=== PATIENT | female | born 1975 | race Caucasian/White ===

== ENCOUNTER 2020-01-06 00:09 | Outpatient (CLI) | payer OTHER, BC, SELFPAY ==
[2020-01-06 18:39] LABS: SARS-CoV-2 RNA PCR Negative
== END 2020-01-06 00:10 | disposition home or self-care (01) ==
LOC: ANHCOVIDDT 00:10
PROVIDERS: PCP Family Medicine; Visit Provider Surgery
DX: Z01.812 Encounter for preprocedural laboratory examination (principal); Z20.828 Contact with and (suspected) exposure to other viral communicable diseases
CPT/HCPCS: 87635; C9803; U0003

== ENCOUNTER 2020-01-08 00:38 | Day surgery (SDC) | payer OTHER, BC, SELFPAY ==
[2019-10-22 13:59] VITALS: BMI 32.5
--- NOTE | 2020-01-06 11:30 | PM.SD ---
Same Day Admit/Disch: HPI History of Present Illness Chief complaint: Recurrent Incisional Hernia Narrative: Harriet Meade is a 44 year old female who presents with left lower quadrant pain that radiates to her back. She has a history of a trocar site hernia in the left lower quadrant which was repaired open with underlying mesh 3 years ago in 2016. She went to the emergency room the day after 2018 for this left lower quadrant pain that radiated to her back. A CT scan of the abdomen pelvis was negative. She was seen in the office in August and noted to have tenderness in the left lower quadrant in the vicinity of her previous repair. No definite hernia was able to be palpated. The patient was sent for a dynamic left lower quadrant soft tissue ultrasound. This showed a recurrent left lower quadrant hernia. The patient has had several previous laparoscopic surgeries including a laparoscopic tubal ligation in 2005, a laparoscopic left oophorectomy in 2012 and a laparoscopic appendectomy in 2014. She has a disabled child at home and does have to do a lot of lifting providing care for her child. She is taken to surgery now for laparoscopic repair of this recurrent left lower quadrant hernia. [facility] Past Medical History Medical History (Updated 01/08/20 @ 08:25 by Favian Hightower MD) Anxiety Depression Dyslipidemia Major depressive disorder, single episode, unspecified Obesity Ovarian torsion 2013 Palpitations 2011 Surgical History Surgical History H/O laparoscopy 05-06-2006 H/O: hysterectomy Vaginal 2007 History of appendectomy 2015 History of bilateral tubal ligation 2005 History of loop electrical excision procedure (LEEP) 2009 Family History Family History Sibling Depression Family history of gastrointestinal disorder Family history of elevated blood lipids Father Hypertension Family history of elevated blood lipids Family history of cardiovascular disease Acute myocardial infarction, Onset Age: 40 Malignant neoplasm of prostate, Onset Age: 55 Family history of kidney stones Grandparent Family history of cardiovascular disease Family history of coronary artery disease Mother Family history of malignant neoplasm of breast in first degree relative, Onset Age: 50 Other Family history of malignant neoplasm of breast Social History Social History Smoking status: Never smoker Alcohol intake: never Substance use: never Gender identity (if verbalized by the patient): Female Spiritual care concerns: No Same Day Admit/Disch: Med Pre-admit Medications Home Medications Medication Instructions Recorded Confirmed Type quetiapine 25 mg tablet 25 mg PO QPM 06/09/19 01/08/20 History venlafaxine 150 mg 150 mg PO DAILY 06/09/19 10/22/19 History capsule,extended release 24 hr Amitiza 24 mcg PO BID 10/22/19 10/22/19 History diclofenac sodium 75 mg See Rx Instructions .ROUTE 01/06/20 01/08/20 Rx tablet,delayed release .COMPLEX #180 tablet ibuprofen 800 mg PO Q8H PRN #30 tablet 01/10/20 Rx oxycodone-acetaminophen [Percocet] 1 - 2 tablet PO Q4H PRN #30 tablet 01/10/20 Rx Exam Const: General: comfortable, no acute distress, alert and awake HENMT: Head: normocephalic and atraumatic Mouth: Yes Normal oral and palatal mucosa present Eyes: Conjunctivae: conjunctivae normal Pupils: Equal, round and reactive pupils present EOM: EOMs intact bilaterally Neck: Neck: normal visual inspection, no lymphadenopathy and nontender Resp: Effort & Inspection: normal respiratory effort Auscultation: clear to auscultation bilaterally Cardio: Rate: regular rate Rhythm: regular rhythm Heart sounds: no gallops, no murmurs and no rubs GI: Inspection: non-distended and scar (Left lower quadrant) GI Palp: Yes Soft to
[2020-01-08] VITALS (15 sets, daily range): BP systolic 97–114; BP diastolic 45–85; PULSE 80–109; RESP 16–18; TEMP 36.4–37.3; O2SAT 87–100
--- NOTE | 2020-01-08 08:24 | WPDANESEPPF ---
Anes - Initial Pre Proc Eval Procedure: Operation Date: 01/08/20 13:00 Proposed Procedures p Laparoscopic Repair Of Recurrent Incisional Hernia - Matteo Padgett MD Date/Time: 01/08/20 08:24 Surgeon: Matteo Padgett MD Pre Op Diagnosis: Recurrent Incisional Hernia Patient Data Age: 44 Gender: F Height: 1.52 m Weight: 75.57 kg Allergies Allergy/AdvReac Type Severity Reaction Status Date / Time codeine Allergy Severe SEIZURE, Verified 12/26/19 13:51 VOMITING meperidine Allergy Severe Nausea and Verified 12/26/19 13:51 Vomiting--syncope hydrocodone Allergy Intermediate rash, Verified 12/26/19 13:51 itching, hives Home Medications Medication Instructions Recorded Confirmed Type quetiapine 25 mg tablet 25 mg PO QPM 06/09/19 01/08/20 History venlafaxine 150 mg 150 mg PO DAILY 06/09/19 10/22/19 History capsule,extended release 24 hr lubiprostone [Amitiza] 24 mcg PO BID 10/22/19 10/22/19 History diclofenac sodium 75 mg See Rx Instructions .ROUTE 01/06/20 01/08/20 Rx tablet,delayed release .COMPLEX #180 tablet Patient hx anesthesia problems: none Family hx anesthesia problems: none PMFSH Past Medical History Medical History (Updated 01/08/20 @ 08:25 by Favian Hightower MD) Anxiety Depression Dyslipidemia Major depressive disorder, single episode, unspecified Obesity Ovarian torsion 2013 Palpitations 2012 Surgical History Surgical History H/O laparoscopy 05-06-2006 H/O: hysterectomy Vaginal 2006 History of appendectomy 2015 History of bilateral tubal ligation 2006 History of loop electrical excision procedure (LEEP) 2010 Family History Family History Sibling Depression Family history of gastrointestinal disorder Family history of elevated blood lipids Father Hypertension Family history of elevated blood lipids Family history of cardiovascular disease Acute myocardial infarction, Onset Age: 40 Malignant neoplasm of prostate, Onset Age: 55 Family history of kidney stones Grandparent Family history of cardiovascular disease Family history of coronary artery disease Mother Family history of malignant neoplasm of breast in first degree relative, Onset Age: 50 Other Family history of malignant neoplasm of breast Social History Social History Smoking status: Never smoker Alcohol intake: never Anes - Eval Final PreProcedure Day of Procedure 01/08/20 08:24 Patient weight: obese Heart: regular rate and rhythm Lungs: clear to auscultation and normal air movement Airway: Mallampati scale class II Neurological: alert and oriented Last oral intake: >/= 8 hours ASA classification: II Emergent: no Anesthetic plan: proceed Anesthesia type and monitoring: general ETT Informed Consent: The patient's anesthetic plan and its attendant risks and benefits were discussed with the patient/family/POA. Questions were solicited and answers provided to the satisfaction of the patient/family/POA.
--- NOTE | 2020-01-08 10:30 | WPDHPUPDATE1 ---
History and Physical Update Update Date/Time: 01/08/20 10:30 History and Physical has been reviewed, including an updated exam of the patient. There are NO changes in the patient's condition. Risks, benefits, and alternatives have been discussed and questions answered. Patient agrees to proceed with procedure.
[2020-01-08] MEDS: LACTATED RINGERS 1,000 ML 30 ML IV CONT ×3 (11:40→16:14)
[2020-01-08] MEDS: ceFAZolin 2 GM/D5W 50 ML 2 GM/50 ML BAG IVPB (13:14)
[2020-01-08] MEDS: BUPIVACAINE/EPINEPHRINE 0.5% 30 ML VIAL 60 ML INFILTRATE (14:03)
[2020-01-08] MEDS: KETOROLAC 30 MG/ML VIAL (*BKC) IV PUSH (15:00)
--- NOTE | 2020-01-08 15:02 | PM.PROC ---
Procedure Note - Detailed Date of procedure: 01/08/20 Pre-op diagnosis: Recurrent Incisional Hernia Recurrent incisional hernia left lower quadrant Post-op diagnosis: same Procedure performed: Laparoscopic repair recurrent incisional hernia with 20 x 15 cm Symbotex mesh Description of procedure: The patient was checked and marked in the preoperative holding area. The areas of the hernia were marked both standing and supine. She was then taken to surgery and induced into general anesthesia. Kumar catheter was placed. The entire abdomen was prepped and draped. The initial trocar was placed in the left upper quadrant. This was an applied Medical optical trocar placed under direct visualization. After adequate insufflation, 2 5 mm trocars were placed in the right side of the abdomen and a 10 11 trocar was placed in the right lower quadrant. We worked from the patient's right side. Initially, looking at the left lower quadrant, there were adhesions to the old mesh repair. These were omental adhesions and were taken down sharply. Almost no cautery was used and there was minimal bleeding. Once these were taken down, it was not apparent where the hernia was located. I judged that it was probably under the mesh as the caudal lip of the mesh was fairly loose. I started dissecting the old mesh from the anterior abdominal wall. I still did not see a hernia. Eventually, I went ahead and took off all the old mesh. Some of the posterior fascia came off with the mesh but most of the fascia was left in place. This mesh was extricated from the abdominal cavity through the 10 11 trocar. The previous left lower quadrant hernia was evident under the mesh. Looking more carefully there was a 2nd trocar site incisional hernia that was below (caudal to) the previously placed abdominal wall mesh. This was a very small opening but it did have some fatty tissue within it suggesting a hernia that had contained omentum. There were no other hernias in this area. The 2 hernia defects were about 5 cm apart. I chose a 15 x 20 cm piece of Symbotex mesh. Three Ribera-Pal transfascial sutures were placed on the mesh. The mesh was rolled and placed in the abdomen. It had been hydrated prior to placement. I then unrolled the mesh and positioned the transfascial sutures appropriately. Using stab incisions on the left lower quadrant, I brought up each of the transfascial sutures with the Adioso suture pass device. I checked these positions and they looked to be acceptable. The mesh would lay flat in the left lower quadrant following the curve of the lower abdominal wall there. I tied down all 3 of these transfascial sutures. I then pulled the mesh flat so that it was positioned over the area of the hernias in its general location to be placed. I then used the secure strap device and placed tacks to secure the mesh in this position. The secure strap absorbable tacks were placed throughout the mesh so that it would lie flat and adhere to the abdominal wall. All looked good. I used 1 more Ribera-Pal suture as a transfascial suture over the medial edge of the mesh. This was tied down as well so a total of 4 transfascial sutures were placed. We again reviewed the area that had been repaired. Both small defects were well covered with at least 5 cm overlap. I then closed the 10 11 trocar site at the fascial level with an 0 Vicryl suture and the Duglas cone. We evacuated CO2 and removed the trocar sleeves. Skin wounds were closed with subcuticular 4 O Monocryl skin suture. Exofin surgical adhesive was used to dress the wounds and dress the transfascial suture sites. The patient was awakened and taken to recovery in good condition. Sponge and needle counts were correct x2 the only specimen sent was the old mesh for gross only. Implants: 15 cm x 20 cm Symbotex abdominal wall mesh Anesthesia: GETA and local (0.5% Marcaine with epinephrine) Surgeon: Matteo Padgett MD Metabolic Specialist: Lianna Mena RN
--- NOTE | 2020-01-08 15:46 | SUR.PHASEI ---
1541; PT BA. C/O PAIN 05/15. DR LAGUERRE NOTIFIED. ORDERS FOR DILAUDID AND CONTINUE TO GIVE FENTANYL ALSO.
[2020-01-08] MEDS: HYDROMORPHONE HCL 1 MG/ML INJ 0.5 MG IV PUSH ×4 (15:47→16:04)
--- NOTE | 2020-01-08 16:01 | SUR.PHASEI ---
1600; PT RESTING QUIETLY NOW. STILL STATES PAIN 05/15. NO LONGER MOANING.
--- NOTE | 2020-01-08 16:37 | SUR.PHASEI ---
1630; PT RESTING QUIETLY. STATES PAIN BETTER NOW AND TOLERABLE. SPOUSE UPDATED.
--- NOTE | 2020-01-08 17:43 | PC.NURSE ---
Returned from OR per [ STRETCHER ABDOMEN SOFT WITH DISTENTION HYPOACTIVE BS NOTED PUNCTURES SITES CLEAN, DENIES THE NEED FOR ]PAIN MEDS
[2020-01-08] MEDS: QUEtiapine FUMARATE 25 MG TABLET PO (18:38)
[2020-01-08] MEDS: MORPHINE SULFATE 4 MG/ML INJ IV PUSH ×2 (18:39→22:53)
[2020-01-08] MEDS: LUBIPROSTONE 24 MCG CAPSULE PO (18:51)
[2020-01-08] MEDS: IBUPROFEN IV 800 MG/200 ML 800 MG/200 ML BAG 400 MG IVPB (18:52)
[2020-01-08] MEDS: DICLOFENAC SOD 75 MG TABLET.EC PO (20:35)
[2020-01-08] MEDS: SENNA/DOCUSATE SODIUM TABLET 2 TAB PO (20:36)
[2020-01-09] MEDS: IBUPROFEN IV 800 MG/200 ML 800 MG/200 ML BAG 400 MG IVPB ×4 (00:37→17:46)
[2020-01-09 05:54] LABS: Hematocrit 37.1 % (37.0-47.0); Hemoglobin 12.3 g/dL (12.0-15.0); Mean Corpuscular HGB Conc 33.2 g/dl (32-36); Mean Corpuscular Hemoglobin 31.1 pg (26-34); Mean Corpuscular Volume 93.7 fl (80-100); Mean Platelet Volume 9.7 fl (7.4-10.4); Platelet Count Result 302 k/mm3 (150-375); Red Blood Count 3.96 M/mm3 (4.2-5.4); Red Cell Distribution Width 12.8 % (11.5-14.5); White Blood Count 11.6 K/mm3 (4.5-10.0)
[2020-01-09 06:08] LABS: Blood Urea Nitrogen 10 mg/dL (7-17); Calcium 8.4 mg/dL (8.4-10.2); Carbon Dioxide 30 mmol/L (22-30); Chloride 102 mmol/L (98-107); Estimated CRCL calculation 71 ml/min; Estimated Glomerular Filt Rate > 60; Glucose 91 mg/dL (65-105); Potassium 4.1 mmol/L (3.4-5.0); Sodium 135 mmol/L (137-145)
[2020-01-09 07:40] VITALS: BP 112/59; PULSE 76; RESP 18; TEMP 36.8; O2SAT 98
[2020-01-09 08:18] VITALS: O2SAT 92
[2020-01-09] MEDS: LUBIPROSTONE 24 MCG CAPSULE PO ×2 (08:38→17:46)
[2020-01-09] MEDS: DICLOFENAC SOD 75 MG TABLET.EC PO (08:39)
[2020-01-09] MEDS: polyethylene glycoL 3350 17 GM POWD.PACK PO (08:39)
[2020-01-09] MEDS: VENLAFAXINE HCL XR 75 MG CAP.ER.24H 150 MG PO (08:39)
[2020-01-09] MEDS: ENOXAPARIN 40 MG/0.4 ML SYRINGE SUB-Q (08:39)
[2020-01-09] MEDS: MORPHINE SULFATE 4 MG/ML INJ IV PUSH ×2 (09:14→17:45)
--- NOTE | 2020-01-09 13:01 | PM.PNGS ---
Progress Note: A&P Assessment and Plan (1) Recurrent incisional hernia: Code(s): K43.2 - Incisional hernia without obstruction or gangrene Status: Chronic Assessment and Plan: Doing well status post laparoscopic repair yesterday. Not surprisingly she is having significant postoperative pain. She developed itching after some hydrocodone and that is now been listed as an allergy. She will be changed to Percocet with morphine sulfate as a backup. She continues to receive a scheduled dose of IV Caldolor q.6 hours. Will advance her diet and try to get her up and do some walking today. Possibly home tomorrow but it could be 2 or 3 more days depending on how quickly her pain improves. Subjective Subjective Date/Time Seen: 01/09/20 13:01 Post Op day: 1 Patient reports: still having pain (Pain is pretty severe. Requests Percocet), tolerating liquids well, voiding w/o difficulty and no bowel movement Review of Systems Review of Systems: All systems reviewed & are unremarkable except as noted in HPI and below Constitutional: Constitutional: Denies headache(s) Cardiovascular: Cardiovascular: Denies chest pain and Denies dyspnea Respiratory: Respiratory: Denies cough and Denies dyspnea Gastrointestinal: Gastrointestinal: Reports as per HPI Neurologic: Denies confusion and Denies headache(s) Exam Const: General: comfortable and no acute distress; No confusion Orientation/consciousness: patient oriented x3 and No confusion GI: Inspection: non-distended, incision (All incisions healing well) and no obesity GI Palp: Yes Soft to palpation, Yes Tenderness to palpation present (GI) (Very tender throughout especially left lower quadrant where mesh was placed), Yes Guarding due to palpation present (GI), No Hernia present, No Palpable mass present and Yes Rebound tenderness present Auscultation: normal bowel sounds Neuro: General: patient oriented x3, no focal motor deficits and No confusion Extrem: General: no calf tenderness and no edema Psych: Affect: normal affect Insight: Good insight present (Psych) Judgement: Good judgement present (Psych) Objective Data Vital Signs Vital Signs: Vital Signs - 24 hr 01/08/20 15:15 01/08/20 15:33 01/08/20 15:45 Temperature 36.4 C 36.6 C Pulse Rate 98 104 H 90 Respiratory Rate 16 18 18 Blood Pressure 100/85 112/79 113/64 Pulse Oximetry 99 100 98 01/08/20 16:00 01/08/20 16:15 01/08/20 16:30 Temperature 36.6 C Pulse Rate 92 95 96 Respiratory Rate 18 16 18 Blood Pressure 104/64 110/71 111/68 Pulse Oximetry 97 95 95 01/08/20 16:45 01/08/20 17:00 01/08/20 17:30 Temperature 36.7 C Pulse Rate 104 H 106 H 109 H Respiratory Rate 16 16 16 Blood Pressure 103/63 107/67 112/59 L Pulse Oximetry 96 96 95 01/08/20 17:41 01/08/20 17:45 01/08/20 18:15 Temperature Pulse Rate 106 H 87 80 Respiratory Rate 16 16 18 Blood Pressure 108/51 L 105/50 L Pulse Oximetry 96 96 97 01/08/20 19:15 01/08/20 22:37 01/09/20 07:40 Temperature 36.7 C 36.8 C 36.8 C Pulse Rate 99 93 76 Respiratory Rate 16 16 18 Blood Pressure 97/45 L 107/68 112/59 L Pulse Oximetry 96 87 L 98 01/09/20 08:18 Temperature Pulse Rate Respiratory Rate Blood Pressure Pulse Oximetry 92 Intake/Output Intake/Output: Intake & Output 01/06/20 01/07/20 01/08/20 01/09/20 23:59 23:59 23:59 23:59 Intake Total 1250 1120 Output Total 1300 Balance 1250 -180 Meds/Results Medications: Active Medications Generic Name Dose Route Start Last Admin Trade Name Freq PRN Reason Stop Dose Admin Diclofenac Sodium 75 mg 01/08/20 21:00 01/09/20 08:39 Voltaren Ec Tab PO 75 mg Q12HR JAMIL Administration Diphenhydramine HCl 25 mg 01/08/20 17:17 Benadryl Inj IV PUSH Q6H PRN Itching Enoxaparin Sodium 40 mg 01/09/20 09:00 01/09/20 08:39 Lovenox SUB-Q 40 mg DAILY JAMIL Administration Ibuprofen 800 mg in 200 mls @ 400 mls/hr 01/08/20 18:00
[2020-01-09 14:00] VITALS: BP 101/56; PULSE 97; RESP 16; TEMP 36.6; O2SAT 91
[2020-01-09] MEDS: QUEtiapine FUMARATE 25 MG TABLET PO (17:47)
[2020-01-09 18:00] VITALS: BP 102/61; PULSE 91; RESP 16; TEMP 36.7; O2SAT 93
[2020-01-09] MEDS: SENNA/DOCUSATE SODIUM TABLET 2 TAB PO (20:25)
[2020-01-09 22:08] VITALS: BP 98/55; PULSE 100; RESP 16; TEMP 36.6; O2SAT 93
[2020-01-10] MEDS: IBUPROFEN IV 800 MG/200 ML 800 MG/200 ML BAG 400 MG IVPB ×3 (00:15→11:44)
[2020-01-10 06:14] LABS: Hematocrit 34.2 % (37.0-47.0); Hemoglobin 11.2 g/dL (12.0-15.0); Mean Corpuscular HGB Conc 32.7 g/dl (32-36); Mean Corpuscular Volume 94.7 fl (80-100); Mean Platelet Volume 9.6 fl (7.4-10.4); Platelet Count Result 270 k/mm3 (150-375); Red Blood Count 3.61 M/mm3 (4.2-5.4); Red Cell Distribution Width 13.2 % (11.5-14.5); White Blood Count 8.5 K/mm3 (4.5-10.0)
[2020-01-10 06:20] VITALS: BP 106/68; PULSE 88; RESP 16; TEMP 36.9; O2SAT 91
[2020-01-10 06:30] LABS: Blood Urea Nitrogen 10 mg/dL (7-17); Calcium 7.6 mg/dL (8.4-10.2); Carbon Dioxide 28 mmol/L (22-30); Chloride 103 mmol/L (98-107); Estimated CRCL calculation 81 ml/min; Estimated Glomerular Filt Rate > 60; Glucose 80 mg/dL (65-105); Potassium 3.3 mmol/L (3.4-5.0); Sodium 134 mmol/L (137-145)
--- NOTE | 2020-01-10 08:20 | PC.NURSE ---
Encouraged pt to use IS and walking in halls.
[2020-01-10] MEDS: VENLAFAXINE HCL XR 75 MG CAP.ER.24H 150 MG PO (08:22)
[2020-01-10] MEDS: ENOXAPARIN 40 MG/0.4 ML SYRINGE SUB-Q (08:22)
[2020-01-10] MEDS: LUBIPROSTONE 24 MCG CAPSULE PO (08:22)
[2020-01-10] MEDS: polyethylene glycoL 3350 17 GM POWD.PACK PO (08:30)
--- NOTE | 2020-01-10 13:17 | PM.DS ---
DS: Admitting Diagnosis Admitting Diagnosis Admitting Diagnosis: Recurrent incisional hernia DS: Discharge Diagnosis Discharge Diagnosis (1) Recurrent incisional hernia: Code(s): K43.2 - Incisional hernia without obstruction or gangrene Status: Chronic Assessment and Plan: Pain control improved. Tolerating diet. DS: Summary Hospital Course Reason for hospitalization: Recurrent incisional hernia Hospital Course: This is a 44-year-old woman presented for repair of recurrent incisional hernia. She underwent laparoscopic repair of recurrent incisional hernia with mesh on 01/08/[address] Padgett. Patient was having significant postoperative pain and was admitted for postop pain control. She was requiring IV pain medications for breakthrough pain frequently initially. She was also unable to tolerate minimal activity without significant pain. Gradually over the next 2 days her pain control improved and she was able to tolerate pain control with oral pain meds. She was able to ambulate with minimal assistance. She was tolerating her diet and passing flatus. She was discharged on postop day 2. Status at Discharge Functional status at discharge: independent ambulation Overall status at discharge: patient is progressing back to baseline Time Spent with Patient Time attestation: Total time spent providing and/or coordinating discharge services: Time spent: Less than 30 minutes Exam Const: General: no acute distress Resp: Effort & Inspection: normal respiratory effort Auscultation: clear to auscultation bilaterally Cardio: Rate: regular rate Rhythm: regular rhythm GI: Inspection: non-distended GI Palp: Yes Soft to palpation and Yes Tenderness to palpation present (GI) (Incisional and left lower quadrant) Auscultation: normal bowel sounds Psych: Mental Status: mental status grossly normal DS: Data Data Completed and Pending Completed studies during hospitalization: Pending at discharge 01/08/20 13:57 Surgical [PTH] Routine Labs on day of discharge: Labs from last 24 hours 01/10/20 01/10/20 05:55 05:55 WBC 8.5 RBC 3.61 L Hgb 11.2 L Hct 34.2 L MCV 94.7 MCH 31.0 MCHC 32.7 RDW 13.2 Plt Count 270 MPV 9.6 Sodium 134 L Potassium 3.3 L Chloride 103 Carbon Dioxide 28 BUN 10 Creatinine 0.70 Estim Creat Clear Calc 81 Estimated GFR > 60 Glucose 80 Calcium 7.6 L Discharge Plan Discharge Patient Disposition: Home, Self-Care Discharge Instructions: No lifting greater than 10 lb Ambulate 3-4 times daily May shower Take MiraLax or milk of magnesia as needed for constipation Follow-up/Referrals: Matteo Padgett MD [Physician] - Keep Reg. Scheduled Appt. Discharge Medications: New ibuprofen 800 mg tablet 800 mg PO Q8H PRN (Reason: pain) Qty: 30 RF: 0 oxycodone-acetaminophen [Percocet] 5-325 mg tablet 1 - 2 tablet PO Q4H PRN (Reason: pain) Qty: 30 RF: 0 Continued quetiapine [Seroquel] 25 mg tablet 25 mg PO QPM RF: 0 venlafaxine [Effexor XR] 150 mg capsule,extended release 24hr 150 mg PO DAILY RF: 0 Amitiza 24 mcg capsule 24 mcg PO BID RF: 0 diclofenac sodium 75 mg tablet,delayed release (DR/EC) See Rx Instructions .ROUTE .COMPLEX Qty: 180 RF: 3 Primary Care Provider: Chris Lyon Attending physician on admission: Matteo Padgett
[2020-01-10 14:00] VITALS: BP 111/74; PULSE 97; RESP 16; TEMP 36.8; O2SAT 96
== END 2020-01-10 15:35 | disposition home or self-care (01) ==
LOC: ANHSURGERY 10:51 → ANH3MEDSUR 17:31
PROVIDERS: PCP Family Medicine; Visit Provider Surgery
PROC: (CPT 49656; principal; 2020-01-08 13:00)
DX: K43.2 Incisional hernia without obstruction or gangrene (principal); E78.5 Hyperlipidemia, unspecified; F41.8 Other specified anxiety disorders; E66.9 Obesity, unspecified; Z68.31 Body mass index [BMI] 31.0-31.9, adult
CPT/HCPCS: 49656; 36415; 80048; 85027; 88300; A9270; C1781; J0131; J0690; J1100; J1170; J1650; J1741; J1885; J2250; J2270; J2405; J2704; J2710; J3010; J7120

== ENCOUNTER → 2020-02-25 10:36 | Outpatient (CLI) | payer OTHER, BC, SELFPAY ==
--- NOTE | ~2020-02-25 | CT_ITS ---
EXAMINATION: CT abdomen pelvis wo con DATE: 02/25/2020 10:55 INDICATION: Recurrent incisional hernia. Left abdominal pain, left lower quadrant abdominal pain. History of appendectomy, hysterectomy. TECHNIQUE: Computed tomography (CT) of the abdomen and pelvis was performed without intravenous contr ast. Automated exposure control and iterative reconstruction technique were employed. Exam dose: 719 .36 mGy-cm total exam DLP. COMPARISON: 07/31/2019 CT abdomen pelvis FINDINGS: The lung bases are clear of infiltrate or consolidation. Normal heart size. No pericardial or pleural effusion. No hepatic, splenic, pancreatic, adrenal or renal space occupying mass lesion is detected. The gallb ladder is present. No bile duct or pancreatic duct dilatation. 3.7 x 4.8 x 6.7 mm lower pole right renal calculus. Approximately 2 mm right lower pole renal calculus. Approximately 4 mm right lower pole renal calculus. No ureteral calculus or hydroureteronephrosis. Retroverted uterus. Normal caliber of the abdominal aorta. No intraperitoneal or retroperitoneal or pelvic mass lesion or adenopathy or ascites. There is focal thickening of the lateroconal fascia in the left lower quadrant adjacent to the descen ding colon with some pericolic fat stranding. This may represent a focal area of mild diverticulitis or possibly epiploic appendagitis or focal colitis. Very limited diverticulosis is noted, one diverti culum identified in the hepatic flexure area. No abscess or intraperitoneal free air is noted. Included skeletal structures are unremarkable. IMPRESSION: Focal pericolic stranding and fascial thickening adjacent to the distal descending colon ; consider focal diverticulitis, epiploic appendagitis, colitis Minimal diverticulosis of the colon Nonobstructive right nephrolithiasis Retroverted uterus Reviewed, dictated and finalized at [facility]. Reviewed, dictated and finalized at location [facility]. IMPRESSION: Focal pericolic stranding and fascial thickening adjacent to the d istal descending colon; consider focal diverticulitis, epiploic appendagitis, c olitis Minimal diverticulosis of the colon Nonobstructive right nephrolithiasis Retroverted uterus
== END ==
PROVIDERS: PCP Family Medicine; Visit Provider Nurse Practitioner Family
DX: K43.2 Incisional hernia without obstruction or gangrene (principal); N20.0 Calculus of kidney; K57.30 Diverticulosis of large intestine without perforation or abscess without bleeding
CPT/HCPCS: 74176

== ENCOUNTER → 2021-08-04 11:09 | Outpatient (CLI) | payer OTHER, SELFPAY ==
--- NOTE | ~2021-08-04 | US_ITS ---
EXAMINATION: US thyroid EXAM DATE: 08/04/2021 11:29 INDICATION: Nontoxic goiter, unspecified . TECHNIQUE: Multiple grayscale and Doppler images of the thyroid were obtained (by a technologist who performed the scan) and subsequently reviewed. Individual nodules and recommendations may be reporte d in accordance with TI-RADS system as designated by the 2017 ACR White Paper TI-RADS committee. The re is no prior study for comparison. FINDINGS: The right there are lobe measures 2.9 x 1.1 x 1.1 cm, the left measuring 2.9 x 1.1 x 1.1 cm. Mildly d iffusely heterogeneous thyroid echogenicity. Dimensions are within normal size less. No focal nodule identified. IMPRESSION: 1. Unremarkable thyroid ultrasound exam. Reviewed, dictated and finalized at location [facility]. 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
== END ==
PROVIDERS: PCP Family Medicine; Visit Provider Internal Medicine Endocrinology, Diabetes & Metabolism
DX: E04.9 Nontoxic goiter, unspecified (principal)
CPT/HCPCS: 76536

== ENCOUNTER 2022-04-18 18:00 | Outpatient (CLI) | payer OTHER, SELFPAY ==
--- NOTE | ~2022-04-18 | CT_ITS ---
EXAMINATION: CT sinus wo con DATE: 04/18/2022 18:22 INDICATION: Chronic sinusitis. Deviated nasal septum. Headache. TECHNIQUE: Computed tomography (CT) of the paranasal sinuses was performed without intravenous contra st. Iterative reconstruction technique was employed. The dose-length product was 329.05 mGy-cm. COMPARISON: Head CT 01/18/2007 FINDINGS: The frontal, ethmoid, sphenoid, and maxillary sinuses are clear. There is rightward deviati on of the nasal septum. The ostiomeatal units are patent. There are bilateral Josefa cells. IMPRESSION: 1. Rightward deviation of the nasal septum. Reviewed, dictated and finalized at location [facility].
== END 2022-04-18 18:01 | disposition home or self-care (01) ==
PROVIDERS: PCP Physician Assistant; Visit Provider Otolaryngology
DX: J34.2 Deviated nasal septum (principal); G43.909 Migraine, unspecified, not intractable, without status migrainosus; R44.8 Other symptoms and signs involving general sensations and perceptions; J32.9 Chronic sinusitis, unspecified
CPT/HCPCS: 70486

== ENCOUNTER → 2022-05-25 12:45 | Outpatient (CLI) | payer OTHER, SELFPAY ==
--- NOTE | ~2022-05-25 | CT_ITS ---
EXAMINATION: CTA brain carotid DATE: 05/25/2022 13:30 INDICATION: Migraine headache. TECHNIQUE: Computed tomographic angiography (CTA) of the head was performed without and with 100 mL O mnipaque-350 intravenous contrast. CTA of the neck was performed with intravenous contrast. Automated exposure control and iterative reconstruction technique were employed. The dose-length product was 1 496.84 mGy-cm. Maximum intensity projection and volume rendered 3D-reconstructions were created by candy benitez technologist on a separate workstation. COMPARISON: Head CT 01/18/2017, brain MRI 11/21/2018 FINDINGS: HEAD CTA: There is no intracranial hemorrhage, acute infarction, or abnormal intracranial mass lesion . The ventricles are normal in size. The orbits are normal. The paranasal sinuses are clear. The mast oid air cells are normal. The vertebral arteries are codominant. There is no significant stenosis of basilar artery or the posterior cerebral arteries. There is no significant stenosis of the intracrani al internal carotid arteries or anterior or middle cerebral arteries. Anterior communicating artery i s normal. The posterior communicating arteries are normal. There is no aneurysm. NECK CTA: There are no pathologically enlarged lymph nodes. There is no significant stenosis of the v ertebral arteries. There is no visible plaque in the proximal internal carotid arteries. There is 0% stenosis of the proximal right internal carotid artery relative to normal distal artery lumen diamete r (NASCET criteria). There is 0% stenosis of the proximal left internal carotid artery relative to no rmal distal artery lumen diameter. There is mild cervical spondylosis. There is mild chronic anterior wedging of C7 vertebral body. C1 ring is ununited anteriorly and posteriorly. IMPRESSION: 1. Normal brain. No aneurysm or significant intracranial arterial stenosis. 2. 0% stenosis of the proximal internal carotid arteries relative to normal distal artery lumen diame ters (NASCET criteria). Reviewed, dictated and finalized at location A. IMPRESSION: 1. Normal brain. No aneurysm or significant intracranial arterial stenosis. 2. 0% stenosis of the proximal internal carotid arteries relative to normal dis malcolm artery lumen diameters (NASCET criteria).
== END ==
PROVIDERS: PCP Physician Assistant; Visit Provider Psychiatry & Neurology Neurology
DX: G43.909 Migraine, unspecified, not intractable, without status migrainosus (principal)
CPT/HCPCS: 70496; 70498; Q9967

== ENCOUNTER → 2022-06-16 08:41 | Outpatient (CLI) | payer OTHER, SELFPAY ==
--- NOTE | ~2022-06-16 | MR_ITS ---
EXAMINATION: MR brain/brain stem wo con DATE: 06/16/2022 09:13 INDICATION: Migraine headache. TECHNIQUE: Magnetic resonance imaging (MRI) of the brain and brainstem was performed without intraven ous contrast. COMPARISON: Brain MRI 11/21/2018 FINDINGS: There are 2 punctate foci of increased T2-weighted weighted signal intensity in the cerebra l white matter, which is normal for the patient's age. There is no intracranial hemorrhage, acute inf arction, or abnormal intracranial mass lesion. The ventricles are normal in size. The orbits are norm al. The mastoid air cells are normal. The paranasal sinuses are clear. . IMPRESSION: 1. Normal brain. Reviewed, dictated and finalized at location A. SERVICES DEVELOPER IMPRESSION: 1. Normal brain.
== END ==
PROVIDERS: PCP Physician Assistant; Visit Provider Psychiatry & Neurology Neurology
DX: G43.909 Migraine, unspecified, not intractable, without status migrainosus (principal)
CPT/HCPCS: 70551

== ENCOUNTER 2022-11-17 08:08 | Outpatient (CLI) | payer OTHER, SELFPAY ==
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
[2022-12-13 13:37] VITALS: BMI 32.2
== END 2022-11-18 06:23 | disposition home or self-care (01) ==
LOC: ANHCSM 08:09
PROVIDERS: PCP Physician Assistant; Visit Provider Nurse Practitioner Family
DX: G47.33 Obstructive sleep apnea (adult) (pediatric) (principal); G47.00 Insomnia, unspecified; G47.61 Periodic limb movement disorder; G25.81 Restless legs syndrome; E78.5 Hyperlipidemia, unspecified
CPT/HCPCS: 95810

== ENCOUNTER → 2022-12-28 12:09 | Outpatient (CLI) | payer OTHER, SELFPAY ==
--- NOTE | ~2022-12-28 | MM_ITS ---
EXAMINATION: MM screening ollie BI w malia HISTORY: Screening mammogram, family history of breast cancer in her mother. TECHNIQUE: Craniocaudal and mediolateral oblique 3-D tomosynthesis images were obtained and synthetic 2-D images were generated. CAD analysis was submitted and interpreted. COMPARISON: 03/18/2009 BREAST PARENCHYMAL COMPOSITION: The breasts are heterogeneously dense, which may obscure small masses . FINDINGS: No suspicious mass, calcification, or architectural distortion are identified in either sedrick ast to suggest malignancy. There has been no suspicious interval change. IMPRESSION: 1. No mammographic evidence of malignancy. 2. Recommend routine screening mammography in one year. BI-RADS Category 1: Negative Reviewed, dictated and finalized at location A.
== END ==
PROVIDERS: PCP Obstetrics & Gynecology; Visit Provider Obstetrics & Gynecology
DX: Z12.31 Encounter for screening mammogram for malignant neoplasm of breast (principal)
CPT/HCPCS: 77063; 77067

== ENCOUNTER 2024-03-05 14:45 | Emergency (ER) | payer OTHER, SELFPAY ==
[2024-03-05] VITALS (11 sets, daily range): BP systolic 117–134; BP diastolic 76–92; PULSE 84–115; RESP 13–20; TEMP 36.5–36.6; O2SAT 96–100
[2024-03-05] MEDS: dexAMETHasone SOD PHOS INJ 10 MG/ML 1 ML VIAL PO (16:58)
[2024-03-05] MEDS: FAMOTIDINE 20 MG TABLET 40 MG PO (16:59)
[2024-03-05] MEDS: diphenhydrAMINE HCl CAP 25 MG CAPSULE 50 MG PO (16:59)
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
== END 2024-03-05 18:16 | disposition home or self-care (01) ==
PROVIDERS: Emergency Provider Emergency Medicine; PCP Obstetrics & Gynecology
DX: T78.40XA Allergy, unspecified, initial encounter (principal); E78.5 Hyperlipidemia, unspecified; E66.9 Obesity, unspecified; Z68.33 Body mass index [BMI] 33.0-33.9, adult; R73.03 Prediabetes; Z90.711 Acquired absence of uterus with remaining cervical stump; X58.XXXA Exposure to other specified factors, initial encounter
CPT/HCPCS: 99283; A9270; J1100

== ENCOUNTER 2024-06-26 11:27 | Outpatient (CLI) | payer OTHER, SELFPAY ==
--- NOTE | ~2024-06-26 | MM_ITS ---
EXAMINATION: MM screening ollie BI w malia HISTORY: Screening mammogram, family history of breast cancer in her mother. TECHNIQUE: Craniocaudal and mediolateral oblique 3-D tomosynthesis images were obtained and synthetic 2-D images were generated. CAD analysis was submitted and interpreted. COMPARISON: 12/28/2022 BREAST PARENCHYMAL COMPOSITION:Not Dense. There are scattered areas of fibroglandular density. FINDINGS: No suspicious mass, calcification, or architectural distortion are identified in either sedrick ast to suggest malignancy. There has been no suspicious interval change. IMPRESSION: No mammographic evidence of malignancy. Recommend routine screening mammography in one year. BI-RADS Category 1: Negative Reviewed, dictated and finalized at location . NNA ENGINEER
== END 2024-06-26 11:28 | disposition home or self-care (01) ==
LOC: MICIMG 11:27
PROVIDERS: PCP Obstetrics & Gynecology; Visit Provider Obstetrics & Gynecology
DX: Z12.31 Encounter for screening mammogram for malignant neoplasm of breast (principal)
CPT/HCPCS: 77063; 77067

== ENCOUNTER 2024-08-04 01:11 | Observation (INO) | payer OTHER, SELFPAY ==
[2024-08-04] VITALS (7 sets, daily range): BP systolic 109–141; BP diastolic 69–87; PULSE 83–100; RESP 15–18; TEMP 35.7–36.6; O2SAT 94–100; BMI 33.9
--- NOTE | ~2024-08-04 | XR_ITS ---
EXAM: XR abdomen/kub 1V DATE: 08/06/2024 12:25 HISTORY: assess stone . COMPARISON: CT abdomen pelvis 08/04/2024. FINDINGS: Clear lung bases. Normal bowel gas pattern. No organomegaly. Multiple right lower pole amari cifications measuring up to 9 mm. Pelvic phleboliths. Regional bones and soft tissues normal for age. IMPRESSION: Stable right nephrolithiasis. Reviewed, dictated and finalized at location [facility]
--- NOTE | ~2024-08-04 | CT_ITS ---
CT of the Abdomen and Pelvis: Indication: Abdominal pain Technique: 2.5 mm axial scans were obtained through the abdomen and pelvis following intravenous adm inistration of 100 cc of Omnipaque 350. Dose reduction technique was used on this scan by utilizing a utomated exposure control and iterative reconstruction technique. The dose-length product (DLP) was 5 74.77 mGy-cm. Findings: Scans through the lung bases are unremarkable. The liver, spleen, pancreas, gallbladder, adrenals and left kidney are within normal limits. Nonobstr ucting right lower pole renal stones measuring up to 7 mm. No evidence of aortic aneurysm. No lympha denopathy. No bowel obstruction or bowel wall thickening. There is no evidence to suggest acute appendicitis. Images through the pelvis were performed. Possible urinary bladder wall thickening. No pelvic mass ev ident. No ascites. Impression: Nonobstructing right nephrolithiasis, as above. Possible cystitis. Correlate clinically and with urinalysis. Reviewed, dictated and finalized at [facility]. 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 Possible cystitis. Correlate clinically and with urinalysis.
[2024-08-04 02:19] LABS: Basophils Absolute Auto 0.1 K/mm3 (0.0-0.1); Basophils Percent Auto 0.7 % (0.2-1.2); Eosinophils Absolute Auto 0.3 K/mm3 (0-0.3); Eosinophils Percent Auto 3.1 % (0-4.4); Hematocrit 41.9 % (37.0-47.0); Hemoglobin 14.1 g/dL (12.0-15.0); Immature Granulocyte Absolute 0.05 K/mm3 (0.00-0.031); Immature Granulocyte Percent A 0.5 % (0-0.5); Lymphocytes Absolute Auto 3.29 K/mm3 (0.9-3.2); Lymphocytes Percent Auto 30.2 % (18.3-44.2); Mean Corpuscular HGB Conc 33.7 g/dl (32-36); Mean Corpuscular Hemoglobin 30.9 pg (26-34); Mean Corpuscular Volume 91.7 fl (80-100); Mean Platelet Volume 9.9 fl (7.4-10.4); Monocytes Absolute Auto 0.9 K/mm3 (0.1-0.6); Monocytes Percent Auto 7.9 % (2.6-8.5); Neutrophils Absolute Auto 6.3 K/mm3 (1.3-6.7); Neutrophils Percent Auto 57.6 % (45.5-73.1); Platelet Count Result 344 k/mm3 (150-375); Red Blood Count 4.57 M/mm3 (4.2-5.4); Red Cell Distribution Width 12.8 % (11.5-14.5); White Blood Count 10.9 K/mm3 (4.5-10.0)
[2024-08-04] MEDS: SODIUM CHLORIDE 0.9% IV 1,000 ML 999 ML IV CONT ×2 (02:22→17:20)
[2024-08-04] MEDS: ONDANSETRON INJ 4 MG/2 ML VIAL IV PUSH ×3 (02:22→09:47)
[2024-08-04] MEDS: MORPHINE SULFATE (*CRX) 4 MG/ML INJ IV PUSH ×4 (02:23→09:47)
[2024-08-04 02:33] LABS: Alanine Aminotransferase 24 U/L (6-35); Alkaline Phosphatase 90 U/L (38-126); Anion Gap 5 mmol/L (4-12); Aspartate Amino Transferase 28 U/L (14-36); Bilirubin,Total 1.1 mg/dL (0.2-1.3); Blood Urea Nitrogen 14 mg/dL (7-17); Calcium 8.7 mg/dL (8.4-10.2); Carbon Dioxide 28 mmol/L (22-30); Chloride 103 mmol/L (98-107); Estimated CRCL calculation 72 ml/min; Estimated Glomerular Filt Rate > 60; Glucose 106 mg/dL (65-110); Lipase 49 U/L (23-300); Potassium 3.9 mmol/L (3.4-5.0); Sodium 136 mmol/L (137-145)
[2024-08-04 02:53] LABS: Add Urine Microscopic? YES; Appearance Urine Cloudy (Clear); Bacteria Urine None Seen /hpf; Bilirubin Urine 1+ (Negative); Blood Urine 1+ (Negative); Color Urine Orange (Yellow); Glucose Urine UA Negative (Negative); Ketones Urine Negative (Negative); Leukocyte Esterase Ur 3+ LEU/UL (Negative); Nitrate Urine Positive (Negative); Non Pathogenic Casts 0-2; Protein Urine 1+ mg/dL (Negative); Specific Grav Ur 1.014 (1.001-1.035); Squamous Epithelial Cell Urine Occasional /hpf (Few); WBC Urine >100 /hpf (0-3); pH Urine 5.5 (5.0-9.0)
[2024-08-04 03:03] LABS: Need Manual Microscopic Reviewed
--- NOTE | 2024-08-04 03:45 | PC.NURSE ---
Patient states to nursing staff that her pain is back. Notified EDP Dr. Ariza
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
--- NOTE | 2024-08-04 05:57 | ADMGEN ---
This patient, Harriet Meade, was admitted to 3 [facility] Surg Room 313-01. Patient/family oriented to hospital policies and general routines including ID bracelet, bed and alarms, visiting hours, pain management, procedures, bathroom and other care routines, personal items, smoking policy, room service/diet, and visiting hours. Information on how to activate the Rapid Response Team has been discussed. Patient/Family are encouraged to report perceived risks to care and to ask questions if they do not understand what they are told or what they should do.
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
[2024-08-04] MEDS: DULoxetine HCL 60 MG CAPSULE.DR PO (11:42)
[2024-08-04] MEDS: estradioL 0.5 MG TABLET PO (11:48)
[2024-08-04] MEDS: INDOMETHACIN 25 MG CAPSULE PO ×2 (12:00→16:13)
--- NOTE | 2024-08-04 16:47 | ECG_ITS ---
Test Date: 2024-08-04 17:02:50 Measurements Intervals [place] Rate: 80 P: 43 IA: 133 QRS: 38 QRSD: 89 T: 34 QT: 390 QTc: 452 Interpretive Statements SINUS RHYTHM LOW QRS VOLTAGE IN PRECORDIAL LEADS [QRS DEFLECTION < 1.0 mV IN CHEST LEADS] POSSIBLE RIGHT VENTRICULAR CONDUCTION DELAY [RSR (QR) IN V1/V2] No previous ECG available for comparison Electronically Signed On 08-04-2024 17:55:18 PATHOLOGY TRANSCRIPTIONIST by Emmie Stewart M.D.
[2024-08-04] MEDS: diphenhydrAMINE HCl INJ 50 MG/ML VIAL 25 MG IV PUSH (17:19)
[2024-08-04] MEDS: KETOROLAC 30 MG/ML VIAL (*BKC) IV PUSH (17:19)
[2024-08-04] MEDS: SUMAtriptan SUCCINATE 6 MG/0.5 ML VIAL SUB-Q (17:20)
[2024-08-04] MEDS: METOCLOPRAMIDE HCL INJ 10 MG/2 ML VIAL IV PUSH (17:25)
--- NOTE | 2024-08-04 19:24 | PC.NURSE ---
On 08/04/24, the FLOORLEADER, [ Magalie Hurst], provided care and completed [facility] documentation on this patient. I have reviewed the FLOORLEADER's documentation and agree with the findings.
[2024-08-05 04:36] VITALS: BP 108/69; PULSE 86; RESP 16; TEMP 36.3; O2SAT 95
[2024-08-05] MEDS: ACETAMINOPHEN 325 MG TABLET 650 MG PO ×2 (04:45→08:17)
[2024-08-05 07:31] LABS: Basophils Absolute Auto 0.1 K/mm3 (0.0-0.1); Basophils Percent Auto 0.9 % (0.2-1.2); Eosinophils Absolute Auto 0.4 K/mm3 (0-0.3); Eosinophils Percent Auto 5.6 % (0-4.4); Hematocrit 39.4 % (37.0-47.0); Hemoglobin 12.7 g/dL (12.0-15.0); Immature Granulocyte Absolute 0.04 K/mm3 (0.00-0.031); Immature Granulocyte Percent A 0.6 % (0-0.5); Lymphocytes Absolute Auto 2.94 K/mm3 (0.9-3.2); Lymphocytes Percent Auto 44.4 % (18.3-44.2); Mean Corpuscular HGB Conc 32.2 g/dl (32-36); Mean Corpuscular Hemoglobin 30.4 pg (26-34); Mean Corpuscular Volume 94.3 fl (80-100); Mean Platelet Volume 10.1 fl (7.4-10.4); Monocytes Absolute Auto 0.5 K/mm3 (0.1-0.6); Monocytes Percent Auto 7.7 % (2.6-8.5); Neutrophils Absolute Auto 2.7 K/mm3 (1.3-6.7); Neutrophils Percent Auto 40.8 % (45.5-73.1); Platelet Count Result 286 k/mm3 (150-375); Red Blood Count 4.18 M/mm3 (4.2-5.4); Red Cell Distribution Width 12.8 % (11.5-14.5); White Blood Count 6.6 K/mm3 (4.5-10.0)
[2024-08-05 07:45] LABS: Alanine Aminotransferase 22 U/L (6-35); Albumin Level 3.3 g/dL (3.5-5.1); Alkaline Phosphatase 75 U/L (38-126); Anion Gap -1 mmol/L (4-12); Aspartate Amino Transferase 27 U/L (14-36); Bilirubin,Total 0.5 mg/dL (0.2-1.3); Blood Urea Nitrogen 13 mg/dL (7-17); Calcium 8.3 mg/dL (8.4-10.2); Carbon Dioxide 27 mmol/L (22-30); Chloride 108 mmol/L (98-107); Estimated CRCL calculation 84 ml/min; Estimated Glomerular Filt Rate > 60; Glucose 82 mg/dL (65-110); Sodium 134 mmol/L (137-145)
[2024-08-05] MEDS: DULoxetine HCL 60 MG CAPSULE.DR PO (08:14)
[2024-08-05] MEDS: estradioL 0.5 MG TABLET PO (08:14)
[2024-08-05] MEDS: INDOMETHACIN 25 MG CAPSULE PO ×3 (08:14→16:08)
--- NOTE | 2024-08-05 08:20 | PM.IMPN ---
Progress Note: A&P Assessment and Plan (1) Urinary tract infection: Code(s): N39.0 - Urinary tract infection, site not specified Status: Acute Assessment and Plan: Patient presents to the hospital for right flank pain with associated nausea/vomiting. - UA: orange color with cloudy appearance and 1+ protein, 1+ blood, 1+ bili, positive nitrates, 3+ leukocytes, 6-10 RBC, > 100 WBC, no bacteria, occasional squamous cells (possible source of contamination) - UC obtained on 08/04: pending - CT abdomen/pelvis: Nonobstructing right nephrolithiasis measuring 7 mm. Possible cystitis - No previous micro to be reviewed - started on Rocephin on 08/04 (2) Nephrolithiasis: Code(s): N20.0 - Calculus of kidney Status: Acute Assessment and Plan: - CT abdomen/pelvis: Nonobstructing right nephrolithiasis measuring 7 mm. Possible cystitis Reviewed CT and possible renal pelvis dilation - Urology consulted, appreciate recommendations Establish with outpatient urology for right renal stone management, hematuria workup Consider outpatient cystoscopy to further evaluate bladder wall thickening and recent UTIs given strong family history of BRCA, prostate cancer No plan for inpatient urologic surgical intervention (3) Migraine: Code(s): G43.909 - Migraine, unspecified, not intractable, without status migrainosus Status: Acute Assessment and Plan: History of migraines. Continue indomethacin 25 mg TID. 08/04/2024 Continues to endorse migraine despite indomethacin and morphine. Given migraine cocktail as seen below. - Banadryl 25 mg IV x1 - Toradol 30 mg IV x1 - Reglan 10 mg IV x1 - Sumatriptan 6 mg subq x1 - 1L IV fluid bolus - Monitor 08/05/2024 Denies headaches at this time. Continues to take home indomethacin as prescribed. (4) Major depressive disorder, single episode, unspecified: Code(s): F32.9 - Major depressive disorder, single episode, unspecified Status: Chronic Assessment and Plan: Chronic. Continue duloxetine 60 mg daily. Time Spent With Patient Time with patient: 25 - 35 minutes Subjective Date/time seen: 08/05/24 08:20 Interval history: 48 year old female with past medical history of anxiety/depression and ovarian torsions (2012) presents to the hospital for flank pain. Patient is pleasant lying comfortably in bed. She continues to have burning sensation with urination and right flank pain. Denies dysuria and hematuria. She has no other complaints denying chest pain, shortness of breath, nausea/vomiting. Review of Systems Review of Systems: All systems reviewed & are unremarkable except as noted in HPI and below Exam Narrative: AF HR 86 RR 16 Spo2 95 BP 108/69 General: female in no acute respiratory distress who is nontoxic appearing, lying semi recumbent in bed. HEENT: Normocephalic. Atraumatic. Pupils equal round reactive to light. Extraocular movement intact. Sclera clear and anicteric. No facial asymmetry. Chest: Lungs are clear to auscultation bilaterally. No wheezes or crackles. CV: Heart was regular rate and rhythm. S1-S2. No murmurs, gallops, or rubs. Abd: Abdomen was soft. Tender to palpation in hypogastric region. Nondistended. No CVA tenderness. Positive bowel sounds. No organomegaly or masses. Ext: No clubbing, cyanosis, or edema. 2+ DP pulses bilaterally. Neuro: Patient is alert. Speech is clear. Objective Data Vital Signs Vital Signs: Vital Signs - 24 hr 08/04/24 14:00 08/04/24 20:00 08/04/24 20:23 Temperature 96.3 F L 97.9 F Pulse Rate 87 91 91 Respiratory Rate 18 16 16 Blood Pressure 123/76 109/69 Pulse Oximetry 95 95 95 Oxygen Delivery Room Air 08/05/24 04:36 Temperature 97.4 F L Pulse Rate 86 Respiratory Rate 16 Blood Pressure 108/69 Pulse Oximetry 95 Oxygen Delivery Intake/Output Intake/Output: Intake & Output 08/02/24 08/03/24 08/04/24 08/05/24 23:59 23:59 23:59 23:59 Intake Total 2648 600 Balance 2648 600 Meds/Results Medications: Active Medications Generic Name Dose Route Start Last Admin Trade Name Freq PRN Reason Stop Dose Admin Acetaminophen 650 mg 08/04/24 04:46 08/05/24 08:17 Acetaminophen 325 Mg Tablet PO 650 mg Q4H PRN Administration Mild Pain (1-3) or Fever Duloxetine HCl 60 mg 08/04/24 09:00 08/05/24 08:14 Duloxetine Hcl 60 Mg Capsule.Dr PO 60 mg DAILY JAMIL Administration Estradiol 0.5 mg 08/04/24 09:00 08/05/24 08:14 Estradiol 0.5 Mg Tablet PO 0.5 mg DAILY JAMIL Administration Ceftriaxone Sodium 1 gm in 50 mls @ 100 mls/hr 08/05/24 05:00 08/05/24 05:15 Rocephin 1 Gm/Ns 50 Ml IVPB Infused Q24H JAMIL Infusion Indomethacin 25 mg 08/04/24 13:00 08/05/24 08:14 Indomethacin 25 Mg Capsule PO 25 mg TID JAMIL Administration Ondansetron HCl 4 mg 08/04/24 04:46 08/04/24 09:47 Ondansetron Inj 4 Mg/2 Ml Vial IV PUSH 4 mg Q4H PRN Administration Nausea Radiology Results: ITS Impressions Abdomen/Pelvis CT 08/04/24 05:56 Impression: Nonobstructing right nephrolithiasis, as above. Possible cystitis. Correlate clinically and with urinalysis. Labs Labs: Laboratory Results - last 24 hr 08/05/24 07:08 WBC 6.6 RBC 4.18 L Hgb 12.7 Hct 39.4 MCV 94.3 MCH 30.4 MCHC 32.2 RDW 12.8 Plt Count 286 MPV 10.1 Immature Gran % (Auto) 0.6 H Neut % (Auto) 40.8 L Lymph % (Auto) 44.4 H [place] % (Auto) 7.7 Eos % (Auto) 5.6 H Baso % (Auto) 0.9 Lymph # (Auto) 2.94 [place] # (Auto) 0.5 Eos # (Auto) 0.4 H Baso # (Auto) 0.1 Abs Immat Gran (auto) 0.04 H Absolute Neuts (auto) 2.7 Absolute Nucleated RBC 0.000 Nucleated RBC % 0.0 Sodium 134 L Potassium 4.0 Chloride 108 H Carbon Dioxide 27 Anion Gap -1 L BUN 13 Creatinine 0.70 Estim Creat Clear Calc 84 Estimated GFR > 60 Glucose 82 Calcium 8.3 L Total Bilirubin 0.5 AST 27 ALT 22 Alkaline Phosphatase 75 Total Protein 6.0 L Albumin 3.3 L Quality VTE Prophylaxis VTE prophylaxis: mechanical ordered
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
[2024-08-05 10:01] VITALS: O2SAT 95
[2024-08-05 14:00] VITALS: BP 124/83; PULSE 98; RESP 20; TEMP 35.7; O2SAT 95
[2024-08-05 21:52] VITALS: BP 131/74; PULSE 97; RESP 18; TEMP 36.5; O2SAT 95
[2024-08-06 05:00] VITALS: BP 115/68; PULSE 88; RESP 16; TEMP 36.5; O2SAT 97
[2024-08-06] MEDS: ACETAMINOPHEN 325 MG TABLET 650 MG PO ×3 (05:00→15:51)
[2024-08-06 06:54] LABS: Basophils Absolute Auto 0.1 K/mm3 (0.0-0.1); Basophils Percent Auto 1.2 % (0.2-1.2); Eosinophils Absolute Auto 0.4 K/mm3 (0-0.3); Eosinophils Percent Auto 5.9 % (0-4.4); Hematocrit 39.7 % (37.0-47.0); Hemoglobin 13.2 g/dL (12.0-15.0); Immature Granulocyte Absolute 0.06 K/mm3 (0.00-0.031); Immature Granulocyte Percent A 0.8 % (0-0.5); Lymphocytes Absolute Auto 3.39 K/mm3 (0.9-3.2); Lymphocytes Percent Auto 45.5 % (18.3-44.2); Mean Corpuscular HGB Conc 33.2 g/dl (32-36); Mean Corpuscular Hemoglobin 30.4 pg (26-34); Mean Corpuscular Volume 91.5 fl (80-100); Mean Platelet Volume 9.8 fl (7.4-10.4); Monocytes Absolute Auto 0.6 K/mm3 (0.1-0.6); Monocytes Percent Auto 7.8 % (2.6-8.5); Neutrophils Absolute Auto 2.9 K/mm3 (1.3-6.7); Neutrophils Percent Auto 38.8 % (45.5-73.1); Platelet Count Result 308 k/mm3 (150-375); Red Blood Count 4.34 M/mm3 (4.2-5.4); Red Cell Distribution Width 12.5 % (11.5-14.5); White Blood Count 7.5 K/mm3 (4.5-10.0)
[2024-08-06 08:07] LABS: Alanine Aminotransferase 22 U/L (6-35); Albumin Level 3.6 g/dL (3.5-5.1); Alkaline Phosphatase 72 U/L (38-126); Anion Gap 2 mmol/L (4-12); Aspartate Amino Transferase 29 U/L (14-36); Bilirubin,Total 0.6 mg/dL (0.2-1.3); Blood Urea Nitrogen 10 mg/dL (7-17); Calcium 8.6 mg/dL (8.4-10.2); Carbon Dioxide 30 mmol/L (22-30); Chloride 104 mmol/L (98-107); Estimated CRCL calculation 74 ml/min; Estimated Glomerular Filt Rate > 60; Glucose 78 mg/dL (65-110); Potassium 3.7 mmol/L (3.4-5.0); Sodium 136 mmol/L (137-145)
[2024-08-06] MEDS: DULoxetine HCL 60 MG CAPSULE.DR PO (09:19)
[2024-08-06] MEDS: estradioL 0.5 MG TABLET PO (09:19)
[2024-08-06] MEDS: INDOMETHACIN 25 MG CAPSULE PO ×3 (09:19→17:03)
--- NOTE | 2024-08-06 09:41 | PM.IMPN ---
Progress Note: A&P Assessment and Plan (1) Urinary tract infection: Code(s): N39.0 - Urinary tract infection, site not specified Status: Acute Assessment and Plan: Patient presents to the hospital for right flank pain with associated nausea/vomiting. - UA: orange color with cloudy appearance and 1+ protein, 1+ blood, 1+ bili, positive nitrates, 3+ leukocytes, 6-10 RBC, > 100 WBC, no bacteria, occasional squamous cells (possible source of contamination) - UC obtained on 08/04: pending - CT abdomen/pelvis: Nonobstructing right nephrolithiasis measuring 7 mm. Possible cystitis - No previous micro to be reviewed - started on Rocephin on 08/04 - Urine culture negative - Switched today from Rocephin to Augmentin 875-125 mg 1 tab PO q 12. (2) Nephrolithiasis: Code(s): N20.0 - Calculus of kidney Status: Acute Assessment and Plan: - CT abdomen/pelvis: Nonobstructing right nephrolithiasis measuring 7 mm. Possible cystitis Reviewed CT and possible renal pelvis dilation - Urology consulted, appreciate recommendations Establish with outpatient urology for right renal stone management, hematuria workup Consider outpatient cystoscopy to further evaluate bladder wall thickening and recent UTIs given strong family history of BRCA, prostate cancer No plan for inpatient urologic surgical intervention -Abdominal X-ray today showed: FINDINGS: Clear lung bases. Normal bowel gas pattern. No organomegaly. Multiple right lower pole calcifications measuring up to 9 mm. Pelvic phleboliths. Regional bones and soft tissues normal for age. IMPRESSION: Stable right nephrolithiasis. (3) Migraine: Code(s): G43.909 - Migraine, unspecified, not intractable, without status migrainosus Status: Acute Assessment and Plan: History of migraines. Continue indomethacin 25 mg TID. 08/04/2024 Continues to endorse migraine despite indomethacin and morphine. Given migraine cocktail as seen below. - Banadryl 25 mg IV x1 - Toradol 30 mg IV x1 - Reglan 10 mg IV x1 - Sumatriptan 6 mg subq x1 - 1L IV fluid bolus - Monitor 08/05/2024 Denies headaches at this time. Continues to take home indomethacin as prescribed. 08/06/23- reports migraine today. Continues to take home indomethacin as prescribed. (4) Major depressive disorder, single episode, unspecified: Code(s): F32.9 - Major depressive disorder, single episode, unspecified Status: Chronic Assessment and Plan: Chronic. Continue duloxetine 60 mg daily. Subjective Date/time seen: 08/06/24 09:41 Interval history: Patient reports pain in right flank area is a 4 , frequent, and aching. Patient reports a migraine more on the right side that is a 6 , constant, and throbbing. Patient denies chest pain, palpitations, nausea, or vomiting. Review of Systems Review of Systems: All systems reviewed & are unremarkable except as noted in HPI and below Exam Const: General: no acute distress and uncomfortable Eyes: Sclera: sclerae normal Resp: Effort & Inspection: normal respiratory effort Auscultation: clear to auscultation bilaterally Cardio: Rate: regular rate Rhythm: regular rhythm GI: GI Palp: Yes Soft to palpation Auscultation: normal bowel sounds Neuro: Speech: normal speech Extrem: General: no pedal edema Psych: Mental Status: mental status grossly normal Affect: normal affect Objective Data Vital Signs Vital Signs: Vital Signs - 24 hr 08/05/24 10:01 08/05/24 14:00 08/05/24 20:00 Temperature 96.3 F L Pulse Rate 98 Respiratory Rate 20 Blood Pressure 124/83 Pulse Oximetry 95 95 Oxygen Delivery Room Air Room Air 08/05/24 21:52 08/06/24 05:00 Temperature 97.7 F 97.7 F Pulse Rate 97 88 Respiratory Rate 18 16 Blood Pressure 131/74 115/68 Pulse Oximetry 95 97 Oxygen Delivery Intake/Output Intake/Output: Intake & Output 08/03/24 08/04/24 08/05/24 08/06/24 23:59 23:59 23:59 23:59 Intake Total 2648 1198 600 Balance 2648 1198 600 Meds/Results Medications: Active Medications Generic Name Dose Route Start Last Admin Trade Name Freq PRN Reason Stop Dose Admin Acetaminophen 650 mg 08/04/24 04:46 08/06/24 09:21 Acetaminophen 325 Mg Tablet PO 650 mg Q4H PRN Administration Mild Pain (1-3) or Fever Duloxetine HCl 60 mg 08/04/24 09:00 08/06/24 09:19 Duloxetine Hcl 60 Mg Capsule.Dr PO 60 mg DAILY JAMIL Administration Estradiol 0.5 mg 08/04/24 09:00 08/06/24 09:19 Estradiol 0.5 Mg Tablet PO 0.5 mg DAILY JAMIL Administration Ceftriaxone Sodium 1 gm in 50 mls @ 100 mls/hr 08/05/24 05:00 08/06/24 05:30 Rocephin 1 Gm/Ns 50 Ml IVPB Infused Q24H JAMIL Infusion Indomethacin 25 mg 08/04/24 13:00 08/06/24 09:19 Indomethacin 25 Mg Capsule PO 25 mg TID JAMIL Administration Ondansetron HCl 4 mg 08/04/24 04:46 08/04/24 09:47 Ondansetron Inj 4 Mg/2 Ml Vial IV PUSH 4 mg Q4H PRN Administration Nausea Radiology Results: ITS Impressions Abdomen/Pelvis CT 08/04/24 05:56 Impression: Nonobstructing right nephrolithiasis, as above. Possible cystitis. Correlate clinically and with urinalysis. Labs Labs: Laboratory Results - last 24 hr 08/06/24 06:34 WBC 7.5 RBC 4.34 Hgb 13.2 Hct 39.7 MCV 91.5 MCH 30.4 MCHC 33.2 RDW 12.5 Plt Count 308 MPV 9.8 Immature Gran % (Auto) 0.8 H Neut % (Auto) 38.8 L Lymph % (Auto) 45.5 H [place] % (Auto) 7.8 Eos % (Auto) 5.9 H Baso % (Auto) 1.2 Lymph # (Auto) 3.39 H [place] # (Auto) 0.6 Eos # (Auto) 0.4 H Baso # (Auto) 0.1 Abs Immat Gran (auto) 0.06 H Absolute Neuts (auto) 2.9 Absolute Nucleated RBC 0.000 Nucleated RBC % 0.0 Sodium 136 L Potassium 3.7 Chloride 104 Carbon Dioxide 30 Anion Gap 2 L BUN 10 Creatinine 0.80 Estim Creat Clear Calc 74 Estimated GFR > 60 Glucose 78 Calcium 8.6 Total Bilirubin 0.6 AST 29 ALT 22 Alkaline Phosphatase 72 Total Protein 6.0 L Albumin 3.6 Quality VTE Prophylaxis VTE prophylaxis: mechanical ordered
--- NOTE | 2024-08-06 11:20 | P.PNUR_ITS ---
Progress Note: A&P Assessment and Plan (1) Nephrolithiasis: Code(s): N20.0 - Calculus of kidney Status: Acute (2) Pyelonephritis: Code(s): N12 - Tubulo-interstitial nephritis, not specified as acute or chronic Status: Acute Plan -urine culture without significant growth. Recommend discharge a course of empiric antibiotics x 14 days -plan KUB to follow-up her nonobstructed right renal stone management. She has seen Dr. Pink in the past and will schedule follow-up appointment with him - Consider outpatient cystoscopy to further evaluate bladder wall thickening and recent UTIs given strong family history of BRCA, prostate cancer - No plan for inpatient urologic surgical intervention Subjective Subjective Date/Time Seen: 08/06/24 11:20 Interval history: Patient states he is feeling better Objective Data Vital Signs Vital Signs: Vital Signs - 24 hr 08/05/24 14:00 08/05/24 20:00 08/05/24 21:52 Temperature 35.7 C L 36.5 C Pulse Rate 98 97 Respiratory Rate 20 18 Blood Pressure 124/83 131/74 Pulse Oximetry 95 95 Oxygen Delivery Room Air 08/06/24 05:00 Temperature 36.5 C Pulse Rate 88 Respiratory Rate 16 Blood Pressure 115/68 Pulse Oximetry 97 Oxygen Delivery Intake/Output Intake/Output: Intake & Output 08/03/24 08/04/24 08/05/24 08/06/24 23:59 23:59 23:59 23:59 Intake Total 2648 1198 718 Balance 2648 1198 718 Meds/Results Medications: Active Medications Generic Name Dose Route Start Last Admin Trade Name Freq PRN Reason Stop Dose Admin Acetaminophen 650 mg 08/04/24 04:46 08/06/24 09:21 Acetaminophen 325 Mg Tablet PO 650 mg Q4H PRN Administration Mild Pain (1-3) or Fever Duloxetine HCl 60 mg 08/04/24 09:00 08/06/24 09:19 Duloxetine Hcl 60 Mg Capsule. PO 60 mg DAILY JAMIL Administration Estradiol 0.5 mg 08/04/24 09:00 08/06/24 09:19 Estradiol 0.5 Mg Tablet PO 0.5 mg DAILY JAMIL Administration Ceftriaxone Sodium 1 gm in 50 mls @ 100 mls/hr 08/05/24 05:00 08/06/24 05:30 Rocephin 1 Gm/Ns 50 Ml IVPB Infused Q24H JAMIL Infusion Indomethacin 25 mg 08/04/24 13:00 08/06/24 09:19 Indomethacin 25 Mg Capsule PO 25 mg TID [facility] Administration Ondansetron HCl 4 mg 08/04/24 04:46 08/04/24 09:47 Ondansetron Inj 4 Mg/2 Ml Vial IV PUSH 4 mg Q4H PRN Administration Nausea Polyethylene Glycol 17 gm 08/06/24 09:45 Polyethylene Glycol 3350 17 Gm Powd.Pack PO QAM [facility] Radiology Results: ITS Impressions Abdomen/Pelvis CT 08/04/24 05:56 Impression: Nonobstructing right nephrolithiasis, as above. Possible cystitis. Correlate clinically and with urinalysis. Labs Labs: Laboratory Results - last 24 hr 08/06/24 06:34 WBC 7.5 RBC 4.34 Hgb 13.2 Hct 39.7 MCV 91.5 MCH 30.4 MCHC 33.2 RDW 12.5 Plt Count 308 MPV 9.8 Immature Gran % (Auto) 0.8 H Neut % (Auto) 38.8 L Lymph % (Auto) 45.5 H [place] % (Auto) 7.8 Eos % (Auto) 5.9 H Baso % (Auto) 1.2 Lymph # (Auto) 3.39 H [place] # (Auto) 0.6 Eos # (Auto) 0.4 H Baso # (Auto) 0.1 Abs Immat Gran (auto) 0.06 H Absolute Neuts (auto) 2.9 Absolute Nucleated RBC 0.000 Nucleated RBC % 0.0 Sodium 136 L Potassium 3.7 Chloride 104 Carbon Dioxide 30 Anion Gap 2 L BUN 10 Creatinine 0.80 Estim Creat Clear Calc 74 Estimated GFR > 60 Glucose 78 Calcium 8.6 Total Bilirubin 0.6 AST 29 ALT 22 Alkaline Phosphatase 72 Total Protein 6.0 L Albumin 3.6
[2024-08-06 11:39] LABS: Add Urine Microscopic? NO; Appearance Urine Clear (Clear); Bilirubin Urine Negative (Negative); Blood Urine Negative (Negative); Color Urine Yellow (Yellow); Glucose Urine UA Negative (Negative); Ketones Urine Negative (Negative); Leukocyte Esterase Ur Negative LEU/UL (Negative); Nitrate Urine Negative (Negative); Protein Urine Negative (Negative); Specific Grav Ur 1.009 (1.001-1.035); Urobilinogen Urine 0.2 mg/dL (<2.0)
[2024-08-06] MEDS: polyethylene glycoL 3350 17 GM POWD.PACK PO (12:18)
--- NOTE | 2024-08-06 16:29 | PM.DS ---
DS: Admitting Diagnosis Discharge Date 08/06/2024 Admitting Diagnosis Back pain from UTI dx 07/31 DS: Discharge Diagnosis Discharge Diagnosis (1) Urinary tract infection: Code(s): N39.0 - Urinary tract infection, site not specified Status: Acute (2) Nephrolithiasis: Code(s): N20.0 - Calculus of kidney Status: Acute (3) Migraine: Code(s): G43.909 - Migraine, unspecified, not intractable, without status migrainosus Status: Acute (4) Pyelonephritis: Code(s): N12 - Tubulo-interstitial nephritis, not specified as acute or chronic Status: Acute DS: Summary Hospital Course Hospital Course: 48 year old female with past medical history of anxiety/depression and ovarian torsions (2012) presents to the hospital for flank pain. She states that on 07/31 she developed UTI like symptoms of pain and burning with urination. She started AZO that night which improved symptoms then immediately stopped taking this medication on 08/01. Her pain then continued to worsen in severity which prompted her to resume this medication on 08/02. The patient then developed severe lower back pain that was worse of the right than the left that continued to worsen throughout the day. She states that she was still concerned about a possible UTI and took one of her husbands left over amoxicillin pills which did not help. ED workup: CBC with WBC 10.9, H/H 14.1/41.9, PLT 344. Chemistry with Na 136, K 3.9. BUN/Cr 14/0.8. LFTs WNL. UA: orange color with cloudy appearance and 1+ protein, 1+ blood, 1+ bili, positive nitrates, 3+ leukocytes, 6-10 RBC, > 100 WBC, no bacteria, occasional squamous cells (possible source of contamination). Urine culture pending. CT abdomen/pelvis: Nonobstructing right nephrolithiasis measuring 7 mm. Possible cystitis. Started on Rocephin. Urology followed patient. Urine culture negative but patient symptomatic. Patient antibiotic switched to Augmentin oral. KUB showed: FINDINGS: Clear lung bases. Normal bowel gas pattern. No organomegaly. Multiple right lower pole calcifications measuring up to 9 mm. Pelvic phleboliths. Regional bones and soft tissues normal for age. IMPRESSION: Stable right nephrolithiasis. Patient discharged to home and to follow with Urologist outpatient. Status at Discharge Functional status at discharge: independent ambulation Overall status at discharge: patient is progressing back to baseline Time Spent with Patient Time attestation: Total time spent providing and/or coordinating discharge services: Time spent: Greater than 30 minutes Exam Narrative: Const: General: no acute distress and uncom fortable Eyes: Sclera: sclerae no rmal Resp: Effort & Inspectio n: normal respirat ory effort Auscul tation: clear to a uscultation bilate rally Cardio: Rate: regular rate Rhythm: regular rhythm GI: GI Palp: Yes Soft to palpation Ausc ultation: normal b owel sounds Neuro: Speech: normal spe ech Extrem: General: no pedal edema Psych: Mental Status: men malcolm status grossly normal Affect: n ormal affect DS: Data Data Completed and Pending Labs on day of discharge: Labs from last 24 hours 08/06/24 08/06/24 11:13 06:34 WBC 7.5 RBC 4.34 Hgb 13.2 Hct 39.7 MCV 91.5 MCH 30.4 MCHC 33.2 RDW 12.5 Plt Count 308 MPV 9.8 Immature Gran % (Auto) 0.8 H Neut % (Auto) 38.8 L Lymph % (Auto) 45.5 H [place] % (Auto) 7.8 Eos % (Auto) 5.9 H Baso % (Auto) 1.2 Lymph # (Auto) 3.39 H [place] # (Auto) 0.6 Eos # (Auto) 0.4 H Baso # (Auto) 0.1 Abs Immat Gran (auto) 0.06 H Absolute Neuts (auto) 2.9 Absolute Nucleated RBC 0.000 Nucleated RBC % 0.0 Sodium 136 L Potassium 3.7 Chloride 104 Carbon Dioxide 30 Anion Gap 2 L BUN 10 Creatinine 0.80 Estim Creat Clear Calc 74 Estimated GFR > 60 Glucose 78 Calcium 8.6 Total Bilirubin 0.6 AST 29 ALT 22 Alkaline Phosphatase 72 Total Protein 6.0 L Albumin 3.6 Urine Color Yellow Urine Appearance Clear Urine pH 7.0 Ur Specific [place] 1.009 Urine Protein Negative Urine Glucose (UA) Negative Urine Ketones Negative Ur Blood (Man) Negative Urine Nitrate Negative Urine Bilirubin Negative Urine Urobilinogen 0.2 Leukocyte Esterase Rfl Negative Discharge Plan Discharge Attending physician on discharge: Ceferino Rizvi Consulting providers: Elfego Glass Discharging Clinician: Elina Paul Anticipated Discharge Date/Time: 08/06/24 17:00 Patient Disposition: Home, Self-Care Activity: may shower and as tolerated Diet: regular Discharge Instructions: Report any fever >100.5 F, difficulty or burning with urination to urologist or primary provider. Drink water to flush kidneys. Follow up with urologist. Thank you for entrusting [facility] with your healthcare. Patient Instructions: Antibiotic Form, Urinary Tract Infection in Women (DC), Migraine Headache (GEN) Patient Language: Ukrainian Stand Alone Forms: General Discharge Information Follow-up/Referrals: Ernie Pink MD [Physician] - Call for Appointment Thelma,Vega Murdock MD [Primary Care Provider] - 1 Week Discharge Medications: New amoxicillin-pot clavulanate 875-125 mg tablet 1 tablet PO Q12H Qty: 22 0RF Continued duloxetine 60 mg capsule,delayed release(DR/EC) 60 mg PO DAILY epinephrine 0.3 mg/0.3 mL auto-injector 0.3 mg IM ONCE Patient Comments: PRN Rx Instructions: as a single dose; may repeat once estradiol 0.5 mg tablet 0.5 mg PO DAILY Qty: 90 3RF indomethacin 25 mg capsule 25 mg PO TID Date of admission: 08/04/24 04:46 Primary Care Provider: ThelmaVega Admitting Provider: Carlos Adler Attending physician on admission: Patti Quiroga Condition: Stable Hospitalist MIPS Heart Failure (Exclusion) Patient has history of Heart Transplant or Left Ventricular Assistive Device?: No IF YES, STOP HERE Heart Failure (Qualifier) Patient has current or prior documentation of LVEF less than or equal to 40%, or mod/servere depressed LVSF?: No IF NO, STOP HERE
--- OUTSIDE RECORDS SUMMARY | 2024-08-11 03:26 | XMS_ITS ---
Author Organization [facility] [employer] Address [address] [facility] [address] [place] [address] Care Team Providers Care Supervisor Residential Name Role Phone Andre Wells Unavailable [phone] Vital Signs Height 60.00 in 12/24/2023 Weight 176.20 lbs 12/24/2023 BMI 34.4 kg/m2 12/24/2023 Height-cm 152.40 cm 12/24/2023 Weight-kg 79.92 kg 12/24/2023 Encounters Encounter Location Date Provider Diagnosis [facility] [employer] [facility] [address] [place] [address] 12/24/2023 Andre Wells Generalized anxiety disorder F41.1 and Major depressive disorder, recurrent, moderate F33.1 Assessments Encounter Date Diagnosis (ICD Code) Assessment Notes Treatment Notes Treatment Clinical Notes Section Notes 12/24/2023 Generalized anxiety disorder (ICD-10 - F41.1) 12/24/2023 Major depressive disorder, recurrent, moderate (ICD-10 - F33.1) Plan Of Treatment Next Appt Details Provider Name:Andre Wells , 08/14/2024 04:30:00 PM, [address], [address], [place], [address], Progress Notes * MILDRED ALFARODOB: [birth year] (48 yo F)Acc No.[id number]:12/24/2023 Progress Notes Patient:?MILDRED ALFARO Provider:?ANDRE WELLS MD :1975???Age:48 Y???Sex:Female D ate:12/24/2023 Address:[facility] [address] [facility] Subjective: * Chief Complaints: * ??? * Medical History:? Objective: * Vitals:?Wt: 176.20 lbs, Wt-k .92 kg, Ht: 60.00 in, Ht-cm: 152.40 cm, BMI: 34.4 Index. Assessment: * Assessment: 1.?Major depressive disorder , recurrent, moderate - F33.1???2.?Generalized anxiety disorder - F41.1??? Plan: * Treatment: * Billing Information: * Visit Code:? * Procedure Codes:? * Sign off status: Completed true * Provider:?ANDRE WELLS MD Date:? 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
--- OUTSIDE RECORDS SUMMARY | 2024-08-11 03:26 | XMS_ITS ---
Author Organization [facility] [employer] Address [address] [place] [address] Care Team Providers Care Cotton Chopper Name Role Phone Andre Wells [phone] Allergies Allergen (clinical drug ingredient) Drug/Non Drug Allergy documented on EMR Reaction Allergy Type Onset Date Status semaglutide Ozempic Unknown Drug Allergy 12/24/2023 Acti ve codeine Codeine Unknown Drug Allergy 12/24/2023 Active REASON FOR VISIT follow up visit, medication evaluation Medications Medication SIG (Take, Route, Fr equency, Duration) Notes Start Date End Date Status Trokendi XR 50 MG TAKE 1 CAPSULE BY MO UTH DAILY Oral for 30 Days Active DULoxetine HCl 60 MG Oral 12/24/2023 Active Diclofenac Sodium 75 MG Oral 12/24/2023 Active Estradiol 0.5 MG TAKE 1 TABLET BY ZAC TH DAILY Oral for 30 Days Active Topiramate 25 MG Oral 12/24/2023 Ac tive Vital Signs Blood pressure systolic 103 mm Hg 03/24/20 24 Blood pressure diastolic 72 mm Hg 024 Heart Rate 89 /min 03/24/2024 Height 60.00 in 03/24/2024 Weight 175.6 lbs 03/24/2024 BMI 34.29 kg/m2 03/24/2024 Height-cm 152.40 cm 03/24/2024 Weight-kg 79.65 kg 03/24/2024 Encounters Encounter Location Date Provider Diagnosis [employer] [facility] [address] [place] [address] 03/24/2024 Andre Wells Plan Of Treatment Next Appt Details Follow Up: 3 Months, Reason: anxiety, mdd Provider Name:Andre Wells , 08/14/2024 04:30:00 PM, [address], [facility] [[email or web address] [address], [place], [address], Progress Notes * MILDRED ALFARODOB: [birth year] (49 yo F)Acc No.[id number]:03/24/2024 Patient:?MILDRED ALFARO Provider:?ANDRE WELLS MD :1975???Age:48 Y???Sex:Female D ate:03/24/2024 Address:[facility] [address] [facility] Subjective: * Chief Complaints: * ???1. Follow up visit, medic ation evaluation. * HPI: ???History of Presenting Problem:? 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 * Medical History:?Problems: B naty mass index 30+ - obesity, Generalized anxiety disorder, Long-term drug therapy, Moderate recurrent major depression, Nausea and vomiting, Periodic limb movement disorder, Primary insomnia, Restless legs, ,. * Medications:?Taking Diclofen ac Sodium 75 MG Tablet Delayed Release Oral , Taking DULoxetine HCl 60 MG Capsule Delayed Release Particles Oral , Taking Topiramate 25 MG Tablet Oral , Taking Estradiol 0.5 MG Tablet TAKE 1 TABLET BY MOUTH DAILY Oral , Taking Trokendi XR 50 MG Capsule Extended Release 24 Hour TAKE 1 CAPSULE BY MOUTH DAILY Oral , Discontinued VEO INSULIN SYRINGE 1 mL 31 gauge x 15/64 SYRINGE, EMPTY DISPOSABLE MISCELLANEOUS , Notes to Pharmacist: *Reorder from [facility] for eRx and Interaction Alerts*, Discontinued Cyanocobalamin 1000 MCG/ML Solution Injection , Discontinued Norethindrone 0.35 MG Tablet Oral , Discontinued CHOLECALCIFEROL (VITAMIN D3) 50 MCG (2,000 UNIT) TABLET , Notes to Pharmacist: *[facility] and Interaction Alert[facility]*, Discontinued Amitiza 24 MCG Capsule Oral , Discontinued QUEtiapine Fumarate 25 MG Tablet Oral , Discontinued metFORMIN HCl ER 500 MG Tablet Extended Release 24 Hour Oral , Discontinued Benzonatate 100 MG Capsule Oral , Discontinued Venlafaxine HCl ER 75 MG Capsule Extended Release 24 Hour Oral , Discontinued Linzess 145 MCG Capsule Oral , Discontinued Topiramate 50 MG Tablet Oral , Discontinued Venlafaxine HCl ER 150 MG Capsule Extended Release 24 Hour Oral , Discontinued DULoxetine HCl 30 MG Capsule Delayed Release Particles Oral , Discontinued Topamax 50 MG Tablet Oral , Medication List reviewed and reconciled with the patient * Allergies:?Ozempic: Allergy - Onset Date 12/24/2023, Codeine: Allergy - Onset Date 12/24/2023. Objective: * Vitals:?BP:103/72mm Hg, HR:8 9/min, Wt:175.6lbs, Wt-k.65 kg, Ht: 60.00 in, Ht-cm: 152.40 cm, BMI:34.29Index, Body Surface Area: 1.83. * Examination: ???Psychiatry: ?Appearance:?well-groomed, well-nourished, ....?Affect / mood:?appropriate, full range.?Attention:?good.?Attitude:?cooperative.?Suicidal ideation:?none.?Memory status:?no impairment noted.?Degree of awareness of surroundings:?within normal limits.?Delusions:?no.?Hallucinations:?no.?Insight:?good.?Intellectual functioning:?no impairment noted.?Judgement:?good.?Orientation:?awake, alert and oriented x 3.?Perceptual disorders:?no perceptual disorder noted.?Psychomotor activity:?within normal range.?Speech / language:?appropriate pitch/modulation, clear and coherent, normal rate, volume, and articulation (RVR), proper grammar used.?Thought content:?appropriate.?Thought process:?intact.? Assessment: Plan: * Treatment: * Follow Up:?3 Months (Reason: anxiety, mdd) * Billing Information: * Visit Code:? * Procedure Codes:? * Electronic signature of Beverley Wells MD on 08/11/2024 at 03:26 AM SATELLITE PROJECT SITE MONITOR Sign off status: Pending * Provider:?ANDRE WELLS MD Date:? 024 Generated for Printi ng/Faxing/eTransmitting on:?08/11/2024 03:26 AM SATELLITE PROJECT SITE MONITOR History and Physical Notes * HPI (History of Present Illness) Category Sub-Category Detail Notes Category Not es History of Presenting Problem today was the first day of school summer was relatively uneventful 20 yo son had surgery on tendon in pitching arm--is a pitcher, freshman in college [employer] 23 yo son is a centerfielder, senior at [employer] majoring in sports management daughter is starting 6th grade, special needs, autistic, mentally functions at 5-6 yo level has been getting hives randomly--initially on her torso, then other locations, then March 05, 2024 had sudden lip swelling, tongue swelling--went to ER and got benadryl and steroid injection; now has rx for epi pen--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 Attitude: cooperative Psychomotor activity: within normal rang e Attention: good Degree of awareness of surroundings: wit hin normal limits Orientation: awake, alert and maria dolores ented x 3 Affect / mood: appropriate, full ra nge Speech / language: appropriate pitch/mo dulation, clear and coherent, normal rate, volume, and articulation (RVR), proper grammar used Insight: good Judgement: good Thought process: intact Thought content: appropriate Perceptual disorders: no perceptual diso rder noted Suicidal ideation: none Intellectual functioning: no impairment noted Memory status: no impairment noted Delusions: no Hallucinations: no
--- OUTSIDE RECORDS SUMMARY | 2024-08-11 03:26 | XMS_ITS ---
Author Organization [facility] Address [address] [facility] [address] [place] [address] Care Team Providers Care Backfiller Name Role Phone Lake Beverleymitchell Unavailable [phone] Encounters Encounter Location Date Provider Diagnosis [facility] [address] [facility] [address] [place] [address] 07/31/2024 Andre Wells Plan Of Treatment Next Appt Details Provider Name:Andre Wells , 08/14/2024 04:30:00 PM, [address], [address], [place], [address], Progress Notes * MILDRED ALFARODOB: [birth year] (49 yo F)Acc No.[id number]:07/31/2024 Patient:?MILDRED ALFARO Provider:?ANDRE WELLS MD :1975???Age:48 Y???Sex:Female D ate:07/31/2024 Address:[address] [facility] Subjective: * Chief Complaints: * ??? * Medical History:? Objective: * Vitals:? Assessment: Plan: * Treatment: * Billing Information: * Visit Code:? * Procedure Codes:? * Electronic signature of Beverley Wells MD on 08/11/2024 at 03:25 AM HOUSING DIRECTOR Sign off status: Pending * Provider:?ANDRE WELLS MD Date:? 024 Generated for Nael torrez/Angel/Luz on:?08/11/2024 03:25 AM HOUSING DIRECTOR
--- OUTSIDE RECORDS SUMMARY | 2024-08-11 03:27 | XMS_ITS | Patient Health Record ---
Author Organization [facility] Address [address] [place] [address] Care Team Providers Care Broker Name Role Phone Anselmo Bethea Unavailable [phone] Migration, Provider Unavailable Unavailable Allergies Allergen (clinical drug ingredient) Drug/Non Drug Allergy documented on EMR Reaction Allergy Type Onset Date Status semaglutide Ozempic Unknown Drug Allergy 12/24/2023 Acti ve codeine Codeine Unknown Drug Allergy 12/24/2023 Active Reason For Referral No Information Medications Medication SIG (Take, Route, Fr equency, Duration) Notes Start Date End Date Status Diclofenac Sodium 75 MG Oral 12/24/2023 Active DULoxetine HCl 60 MG TAKE 1 CAPSULE DAILY Active Trokendi XR 50 MG TAKE 1 CAPSULE BY MO UTH DAILY Oral for 30 Days Active Estradiol 0.5 MG TAKE 1 TABLET BY ZAC TH DAILY Oral for 30 Days Active Topiramate 25 MG Oral 12/24/2023 Ac tive Immunizations Vaccine Route Administration Date Status Comme nts Moderna Covid-19 Vaccine 1st dose Unknown 09/25/2020 Ad ministered Moderna Covid-19 Vaccine 1st dose Unknown 10/23/2020 Ad ministered Moderna Covid-19 Vaccine 1st dose Unknown 07/31/2021 Ad ministered Vital Signs Heart Rate 89 /min 03/24/2024 Height-cm 152.40 cm 03/24/2024 Blood pressure diastolic 72 mm Hg 03/24/2024 Weight-kg 79.65 kg 03/24/2024 Height 60.00 in 03/24/2024 Blood pressure systolic 103 mm Hg 03/24/2024 Weight 175.6 lbs 03/24/2024 BMI 34.29 kg/m2 03/24/2024 Encounters Encounter Location Date Provider Diagnosis [place] [id number] [facility] [address] [address] 03/24/2024 Anselmo Bethea [place] [id number] [facility] [address] [address] 09/24/2023 [place] Generalized anxiety disorder F41.1 and Major depressive disorder, recurrent, moderate F33.[address] [address] 12/24/2023 Thenmitchell [place] Generalized anxiety disorder F41.1 and Major depressive disorder, recurrent, moderate F33.[address] [address] 12/22/2023 Provider Migration [place] [id number] [facility] [address] [address] 12/23/2023 Provider Migration Assessments Encounter Date Diagnosis (ICD Code) Assessment Notes Treatment Notes Treatment Clinical Notes Section Notes 12/24/2023 Major depressive disorder, recurrent, moderate (ICD-10 - F33.1) 12/24/2023 Generalized anxiety disorder (ICD-10 - F41.1) 09/24/2023 Major depressive disorder, recurrent, moderate (ICD-10 - F33.1) 09/24/2023 Generalized anxiety disorder (ICD-10 - F41.1) Plan Of Treatment Next Appt Details Provider Name:Anselmo Bethea , 08/14/2024 04:30:00 PM, [facility] [address], [place] [address], [place], [address], Insurance Providers Payer Name Payer Address Payer Phone Subscriber Number Group Number Insured Name Patient Relationship to Insured Coverage Start Date Coverage End Date [facility] [address] [place] [phone] [id number] MILDRED ALFARO Self - patient is the insured Medical (General) History Medical History History ICD Code Problems: Body mass index 30+ - obesity Generalized anxiety disorder Long-term drug therapy Moderate recurrent major depression Nausea and vomiting Periodic limb movement disorder Primary insomnia Restless legs , Surgical History Surgery Date(Month/Year) Appendectomy (50442) Hysterectomy/revise vagina (55712) Other Endometr ablate thermal (51499) Appendectomy (52131) 08/06/2014 Any surgical history 11/04/2001 Endometrial ablation (52422) 11/04/2006 Hysterectomy (36842) 07/06/2002 Other 07/17/2006 Other 07/20/2006
--- OUTSIDE RECORDS SUMMARY | 2024-08-11 03:36 | XMS_ITS | Encounter Summary ---
Author Organization [facility] Address [address] [place] [address] Care Team Providers Care Computer Networker Name Role Phone Rio Lyon MD Primary Care Provider [phone] Reason for Referral * MRI (Routine) - Closed Specialty Diagnoses / Procedures Referred By Nan kingston Referred To Contact Diagnoses At high risk for breast cancer Procedures MRI BREAST W WO CONT BILAT Desiree Joe NP NO ADDRESS ON FILE Referral ID Status Reason Start Date Expiration Date V isits Requested Visits Authorized [id number] Closed [facility] CTS 12/09/2020 01/23/2021 1 1 ICAL CARE TECHNICIAN Reason for Visit * Reason Comments Follow Up 6 months w/mmg Encounter Details Date Type Department Care Team (Late st Contact Info) Description 06/21/2020 10:15 AM CRITICAL CARE TECHNICIAN Office Visit [facility] [address] [facility] [address] [place] [id number] Desiree Joe BIOPROCESSING MANUFACTURING TECHNICIAN NO ADDRESS ON FILE At high risk for breast cancer (Primary Dx) Social History Tobacco Use Types Packs/Day Years Used Date Smoking Tobacco: Never Smokeless Tobacco: Former Alcohol Use Standard Drinks/Week Comments Yes 0 (1 standard drink = 0.6 oz pur e alcohol) Sex and Gender Information Value Date Recorded Sex Assigned at Not on file Gender Identity Not on file Sexual Orientation Not on file COVID-19 Exposure Response Date Recorded In the last month, have you been in contact with someone who was confirmed or suspected to have Coronavirus / COVID-19? No / Unsure 06/21/2020 8:56 AM CRITICAL CARE TECHNICIAN documented as of this encounter Last Filed Vital Signs Vital Sign Reading Time Taken Comments Blood Pressure 113/83 06/21/2020 9:46 AM CRITICAL CARE TECHNICIAN Pulse 96 06/21/2020 9:46 AM CRITICAL CARE TECHNICIAN Temperature 36.7 ??C (98 ??F) 06/21/2020 9:46 AM CRITICAL CARE TECHNICIAN Respiratory Rate - - Oxygen Saturation 97% 06/21/2020 9:46 AM CRITICAL CARE TECHNICIAN Inhaled Oxygen Concentration - - Weight 77.1 kg (170 lb) 06/21/2020 9:46 AM CRITICAL CARE TECHNICIAN Height 152.4 cm (5') 06/21/2020 9:46 AM CRITICAL CARE TECHNICIAN Body Mass Index 33.2 06/21/2020 9:46 AM CRITICAL CARE TECHNICIAN documented in this encounter Progress Notes * Desiree Joe NP - 06/21/2020 9:48 AM CST PATIENT: Harriet Meade : 1975 DATE: 06/21/2020 Harriet Meade is a 44 y.o. female. She comes in for six month breast check and mammogram. She has no new health issues or breast complaints except some tenderness upper outer aspect left breast and right breast which waxes and wanes. This is stable and unchanged. She does perform self breast exams. Her mom (Shady Hardwick) had breast cancer at age 5858 years old. Father with prostate cancer. She is 14 at menarche and 26 at [facility] . One benign breast biopsy in the past. She is up to date on telesales specialist exams- history of hysterectomy, ovaries still intact. She does not smoke. She has no new breast or related complaints. She reports that her mother was BRCA negative. She adopted a baby from [place] in October 2013- now 10 years old. Phoebe 10 point review of systems -unremarkable No past medical history on file. Past Surgical History: Procedure Laterality Date ??? HX BREAST BIOPSY 05/2009 right breast ??? HX CORE NEEDLE BREAST BIOPSY Right 05/2009 Benign ??? HX HYSTERECTOMY 07/2008 ovaries intact ??? HX LEEP PROCEDURE 01/2010 margins clear ??? HX SURGICAL OTHER 2009 laproscopic ??? HX TUBAL LIGATION 2007 Allergies Allergen Reactions ??? Codeine Unknown ??? Darvocet A500 [Propoxyphene N-Acetaminophen] Nausea and Vomiting ??? Demerol [Meperidine] Unknown Ht 5' (1.524 m) Wt 77.1 kg (170 lb) BMI 33.20 kg/m?? Well-developed, well-nourished, pleasant woman. Neck - no thyromegaly no cervical adenopathy SCF- no adenopathy Axilla -no adenopathy Breasts - normal in appearance, no masses, skin changes or nipple discharge, no palpable cyst formation, no axillary LAD Extremities - Good range of motion of shoulders, no lymphedema present IMAGING: Mammogram: 04/08/2013 at [facility] Mammogram: 04/14/2014 at [facility]; nem Mammogram: 04/20/2015 at [facility]; nem Mammogram: 04/25/2016 at [facility]; NEM Mammogram: 05/01/2017 at [facility]; NEM Mammogram: 05/27/2018 at [facility]; NEM Breast MRI: 11/18/2018 at [facility]; NEM Mammogram: 05/19/2019 at [facility]; NEM Left breast US: 05/19/2019 at [facility]; NEM Breast MRI: 12/18/2019 at [facility]; NEM Mammogram: 06/11/2020 at [facility]; pending BREAST CANCER RISK ASSESSMENT 5 Year Risk Lifetime Risk BRCAPRO 0.7% 10.9% Tyrer Cuzick v6 1.2% 15.8% Tyrer Cuzick v7 1.2% 20.7% Tyrer Cuzick v8 22.5% April 1.8% 21.9% Junior 0.8% 10.0% IMPRESSION: 44 y.o. woman with family history of breast cancer Mammogram today pending. I will call her once results are available CBE unremarkable History of bilateral breast pain and fibrocystic breast changes that appears to be cyclical. I explained to her that this is not a cause of malignancy. Many times it is related to endocrine factors such as ovulation and the surge of estrogens at this time. Water retention during premenstrual time is also associated with cyclical mastalgia as is over simulation of the breast by caffeine. She can also try elliminating caffeine intake and also reduce sodium in diet. Trial of vitamin E and evening primrose supplements for essential fatty acid deficiency. Recommend supportive bra and sports bra at bedtime Continue monthly SBE. Call for any breast concerns Per Moira Barrios her lifetime risk is 22.5%. We discussed surveillance strategies. Her risk does warrant MRI screening. According to the [place] [employer] anyone with a lifetime risk greater than 20% warrants MRI screening. Discussed pros and cons of testing. Discussed risk of call back and false positives. She wishes to proceed. Due in six months I also explained that having biannual breast exam by a healthcare professional is warranted as wellas annual mammography. The patient is asked to make an attempt to improve diet and exercise patterns to aid in breast cancer risk reduction. Declines flu shot She was encouraged to call with any breast related complaints or concerns I've explained to her that strategies for risk reduction include endocrine therapy, which in clinical studies has been utilized in patients with 5 yr risk exceeding 1.6%, with expected risk reductionof around 50% Options include tamoxifen,raloxifene, and AIs including exemestane and anastrazole. She is pre-menopausal so we discussed Tamoxifen and side effects. Not interested at this time. She is still young- will derive more benefit if she chooses to take Tamoxifen in her late 40s/early 50s when her five year risk is higher TOBACCO COUNSELING She is not a tobacco user. All questions encouraged and answered Thank you for the opportunity to participate in the care of this patient. Please let me know if I may be of any further assistance. 15 minutes were spent face-face with patient and over 50% of time was spent in counseling/discussing patient's issues, chief complaints, diet, symptom management, and in the coordination of care. Desiree Joe, MSN, AGNP-C, AOCNP [facility] Breast Surgery Dr. Woodruff supervising physician ICAL CARE TECHNICIAN documented in this encounter Plan of Treatment Not on file documented as of this encounter Results * (ABNORMAL) MRI BREAST W WO CONT BILAT (12/20/2020 10:09 AM CDT) Anatomical Region Laterality Modality Breast Bilateral Magnetic Resonan ce 12/20/2020 10:1 0 AM CDT Impressions 12/20/2020 3:44 PM CDT IMPRESSION: Increased clumped nonmass enhancement is seen in the outer central left breast at 3:00. It is unlikely that this will be seen by ultrasound. Therefore, MRI guided core needle biopsy is recommended. No concerning enhancing lesions are identified in the right breast. Cholelithiasis noted. OVERALL FINAL ASSESSMENT: ??Suspicious. BI-RADS CATEGORY 4: Suspicious. Narrative 12/20/2020 3:44 PM CDT BILATERAL BREAST MRI WITHOUT AND WITH INTRAVENOUS CONTRAST WITH CAD DATE: 12/20/2020 10:09 AM HISTORY: Family history of breast cancer, including mother diagnosed at age 51. High-risk screening. DICTATION LOCATION: [facility] COMPARISON: Breast MRI 12/18/2019 and 11/18/2018, mammograms 06/21/2020. CONTRAST: Gadobenate dimeglumine 529 mg/ml(0.1 mmol/0.2 ml) intravenous solution. ??Given: 15 mL. TECHNIQUE: Bilateral multisequence dynamic breast MRI was performed before and after intravenous contrast administration. Images are acquired on dedicated [employer] breast coil system and image interpretation performed on [employer] CAD workstation. MultiHance was administered without immediate complication. ?? FINDINGS: There is moderate to marked background enhancement, limiting the sensitivity for the detection of focal lesions. There is increased clumped nonmass enhancement within the mid to posterior outer central left breast measuring 3.9 cm AP by 0.9 cm transverse by 1.9 cm craniocaudal (image 307 at the first postcontrast series). This demonstrates a benign persistent type of enhancement kinetics and is located approximately 7 cm from the nipple at 3:00. Other scattered foci and focal areas of enhancement throughout both breasts are most compatible with benign background parenchymal enhancement. The degree of background enhancement is increased since the prior MRIs. No dominant enhancement is seen within the right breast to suggest malignancy. Scattered, small bilateral breast cysts are noted, all measuring less than 1 cm each. No morphologically abnormal lymph nodes are identified. There is a round 1 cm hypointense focus within the gallbladder on the T2-weighted sequence (image 47 axial STIR), most compatible with a gallstone. Procedure Note Stacey Oquendo MD - 12/20/2020 BILATERAL BREAST MRI WITHOUT AND WITH INTRAVENOUS CONTRAST WITH CAD DATE: 12/20/2020 10:09 AM HISTORY: Family history of breast cancer, including mother diagnosed at age 51. High-risk screening. DI[facility]ATION LOCATION: [facility] COMPARISON: Breast MRI 12/18/2019 and 11/18/2018, mammograms 06/21/2020. CONTRAST: Gadobenate dimeglumine 529 mg/ml(0.1 mmol/0.2 ml) intravenous solution. Given: 15 mL. TECHNIQUE: Bilateral multisequence dynamic breast MRI was performed before and after intravenous contrast administration. Images are acquired on dedicated [employer] breast coil system and image interpretation performed on [employer] CAD workstation. MultiHance was administered without immediate complication. FINDINGS: There is moderate to marked background enhancement, limiting the sensitivity for the detection of focal lesions. There is increased clumped nonmass enhancement within the mid to posterior outer central left breast measuring 3.9 cm AP by 0.9 cm transverse by 1.9 cm craniocaudal (image 307 at the first postcontrast series). This demonstrates a benign persistent type of enhancement kinetics and is located approximately 7 cm from the nipple at 3:00. Other scattered foci and focal areas of enhancement throughout both breasts are most compatible with benign background parenchymal enhancement. The degree of background enhancement is increased since the prior MRIs. No dominant enhancement is seen within the right breast to suggest malignancy. Scattered, small bilateral breast cysts are noted, all measuring less than 1 cm each. No morphologically abnormal lymph nodes are identified. There is a round 1 cm hypointense focus within the gallbladder on the T2-weighted sequence (image 47 axial STIR), most compatible with a gallstone. IMPRESSION: Increased clumped nonmass enhancement is seen in the outer central left breast at 3:00. It is unlikely that this will be seen by ultrasound. Therefore, MRI guided core needle biopsy is recommended. No concerning enhancing lesions are identified in the right breast. Cholelithiasis noted. OVERALL FINAL ASSESSMENT: Suspicious. BI-RADS CATEGORY 4: Suspicious. Desiree Joe NP MR ORDERABLES documented in this encounter Visit Diagnoses Diagnosis At high risk for breast cancer- Primary At high risk for breast cancer documented in this encounter Care Teams Computer Networker Relationship Specialty Start Date End Date Rio Lyon MD [address] [place] [id number] PCP - General Family Practice 07/05/10 documented as of this encounter
--- OUTSIDE RECORDS SUMMARY | 2024-08-11 03:36 | XMS_ITS | Encounter Summary ---
Author Organization [employer] [facility] Address [address] [place] [address] Care Team Providers Care Foundation Assistant Name Role Phone Rio Lyon MD Primary Care Provider [phone] Reason for Referral * MRI (Routine) - Closed Specialty Diagnoses / Procedures Referred By Contac t Referred To Contact Diagnoses At high risk for breast cancer Procedures MRI BREAST W WO CONT Desiree Armstrong NP NO ADDRESS ON FILE Referral ID Status Reason Start Date Expiration Date V isits Requested Visits Authorized [id number] Closed [facility] CTS 05/19/2019 06/18/2020 1 1 Reason for Visit * MRI (Routine) - Closed Specialty Diagnoses / Procedures Referred By Contac t Referred To Contact Diagnoses At high risk for breast cancer Procedures MRI BREAST W WO CONT Desiree Armstrong NP NO ADDRESS ON FILE Referral ID Status Reason Start Date Expiration Date V isits Requested Visits Authorized [id number] Closed [facility] CTS 05/19/2019 06/18/2020 1 1 Encounter Details Date Type Department Care Team (Latest Contact Info) Description 12/18/2019 9:42 AM CDT - 12/18/2019 11:59 PM CDT Hospital Encounter [facility] [address] [place] [address] Desiree Joe NP NO ADDRESS ON FILE Discharge Disposition: Home or Self Care Social History Tobacco Use Types Packs/Day Years [...] have Coronavirus / COVID-19? No / Unsure 12/18/2019 9:37 AM CDT documented as of this encounter Medications at Time of Discharge Medication Sig Dispensed Refills Start Date End Date QUEtiapine (SEROquel) 25 mg tablet Take 25 mg by mouth daily. diclofenac sodium (VOLTAREN) 75 mg Oral TbECIndications:Breast lump Take 75 mg by mouth 2 times daily. documented as of this encounter Miscellaneous Notes * Treatment Plan - MargiGiovanna thomas, RT - 12/18/2019 10:30 AM CDT [facility] Protocol [facility] Approved by: [facility] - Medical Executive Committee Approval Date: 02/20/2019 I ORDERS ARE ENTERED ???PER PROTOCOL?? Enter the protocol in the patient's electronic health record using smartphrase: .imagingmedflushprotocol Communication Orders: o For ordered imaging procedures requiring intravenous access: ??? Initiate a peripheral IV, if not already in place, and discontinue IV prior to discharge (if outpatient). ??? Enter order if needed: Insert Peripheral IV Medication Orders: o Local Anesthetic for use to initiate IV ADULT ??? Lidocaine 4% (L.M.X.4) applied topically ONE TIME prior to IV catheter insertion PRN (L.M.X.4 %should be applied 15 minutes prior to procedure) PEDIATRIC ??? Lidocaine 4% (L.M.X.4) applied topically ONE TIME prior to IV catheter insertion PRN (apply 15 minutes prior to procedure) ??? Sucrose 24% (Tootsweet; Sweet-Ease) oral solution 0.2 mL oral (apply to tongue on pacifier or clean, gloved finger), ONE TIME 2 minutes prior to painful procedure. May repeat dose x1 PRN to complete procedure. o Sodium chloride 0.9% (normal saline) flush 10 mLs PRN for saline lock or medication administration. o For respiratory distress, initiate oxygen and/or increase O2 to maintain saturation greater than 90% o For all invasive procedures: obtain Lidocaine 1% for intra-procedure administration. If Lidocaine1% unavailable, may substitute Lidocaine 2%. PROCEDURE SPECIFIC MEDICATIONS ??? Cystogram (CT Pelvis): Iopamidol (Isovue 300) 61%, 50mL, diluted with 250mL of sterile NS. Inject Isovue into 250mL bag ofNS. Clamp gleason catheter prior to instilling solution via catheter. o Instill up to 300mL of Isovue and NS solution into bladder via catheter, one time. CT ORAL CONTRAST PROTOCOLS FOR ADULTS ??? Use Iohexol (Omnipaque) 240 mg/mL for CT scan unless patient has a documented allergy to contrast dye. ??? If allergy present, use Barium Sulfate (EZ Paque) for procedure. ??? If at any time the Octave Board Assembler has a question about which option to administer, seek clarification from a Radiologist. o Iohexol (Omnipaque) 240 mg/mL: 50ml added to 960mL of clear liquid of patient's choice. Preferredroute is oral. May use nasoenteric tube if needed. ??? Administer 900mL of the diluted Omnipaque 240, orally, one time only. o Barium Sulfate (EZ Paque /Vanilla Silq) 96% oral suspension: Preferred route is oral. May use nasoenteric tube if needed. ??? Administer 900mL of barium sulfate, orally, one time only. CT ORAL CONTRAST PROTOCOLS FOR PEDIATRICS Pediatrics = up to age 18 o Pediatric Radiologist will approve of one of the following products selected for procedure. ??? Barium Sulfate (EZ Paque) 96% oral suspension: preferred route is oral. May use nasoenteric tube if needed. to 3 months Administer up to 90mL of Barium Sulfate, orally, one time only 4 months to 1 year old Administer up to 240mL of Barium sulfate, Orally, One Time Only 1 year old to 5 years old Administer up to 360mL of Barium sulfate, Orally, One Time Only 5 years old to 10 years old Administer up to 480mL of Barium sulfate, Orally, One Time Only Over 10 years old Administer up to 600mL of Barium sulfate, Orally, One Time Only ??? Iohexol (Omnipaque) 240 mg/mL oral solution ; Dilute 25mL of iohexol with 480mL of clear liquid of patient's choice. Administer the diluted solution per age as follows: Preferred route is orally. May use nasoenteric tube if needed. ; Send any remaining diluted Iohexol solution with the pateint's nurse to CT [place] Administer 45mL of diluted Iohexol oral solution, orally every 30 minutes x 2 doses. 1 month to 1 year old Administer 120mL of diluted Iohexol oral solution, orally every 30 min x 2 doses. 1 year old to 5 years old Administer 180mL of Iohexol orally every 30 min x 2 doses. 5 years old to 10 years old Administer 240mL of Iohexol orally every 30 min x 2 doses. Over 10 years old Administer 300mL of Iohexol orally every 30 min x [address] RECTAL CONTRAST PROTOCOLS ADULTS: o Iohexol (Omnipaque) 240 mg/mL: Dilute 50mL of Omnipaque with 900mL of warm water in an enema bag.Administer the diluted solution rectally via gravity per patient's tolerance, up to 950mLs, one time only. CT IV CONTRAST PROTOCOLS for ADULT ADULTS: (If patient is less than 55kg and confirm dose with radiologist) o Iopadmidol (Isovue-300): Administer 2.2mL/kg of Iopamidol 61%, intravenously, one time only. o See table below for maximum dose, unless otherwise authorized by radiologist.If exam has been completed before the entire dose has been administered, stop the injection. o If exam not included in table below, contact radiologist for orders. Procedure Maximum Dose CT Head with Contrast Up to [address] Chest with Contrast Up to [address] Maxilofacial with Contrast Up to [address] Soft Tissue Neck with Contrast CT Chest Abdomen Pelvis with Contrast CT Chest Abdomen with Contrast CT Abdomen Pelvis with Contrast CT Pelvis with Contrast CT Angiogram Examinations (all) CT Soft Tissue Neck and Chest Abomen Pelvis with Contrast Up to [address] Soft Tissue Neck and Chest with Contrast CT Urogram with Contrast CT IV CONTRAST PROTOCOLS for PEDIATRICS PEDIATRICS: Use weight-based dosing if patient is less than 55kg and confirm dose with radiologist. to 15 years old Administer 2.2mL/kg (to MAX of 80 mL) of Iopamidol (Isovue-300) 61%, intravenously, one time only 15 years old and older Administer 2.2mL/kg (to MAX of 150mL) of Iopamidol (Isovue-300) 61%, intravenously, one time only MRI IV CONTRAST PROTOCOLS ADULTS: o Multihance and Prohance can be used for most MRI scans o For Liver studies, contact Radiologist to determine use of one of the following: o Gadobenate Dimeglumine (Multihance) (0.1mmol/0.2mL), Administer 0.1mmol/kg = 0.2mL/kg up to MAX of 30mL, intravenously, one time only o Gadoteridol (Prohance) (0.1mmol/0.2mL), Administer 0.1mmol/kg = 0.2mL/kg up to MAX of 30mL, intravenously, one time only o Gadoxetate (Eovist) 2.5 mmol/10mL, Administer 0.025mmol/kg = 0.1mL/kg MAX of 15mL, intravenously,one time only PEDIATRICS: o Radiologist to determine need and type of contrast Term neonates up to 2 years: Gadobutrol (Gadavist) 1mmol/mL injection, Administer 0.1mmol/kg = 0.1mL/kg up to MAX of 14mmol = 14mL, intravenously, one time only 2 years and older Gadobenate Dimeglumine (Multihance) (0.1mmol/0.2mL), Administer 0.1mmol/kg = 0.2mL/kg up to MAX of 20mL intravenously, one time only OR Gadoteridol (Prohance) (0.1mmol/0.2mL), Administer 0.1mmol/kg = 0.2mL/kg up to MAX of 20mL, intravenously, one time only documented in this encounter Plan of Treatment Not on file documented as of this encounter Procedures Procedure Name Priority Date/Time Associated Diagnosis Comments MRI BREAST DIAGNOSTIC WWO CONTRAST BILATERAL Routine 12/18/2019 11:15 AM CDT At high risk for breast cancer documented in this encounter Results * MRI BREAST W WO CONT BILAT (12/18/2019 11:15 AM CDT) Anatomical Region Laterality Modality Breast Bilateral Magnetic Resonan ce 12/18/2019 11:1 7 AM CDT Impressions 12/18/2019 12:56 PM CDT IMPRESSION: No MRI evidence of malignancy is identified within either breast. RECOMMENDATION: Continued annual routine breast imaging is recommended to include bilateral mammography (next due in May 2020) and breast MRI surveillance. OVERALL FINAL ASSESSMENT: ??BI-RADS CATEGORY 1 - Negative DICTATION LOCATION: ??[facility] Narrative 12/18/2019 12:56 PM CDT BILATERAL BREAST MRI WITHOUT AND WITH INTRAVENOUS CONTRAST WITH CAD DATE: 12/18/2019 11:15 AM HISTORY: 44-year-old female with family history of breast cancer (mother diagnosed at the age of 51). The patient denies current breast complaints. She has a history of prior surgical biopsy of the right breast in 2016. She is status post partial hysterectomy. Breast MRI performed for high-risk screening. COMPARISON: Prior breast MRI November 18, 2018. Comparison/correlation is also made to bilateral mammogram 05/19/2019 and left breast ultrasound 05/19/2019. CONTRAST: GADOBENATE DIMEGLUMINE 529 MG/ML(0.1 MMOL/0.2 ML) INTRAVENOUS SOLUTION. ??Given: ??14 mL. TECHNIQUE: Bilateral multisequence dynamic breast MRI was performed before and after intravenous contrast administration. Images are acquired on dedicated [employer] breast coil system and image interpretation performed on [employer] CAD workstation. MultiHance was administered without immediate complication. ?? FINDINGS: There is mild background parenchymal enhancement. Both breasts are composed of heterogeneous fibroglandular tissue. RIGHT BREAST: There is no abnormal enhancing mass, nonmass enhancement, or architectural distortion to suggest malignancy in the right breast. There is no concerning skin thickening or chest wall abnormality. ??The nipple-areolar complex is within normal limits. LEFT BREAST: There is no abnormal enhancing mass, nonmass enhancement, or architectural distortion to suggest malignancy in the left breast. There is no concerning skin thickening or chest wall abnormality. ??The nipple-areolar complex is within normal limits. EXTRAMAMMARY FINDINGS: There are no morphologically abnormal axillary or internal mammary lymph nodes. ?? Procedure Note Ameena Mccoy, DO - 12/18/2019 BILATERAL BREAST MRI WITHOUT AND WITH INTRAVENOUS CONTRAST WITH CAD DATE: 12/18/2019 11:15 AM HISTORY: 44-year-old female with family history of breast cancer (mother diagnosed at the age of 51). The patient denies current breast complaints. She has a history of prior surgical biopsy of the right breast in 2016. She is status post partial hysterectomy. Breast MRI performed for high-risk screening. COMPARISON: Prior breast MRI November 18, 2018. Comparison/correlation is also made to bilateral mammogram 05/19/2019 and left breast ultrasound 05/19/2019. CONTRAST: GADOBENATE DIMEGLUMINE 529 MG/ML(0.1 MMOL/0.2 ML) INTRAVENOUS SOLUTION. Given: 14 mL. TECHNIQUE: Bilateral multisequence dynamic breast MRI was performed before and after intravenous contrast administration. Images are acquired on dedicated Sentinelle breast coil system and image interpretation performed on [employer] CAD workstation. MultiHance was administered without immediate complication. FINDINGS: There is mild background parenchymal enhancement. Both breasts are composed of heterogeneous fibroglandular tissue. RIGHT BREAST: There is no abnormal enhancing mass, nonmass enhancement, or architectural distortion to suggest malignancy in the right breast. There is no concerning skin thickening or chest wall abnormality. The nipple-areolar complex is within normal limits. LEFT BREAST: There is no abnormal enhancing mass, nonmass enhancement, or architectural distortion to suggest malignancy in the left breast. There is no concerning skin thickening or chest wall abnormality. The nipple-areolar complex is within normal limits. EXTRAMAMMARY FINDINGS: There are no morphologically abnormal axillary or internal mammary lymph nodes. IMPRESSION: No MRI evidence of malignancy is identified within either breast. RECOMMENDATION: Continued annual routine breast imaging is recommended to include bilateral mammography (next due in May 2020) and breast MRI surveillance. OVERALL FINAL ASSESSMENT: BI-RADS CATEGORY 1 - Negative DICTATION LOCATION: [facility] Desiree Joe NP MR ORDERABLES documented in this encounter Visit Diagnoses Diagnosis At high risk for breast cancer documented in this encounter Administered Medications Inactive Administered Medications - up to 3 most recent administrations Medication Order MAR Action Action Date Dose Rate Site gadobenate dimeglumine (MULTIHANCE) 529 mg/mL (0.1mmol/0.2mL) injection 15 mL 15 mL, IV, INTRA-PROCEDURE ONCE, 1 dose, Starting on Mary Ellen 12/18/19 at 1041, Until Mary Ellen 12/18/19 at 1050, Routine Contrast Given 12/18/2019 10:50 AM CDT 14 mL sodium chloride 0.9% infusion IV, at 50 mL/hr, ONE TIME ONLY, 1 dose, On Mary Ellen 12/18/19 at 1045, Routine New Bag 12/18/2019 10:51 AM CDT 50 mL/hr sodium chloride flush injection 10 mL 10 mL, IV, ONE TIME ONLY, 1 dose, On Mary Ellen 12/18/19 at 1045, Routine Given 12/18/2019 10:31 AM CDT 10 mL documented in this encounter Care Teams Foundation Assistant Relationship Specialty Start Date End Date Rio Lyon MD [address] [place] [address] PCP - General Family Practice 07/05/10 documented as of this encounter
--- OUTSIDE RECORDS SUMMARY | 2024-08-11 03:36 | XMS_ITS | Encounter Summary ---
Author Organization [facility] Address [address] [place] [address] Care Team Providers Care Printing Pressman Name Role Phone Rio Lyon MD Primary Care Provider [phone] Reason for Referral * Radiology Services (Routine) - Closed Specialty Diagnoses / Procedures Referred By Nan kingston Referred To Contact Diagnoses At high risk for breast cancer Visit for screening mammogram Procedures MAMMO SCRN BILAT 3D [place] W OR WO CAD CHG SCREENING MAMMOGRAPHY BI 2-VIEW BREAST INC CAD CHG SCREENING DIGITAL BREAST TOMOSYNTHESIS BI Desiree Joe NP NO ADDRESS ON FILE Referral ID Status Reason Start Date Expiration Date Visits Re quested Visits Authorized [id number] Closed 12/18/2019 01/17/2021 1 1 Reason for Visit * Reason Comments Follow Up 6 months w/breast MR I Encounter Details Date Type Department Care Team (Late st Contact Info) Description 12/18/2019 11:30 AM CDT Office Visit [facility] [address] [facility] [address] [place] [address] Desiree Joe NP NO ADDRESS ON FILE At high risk for breast cancer (Primary Dx); Breast cancer screening; Visit for screening mammogram Social History Tobacco Use Types Packs/Day Years [...] AM CDT documented as of this encounter Last Filed Vital Signs Vital Sign Reading Time Taken Comments Blood Pressure 116/80 12/18/2019 11:13 AM CDT Pulse 105 12/18/2019 11:13 AM CDT Temperature 37.1 ??C (98.8 ??F) 12/18/2019 11:13 AM C DT Respiratory Rate - - Oxygen Saturation 98% 12/18/2019 11:13 AM CDT Inhaled Oxygen Concentration - - Weight 76.2 kg (168 lb) 12/18/2019 11:13 AM CDT Height 152.4 cm (5') 12/18/2019 11:13 AM CDT Body Mass Index 32.81 12/18/2019 11:13 AM CDT documented in this encounter Progress Notes * Desiree Joe NP - 12/18/2019 11:29 AM CDT PATIENT: Harriet Meade : 1975 DATE: 12/18/2019 Harriet Meade is a 44 y.o. female. She comes in for six month breast check and MRI of breast. She has no new health issues or breast complaints except some tenderness upper outer aspect left breast and right breast which waxes and wanes. She does perform self breast exams. Her mom (Shady Hardwick) had breast cancer at age 5858 years old. 14 at menarche and 24 at [facility] . One benign breast biopsy in the past. She is up to date on rn gynecology exams- history of hysterectomy, ovaries still intact. She does not smoke. She has had a hysterectomy but ovaries still intact. She has no new breast or related complaints. She reports that her mother was BRCA negative. She adopted a baby from [place] in October 2013- now 7 years old. Phoebe Her dad has recurrence of his prostate cancer 2014 10 point review of systems -unremarkable No past medical history on file. Past Surgical History: Procedure Laterality Date ??? HX BREAST BIOPSY 05/2009 right breast ??? HX CORE NEEDLE BREAST BIOPSY Right 05/2009 Benign ??? HX HYSTERECTOMY 07/2008 ovaries intact ??? HX LEEP PROCEDURE 01/2010 margins clear ??? HX SURGICAL OTHER 2009 laproscopic ??? HX TUBAL LIGATION 2006 Allergies Allergen Reactions ??? Codeine Unknown ??? Darvocet A500 [Propoxyphene N-Acetaminophen] Nausea and Vomiting ??? Demerol [Meperidine] Unknown BP 116/80 Pulse (!) 105 Temp 98.8 ??F (37.1 ??C) Ht 5' (1.524 m) Wt 76.2 kg (168 lb) YmX855% BMI 32.81 kg/m?? Well-developed, well-nourished, pleasant woman. Neck - no thyromegaly no cervical adenopathy SCF- no adenopathy Axilla -no adenopathy Cardiac- RRR, no murmur Lungs- LCTA, no cough, no wheezing Breasts - normal in appearance, no masses, skin changes or nipple discharge, intradermal cyst at 8:00 left breast resolved, there is tenderness at 2:00 left breast but no palpable mass or cyst formation, no axillary LAD, she also reports tenderness at 12:00 near areola on exam, ridge of smooth breast tissue but no discernable mass formation Abdomen - liver and spleen not palpably enlarged Extremities - Good range of motion of shoulders, no lymphedema present IMAGING: Mammogram: 04/08/2013 at [facility] Mammogram: 04/14/[address] [facility]; nem Mammogram: 04/20/[address] [facility]; nem Mammogram: 04/25/[address] [facility]; NEM Mammogram: 05/01/[address] [facility]; NEM Mammogram: 05/27/2018 at [facility]; NEM Breast MRI: 11/18/2018 at [facility]; NEM Mammogram: 05/19/2019 at [facility]; NEM Left breast US: 05/19/2019 at [facility]; NEM Breast MRI: 12/18/2019 at [facility]; pending BREAST CANCER RISK ASSESSMENT 5 Year Risk Lifetime Risk BRCAPRO 0.7% 10.9% Tyrer [place]uz[place] v6 1.2% 15.8% Tyrer [place] v7 1.2% 20.7% Tyrer [place] v8 22.5% April 1.8% 21.9% Junior 0.8% 10.0% IMPRESSION: 44 y.o. woman with family history of breast cancer I have personally examined her and CBE right breast and left breast- tenderness at 12:00 right withsmooth ridge of breast tissue but no mass or cyst, tenderness 2:00 left breast which is chronic andunchanged. Intradermal cyst at 8:00 left breast resolved Await MRI results Will call her in 4-6 weeks and if pain persists, obtain repeat US of both breasts History of bilateral breast pain and fibrocystic [...] over simulation of the breast by caffeine. If she is taking exogenous hormones, i.e., control pills and hormone replacement I recommend that she either cut back or stop them entirely. She is not on OCP. She can also try elliminating caffeine intake and also reduce sodium in diet. Trial of vitamin E and evening primrose supplements foressential fatty acid deficiency. Recommend supportive bra and sports bra at bedtime Repeat MMG in six months and see me that day. Call for any breast concerns Mammogram done today- stable/benign findings Per Moira Barrios her lifetime risk is 22.5%. We discussed surveillance strategies. Her risk does warrant MRI screening. According to the [employer] anyone with a lifetime risk [...] to aid in breast cancer risk reduction. She was encouraged to call with any [...] of care. Desiree Joe, MSN, AGNP-C, AOCNP [facility] Hematology Breast Surgery Independently examined patient. Dr. Woodruff supervising physician. Cc: Rio Lyon MD [address] [place] [phone] documented in this encounter Plan of Treatment Not on file documented as of this encounter Results * MAMMO SCRN BILAT 3D [place] W OR WO CAD (06/21/2020 9:29 AM KITCHEN AND BATH DESIGNER) Anatomical Region Laterality Modality Breast Bilateral Mammography 06/21/2020 9:29 AM KITCHEN AND BATH DESIGNER Impressions 06/21/2020 2:37 PM KITCHEN AND BATH DESIGNER IMPRESSION: ?? 1. No concerning findings. OVERALL FINAL ASSESSMENT: ??BI-RADS CATEGORY 1 - Negative. RECOMMENDATIONS: 1. Recommend annual mammography. Narrative 06/21/2020 2:37 PM KITCHEN AND BATH DESIGNER BILATERAL SCREENING DIGITAL MAMMOGRAM WITH 3D TOMOSYNTHESIS AND CAD DATE: 06/21/2020 9:29 AM DICTATION LOCATION: [facility] HISTORY: Routine yearly screening exam. TECHNIQUE: Low-dose full-field digital breast tomosynthesis examination was performed of both breasts with 2D and 3D acquisitions. CAD was utilized. COMPARISON: Studies dating back to 04/14/2014. BREAST COMPOSITION: Predominantly fatty replaced. FINDINGS: No concerning dominant masses, suspicious calcifications, parenchymal asymmetries or areas of architectural distortion are identified in either breast. Procedure Note Artemio Castañeda MD - 06/21/2020 BILATERAL SCREENING DIGITAL MAMMOGRAM WITH 3D TOMOSYNTHESIS AND CAD DATE: 06/21/2020 9:29 AM DICTATION LOCATION: [facility] HISTORY: Routine yearly screening exam. TECHNIQUE: Low-dose full-field digital breast tomosynthesis examination was performed of both breasts with 2D and 3D acquisitions. CAD was utilized. COMPARISON: Studies dating back to 04/14/2014. BREAST COMPOSITION: Predominantly fatty replaced. FINDINGS: No concerning dominant masses, suspicious calcifications, parenchymal asymmetries or areas of architectural distortion are identified in either breast. IMPRESSION: 1. No concerning findings. OVERALL FINAL ASSESSMENT: BI-RADS CATEGORY 1 - Negative. RECOMMENDATIONS: 1. Recommend annual mammography. Desiree Joe NP MAMMO ORDERABLES documented in this encounter Visit Diagnoses Diagnosis At high risk for breast cancer- Primary Visit for screening mammogram Other screening mammogram At high risk for breast cancer Visit for screening mammogram Other screening mammogram documented in this encounter Care Teams Printing Pressman Relationship Specialty Start Date End Date Rio Lyon MD [address] [place] [address] PCP - General Family Practice 07/05/10 documented as of this encounter
--- OUTSIDE RECORDS SUMMARY | 2024-08-11 03:36 | XMS_ITS | Encounter Summary ---
Author Organization [facility] Address [address] Attn: Epic Prelude ADT [place] [address] Care Team Providers Care Office Mail Clerk Name Role Phone Rio Lyon MD Primary Care Provider [phone] Encounter Details Date Type Department Care Team (Latest Contact Info) Description 11/18/2019 Travel Social History Tobacco Use Types Packs/Day Years [...] or suspected to have Coronavirus / COVID-19? Unable to assess 11/18/2019 9:51 AM CDT documented as of this encounter Plan of Treatment Not on file documented as of this encounter Visit Diagnoses Not on filedocumented in this encounter Care Teams Office Mail Clerk Relationship Specialty Start Date End Date Rio Lyon MD [address] [place] [address] PCP - General Family Practice 07/05/10 documented as of this encounter
--- OUTSIDE RECORDS SUMMARY | 2024-08-11 03:36 | XMS_ITS | Encounter Summary ---
Author Organization [facility] Address [address] [place] [address] Care Team Providers Care Bridge Teacher Name Role Phone Rio Lyon MD Primary Care Provider [phone] Reason for Referral * MRI (Routine) - Closed Specialty Diagnoses / Procedures Referred By Contac t Referred To Contact Diagnoses At high risk for breast cancer Procedures MRI BREAST W WO CONT Desiree Armstrong NP NO ADDRESS ON FILE Referral ID Status Reason Start Date Expiration Date V isits Requested Visits Authorized [id number] Closed [facility] CTS 12/09/2020 01/23/2021 1 1 Reason for Visit * MRI (Routine) - Closed Specialty Diagnoses / Procedures Referred By Contac t Referred To Contact Diagnoses At high risk for breast cancer Procedures MRI BREAST W WO CONT Desiree Armstrong NP NO ADDRESS ON FILE Referral ID Status Reason Start Date Expiration Date V isits Requested Visits Authorized [id number] Closed [facility] CTS 12/09/2020 01/23/2021 1 1 Encounter Details Date Type Department Care Team (Latest Contact Info) Description 12/20/2020 9:26 AM CDT - 12/20/2020 11:59 PM CDT Hospital Encounter [facility] [address] [place] [phone] Desiree Joe NP NO ADDRESS ON FILE [...] have Coronavirus / COVID-19? No / Unsure 12/20/2020 9:22 AM CDT documented as of this encounter Medications at Time of Discharge Medication Sig Dispensed Refills Start Date End Date Linzess 145 mcg capsule Take 145 mcg by mouth daily. 12/17/2020 venlafaxine (EFFEXOR XR) 150 mg Extended Release 24 hour capsule 09/16/2020 QUEtiapine (SEROquel) 25 mg tablet Take 25 mg by mouth daily. diclofenac sodium (VOLTAREN) 75 mg Oral TbECIndications:Breast lump Take 75 mg by mouth 2 times daily. documented as of this encounter Miscellaneous Notes * Treatment Plan - Brittany Estevez, RT - 12/20/2020 9:30 AM CDT Images from the original note were not included. ? [facility] IMS CT MRI Medication and Flush Protocol [facility] Approved by: [facility] - Medical Executive Committee Approval Date: 09/23/2020 ORDERS ARE ENTERED ???PER PROTOCOL?? Enter the protocol in the patient's electronic health record using smartInfoNowrase: .imagingctmriprotocol Communication Orders: o For ordered imaging procedures requiring intravenous access: ??? Initiate a peripheral IV, if not already in place, and discontinue IV prior to discharge (if outpatient). ??? Enter order if needed: Insert Peripheral IV o Bariatric Oral Contrast: Post-surgical bariatric patients will have markedly reduced ability to drink normal quantities of liquid. ??? Four ounces will be the maximum amount or less if the patient cannot comfortably tolerate. ??? Cancel oral contrast if patient is nauseated or vomiting. ??? Water based contrast only Medication Orders: o Local Anesthetic for use to initiate IV ADULT ??? Lidocaine 4% (L.M.X.4) applied topically ONE TIME prior to IV catheter insertion PRN (L.M.X.4 %should be applied 15 minutes prior to procedure) PEDIATRIC ??? Lidocaine 4% (L.M.X.4) applied topically ONE TIME prior to IV catheter insertion PRN (apply 30 minutes prior to procedure) ??? Sucrose 24% (Squirts) given PO prior to IV catheter insertion (administer 1 - 2 minutes prior to procedure) OR ??? Sucrose 24% (Tootsweet; Sweet-Ease) oral solution 0.2 mL oral (apply to tongue on pacifier or clean, gloved finger), ONE TIME 2 minutes prior to painful procedure. May repeat dose x1 PRN to complete procedure. o Sodium chloride 0.9% (normal saline) flush 10 mL PRN for saline lock or medication administration. o For respiratory distress, initiate oxygen and/or increase O2 to maintain saturation greater than 90% o For all invasive procedures: obtain Lidocaine 1% for intra-procedure administration. If Lidocaine1% unavailable, may substitute Lidocaine 2%. PROCEDURE SPECIFIC CT MEDICATIONS Any exceptions to these contrast protocols must be approved by a Radiologist and documented in the EHR Progress Notes. Cystogram (CT Pelvis): Iopamidol (Isovue 300) 61%, 50mL, diluted with 250mL of sterile NS. Inject Isovue into 250mL bag ofNS. Clamp gelason catheter prior to instilling solution via catheter. o Instill up to 300mL of Isovue and NS solution into bladder via catheter, one time. CT ORAL CONTRAST PROTOCOLS FOR ADULTS ??? Use Iohexol (Omnipaque) 240 mg/mL for CT scan unless patient has a documented allergy to contrast dye. ??? If allergy present, use Barium Sulfate (EZ Paque) for procedure. o Iohexol (Omnipaque) 240 mg/mL: 50ml added [...] oral. May use nasoenteric tube if needed. [place] to 3 months Administer up to 90mL of Barium sulfate, orally, one time only 4 months to [...] of Barium sulfate, Orally, One Time Only Iohexol (Omnipaque) 240 mg/mL oral solution ; Dilute 25mL of Iohexol with 480mL of clear liquid of patient's choice. Administer the diluted solution per age as follows: Preferred route is orally. May use nasoenteric tube if needed. ; Send any remaining diluted Iohexol solution with the patient's nurse to CT ; ; [place] ; Administer 45mL of diluted Iohexol oral solution, orally every 30 minutes x 2 doses. ; 1 month to 1 year old ; Administer 120mL of diluted Iohexol oral solution, orally every 30 min x 2 doses. ; 1 year old to 5 years old ; Administer 180mL of Iohexol orally every 30 min x 2 doses. ; 5 years old to 10 years old ; Administer 240mL of Iohexol orally every 30 min x 2 doses. ; Over 10 years old ; Administer 300mL of Iohexol orally every 30 min x 2 doses. ; ; CT RECTAL CONTRAST PROTOCOLS ADULTS: o Iohexol (Omnipaque) 240 mg/mL: Dilute 50mL of Omnipaque with 900mL of warm water in an enema bag.Administer the diluted solution rectally via gravity per patient's tolerance, up to 950mLs, one time only. ; CT IV CONTRAST PROTOCOLS for ADULT ; ADULTS: (If patient is less than 55kg and confirm dose with radiologist) o Iopadmidol (Isovue-300): Administer 2.2mL/kg of Iopamidol 61%, intravenously, one time only. o See table below for maximum dose, unless otherwise authorized by radiologist. If exam has been completed before the entire dose has been administered, stop the injection. o Multiple doses of iodine contrast within a 24-hour period are a risk factor for FANTA and should beavoided if possible. Emergent or other unusual circumstances where multiple doses of contrast are required in a short interval time should prompt consideration by the referring professional and radiologist to discuss the risks and benefits of contrast media administration. o If exam not included in table below, contact radiologist for orders. Procedure Maximum Dose CT Head with Contrast Up to [address] Chest with Contrast Up to [address] Maxillofacial with Contrast Up to [address] Soft Tissue Neck with Contrast CT Chest Abdomen Pelvis with Contrast CT Chest Abdomen with Contrast CT Abdomen Pelvis with Contrast CT Pelvis with Contrast CT Angiogram Examinations (all) CT Soft Tissue Neck and Chest Abdomen Pelvis with Contrast Up to 150 mL [...] Iopamidol (Isovue-300) 61%, intravenously, one time only PROCEDURE SPECIFIC MRI MEDICATIONS: MRI ENTEROGRAPHY: GLUGACON ADMINISTRATION ADULTS: (patient 18 years or older) o Patient will receive 2 doses of Glucagon one dose 0.5mg IM administered by RN prior to the MRI exam beginning 2nd dose 0.5mg IV prior to the IV contrast being administered. (If the patient is diabetic call the radiologist to verify administration of Glucagon) PEDIATRICS: If the patient is diabetic call the radiologist to verify administration of Glucagon o Pediatric patient weighing 24.9 kg or less should have one dose of Glucagon 0.5mg IM administeredby RN prior to MRI exam beginning. o Pediatric patient weighing 25 kg or greater should have one dose of Glucagon 1 mg IM administeredby RN prior to the MRI exam beginning. MRI UROGRAM: LASIX ADMINISTRATION ADULTS: Call radiologist with any questions regarding administration of Lasix o Lasix 0.1mg per kg with a minimum dose of Lasix 5mg IV being given up to a max dose of Lasix 10mgIV being given. The Lasix should be administered by RN prior to the IV contrast being administered. ??? (Hold Lasix if: obstruction, anuria and hypersensitivity to furosemide, and electrolyte imbalance or hypotension should be corrected by RN before administering) MRI IV CONTRAST PROTOCOLS ADULTS: Multihance and Prohance can be used for most MRI scans Prohance should be used primarily. Multihance is useful in specific circumstances as directed by the radiologist or per the appropriate sections established protocols. Group I gadolinium contrast agents shall not be administered. Generally, multiple doses of gadolinium contrast should not be administered within a 24-hour period. In emergent or other unusual circumstances where this is necessary, only Group II agents should beadministered. For Liver Studies: Contact radiologist to determine use of one of the following: ??? Gadobenate Dimeglumine (Multihance) (0.1mmol/0.2mL), Administer 0.1mmol/kg = 0.2mL/kg up to MAXof 20 mL, intravenously, one time only ??? Gadoteridol (Prohance) (0.1mmol/0.2mL), Administer 0.1mmol/kg = 0.2mL/kg up to MAX of 20mL, intravenously, one time only ??? Gadoxetate (Eovist) (2.5 mmol/10mL), Administer 0.025mmol/kg = 0.1mL/kg up to MAX of 10mL, intravenously, one time only PEDIATRICS: Radiologist to determine need for contrast Term neonates up to 2 years: Gadobuterol (Gadavist) (1mmol/mL injection), Administer 0.1mmol/kg = 0.1mL/kg up to MAX of 14mmol=14mL, intravenously, one time only OR Gadobenate Dimeglumine (Multihance) (0.1mmol/mL), Administer 0.1mmol/kg = 0.1mL/kg up to MAX of 14mmol = 14mL, intravenously, one time only 2 years and older Gadobenate Dimeglumine (Multihance) (0.1mmol/0.2mL), Administer 0.1mmol/kg = 0.2mL/kg up to MAX of 20mL, intravenously, one time only OR Gadoteridol (Prohance) (0.1mmol/0.2mL), Administer 0.1mmol/kg = 0.2mL/kg up to MAX of 20mL, intravenously, one time only TABLE 1. ACR Manual Classification of Gadolinium-Based Agents Relative to Nephrogenic Systemic Fibrosis Group I: Agents associated with the greatest number of NSF cases: o Gadodiamide (Omniscan?? - Qio) o Gadopentetate dimeglumine (Magnevist?? - Positron) o Gadoversetamide (OptiMARK?? - Guerbet) Group II: Agents associated with few, if any, unconfounded cases of NSF: o Gadobenate dimeglumine (MultiHance?? - SeamBLiSS [employer]ostics) o Gadobutrol (Gadavist?? - Positron; Gadovist in many countries) o Gadoteric acid (Dotarem?? - Guerbet, Clariscan - Qio) Gadoteridol (ProHance?? - SeamBLiSS Diagnostics) Group III: Agents for which data remains limited regarding NSF risk, but for which few, if any unconfounded cases of NSF have been reported: Gadoxetate disodium (Eovist - Positron; Primovist in many countries) documented in this encounter Plan of Treatment Not on file documented as of this encounter Procedures Procedure Name Priority Date/Time Associated Diagnosis Comments MRI BREAST DIAGNOSTIC WWO CONTRAST BILATERAL Routine 12/20/2020 10:09 AM CDT At high risk for breast cancer documented in this encounter Results * (ABNORMAL) MRI BREAST [...] at age 53. High-risk screening. DICTATION LOCATION: ??[facility] COMPARISON: Breast MRI 12/18/2019 and 11/18/2018, mammograms 06/21/2020. CONTRAST: Gadobenate dimeglumine 529 mg/ml(0.1 mmol/0.2 ml) intravenous solution. ??Given: 15 mL. TECHNIQUE: Bilateral multisequence dynamic breast MRI was performed before and after intravenous contrast administration. Images are acquired on dedicated [employer] breast coil system and image interpretation performed on [employer] CAD workstation. MultiHance was administered without immediate [...] at age 53. High-risk screening. DICTATION LOCATION: [facility] COMPARISON: Breast MRI 12/18/2019 and 11/18/2018, mammograms 06/21/2020. CONTRAST: Gadobenate dimeglumine 529 mg/ml(0.1 mmol/0.2 ml) intravenous solution. Given: 15 mL. TECHNIQUE: Bilateral multisequence dynamic breast MRI was performed before and after intravenous contrast administration. Images are acquired on dedicated [employer] breast coil system and image interpretation performed on [employer] CAD workstation. MultiHance was administered without immediate [...] IV, INTRA-PROCEDURE ONCE, 1 dose, Starting on Sun12/20/20 at 0945, Until Sun12/20/20 at 1000, Routine Contrast Given 12/20/2020 10:00 AM CDT 15 mL documented in this encounter Care Teams Bridge Teacher Relationship Specialty Start Date End Date Rio Lyon MD [address] [place] [address] PCP - General Family Practice 07/05/10 documented as of this encounter
--- OUTSIDE RECORDS SUMMARY | 2024-08-11 03:36 | XMS_ITS | Encounter Summary ---
Author Organization [facility] Address [address] Attn: Epic Prelude ADT [place] [address] Care Team Providers Care Manager Trade Name Role Phone Rio Lyon MD Primary Care Provider [phone] Encounter Details Date Type Department Care Team (Latest Contact Info) Description 12/18/2019 Travel Social History Tobacco Use Types Packs/Day [...] on filedocumented in this encounter Care Teams Manager Trade Relationship Specialty Start Date End Date Rio Lyon MD [address] [place] [address] PCP - General Family Practice 07/05/10 documented as of this encounter
--- OUTSIDE RECORDS SUMMARY | 2024-08-11 03:36 | XMS_ITS | Encounter Summary ---
Author Organization [facility] Address [address] [place] [address] Care Team Providers Care Program Director/Traffic Director Name Role Phone Rio Lyon MD Primary Care Provider [phone] Encounter Details Date Type Department Care Team (Late st Contact Info) Description 12/20/2020 Orders Only [facility] [address] [address] [place] [phone] Desiree Joe NP NO ADDRESS ON FILE Family history of malignant neoplasm of breast (Primary Dx); At high risk for breast cancer Social History Tobacco Use Types Packs/Day Years [...] documented as of this encounter Visit Diagnoses Diagnosis Family history of malignant neoplasm of breast- Primary At high risk for breast cancer documented in this encounter Care Teams Program Director/Traffic Director Relationship Specialty Start Date End Date Rio Lyon MD [address] [place] [address] PCP - General Family Practice 07/05/10 documented as of this encounter
--- OUTSIDE RECORDS SUMMARY | 2024-08-11 03:36 | XMS_ITS | Encounter Summary ---
Author Organization [facility] Address [address] Attn: Epic Prelude ADT [place] [address] Care Team Providers Care Button Puncher Name Role Phone Rio Lyon MD Primary Care Provider [phone] Encounter Details Date Type Department Care Team (Latest Contact Info) Description 06/15/2020 Travel Social History Tobacco Use Types Packs/Day [...] have Coronavirus / COVID-19? No / Unsure 06/15/2020 2:41 PM [employer] MGR documented as of this encounter Plan of Treatment Not on file documented as of this encounter Visit Diagnoses Not on filedocumented in this encounter Care Teams Button Puncher Relationship Specialty Start Date End Date Rio Lyon MD [address] [place] [address] PCP - General Family Practice 07/05/10 documented as of this encounter
--- OUTSIDE RECORDS SUMMARY | 2024-08-11 03:36 | XMS_ITS | Encounter Summary ---
Author Organization [facility] Address [address] Attn: Epic Prelude ADT [place] [address] Care Team Providers Care Sand And Gravel Plant Operator Name Role Phone Rio Lyon MD Primary Care Provider [phone] Encounter Details Date Type Department Care Team (Latest Contact Info) Description 08/02/2020 Travel Social History Tobacco Use Types Packs/Day [...] have Coronavirus / COVID-19? Unable to assess 08/02/2020 1:59 PM SWING TENDER documented as of this encounter Plan of Treatment Not on file documented as of this encounter Visit Diagnoses Not on filedocumented in this encounter Care Teams Sand And Gravel Plant Operator Relationship Specialty Start Date End Date Rio Lyon MD [address] [place] [address] PCP - General Family Practice 07/05/10 documented as of this encounter
--- OUTSIDE RECORDS SUMMARY | 2024-08-11 03:36 | XMS_ITS | Encounter Summary ---
Author Organization [facility] Address [address] [place] [address] Care Team Providers Care Stamping Die Maker Name Role Phone Rio Lyon MD Primary Care Provider [phone] Reason for Visit * Reason Onset Date Comments Results 12/21/2020 Encounter Details Date Type Department Care Team (Late st Contact Info) Description 12/21/2020 Telephone [facility] BREAST SURGERY - [place] [facility] [address] [place] [address] Desiree Joe NP NO ADDRESS ON FILE Results Social History Tobacco Use Types Packs/Day Years [...] AM CDT documented as of this encounter Miscellaneous Notes * Telephone Encounter - Desiree Joe NP - 12/21/2020 10:25 AM CDT Spoke with patient- aware that MRI showed non mass enhancement 3:00 left breast. Needs biopsy. Barbto schedule Narrative & Impression BILATERAL BREAST MRI WITHOUT AND WITH INTRAVENOUS CONTRAST WITH CAD ?? DATE: 12/20/2020 10:09 AM ?? HISTORY: Family history of breast cancer, including mother diagnosed at age 51. High-risk screening. ?? DICTATION LOCATION: [facility] ?? COMPARISON: Breast MRI 12/18/2019 and 11/18/2018, mammograms 06/21/2020. ?? CONTRAST: Gadobenate dimeglumine 529 mg/ml(0.1 mmol/0.2 ml) intravenous solution. Given: 15 mL. ?? TECHNIQUE: Bilateral multisequence dynamic breast MRI was performed before and after intravenous contrast administration. Images are acquired on dedicated [employer] breast coil system and image interpretation performed on [employer] CAD workstation. MultiHance was administered without immediate complication. ?? FINDINGS: There is moderate to marked background enhancement, limiting the sensitivity for the detection of focal lesions. ?? There is increased clumped nonmass enhancement within the mid to posterior outer central left breast measuring 3.9 cm AP by 0.9 cm transverse by 1.9 cm craniocaudal (image 307 at the first postcontrast series). This demonstrates a benign persistent type of enhancement kinetics and is located approximately 7 cm from the nipple at 3:00. ?? Other scattered foci and focal areas of enhancement throughout both breasts are most compatible with benign background parenchymal enhancement. The degree of background enhancement is increased since the prior MRIs. No dominant enhancement is seen within the right breast to suggest malignancy. Scattered, small bilateral breast cysts are noted, all measuring less than 1 cm each. ?? No morphologically abnormal lymph nodes are identified. ?? There is a round 1 cm hypointense focus within the gallbladder on the T2-weighted sequence (image 47 axial STIR), most compatible with a gallstone. ? IMPRESSION: Increased clumped nonmass enhancement is seen in the outer central left breast at 3:00. It is unlikely that this will be seen by ultrasound. Therefore, MRI guided core needle biopsy is recommended. ?? No concerning enhancing lesions are identified in the right breast. ?? Cholelithiasis noted. ?? OVERALL FINAL ASSESSMENT: Suspicious. BI-RADS CATEGORY 4: Suspicious. ? documented in this encounter Plan of Treatment Not on file documented as of this encounter Visit Diagnoses Not on filedocumented in this encounter Care Teams Stamping Die Maker Relationship Specialty Start Date End Date Rio Lyon MD [address] [place] [address] PCP - General Family Practice 07/05/10 documented as of this encounter
--- OUTSIDE RECORDS SUMMARY | 2024-08-11 03:36 | XMS_ITS | Encounter Summary ---
Author Organization [facility] Address [address] [place] [address] Care Team Providers Care Cream Buyer Name Role Phone Rio Lyon MD Primary Care Provider [phone] Reason for Visit * Reason Onset Date Comments Results 12/18/2019 Encounter Details Date Type Department Care Team (Late st Contact Info) Description 12/18/2019 Telephone [facility] BREAST SURGERY - [place] [facility] [address] [address] [place] [address] Desiree Joe NP NO ADDRESS [...] Telephone Encounter - Desiree Joe NP - 12/18/2019 1:15 PM CDT Pt is aware that breast MRI was negative Narrative & Impression BILATERAL BREAST MRI WITHOUT AND WITH INTRAVENOUS CONTRAST WITH CAD ?? DATE: 12/18/2019 11:15 AM ?? HISTORY: 44-year-old female with family history of breast cancer (mother diagnosed at the age of 51). The patient denies current breast complaints. She has a history of prior surgical biopsy of the right breast in 2016. She is status post partial hysterectomy. Breast MRI performed for high-risk screening. ?? COMPARISON: Prior breast MRI November 18, 2018. Comparison/correlation is also made to bilateral mammogram 05/19/2019 and left breast ultrasound 05/19/2019. ?? CONTRAST: GADOBENATE DIMEGLUMINE 529 MG/ML(0.1 MMOL/0.2 ML) INTRAVENOUS SOLUTION. Given: 14 mL. ?? TECHNIQUE: Bilateral multisequence dynamic breast MRI was performed before and after intravenous contrast administration. Images are acquired on dedicated [employer] breast coil system and image interpretation performed on [employer] workstation. MultiHance was administered without immediate complication. ?? FINDINGS: There is mild background parenchymal enhancement. Both breasts are composed of heterogeneous fibroglandular tissue. ?? RIGHT BREAST: There is no abnormal enhancing mass, nonmass enhancement, or architectural distortion to suggest malignancy in the right breast. There is no concerning skin thickening or chest wall abnormality. The nipple-areolar complex is within normal limits. ?? LEFT BREAST: There is no abnormal enhancing mass, nonmass enhancement, or architectural distortion to suggest malignancy in the left breast. There is no concerning skin thickening or chest wall abnormality. The nipple-areolar complex is within normal limits. ?? EXTRAMAMMARY FINDINGS: There are no morphologically abnormal axillary or internal mammary lymph nodes. ? IMPRESSION: No MRI evidence of malignancy is identified within either breast. ?? RECOMMENDATION: Continued annual routine breast imaging is recommended to include bilateral mammography (next due in May 2020) and breast MRI surveillance. ?? OVERALL FINAL ASSESSMENT: BI-RADS CATEGORY 1 - Negative ?? DICTATION LOCATION: [facility] documented in this encounter Plan of Treatment Not on file documented as of this encounter Visit Diagnoses Not on filedocumented in this encounter Care Teams Cream Buyer Relationship Specialty Start Date End Date Rio Lyon MD [address] [place] [id number] PCP - General Family Practice 07/05/10 documented as of this encounter
--- OUTSIDE RECORDS SUMMARY | 2024-08-11 03:36 | XMS_ITS | Encounter Summary ---
Author Organization [facility] Address [address] [place] [address] Care Team Providers Care Director Of Community Education Name Role Phone Rio Lyon MD Primary Care Provider [phone] Reason for Referral * Radiology Services (Routine) - Closed Specialty Diagnoses / Procedures Referred By Nan kingston Referred To Contact Diagnoses Family history of malignant neoplasm of breast Abnormal MRI, breast Procedures MAMMO DIAGNOSTIC UNI LEFT W OR WO CAD Desiree Joe, MANAGER OF COMMUNITY RELATIONS NO ADDRESS ON FILE [facility] Test Scheduling [address] [address] Referral ID Status Reason Start Date Expiration Date V isits Requested Visits Authorized [id number] Closed [facility] CTS 12/21/2020 01/21/2022 1 1 Reason for Visit * Auth/Cert Specialty Diagnoses / Procedures Referred By Nan kingston Referred To Contact Radiology [facility] [address] [place] [address] Referral ID Status Reason Start Date Expiration Date Visits Re quested Visits Authorized [id number] 1 1 Encounter Details Date Type Department Care Team (Latest Contact Info) Description 12/29/2020 9:07 AM CDT - 12/29/2020 11:59 PM CDT Hospital Encounter [facility] [address] [place] [address] Desiree Joe NP NO ADDRESS ON FILE [...] have Coronavirus / COVID-19? No / Unsure 12/29/2020 9:00 AM CDT documented as of this encounter [...] times daily. documented as of this encounter Plan of Treatment Not on file documented as of this encounter Procedures Procedure Name Priority Date/Time Associated Diagnosis Comments MAMMO DIAGNOSTIC UNI LEFT W OR WO CAD Routine 12/29/2020 10:42 AM CDT Family history of malignant neoplasm of breast Abnormal MRI, breast documented in this encounter Results * MAMMO DIAGNOSTIC UNI LEFT W OR WO CAD (12/29/2020 10:42 AM CDT) Anatomical Region Laterality Modality Breast Left Mammography 12/29/2020 9:07 AM CDT Addenda Addendum by Artemio Castañeda MD on 01/05/2021 6:03 PM CDT PATHOLOGY CORRELATION: The patient recently underwent a MRI guided core biopsy Pathology results reveal a spectrum of benign changes including fibrocystic changes, usual ductal hyperplasia and microcalcifications. No evidence of atypia or malignancy. ?? This is a concordant result. RECOMMENDATIONS: 1. Recommend annual mammography and annual screening breast MRI. Impressions 12/29/2020 11:41 AM CDT IMPRESSION: Technically successful MRI-guided core biopsy with tissue marker placement. Narrative 12/29/2020 11:41 AM CDT VACUUM-ASSISTED CORE BIOPSY OF THE LEFT BREAST UTILIZING MRI GUIDANCE AND LEFT UNILATERAL DIGITAL DIAGNOSTIC MAMMOGRAM DATE: 12/29/2020 DICTATION LOCATION: ??[facility] HISTORY: Abnormal enhancement within the lateral left breast, DCIS versus normal tissue TECHNIQUE/FINDINGS: After a discussion of the risks and benefits of the procedure with the patient, including bleeding, infection and damage to surrounding structures, verbal and written consent was obtained. The patient was placed prone on the MRI gantry with the left breast in compression from a lateral approach. The area of interest within lateral left breast was localized using MRI guidance after the administration of IV gadolinium-containing contrast. Subsequently, the skin overlying the lesion was prepped in the usual sterile fashion. Lidocaine was used for local anesthesia. A sheath was then advanced into the area of interest and a repeat MRI was performed to assure proper localization of the lesion of interest prior to biopsy. A 9-gauge vacuum-assisted core biopsy device was then advanced through the sheath into the area of interest and six core biopsies were obtained. The biopsy device was then removed and a cylindrical biopsy site marker was placed through the sheath and deployed into the biopsy cavity. Repeat MR imaging was then performed to assure deployment of the biopsy site marker. Afterwards, the sheath was removed from the breast. Hemostasis was achieved. The small skin incision was then dressed with skin glue. A two-view left unilateral digital mammogram was obtained post-procedure and this demonstrates that the tissue marker clip is in the expected position. The patient tolerated the procedure well and there was no evidence of immediate complication. The patient was given verbal as well as written post-procedure instructions prior to the release from the department. The tissue cores were submitted to surgical pathology in formalin for histological analysis. Procedure Note Artemio Castañeda MD - 12/29/2020 VACUUM-ASSISTED CORE BIOPSY OF THE LEFT BREAST UTILIZING MRI GUIDANCE AND LEFT UNILATERAL DIGITAL DIAGNOSTIC MAMMOGRAM DATE: 12/29/2020 DICTATION LOCATION: [facility] HISTORY: Abnormal enhancement within the lateral left breast, DCIS versus normal tissue TECHNIQUE/FINDINGS: After a discussion of the risks and benefits of the procedure with the patient, including bleeding, infection and damage to surrounding structures, verbal and written consent was obtained. The patient was placed prone on the MRI gantry with the left breast in compression from a lateral approach. The area of interest within lateral left breast was localized using MRI guidance after the administration of IV gadolinium-containing contrast. Subsequently, the skin overlying the lesion was prepped in the usual sterile fashion. Lidocaine was used for local anesthesia. A sheath was then advanced into the area of interest and a repeat MRI was performed to assure proper localization of the lesion of interest prior to biopsy. A 9-gauge vacuum-assisted core biopsy device was then advanced through the sheath into the area of interest and six core biopsies were obtained. The biopsy device was then removed and a cylindrical biopsy site marker was placed through the sheath and deployed into the biopsy cavity. Repeat MR imaging was then performed to assure deployment of the biopsy site marker. Afterwards, the sheath was removed from the breast. Hemostasis was achieved. The small skin incision was then dressed with skin glue. A two-view left unilateral digital mammogram was obtained post-procedure and this demonstrates that the tissue marker clip is in the expected position. The patient tolerated the procedure well and there was no evidence of immediate complication. The patient was given verbal as well as written post-procedure instructions prior to the release from the department. The tissue cores were submitted to surgical pathology in formalin for histological analysis. IMPRESSION: Technically successful MRI-guided core biopsy with tissue marker placement. Desiree Joe MANAGER OF COMMUNITY RELATIONS MAMMO ORDERABLES documented in this encounter Visit Diagnoses Diagnosis Family history of malignant neoplasm of breast Abnormal MRI, breast Other (abnormal) findings on radiological examination of breast documented in this encounter Care Teams Director Of Community Education Relationship Specialty Start Date End Date Rio Lyon MD [address] [place] [address] PCP - General Family Practice 07/05/10 documented as of this encounter
--- OUTSIDE RECORDS SUMMARY | 2024-08-11 03:36 | XMS_ITS | Encounter Summary ---
Author Organization [facility] Address [address] [facility] Attn: Epic Prelude ADT [address] [address] Care Team Providers Care Electronic Parts Designer Name Role Phone Rio Lyon MD Primary Care Provider [phone] Encounter Details Date Type Department Care Team (Latest Contact Info) Description 11/12/2019 Travel Social History Tobacco Use Types Packs/Day [...] have Coronavirus / COVID-19? No / Unsure 11/12/2019 9:22 AM CDT documented as of this encounter Plan of Treatment Not on file documented as of this encounter Visit Diagnoses Not on filedocumented in this encounter Care Teams Electronic Parts Designer Relationship Specialty Start Date End Date Rio Lyon MD [address] [place] [address] PCP - General Family Practice 07/05/10 documented as of this encounter
--- OUTSIDE RECORDS SUMMARY | 2024-08-11 03:36 | XMS_ITS | Encounter Summary ---
Author Organization [facility] Address [address] [place] [address] Care Team Providers Care Indoor Plant Technician Name Role Phone Rio Lyon MD Primary Care Provider [phone] Reason for Referral * MRI (Routine) - Closed Specialty Diagnoses / Procedures Referred By Nan kingston Referred To Contact Diagnoses Family history of malignant neoplasm of breast Abnormal MRI, breast Procedures MRI BIOPSY BREAST LEFT Desiree Joe, AVIATION MECHANIC NO ADDRESS ON FILE [facility] Test [address] [address] Referral ID Status Reason Start Date Expiration Date V isits Requested Visits Authorized [id number] Closed [facility] CTS 12/21/2020 01/21/2022 1 1 Reason for Visit * Auth/Cert Specialty Diagnoses / Procedures Referred By Nan kingston Referred To Contact Radiology [facility] [address] [place] [address] Referral ID Status Reason Start Date Expiration Date Visits Re quested Visits Authorized [id number] 1 1 Encounter Details Date Type Department Care Team (Latest Contact Info) Description 12/29/2020 9:07 AM CDT - 12/29/2020 11:59 PM CDT Hospital Encounter [facility] MRI [address] [place] [address] Dseiree Joe NP NO ADDRESS ON FILE Discharge [...] Treatment Plan - Brittany Estevez, RT - 12/29/2020 9:45 AM CDT Images from the original note were not included. ? [facility] IMS CT MRI Medication and Flush Protocol [facility] Approved by: [facility] - Medical Executive Committee Approval Date: 09/23/2020 ORDERS ARE ENTERED ???PER PROTOCOL?? Enter the protocol in the patient's electronic health record using boldUnderline. llcrase: .imagingctmriprotocol Communication Orders: o For ordered imaging [...] oral. May use nasoenteric tube if needed. [place] to 3 months Administer up to 90mL [...] the patient's nurse to CT ; ; ; Administer 45mL of diluted Iohexol oral [...] than 55kg and confirm dose with radiologist. [place] to 15 years old Administer 2.2mL/kg (to [...] of NSF cases: o Gadodiamide (Omniscan?? - [place]) o Gadopentetate dimeglumine (Magnevist?? - [employer]) o Gadoversetamide (OptiMARK?? - [place]) Group II: Agents associated with few, if any, unconfounded cases of NSF: o Gadobenate dimeglumine (MultiHance?? - [employer]) o Gadobutrol (Gadavist?? - [employer]; Gadovist in many countries) o Gadoteric acid (Dotarem?? - [place], Clariscan - [place]) Gadoteridol (ProHance?? - [employer]) Group III: Agents for which data remains limited regarding NSF risk, but for which few, if any unconfounded cases of NSF have been reported: Gadoxetate disodium (Eovist - [employer]; Primovist in many countries) * Result Encounter Note - Dorothy Walton RN - 12/29/2020 9:45 AM CDT Results are benign and concordant per Dr. Artemio Castañeda. Annual mammography is recommended. The findings and recommendation will be discussed with the patient by the office of AVIATION MECHANIC Desiree Joe. Dorothy Walton CORPORATE INVESTIGATOR,CBCN, Breast Health Nurse Navigator-[facility] documented in this encounter Plan of Treatment Not on file documented as of this encounter Procedures Procedure Name Priority Date/Time Associated Diagnosis Comments MRI BIOPSY BREAST LEFT Routine 12/29/2020 11:03 AM CDT Family history of malignant neoplasm of breast Abnormal MRI, breast PATHOLOGY Pathology 12/29/2020 10:40 AM CDT documented in this encounter Results * MRI BIOPSY BREAST LEFT (12/29/2020 11:03 AM CDT) Anatomical Region Laterality Modality Breast Left Magnetic Resonan ce Tissue SPECIMEN FROM BREAST / Unknown 12/29/2020 10:24 AM CDT Addenda Addendum by Artemio Castañeda [...] DIAGNOSTIC MAMMOGRAM DATE: 12/29/2020 DICTATION LOCATION: ??[facility] HISTORY: Abnormal enhancement within the lateral left [...] surgical pathology in formalin for histological analysis. Desiree Joe AVIATION MECHANIC MR ORDERABLES * PATHOLOGY (12/29/2020 10:40 AM CDT) CASE REPORT Surgical Pathology Report ? Case: [id number] ? Authorizing Provider: ??Artemio Castañeda MD ?Collected: ? 12/29/2020 10:40 AM ? Ordering Location: ? [facility] [address] Received: ?12/29/2020 12:31 PM ? Pathologist: ? Elina Bee MD ? Specimen: ?Breast, left ? 12/31/2020 11:12 AM [facility] FINAL DIAGNOSIS Breast, left, mass , MRI guided core biopsy: - Mild fibrocystic changes and focal usual ductal hyperplasia. - Microcalcifications associated with benign glands. - Negative for malignancy. 12/31/2020 11:12 AM [facility] S DESCRIPTION Received in one container labeled Harriet Meade and left breast mass are 12 yellow-mccrary fibrofatty tissue cores ranging from 1.6 to 3.3 cm in length and each measuring 0.3 cm in diameter. All are submitted in cassettes A1 through A4. [facility] 12/31/2020 11:12 AM [facility] MICROSCOPIC DESCRIPTION The slides are labeled [id number] and Harriet Meade. The radiographic description of abnormal enhancement of the lateral left breast is noted. Sections show fibroglandular breast tissue with mild fibrocystic change, including areas of mild stromal fibrosis, apocrine metaplasia, and focal usual ductal hyperplasia. Microcalcifications are associated with benign glands. Features of malignancy are not identified. Additional levels were examined (blocks A1, A2, A3, and A4). 12/31/2020 11:12 AM [facility] OPERATIVE PROCEDURE mri guided core biopsy 12/31/2020 11:12 AM [facility] CLINICAL INFORMATION Left Breast Mass: 6 cores taken Tissue Obtained @ 1010 In Formalin @ 1015 abnormal enhancement of the lateral left breast. DCIS vs nl tissue 12/31/2020 11:12 AM [facility] COMMENT Special stain and/or immunohistochemical results are interpreted with controls that demonstrate appropriate staining reactions. Note on use of immunocytochemistry reagents: This test was developed and its performance characteristics determined by [facility], Department of Laboratory Medicine. It has not been cleared or approved by the U.S. Food and Drug Administration. The FDA has determined that such clearance or approval is not necessary. The test is used for clinical purposes. It should not be regarded as investigational or for research. This laboratory is certified to perform high complexity testing. Frozen section/operating room consultation, gross examination and dissection, and case sign out may have been performed in part or completely in the following laboratories: [facility], CLIA #[id number] [address] [place] [address] [facility], [place] #[id number] [address] [place] [address] [facility][id number] [address] [place] [address] 12/31/2020 11:12 AM CDT [facility] Tissue LEFT BREAST STRUCTURE / Unknown 12/29/2020 10:40 AM CDT 12/29/2020 12:31 PM CDT Artemio Castañeda MD PATHOLOGY/CYTOLOGY O RDERABLES [facility] [id number] [address] [facility] [place] [address] documented in this encounter Visit Diagnoses Diagnosis Family history of malignant neoplasm of breast Abnormal MRI, breast Other (abnormal) findings on radiological examination of breast documented in this encounter Administered Medications Inactive Administered Medications - up to 3 most recent administrations Medication Order MAR Action Action Date Dose Rate Site gadobenate dimeglumine (MULTIHANCE) 529 mg/mL (0.1mmol/0.2mL) injection 15 mL 15 mL, IV, INTRA-PROCEDURE ONCE, 1 dose, Starting on Sun12/29/20 at 0939, Until Sun12/29/20 at 1025, Routine Contrast Given 12/29/2020 10:25 AM CDT 15 mL lidocaine PF 1% (XYLOCAINE MPF) injection 30 mL 30 mL, See Admin Instructions, ONE TIME ONLY, 1 dose, On Sun12/29/20 at 1045, Routine Given 12/29/2020 10:45 AM CDT 8 mL Breast, Left lidocaine-EPINEPHrine (XYLOCAINE-EPI) 2 %-1:100,000 injection 20 mL 20 mL, See Admin Instructions, ONE TIME ONLY, 1 dose, On Sun12/29/20 at 1045, Routine Given 12/29/2020 10:45 AM CDT 11 mL Breast, Left sodium bicarbonate 4.2 % injection 2.5 mEq 2.5 mEq (5 mL), See Admin Instructions, ONE TIME ONLY, 1 dose, On Sun12/29/20 at 1045, Routine New Bag 12/29/2020 10:45 AM CDT 3 mL Breast, Left sodium chloride 0.9% infusion IV, at 50 mL/hr, ONE TIME ONLY, 1 dose, On Sun12/29/20 at 0945, Routine New Bag 12/29/2020 9:45 AM CDT 20 mL 50 mL/hr sodium chloride flush injection 10 mL 10 mL, IV, ONE TIME ONLY, 1 dose, On Sun12/29/20 at 0945, Routine Given 12/29/2020 9:45 AM CDT 10 mL documented in this encounter Care Teams Indoor Plant Technician Relationship Specialty Start Date End Date Rio Lyon MD [address] [place] [id number] PCP - General Family Practice 07/05/10 documented as of this encounter
--- OUTSIDE RECORDS SUMMARY | 2024-08-11 03:36 | XMS_ITS | Encounter Summary ---
Author Organization [facility] Address [address] [place] [address] Care Team Providers Care Aircraft Delivery Checker Name Role Phone Rio Lyon MD Primary Care Provider [phone] Reason for Referral * Radiology Services (Routine) - Closed Specialty Diagnoses / Procedures Referred By Controbb t Referred To Contact Diagnoses Breast cancer screening At high risk for breast cancer Procedures MAMMO SCRN BILAT 3D [place] W OR WO CAD CHG SCREENING MAMMOGRAPHY BI 2-VIEW BREAST INC CAD CHG SCREENING DIGITAL BREAST TOMOSYNTHESIS BI Desiree Joe NP NO ADDRESS ON FILE Referral ID Status Reason Start Date Expiration Date Visits Re quested Visits Authorized [id number] Closed 11/18/2018 12/19/2019 1 1 Reason for Visit * Radiology Services (Routine) - Closed Specialty Diagnoses / Procedures Referred By Nan t Referred To Contact Diagnoses Breast cancer screening At high risk for breast cancer Procedures MAMMO SCRN BILAT 3D [place] W OR WO CAD CHG SCREENING MAMMOGRAPHY BI 2-VIEW BREAST INC CAD CHG SCREENING DIGITAL BREAST TOMOSYNTHESIS BI Desiree Joe NP NO ADDRESS ON FILE Referral ID Status Reason Start Date Expiration Date Visits Re quested Visits Authorized [id number] Closed 11/18/2018 12/19/2019 1 1 Encounter Details Date Type Department Care Team (Latest Contact Info) Description 05/19/2019 9:10 AM CDT - 05/19/2019 11:59 PM CDT Hospital Encounter [facility] [address] [place] [phone] Desiree Joe, TRINH NO ADDRESS ON FILE Discharge Disposition: Home [...] on file Sexual Orientation Not on file documented as of this encounter Medications at Time of Discharge Medication Sig Dispensed Refills Start Date End Date diclofenac sodium (VOLTAREN) 75 mg Oral TbECIndications:Breast lump Take 75 mg by mouth 2 times daily. documented as of this encounter Plan of Treatment Not on file documented as of this encounter Procedures Procedure Name Priority Date/Time Associated Diagnosis Comments MAMMO 3D [place] SCREEN BILAT W OR WO CAD Routine 05/19/2019 9:31 AM CDT Breast cancer screening At high risk for breast cancer documented in this encounter Results * MAMMO SCRN BILAT 3D [place] W OR WO CAD (05/19/2019 9:31 AM CDT) Anatomical Region Laterality Modality Breast Bilateral Mammography 05/19/2019 9:31 AM CDT Impressions 05/19/2019 10:25 AM CDT IMPRESSION: Stable screening mammogram. Recommend routine followup. OVERALL FINAL ASSESSMENT: ??BI-RADS CATEGORY 1: ??Negative. DICTATION LOCATION: ??[facility] Narrative 05/19/2019 10:25 AM CDT DIGITAL SCREENING MAMMOGRAPHY WITH CAD WITH TOMOSYNTHESIS BILATERAL 05/19/2019. HISTORY: Annual screening study. Comparison mammograms dated 05/27/2018, 05/01/2017 and 04/25/2016. TECHNIQUE: A bilateral screening mammogram was performed. Low-dose full-field digital breast tomosynthesis examination was performed with 2D and 3D acquisitions. Examination is read in conjunction with computer aided detection. FINDINGS: ??The breast parenchyma is heterogeneously dense. No new dominant masses, suspicious calcifications or areas of parenchymal asymmetry or distortion are identified. CAD was utilized. ?? Procedure Note Mary Jo Adams MD - 05/19/2019 DIGITAL SCREENING MAMMOGRAPHY WITH CAD WITH TOMOSYNTHESIS BILATERAL 05/19/2019. HISTORY: Annual screening study. Comparison mammograms dated 05/27/2018, 05/01/2017 and 04/25/2016. TECHNIQUE: A bilateral screening mammogram was performed. Low-dose full-field digital breast tomosynthesis examination was performed with 2D and 3D acquisitions. Examination is read in conjunction with computer aided detection. FINDINGS: The breast parenchyma is heterogeneously dense. No new dominant masses, suspicious calcifications or areas of parenchymal asymmetry or distortion are identified. CAD was utilized. IMPRESSION: Stable screening mammogram. Recommend routine followup. OVERALL FINAL ASSESSMENT: BI-RADS CATEGORY 1: Negative. DICTATION LOCATION: [facility] Desiree Joe NP MAMMO ORDERABLES documented in this encounter Visit Diagnoses Diagnosis Breast cancer screening Breast screening, unspecified At high risk for breast cancer documented in this encounter Care Teams Aircraft Delivery Checker Relationship Specialty Start Date End Date Rio Lyon MD [address] [place] [address] PCP - General Family Practice 07/05/10 documented as of this encounter
--- OUTSIDE RECORDS SUMMARY | 2024-08-11 03:36 | XMS_ITS | Clinical Summary ---
Author Organization [facility] [place] Address [address] [place] [address] Phone Care Team Providers Care Costing Manager Name Role Phone Rio Lyon MD Primary Care Provider [phone] Allergies Active Allergy Reactions Criticality Noted Date Comments Codeine Unknown 09/20/2009 Meperidine Unknown 09/20/2009 Propoxyphene N-Acetaminophen Nausea and Vomiting Low 03/24/2011 Medications Medication Sig Dispensed Refills Start Date End Date Status diclofenac sodium (VOLTAREN) 75 mg Oral TbECIndications:Breast lump Take 75 mg by mouth 2 times daily. Active QUEtiapine (SEROquel) 25 mg tablet Take 25 mg by mouth daily. Active Linzess 145 mcg capsule Take 145 mcg by mouth daily. 12/17/2020 Active venlafaxine (EFFEXOR XR) 150 mg Extended Release 24 hour capsule 09/16/2020 A ctive Active Problems Patient Care Coordination No te Formatting of this note migh t be different from the original. Primary Care: Rio Lyon MD (General) Referring Provider: Darren Sanchez MD [address] [place] [address] Other: Problem Noted Date Diagnosed Date Family history of malignant neoplasm of breast 1 09/04/2009 Resolved Problems Problem Noted Date Diagnosed Date Resolved Date Breast lump 09/20/2009 04/25/2016 Family History Medical History Relation Name Comments Prostate Cancer Father Breast Cancer Mother diagnosed 08-20 Ovarian Cancer Neg Hx Relation Name Status Comments Father Alive Mother Alive Social History Tobacco Use Types Packs/Day Years Used Date Smoking Tobacco: Never Smokeless Tobacco: Former Alcohol Use Standard Drinks/Week Comments Yes 0 (1 standard drink = 0.6 oz pur e alcohol) Sex and Gender Information Value Date Recorded Sex Assigned at Not on file Gender Identity Not on file Sexual Orientation Not on file Last Filed Vital Signs Vital Sign Reading Time Taken Comments Blood Pressure 124/80 12/20/2020 10:18 AM CDT Pulse 110 12/20/2020 10:18 AM CDT Temperature 37.6 ??C (99.6 ??F) 12/20/2020 10:18 AM C DT Respiratory Rate - - Oxygen Saturation 96% 12/20/2020 10:18 AM CDT Inhaled Oxygen Concentration - - Weight 78 kg (172 lb) 12/20/2020 10:18 AM CDT Height 152.4 cm (5') 12/20/2020 10:18 AM CDT Body Mass Index 33.59 12/20/2020 10:18 AM CDT Plan of Treatment Health Maintenance Due Date Last Done Comments DTAP/TDAP/TD VACCINES (1 - Tdap) 1996 HEPATITIS B VACCINES (1 of 3 - 19+ 3-dose series) 1996 CERVICAL CANCER SCREENING 2007 BREAST CANCER SCREENING 12/29/2021 12/30/19, 06/21/2020, 05/19/2019, Additional history exists COLORECTAL SCREENING 2022 Colorectal Cancer Screening 2022 FIT-DNA Q 3 years 2022 FIT/FOBT Q 1 year 2022 Flex Sig/CT Colonography Q 5 years 2022 INFLUENZA VACCINE (#1) 2024 PNEUMOCOCCAL VACCINE 0-64 YEARS Aged Out No longer eligible based on patient's age to complete this topic Procedures Procedure Name Priority Date/Time Associated Diagnosis Comments MAMMO DIAGNOSTIC UNI LEFT W OR WO CAD Routine 12/29/2020 10:42 AM CDT Family history of malignant neoplasm of breast Abnormal MRI, breast from Last 3 Months or Most Recently Relevant to Health Maintenance Results * MAMMO DIAGNOSTIC UNI LEFT W [...] biopsy with tissue marker placement. Desiree Joe NP MAMMO ORDERABLES from Last 3 Months or Most Recently Relevant to Health Maintenance Care Teams Costing Manager Relationship Specialty Start Date End Date Rio Lyon MD [address] [place] [address] PCP - General Family Practice 07/05/10
--- OUTSIDE RECORDS SUMMARY | 2024-08-11 03:36 | XMS_ITS | Encounter Summary ---
Author Organization [facility] Address [address] [place] [address] Care Team Providers Care Homeopathic Doctor Name Role Phone Rio Lyon MD Primary Care Provider [phone] Reason for Visit * Reason Comments Follow Up 6MO W/ MRI Encounter Details Date Type Department Care Team (Late st Contact Info) Description 12/20/2020 10:15 AM CDT Office Visit [facility] BREAST SURGERY - [place] [facility] [address] [place] [address] Desiree Joe, CHECKER/STOCKER NO ADDRESS ON FILE At high risk for breast cancer (Primary Dx); Family history of malignant neoplasm of breast Social History Tobacco Use Types Packs/Day Years [...] Mass Index 33.59 12/20/2020 10:18 AM CDT documented in this encounter Progress Notes * Desiree Joe, TRINH - 12/20/2020 10:30 AM CDT PATIENT: Harriet Meade : 1975 DATE: 12/20/2020 Harriet Meade is a 45 y.o. female. She comes in for six month breast check and MRI. She has no new health issues or [...] past. 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 She does not smoke. She has no new breast or related complaints. She reports that her mother was BRCA negative. She adopted a baby from [place] in October 2013- now 10 years old. Phoebe She has had COVID vaccine. Second shot in October. Had some breast pain on left after shot and still a little tender with palpation 10 point review of systems -unremarkable No [...] Allergies Allergen Reactions ??? Codeine Unknown ??? Meperidine Unknown ??? Propoxyphene N-Acetaminophen Nausea and Vomiting BP 124/80 Pulse (!) 110 Temp 99.6 ??F (37.6 ??C) Ht 5' (1.524 m) Wt 78 kg (172 lb) SpO2 96% BMI 33.59 kg/m?? Well-developed, well-nourished, pleasant woman. Neck - no thyromegaly no cervical adenopathy SCF- no adenopathy Axilla -no adenopathy Breasts - normal in appearance, no masses, skin changes or nipple discharge, no palpable cyst formation, no axillary LAD, some focal tenderness lateral left breast but no palpable mass or LAD appreciated Extremities - Good range of motion of shoulders, no lymphedema present IMAGING: Mammogram: 04/08/2013 at [facility] Mammogram: 04/14/2014 at [facility]; nem Mammogram: 04/20/2015 at [facility]; nem Mammogram: 04/25/2016 at [facility]; NEM Mammogram: 05/01/2017 at [facility]; NEM Mammogram: 05/27/2018 at [facility]; NEM Breast MRI: 11/18/2018 at [facility]; NEM Mammogram: 05/19/2019 at [facility]; NEM Left breast US: 05/19/2019 at [facility]; NEM Breast MRI: 12/18/2019 at [facility]; NEM Mammogram: 06/11/2020 at [facility]; NEM Breast MRI: 12/20/2020 at [facility]; pending BREAST CANCER RISK ASSESSMENT 5 Year Risk Lifetime Risk BRCAPRO 0.7% 10.9% Tyrer Cuzick v6 1.2% 15.8% Tyrer Cuzick v7 1.2% 20.7% Tyrer Cuzick v8 22.5% April 1.8% 21.9% Junior 0.8% 10.0% IMPRESSION: 45 y.o. woman with family history of breast cancer MRI today is pending. I will call her once available CBE unremarkable. Focal tenderness left breast. Await imaging. Nothing suspicious on CBE History of bilateral breast pain and fibrocystic [...] does warrant MRI screening. According to the [employer] anyone with a lifetime risk greater than 20% warrants MRI screening. Discussed pros and cons of testing. Discussed risk of call back and false positives. She wishes to continue with enhanced surveillance I also explained that having biannual breast [...] when her five year risk is higher RTC six months with [facility] TOBACCO COUNSELING She is not a tobacco [...] of care. Desiree Joe, MSN, AGNP-C, AOCNP [facility]ology Breast Surgery Dr. Marrero supervising physician documented in this encounter Plan of Treatment Not on file documented as of this encounter Visit Diagnoses Diagnosis At high risk for breast cancer- Primary Family history of malignant neoplasm of breast documented in this encounter Care Teams Homeopathic Doctor Relationship Specialty Start Date End Date Rio Lyon MD [address] [place] [address] PCP - General Family Practice 07/05/10 documented as of this encounter
--- OUTSIDE RECORDS SUMMARY | 2024-08-11 03:36 | XMS_ITS | Encounter Summary ---
Author Organization [facility] Address [address] Attn: Epic Prelude ADT [place] [address] Care Team Providers Care Ward Secretary Name Role Phone Rio Lyon MD Primary Care Provider [phone] Encounter Details Date Type Department Care Team (Latest Contact Info) Description 12/20/2020 Travel Social History Tobacco Use Types Packs/Day [...] on filedocumented in this encounter Care Teams Ward Secretary Relationship Specialty Start Date End Date Rio Lyon MD [address] [place] [address] PCP - General Family Practice 07/05/10 documented as of this encounter
--- OUTSIDE RECORDS SUMMARY | 2024-08-11 03:36 | XMS_ITS | Encounter Summary ---
Author Organization [facility] Address [address] [place] [address] Care Team Providers Care Etiquette Teacher Name Role Phone Rio Lyon MD Primary Care Provider [phone] Reason for Visit * Radiology Services (Routine) - Closed Specialty Diagnoses / Procedures Referred By Nan kingston Referred To Contact Diagnoses Breast lump on left side at 2 o'clock position Procedures MAMMO BREAST US LEFT LTD MAMMO BREAST US BILAT LTD Desiree Joe, TRINH NO ADDRESS ON FILE Referral ID Status Reason Start Date Expiration Date Visits Re quested Visits Authorized [id number] Closed 05/19/2019 06/18/2020 1 1 Encounter Details Date Type Department Care Team (Latest Contact Info) Description 05/19/2019 10:29 AM CDT - 05/19/2019 11:59 PM T Hospital Encounter [facility] [address] [place] [address] Desiree Joe, TRANSFORMATION SPECIALIST NO ADDRESS ON FILE Discharge Disposition: Home [...] Name Priority Date/Time Associated Diagnosis Comments MAMMO BREAST US LEFT LTD Routine 05/19/2019 10:44 AM CDT Breast lump on left side at 2 o'clock position documented in this encounter Results * MAMMO BREAST US LEFT LTD (05/19/2019 10:44 AM CDT) Anatomical Region Laterality Modality Left Ultrasound 05/19/2019 10:4 4 AM CDT Impressions 05/19/2019 11:30 AM CDT IMPRESSION: Normal limited left breast ultrasound. OVERALL FINAL ASSESSMENT: ??BI-RADS CATEGORY 1: ??Negative. DICTATION LOCATION: ??[facility] Narrative 05/19/2019 11:30 AM CDT LIMITED LEFT BREAST ULTRASOUND 05/19/2019. CLINICAL HISTORY: Patient's physician palpated lumps in the left upper outer and lower inner quadrants. Comparison mammogram dated 05/19/2019. FINDINGS: Targeted ultrasound of the palpable abnormalities in the left upper outer and lower inner quadrants was performed. There is normal fibroglandular parenchyma. No cystic or solid mass or distortion is seen. Procedure Note Mary Jo Adams MD - 05/19/2019 LIMITED LEFT BREAST ULTRASOUND 05/19/2019. CLINICAL HISTORY: Patient's physician palpated lumps in the left upper outer and lower inner quadrants. Comparison mammogram dated 05/19/2019. FINDINGS: Targeted ultrasound of the palpable abnormalities in the left upper outer and lower inner quadrants was performed. There is normal fibroglandular parenchyma. No cystic or solid mass or distortion is seen. IMPRESSION: Normal limited left breast ultrasound. OVERALL FINAL ASSESSMENT: BI-RADS CATEGORY 1: Negative. DICTATION LOCATION: [facility] Desiree Joe NP MAMMO ORDERABLES documented in this encounter Visit Diagnoses Diagnosis Breast lump on left side at 2 o'clock position Lump or mass in breast documented in this encounter Care Teams Etiquette Teacher Relationship Specialty Start Date End Date Rio Lyon MD [address] [place] [address] PCP - General Family Practice 07/05/10 documented as of this encounter
--- OUTSIDE RECORDS SUMMARY | 2024-08-11 03:36 | XMS_ITS | Encounter Summary ---
Author Organization [facility] Address [address] [place] [address] Care Team Providers Care Molasses Feed Mixer Name Role Phone Rio Lyon MD Primary Care Provider [phone] Reason for Visit * Reason Onset Date Comments follow up 02/05/2020 Encounter Details Date Type Department Care Team (Late st Contact Info) Description 02/05/2020 Telephone [facility] ONCOL[facility]Y [facility] HEMATOLOGY-[place] [address] [place] [address] Desiree Joe NP NO ADDRESS ON FILE follow up Social History Tobacco Use Types Packs/Day Years Used Date Smoking Tobacco: Never Smokeless Tobacco: Former Alcohol Use Standard Drinks/Week Comments Yes 0 (1 standard drink = 0.6 oz pur e alcohol) Sex and Gender Information Value Date Recorded Sex Assigned at Not on file Gender Identity Not on file Sexual Orientation Not on file documented as of this encounter Miscellaneous Notes * Telephone Encounter - Desiree Joe NP - 02/05/2020 2:32 PM CDT I attempted to reach pt to f/u regarding bilateral breast pain reported at last OV on 12/18/2019. Recall MRI was negative. I have LM and asked her to call back with update documented in this encounter Plan of Treatment Not on file documented as of this encounter Visit Diagnoses Not on filedocumented in this encounter Care Teams Molasses Feed Mixer Relationship Specialty Start Date End Date Rio Lyon MD [address] [place] [address] PCP - General Family Practice 07/05/10 documented as of this encounter
--- OUTSIDE RECORDS SUMMARY | 2024-08-11 03:36 | XMS_ITS | Encounter Summary ---
Author Organization [facility] Address [address] Attn: Epic Prelude ADT [place] [address] Care Team Providers Care Sausage Canner Name Role Phone Rio Lyon MD Primary Care Provider [phone] Encounter Details Date Type Department Care Team (Latest Contact Info) Description 06/21/2020 Travel Social History Tobacco Use Types Packs/Day [...] COVID-19? No / Unsure 06/21/2020 8:56 AM STOKER MECHANIC documented as of this encounter Plan of Treatment Not on file documented as of this encounter Visit Diagnoses Not on filedocumented in this encounter Care Teams Sausage Canner Relationship Specialty Start Date End Date Rio Lyon MD [address] [place] [address] PCP - General Family Practice 07/05/10 documented as of this encounter
--- OUTSIDE RECORDS SUMMARY | 2024-08-11 03:36 | XMS_ITS | Encounter Summary ---
Author Organization [facility] Address [address] [place] [address] Care Team Providers Care Back Order Clerk Name Role Phone Rio Lyon MD Primary Care Provider [phone] Reason for Referral * MRI (Routine) - Closed Specialty Diagnoses / Procedures Referred By Nan kingston Referred To Contact Diagnoses Family history of malignant neoplasm of breast Abnormal MRI, breast Procedures MRI BIOPSY BREAST LEFT Desiree Joe NP NO ADDRESS ON FILE [facility] Test Scheduling [address] [address] Referral ID Status Reason Start Date Expiration Date V isits Requested Visits Authorized [id number] Closed [facility] 12/21/2020 01/21/2022 1 1 Encounter Details Date Type Department Care Team (Late st Contact Info) Description 12/21/2020 Orders Only [facility] BREAST SURGERY - [place] [facility] [address] [place] [id number] Desiree Joe NP NO ADDRESS ON FILE Family history of malignant neoplasm of breast (Primary Dx); Abnormal MRI, breast Social History Tobacco Use Types Packs/Day [...] documented as of this encounter Results * MRI BIOPSY BREAST [...] in formalin for histological analysis. Desiree Joe NP MR ORDERABLES documented in this encounter Visit Diagnoses Diagnosis Family history of malignant neoplasm of breast- Primary Abnormal MRI, breast Other (abnormal) findings on radiological examination of breast Family history of malignant neoplasm of breast Abnormal MRI, breast Other (abnormal) findings on radiological examination of breast documented in this encounter Care Teams Back Order Clerk Relationship Specialty Start Date End Date Rio Lyon MD [address] [place] [address] PCP - General Family Practice 07/05/10 documented as of this encounter
--- OUTSIDE RECORDS SUMMARY | 2024-08-11 03:36 | XMS_ITS | Encounter Summary ---
Author Organization [facility] Address [address] [place] [address] Care Team Providers Care Pricing Intern Name Role Phone Rio Lyon MD Primary Care Provider [phone] Encounter Details Date Type Department Care Team (Late st Contact Info) Description 12/29/2020 Orders Only [facility] Admitting [address] [place] [address] Rio Lyon MD [address] [place] [address] Social History Tobacco Use Types Packs/Day Years [...] on filedocumented in this encounter Care Teams Pricing Intern Relationship Specialty Start Date End Date Rio Lyon MD [address] [place] [address] PCP - General Family Practice 07/05/10 documented as of this encounter
--- OUTSIDE RECORDS SUMMARY | 2024-08-11 03:36 | XMS_ITS | Encounter Summary ---
Author Organization [facility] Address [address] [place] [address] Care Team Providers Care Cotton Picker Operator Name Role Phone Rio Lyon MD Primary Care Provider [phone] Reason for Visit * Reason Onset Date Comments Results 12/31/2020 Encounter Details Date Type Department Care Team (Late st Contact Info) Description 12/31/2020 Telephone [facility] BREAST SURGERY - [place] [facility] [address] [place] [address] Desiree Joe NP NO ADDRESS [...] Telephone Encounter - Desiree Joe NP - 12/31/2020 12:20 PM CDT Spoke with patient- aware that pathology is benign and concordant. RTC in June with mammogram. Verbalized understanding FINAL DIAGNOSIS Breast, left, mass , MRI guided core biopsy: - Mild fibrocystic changes and focal usual ductal hyperplasia. - Microcalcifications associated with benign glands. - Negative for malignancy. documented in this encounter Plan of Treatment Not on file documented as of this encounter Visit Diagnoses Not on filedocumented in this encounter Care Teams Cotton Picker Operator Relationship Specialty Start Date End Date Rio Lyon MD [address] [place] [address] PCP - General Family Practice 07/05/10 documented as of this encounter
--- OUTSIDE RECORDS SUMMARY | 2024-08-11 03:36 | XMS_ITS | Encounter Summary ---
Author Organization [facility] Address [address] [place] [address] Care Team Providers Care Office Equipment Mechanic Name Role Phone Rio Lyon MD Primary Care Provider [phone] Reason for Referral * MRI (Routine) - Closed Specialty Diagnoses / Procedures Referred By Nan kingston Referred To Contact Diagnoses At high risk for breast cancer Procedures MRI BREAST W WO CONT BILAT Desiree Joe NP NO ADDRESS ON FILE Referral ID Status Reason Start Date Expiration Date V isits Requested Visits Authorized [id number] Closed STL CTS 05/19/2019 06/18/2020 1 1 Reason for Visit * Reason Comments Follow Up 6 months mamm Encounter Details Date Type Department Care Team (Late st Contact Info) Description 05/19/2019 10:00 AM CDT Office Visit [facility] BREAST SURGERY - [place] [facility] [address] [place] [id number] Desiree Joe NP NO ADDRESS ON FILE At high risk for breast cancer (Primary Dx); Breast lump on left side at 2 o'clock position Social History Tobacco Use Types Packs/Day Years Used Date Smoking Tobacco: Never Smokeless Tobacco: Former Alcohol Use Standard Drinks/Week Comments Yes 0 (1 standard drink = 0.6 oz pur e alcohol) Sex and Gender Information Value Date Recorded Sex Assigned at Not on file Gender Identity Not on file Sexual Orientation Not on file documented as of this encounter Last Filed Vital Signs Vital Sign Reading Time Taken Comments Blood Pressure 100/80 05/19/2019 9:46 AM CDT Pulse 100 05/19/2019 9:46 AM CDT Temperature 37 ??C (98.6 ??F) 05/19/2019 9:46 AM CDT Respiratory Rate - - Oxygen Saturation 97% 05/19/2019 9:46 AM CDT Inhaled Oxygen Concentration - - Weight 73 kg (161 lb) 05/19/2019 9:46 AM CDT Height 152.4 cm (5') 05/19/2019 9:46 AM CDT Body Mass Index 31.44 05/19/2019 9:46 AM CDT documented in this encounter Progress Notes * Desiree Joe, TRINH - 05/19/2019 10:13 AM CDT PATIENT: Harriet Meade : 1975 DATE: 05/19/2019 Harriet Meade is a 43 y.o. female. She comes in for six month breast check and mammogram. She has no new health issues or breast complaints except some tenderness upper outer aspect left breast. She does perform self breast exams. Her mom (Shady Hardwick) had breast cancer at age 5858 years old. 12 at menarche and 26 at [facility] . One benign breast biopsy in the past. 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 She does not smoke. She has had a hysterectomy but ovaries still intact. She has no new breast or related complaints. She reports that her mother was BRCA negative. She adopted a baby from [place] in October 2013- now 7 years old. Phoebe Her dad has recurrence of his prostate cancer 2015 10 point review of systems -unremarkable No [...] and Vomiting ??? Demerol [Meperidine] Unknown BP 100/80 Pulse 100 Temp 98.6 ??F (37 ??C) Ht 5' (1.524 m) Wt 73 kg (161 lb) SpO2 97% BMI 31.44 kg/m?? Well-developed, well-nourished, pleasant woman. Neck - no thyromegaly no cervical adenopathy SCF- no adenopathy Axilla -no adenopathy Cardiac- RRR, no murmur Lungs- LCTA, no cough, no wheezing Breasts - normal in appearance, no masses, skin changes or nipple discharge, there is a small smooth, well circumscribed density medial aspect left breast at 8:00- superficial, consistent with intradermal cyst, there is tenderness noted upper outer left breast with smooth palpable density at 2:00 consistent with cyst Abdomen - liver and spleen not palpably enlarged Extremities - Good range of motion of shoulders, no lymphedema present IMAGING: Mammogram: 04/08/2013 at [facility] Mammogram: 04/14/2014 at [facility]; nem Mammogram: 04/20/2015 at [facility]; nem Mammogram: 04/25/2016 at [facility]; NEM Mammogram: 05/01/2017 at [facility]; NEM Mammogram: 05/27/2018 at [facility]; NEM Breast MRI: 11/18/2018 at [facility]; NEM Mammogram: 05/19/2019 at [facility]; NEM Left breast US: 05/19/2019 at [facility]; NEM BREAST CANCER RISK ASSESSMENT 5 Year Risk Lifetime Risk BRCAPRO 0.7% 10.9% Moira Barrios v6 1.2% 15.8% Tyrer Cujenack v7 1.2% 20.7% Tyrer Cujenack v8 22.5% April 1.8% 21.9% Junior 0.8% 10.0% IMPRESSION: 43 y.o. woman with family history of breast cancer I have personally examined her and CBE right breast normal; left breast shows two small well-circumscribed cyst like densities at 8:00 and 2:00 position with tenderness upper outer. US done today- limited US of both areas does not identify any abnormalities. Mammogram done today- stable/benign findings Per Moira Barrios her lifetime risk is 22.5%. We discussed surveillance strategies. Her risk does warrant MRI screening. According to the [place] Cancer Society anyone with a lifetime risk [...] with any breast related complaints or concerns Breast tenderness- recommend trial of EPO vs Vit E, limit caffeine and salt intake, supportive bra and sports bra in evening I will call her in 4-6 weeks to follow up on breast tenderness. If no improvement, I will need to see her back for short term follow up breast check in office Continue annual mammography May 2020 per [place] [employer] guidelines. I've explained to her that strategies for [...] of care. Desiree Joe, MSN, AGNP-C, AOCNP [facility] Oncology & Hematology Breast Surgery Dr. Groves was supervising physician in office today Cc: Rio Lyon MD [address] [place] [address] documented in this encounter Plan of Treatment Not on file documented as of this encounter Results * MRI BREAST W [...] coil system and image interpretation performed on QPD CAD workstation. MultiHance was administered without immediate [...] coil system and image interpretation performed on QPD CAD workstation. MultiHance was administered without immediate [...] BI-RADS CATEGORY 1 - Negative DICTATION LOCATION: [facility] Desiree Joe NP MR ORDERABLES documented in this encounter Visit Diagnoses Diagnosis At high risk for breast cancer- Primary Breast lump on left side at 2 o'clock position Lump or mass in breast At high risk for breast cancer documented in this encounter Care Teams Office Equipment Mechanic Relationship Specialty Start Date End Date Rio Lyon MD [address] [place] [address] PCP - General Family Practice 07/05/10 documented as of this encounter
--- OUTSIDE RECORDS SUMMARY | 2024-08-11 03:36 | XMS_ITS | Encounter Summary ---
Author Organization [facility] Address [address] [place] [address] Care Team Providers Care Watch Engineer Name Role Phone Rio Lyon MD Primary Care Provider [phone] Reason for Referral * Radiology Services (Routine) [...] Expiration Date Visits Re quested Visits Authorized [id number] Closed 12/18/2019 01/17/2021 1 1 ECOLOGICAL ONCOLOGIST Reason for Visit * Radiology Services (Routine) [...] Expiration Date Visits Re quested Visits Authorized [id number] Closed 12/18/2019 01/17/2021 1 1 Encounter Details Date Type Department Care Team (Latest Contact Info) Description 06/21/2020 9:02 AM GYNAECOLOGICAL ONCOLOGIST - 06/21/2020 11:59 PM GYNAECOLOGICAL ONCOLOGIST Hospital Encounter [facility] Darin Boateng [address] [place] [phone] Desiree Joe, TRINH NO ADDRESS ON FILE [...] COVID-19? No / Unsure 06/21/2020 8:56 AM GYNAECOLOGICAL ONCOLOGIST documented as of this encounter Medications at [...] SCREEN BILAT W OR WO CAD Routine 06/21/2020 9:29 AM GYNAECOLOGICAL ONCOLOGIST At high risk for breast cancer Visit for screening mammogram documented in this encounter Results * MAMMO SCRN BILAT 3D VALENTINA W OR WO CAD (06/21/2020 9:29 AM GYNAECOLOGICAL ONCOLOGIST) Anatomical Region Laterality Modality Breast Bilateral Mammography 06/21/2020 9:29 AM GYNAECOLOGICAL ONCOLOGIST Impressions 06/21/2020 2:37 PM GYNAECOLOGICAL ONCOLOGIST IMPRESSION: ?? 1. No concerning findings. OVERALL FINAL ASSESSMENT: ??BI-RADS CATEGORY 1 - Negative. RECOMMENDATIONS: 1. Recommend annual mammography. Narrative 06/21/2020 2:37 PM GYNAECOLOGICAL ONCOLOGIST BILATERAL SCREENING DIGITAL MAMMOGRAM WITH 3D TOMOSYNTHESIS [...] CAD DATE: 06/21/2020 9:29 AM DICTATION LOCATION: [facility] HISTORY: Routine yearly screening exam. TECHNIQUE: Low-dose [...] RECOMMENDATIONS: 1. Recommend annual mammography. Desiree Joe MATH COACH MAMMO ORDERABLES documented in this encounter Visit Diagnoses Diagnosis At high risk for breast cancer Visit for screening mammogram Other screening mammogram documented in this encounter Care Teams Watch Engineer Relationship Specialty Start Date End Date Rio Lyon MD [address] [place] [address] PCP - General Family Practice 07/05/10 documented as of this encounter
--- OUTSIDE RECORDS SUMMARY | 2024-08-11 03:36 | XMS_ITS | Encounter Summary ---
Author Organization [facility] Address [address] Attn: Epic Prelude ADT [place] [address] Care Team Providers Care Pharmacy Manager Name Role Phone Rio Lyon MD Primary Care Provider [phone] Encounter Details Date Type Department Care Team (Latest Contact Info) Description 12/29/2020 Travel Social History Tobacco Use Types Packs/Day [...] on filedocumented in this encounter Care Teams Pharmacy Manager Relationship Specialty Start Date End Date Rio Lyon MD [address] [place] [address] PCP - General Family Practice 07/05/10 documented as of this encounter
--- OUTSIDE RECORDS SUMMARY | 2024-08-11 03:36 | XMS_ITS | Encounter Summary ---
Author Organization [facility] Address [address] [place] [address] Care Team Providers Care Medical Voucher Clerk Name Role Phone Rio Lyon MD Primary Care Provider [phone] Reason for Visit * Reason Onset Date Comments Breast pain 07/09/2019 Encounter Details Date Type Department Care Team (Late st Contact Info) Description 07/09/2019 Telephone [facility] ONCOLOGY AND HEMATOLOGY-[facility] HENDERSON [address] [place] [address] Desiree Joe NP NO ADDRESS ON FILE Breast pain Social History Tobacco Use Types Packs/Day Years [...] Telephone Encounter - Desiree Joe NP - 07/09/2019 4:37 PM CST Follow up call made to patient. She is still having intermittent left breast pain but better now that she cut back on caffeine. She has not tried the evening primrose as suggested. She has FCC. She does not feel any new lumps or cysts. She had a targeted US on 05/19 which showed benign breast tissue. Her MMG at that time was also negative. She is lined up to come back in in six months with MRI. Iwould like to see her sooner if pain does not resolve for clinical exam. She is aware and will callafter 4 weeks on EPO if no improvement in pain ING SUPERVISOR documented in this encounter Plan of Treatment Not on file documented as of this encounter Visit Diagnoses Not on filedocumented in this encounter Care Teams Medical Voucher Clerk Relationship Specialty Start Date End Date Rio Lyon MD [address] [place] [phone] PCP - General Family Practice 07/05/10 documented as of this encounter
--- OUTSIDE RECORDS SUMMARY | 2024-08-11 03:37 | XMS_ITS | Encounter Summary ---
Author Organization [facility] Address [address] [place] [address] Care Team Providers Care Superintendent Cemetery Name Role Phone Rio Lyon MD Primary Care Provider [phone] Reason for Referral * Outpatient Services (Routine) - Closed Specialty Diagnoses / Procedures Referred By Nan kingston Referred To Contact Radiology Diagnoses Family history of malignant neoplasm of breast Procedures MAMMO DIG SCREEN BILAT W 3D [place] Tamiko Groves MD [address] [place] [address] Referral ID Status Reason Start Date Expiration Date V isits Requested Visits Authorized [id number] Closed STL CTS 04/20/2015 05/20/2016 1 1 Reason for Visit * Reason Comments Breast Exam, Routine, No Symptoms Breast pain bilateral; right sedrick ast sore around arealo Encounter Details Date Type Department Care Team (Late st Contact Info) Description 04/20/2015 11:00 AM CDT Office Visit [facility] BREAST SURGERY - [place] [facility] [address] [place] [address] Tamiko Groves MD [address] [place] [address] Family history of malignant neoplasm of breast (Primary Dx) Social History Tobacco Use Types Packs/Day Years Used Date Smoking Tobacco: Never Alcohol Use Standard Drinks/Week Comments Yes 0 (1 standard drink = 0.6 oz pur e alcohol) Sex and Gender Information Value Date Recorded Sex Assigned at Not on file Gender Identity Not on file Sexual Orientation Not on file documented as of this encounter Last Filed Vital Signs Vital Sign Reading Time Taken Comments Blood Pressure 111/77 04/20/2015 10:40 AM CDT Pulse 97 04/20/2015 10:40 AM CDT Temperature - - Respiratory Rate - - Oxygen Saturation - - Inhaled Oxygen Concentration - - Weight 73.5 kg (162 lb) 04/20/2015 10:40 AM CDT Height 152.4 cm (5') 04/20/2015 10:40 AM CDT Body Mass Index 31.64 04/20/2015 10:40 AM CDT documented in this encounter Progress Notes * Tamiko Groves MD - 04/20/2015 11:01 AM CDT PATIENT: Harriet Meade : 1975 DATE: 04/20/2015 Harriet Meade is a 39 y.o. female. She comes in for annual breast check. She has no new health issues or breast complaints. Her mom (Shady Hardwick) had breast cancer. 12 at menarche and 24 at [facility] She has no new breast or related complaints. She adopted a baby from [place]- October 2013. The baby is now 3 and continues to suffer from seizures Her dad has recurrence of his prostate cancer this year No past medical history on file. Past Surgical History Procedure Laterality Date ??? Hx surgical other 2009 laproscopic ??? Hx breast biopsy 05/2009 right breast ??? Hx hysterectomy 07/2008 ovaries intact ??? Hx tubal ligation 2006 ??? Hx leep procedure 01/2010 margins clear ??? Hx excisional biopsy Right 2010 ? Allergies Allergen Reactions ??? Codeine Unknown ??? Darvocet A500 [Propoxyphene N-Acetaminophen] Nausea and Vomiting ??? Demerol [Meperidine] Unknown BP 111/77 mmHg Pulse 97 Ht 5' (1.524 m) Wt 162 lb (73.483 kg) BMI 31.64 kg/m2 ? No Well-developed, well-nourished, pleasant woman. Neck - no thyromegaly no cervical adenopathy SCF- no adenopathy Axilla -no adenopathy Breasts - normal in appearance, no masses, skin changes or nipple discharge Abdomen - liver and spleen not palpably enlarged Extremities - Good range of motion of shoulders, no lymphedema present IMAGING: Mammogram: March 18, 2009 at [facility] in [place], [place]. No mammographic evidence ofmalignancy. Right breast ultrasound: March 18, 2009. No ultrasound detected solid masses or cyst. Mammogram: 02/24/2010; at [facility]. NEM Mammogram: 03/24/2011 at [facility]; nem Mammogram: 03/29/[address] [facility]; NEM Mammogram: 04/08/2013 at [facility] Mammogram: 04/14/2014 at [facility]; nem Mammogram: 04/20/2015 at [facility]; nem; will compare with priors IMPRESSION: 39 y.o. woman with family history of breast cancer She has stable breast clinical exam and imaging today. I have personally reviewed her mammogram today I will see her back April 2016 at mammogram time, if comparison is ok. Tamiko Groves MD. FACS. Cc: Darren Sanchez MD [address] [place] [address] documented in this encounter Plan of Treatment Not on file documented as of this encounter Results * MAMMO DIG SCREEN BILAT W 3D [place] (04/25/2016 10:20 AM CDT) Anatomical Region Laterality Modality Breast Bilateral Mammography 04/25/2016 10:2 0 AM CDT Impressions 04/25/2016 10:36 AM CDT IMPRESSION: Negative bilateral screening mammogram. Recommend routine followup. OVERALL ASSESSMENT: ??BI-RADS Category 1 - Negative Narrative 04/25/2016 10:36 AM CDT BILATERAL SCREENING DIGITAL MAMMOGRAMS WITH COMPUTER ASSISTED DIAGNOSIS WITH TOMOGRAPHY DATE: 04/25/2016 10:20 AM HISTORY: Annual screening. COMPARISON: 04/20/2015, 04/14/2014 and 04/08/2013. TECHNIQUE: A bilateral screening mammogram was performed. Low Dose full field Digital Breast tomosynthesis examination was performed with 2D and 3D acquisitions. ??Examination is read in conjunction with computer aided detection. BREAST COMPOSITION: ??Heterogeneously dense, which limits the sensitivity of mammography FINDINGS: ??No new masses, suspicious calcifications, or areas of asymmetry or distortion are identified. The images were reviewed using the CAD system. Procedure Note Antonella Daugherty MD - 04/25/2016 BILATERAL SCREENING DIGITAL MAMMOGRAMS WITH COMPUTER ASSISTED DIAGNOSIS WITH TOMOGRAPHY DATE: 04/25/2016 10:20 AM HISTORY: Annual screening. COMPARISON: 04/20/2015, 04/14/2014 and 04/08/2013. TECHNIQUE: A bilateral screening mammogram was performed. Low Dose full field Digital Breast tomosynthesis examination was performed with 2D and 3D acquisitions. Examination is read in conjunction with computer aided detection. BREAST COMPOSITION: Heterogeneously dense, which limits the sensitivity of mammography FINDINGS: No new masses, suspicious calcifications, or areas of asymmetry or distortion are identified. The images were reviewed using the CAD system. IMPRESSION IMPRESSION: Negative bilateral screening mammogram. Recommend routine followup. OVERALL ASSESSMENT: BI-RADS Category 1 - Negative Tamiko Groves MD MAMMO ORDERABLES documented in this encounter Visit Diagnoses Diagnosis Family history of malignant neoplasm of breast- Primary Family history of malignant neoplasm of breast documented in this encounter Care Teams Superintendent Cemetery Relationship Specialty Start Date End Date Rio Lyon MD [address] [place] [phone] PCP - General Family Practice 07/05/10 documented as of this encounter
--- OUTSIDE RECORDS SUMMARY | 2024-08-11 03:37 | XMS_ITS | Encounter Summary ---
Author Organization [facility] Address [address] [place] [address] Care Team Providers Care Plate Printer Name Role Phone Unavailable Primary Care Provider Unavailabl e Reason for Referral * (Routine) - Closed Specialty Diagnoses / Procedures Referred By Nan t Referred To Contact Diagnoses Breast lump Procedures MAMMO DIGITAL SCREEN Tamiko Coronado MD [address] [place] [address] Referral ID Status Reason Start Date Expiration Date Visits Re quested Visits Authorized [id number] Closed 09/20/2009 03/19/2010 1 1 B ASSISTANT Reason for Visit * Reason Comments Breast Exam, Routine, No Symptoms 2 nd o yasmeen on mammogram Encounter Details Date Type Department Care Team (Late st Contact Info) Description 09/20/2009 11:15 AM REHAB ASSISTANT Office Visit [facility] BREAST SURGERY - [place] [facility] [address] [place] [address] Tamiko Groves MD [address] [place] [address] Breast Lump (Primary Dx) Social History Tobacco Use Types [...] Sign Reading Time Taken Comments Blood Pressure 130/80 09/20/2009 11:52 AM REHAB ASSISTANT Pulse - - Temperature - - Respiratory Rate - - Oxygen Saturation - - Inhaled Oxygen Concentration - - Weight 69.4 kg (153 lb) 09/20/2009 11:52 AM REHAB ASSISTANT Height 152.4 cm (5') 09/20/2009 11:52 AM REHAB ASSISTANT Body Mass Index 29.88 09/20/2009 11:52 AM REHAB ASSISTANT documented in this encounter Progress Notes * Tamiko Groves MD - 09/20/2009 11:59 AM CST PATIENT: Harriet Meade : 1975 DATE: 09/20/2009 Harriet Meade is a 34 y.o. female. she is self referred because of months that she has been failing in her right breast, upper outer quadrant, and axilla for the past 6 months. She had evaluation with mammogram and ultrasound in March that showed no abnormalities. With her mother's(Shady Hardwick)recent diagnosis of breast cancer, her concern has heightened. YARN EXAMINER HX: Obstetric History T0 P0 TAB0 SAB0 E0 M0 L0 Age @ onset of menses:14 Age @ first live : 26 PMH: No past medical history on file. PSH: Past Surgical History Procedure Date ??? Hx surgical other 2008 laproscopic ??? Hx breast biopsy 05/2009 right breast ??? Hx hysterectomy 07/2008 ovaries intact ??? Hx tubal ligation 2006 ALLERGY: Allergies Allergen Reactions ??? Codeine Unknown ??? Demerol (Meperidine) Unknown MEDS: Current outpatient prescriptions Medication Sig Dispense Refill ??? diclofenac sodium (VOLTAREN) 75 mg Oral TbEC Take 75 mg by mouth 2 times daily. ??? VENLAFAXINE HCL (EFFEXOR PO) Take by mouth. FHX: Family History Problem Relation ??? Prostate Cancer Father ??? Breast Cancer Mother diagnosed 08-20-2009 at age 58 SOC: History Social History ??? Marital Status: Spouse Name: N/A Number of Children: N/A ??? Years of Education: N/A Occupational History ??? Not on file. Social History Main Topics ??? Tobacco Use: Never ??? Alcohol Use: Yes ??? Drug Use: No ??? Sexually Active: Other Topics Concern ??? Not on file Social History Narrative ??? No narrative on file ROS: Constitutional: Negative for fever, weight loss and malaise/fatigue. Respiratory: Negative for cough. Cardiovascular: Negative for chest pain and leg swelling. Gastrointestinal:. Negative for abdominal pain. Genitourinary: Negative for dysuria. Musculoskeletal: Negative for myalgias and joint pain. Skin: Negative for rash. Neurological: Negative for dizziness and headaches. Psychiatric/Behavioral: Negative for depression; anxiety Endocrine: BP 130/80 Ht 5' (1.524 m) Wt 153 lb (69.4 kg) LMP Hysterectomy PHYSICAL EXAM: Well-developed, well-nourished, pleasant woman. Neck - no thyromegaly no cervical adenopathy SCF- no adenopathy Chest - clear to auscultation Cardiovascular - regular rate and rhythm Axilla -no adenopathy Breasts - Right breast:normal in appearance, no masses, skin changes or nipple discharge Left breast: normal in appearance, no masses, skin changes or nipple discharge Abdomen - liver and spleen not palpably enlarged Extremities - Good range of motion of shoulders, no lymphedema present IMAGING: Mammogram: March 18, 2009 at [facility] in [place], [place]. No mammographic evidence ofmalignancy. Right breast ultrasound: March 18, 2009. No ultrasound detected solid masses or cyst. IMPRESSION: normal clinical exam and normal imaging in this 34-year-old woman with concerns about lumps that she feels in the right breast. I recommend a repeat right breast ultrasound given her level of concern of her mother's recent diagnosis. PLAN: right breast ultrasound Addendum: Right breast and axillary ultrasound showed no abnormal findings I discussed the results with her and reassured her that all is well. There is no further intervention necessary at this time. Given her mother's recent diagnosis of breast cancer, she wants to continue annual mammography, which will be done every March and she would do it here at the center and see me at the same time. Tamiko Groves MD.FACS. cc: .ref B ASSISTANT documented in this encounter Plan of Treatment Not on file documented as of this encounter Results * MAMMO DIGITAL SCREEN BILAT (02/24/2010) Anatomical Region Laterality Modality Breast Bilateral Other Tamiko Groves MD MAMMO ORDERABLES documented in this encounter Visit Diagnoses Diagnosis Breast lump- Primary Lump or mass in breast documented in this encounter
--- OUTSIDE RECORDS SUMMARY | 2024-08-11 03:37 | XMS_ITS | Encounter Summary ---
Author Organization [facility] Address [address] [place] [address] Care Team Providers Care Cardroom Manager Name Role Phone Rio Lyon MD Primary Care Provider [phone] Reason for Visit * Reason Onset Date Comments Results 11/19/2018 Encounter Details Date Type Department Care Team (Late st Contact Info) Description 11/19/2018 Telephone [facility] BREAST SURGERY - [place] [facility] [address] [place] [address] Desiree Joe NP NO ADDRESS [...] Telephone Encounter - Desiree Joe NP - 11/19/2018 8:09 AM CDT Pt is aware breast MRI negative. RTC in May with mammogram Narrative BILATERAL MRI BREAST WITH AND WITHOUT INTRAVENOUS CONTRAST WITH CAD DATE: ??11/18/2018 11:35 AM HISTORY: High risk (>=20% lifetime) for breast cancer (BRCA mutation, first-degree relatives, history of chest radiation). COMPARISON: None. Correlation is made with the previous mammograms dated to 05/27/2018 and 05/01/2017. TECHNIQUE: ??Multisequence and multiplanar MRI of bilateral breasts was performed simultaneously in axial planes with and without IV gadolinium. MIP images, coronal and sagittal 2-D reformatted images were obtained on a separate workstation. Computer-aided diagnosis was also applied. FINDINGS: There is mild to moderate bilateral background parenchymal enhancement. No abnormal enhancing mass or enhancing area is visualized. No lymphadenopathy is seen. The nipple-areolar complex appears normal. Impression IMPRESSION: No evidence of malignancy. RECOMMENDATIONS: Bilateral annual routine mammogram and MRI. OVERALL FINAL ASSESSMENT: BI-RADS CATEGORY 1 - Negative. DICTATION LOCATION: [facility]. documented in this encounter Plan of Treatment Not on file documented as of this encounter Visit Diagnoses Not on filedocumented in this encounter Care Teams Cardroom Manager Relationship Specialty Start Date End Date Rio Lyon MD [address] [place] [address] PCP - General Family Practice 07/05/10 documented as of this encounter
--- OUTSIDE RECORDS SUMMARY | 2024-08-11 03:37 | XMS_ITS | Encounter Summary ---
Author Organization [facility] Address [address] [place] [address] Care Team Providers Care Cvir Tech Name Role Phone Rio Lyon MD Primary Care Provider [phone] Reason for Referral * MRI (Routine) - Closed Specialty Diagnoses / Procedures Referred By Contac t Referred To Contact Diagnoses Breast cancer screening At high risk for breast cancer Procedures MRI BREAST W WO CONT Desiree Armstrong NP NO ADDRESS ON FILE Referral ID Status Reason Start Date Expiration Date V isits Requested Visits Authorized [id number] Closed Ordering Dept To Review ([facility]) 05/27/2018 06/27/2019 1 1 Reason for Visit * MRI (Routine) - Closed Specialty Diagnoses / Procedures Referred By Contac t Referred To Contact Diagnoses Breast cancer screening At high risk for breast cancer Procedures MRI BREAST W WO CONT Desiree Armstrong NP NO ADDRESS ON FILE Referral ID Status Reason Start Date Expiration Date V isits Requested Visits Authorized [id number] Closed Ordering Dept To Review ([facility]L) 05/27/2018 06/27/2019 1 1 Encounter Details Date Type Department Care Team (Latest Contact Info) Description 11/18/2018 10:09 AM CDT - 11/18/2018 11:59 PM CDT Hospital Encounter [facility] [address] [place] [address] Joe, Desiree A, BRAZE OPERATOR NO ADDRESS ON FILE Discharge Disposition: Home [...] encounter Miscellaneous Notes * Treatment Plan - Giovanna Franklin, RT - 11/18/2018 11:03 AM CDT IMAGING SERVICES- CT, MRI MEDICATION and FLUSH PROTOCOL [facility] ORDERS ARE ENTERED ???PER PROTOCOL?? Enter the protocol in the patient???s electronic health record using Change.orgrase: .imagingctmriprotocol Communication Orders: o For ordered imaging procedures requiring intravenous access : ??? Initiate a peripheral IV, if not [...] 15 minutes prior to procedure) ??? Sucrose 24%(Tootsweet; Sweet-Ease) oral solution 0.2 mL oral (apply to tongue on pacifier or clean, gloved finger), ONE TIME 2 minutes prior to painful procedure. May repeat dose x1 PRN to complete procedure. o Sodium chloride 0.9% (normal saline) flush 10 mLs PRN for saline lock or medication administration. o For respiratory distress, initiate oxygen and/or increase O2 to maintain saturation greater than 90% PROCEDURE SPECIFIC MEDICATIONS ??? Cystogram (CT Pelvis): Iopamidol (Isovue 300) 61%, 50mL, diluted with 250mL of sterile NS. Inject Isovue into 250mL bag ofNS.. Clamp gleason catheter prior to instilling solution [...] procedure. ??? If at any time the Mail Deliverer has a question about which option to administer, seek clarification from a Radiologist. o Iohexol (Omnipaque) 240 mg/mL: 50ml added to 960mL of clear liquid of patient???s choice. Preferred route is oral. May use nasoenteric [...] old Administer up to 240mL of Barium sulfate , Orally, One Time Only 1 year old to 5 years old Administer up to 360mL of Barium sulfate , Orally, One Time Only 5 years old to 10 years old Administer up to 480mL of Barium sulfate , Orally, One Time Only Over 10 years old Administer up to 600mL of Barium sulfate , Orally, One Time Only ??? Iohexol (Omnipaque) 240 mg/mL oral solution ??? Dilute 25mL of iohexol with 480mL of clear liquid of patient???s choice. Administer the dilutedsolution per age as follows: Preferred route is orally. May use nasoenteric tube if needed. ??? Send any remaining diluted Iohexol solution with the pateint???s nurse to CT Administer 45mL of diluted Iohexol oral solution, [...] the diluted solution rectally via gravity per patient???s tolerance, up to 950mLs, one time only. [...] IV CONTRAST PROTOCOLS for PEDIATRICS PEDIATRICS: Use weight based dosing if patient is less than 55kg [...] 2 years and older Gadobenate Dimeglumine (Multihance) (0.1mmol/0.2mL),Administer 0.1mmol/kg = 0.2mL/kg up to MAX of 20mL intravenously, one time only OR Gadoteridol (Prohance) (0.1mmol/0.2mL), Administer 0.1mmol/kg = 0.2mL/kg up to MAX of 20mL, intravenously, one time only Initiati Initi Initiating Department(s): 08/2013 Nuclear Medicine and Pharmacy Reviewed: 05/2014 ,12/2015, 12/2016; 03/2017; 08/2017; 12/2017; 03/2018 Revised: 05/2014, 09/2016, 12/2016; 03/2017; 08/2017; 12/2017; 03/2018 Approved by: Medical Executive Committee, Imaging Services, and Pharmacy & Therapeutics Committee Date: 04/2018 documented in this encounter Plan of Treatment Not on file documented as of this encounter Procedures Procedure Name Priority Date/Time Associated Diagnosis Comments MRI BREAST DIAGNOSTIC WWO CONTRAST BILATERAL Routine 11/18/2018 11:35 AM CDT Breast cancer screening At high risk for breast cancer documented in this encounter Results * MRI BREAST W WO CONT BILAT (11/18/2018 11:35 AM CDT) Anatomical Region Laterality Modality Breast Bilateral Magnetic Resonan ce 11/18/2018 11:3 6 AM CDT Impressions 11/18/2018 3:45 PM CDT IMPRESSION: No evidence of malignancy. RECOMMENDATIONS: Bilateral annual routine mammogram and MRI. OVERALL FINAL ASSESSMENT: BI-RADS CATEGORY 1 - Negative. DICTATION LOCATION: [facility]. Narrative 11/18/2018 3:45 PM CDT BILATERAL MRI BREAST WITH AND WITHOUT INTRAVENOUS [...] is seen. The nipple-areolar complex appears normal. Procedure Note Antonella Daugherty MD - 11/18/2018 BILATERAL MRI BREAST WITH AND WITHOUT INTRAVENOUS CONTRAST WITH CAD DATE: 11/18/2018 11:35 AM HISTORY: High risk (>=20% lifetime) for breast cancer (BRCA mutation, first-degree relatives, history of chest radiation). COMPARISON: None. Correlation is made with the previous mammograms dated to 05/27/2018 and 05/01/2017. TECHNIQUE: Multisequence and multiplanar MRI of bilateral breasts was [...] is seen. The nipple-areolar complex appears normal. IMPRESSION: No evidence of malignancy. RECOMMENDATIONS: Bilateral annual routine mammogram and MRI. OVERALL FINAL ASSESSMENT: BI-RADS CATEGORY 1 - Negative. DICTATION LOCATION: [facility]. Desiree Joe NP MR ORDERABLES documented in [...] IV, INTRA-PROCEDURE ONCE, 1 dose, Starting on Sun11/18/18 at 1102, Until Sun11/18/18 at 1131, Routine Contrast Given 11/18/2018 11:31 AM CDT 14 mL sodium chloride 0.9% infusion IV, at 50 mL/hr, ONE TIME ONLY, 1 dose, On Sun11/18/18 at 1115, Routine New Bag 11/18/2018 11:15 AM CDT 50 mL/hr sodium chloride flush injection 10 mL 10 mL, IV, ONE TIME ONLY, 1 dose, On Sun11/18/18 at 1115, Routine Given 11/18/2018 11:15 AM CDT 10 mL documented in this encounter Care Teams Cvir Tech Relationship Specialty Start Date End Date Rio Lyon MD [address] [place] [address] PCP - General Family Practice 07/05/10 documented as of this encounter
--- OUTSIDE RECORDS SUMMARY | 2024-08-11 03:37 | XMS_ITS | Encounter Summary ---
Author Organization [facility] Address [address] [place] [address] Care Team Providers Care Senior Java Ui Developer Name Role Phone Unavailable Primary Care Provider Unavailabl e Reason for Referral * (Routine) - Closed Specialty Diagnoses / Procedures Referred By Contac t Referred To Contact Diagnoses Breast mass Procedures MAMMO BREAST US RT Tamiko Groves MD [address] [place] [address] Referral ID Status Reason Start Date Expiration Date Visits Re quested Visits Authorized [id number] Closed 09/20/2009 03/19/2010 1 1 R PLUMBER Encounter Details Date Type Department Care Team (Late st Contact Info) Description 09/20/2009 Orders Only [facility] [address] [place] [address] Tamiko Groves MD [address] [place] [address] Breast Mass (Primary Dx) Social History Tobacco Use Types Packs/Day Years Used Date Smoking Tobacco: Never Alcohol Use Standard Drinks/Week Comments Yes 0 (1 standard drink = 0.6 oz pur e alcohol) Sex and Gender Information Value Date Recorded Sex Assigned at Not on file Gender Identity Not on file Sexual Orientation Not on file documented as of this encounter Plan of Treatment Not on file documented as of this encounter Results * MAMMO BREAST US RT (09/20/2009) Anatomical Region Laterality Modality Breast Right Other Tamiko Groves MD MAMMO ORDERABLES documented in this encounter Visit Diagnoses Diagnosis Breast mass- Primary Lump or mass in breast documented in this encounter
--- OUTSIDE RECORDS SUMMARY | 2024-08-11 03:37 | XMS_ITS | Encounter Summary ---
Author Organization [facility] Address [address] [place] [address] Care Team Providers Care Hammer Mill Operator Name Role Phone Rio Lyon MD Primary Care Provider [phone] Reason for Referral * Outpatient Services (Routine) - Closed Specialty Diagnoses / Procedures Referred By Nan kingston Referred To Contact Diagnoses Family history of malignant neoplasm of breast Procedures MAMMO DIGITAL SCREEN Tamiko Coronado MD [address] [place] [address] Referral ID Status Reason Start Date Expiration Date Visits Re quested Visits Authorized [id number] Closed 03/29/2012 03/29/2013 1 1 Reason for Visit * Reason Comments Breast Exam, Routine, No Symptoms annual ck Encounter Details Date Type Department Care Team (Late st Contact Info) Description 03/29/2012 11:00 AM CDT Office Visit [facility] [address] [place] [address] Tamiko Groves MD [address] [place] [address] Family history of malignant neoplasm [...] Sign Reading Time Taken Comments Blood Pressure 102/63 03/29/2012 10:42 AM CDT Pulse - - Temperature - - Respiratory Rate - - Oxygen Saturation - - Inhaled Oxygen Concentration - - Weight 62.6 kg (138 lb) 03/29/2012 10:42 AM CDT Height 152.4 cm (5') 03/29/2012 10:42 AM CDT Body Mass Index 26.95 03/29/2012 10:42 AM CDT documented in this encounter Progress Notes * Tamiko Groves MD - 03/29/2012 10:45 AM CDT PATIENT: Harriet Meade : 1975 DATE: 03/29/2012 Harriet Meade is a 36 y.o. female. She comes in for annual breast check. She has no new health issues or breast complaints. Her mom (Shady Hardwick) had breast cancer. 14 at menarche and 26 at first live BP 102/63 Ht 5' (1.524 m) Wt 138 lb (62.596 kg) BMI 26.95 kg/m2 Well-developed, well-nourished, pleasant woman. Neck - no thyromegaly no cervical adenopathy SCF- no adenopathy Chest - clear to auscultation Cardiovascular - regular rate and rhythm Axilla -no adenopathy Breasts - normal in appearance, no masses, skin changes or nipple discharge Abdomen - liver and spleen not palpably enlarged Extremities - Good range of motion of shoulders, no lymphedema present IMAGING: Mammogram: March 18, 2009 at [facility] in [place], [place]. No mammographic evidence ofmalignancy. Right breast ultrasound: March 18, 2009. No ultrasound detected solid masses or cyst. Mammogram: 02/24/2010; at [facility]. NEM Mammogram: 03/24/2011 at [facility]; nem Mammogram: 03/29/2012 at [facility]; NEM will compare with priors IMPRESSION: Normal clinical exam and imaging. I will see her back March 2013 at mammogram time, if comparison is ok. Tamiko Groves MD. FACS. Cc: Darren Sanchez MD [address] [place] [address] documented in this encounter Plan of Treatment Not on file documented as of this encounter Results * MAMMO DIGITAL SCREEN BILAT (04/08/2013 10:37 AM CDT) Anatomical Region Laterality Modality Breast Bilateral Mammography 04/08/2013 10:2 9 AM CDT Impressions 04/09/2013 7:47 AM CDT IMPRESSION: ?? Dense mammary parenchyma. ?? No mammographic evidence of malignancy. RECOMMENDATIONS: Annual mammography in one year. OVERALL ASSESSMENT - BI-RADS 1 - NEGATIVE Dictated from [facility] Narrative 04/09/2013 7:47 AM CDT BILATERAL SCREENING DIGITAL MAMMOGRAMS WITH COMPUTER ASSISTED DIAGNOSIS 04/08/13 HISTORY: ??Annual screening study. FINDINGS: ??The parenchyma is very dense bilaterally. ??This lowers the sensitivity of mammography in detecting disease. There is no mass, malignant calcification, lymphadenopathy, architectural distortion or other sign of malignancy. ?? CAD was utilized. No change since 03/29/12. Procedure Note Chris Josue MD - 04/09/2013 BILATERAL SCREENING DIGITAL MAMMOGRAMS WITH COMPUTER ASSISTED DIAGNOSIS 04/08/13 HISTORY: Annual screening study. FINDINGS: The parenchyma is very dense bilaterally. This lowers the sensitivity of mammography in detecting disease. There is no mass, malignant calcification, lymphadenopathy, architectural distortion or other sign of malignancy. CAD was utilized. No change since 03/29/12. IMPRESSION IMPRESSION: Dense mammary parenchyma. No mammographic evidence of malignancy. RECOMMENDATIONS: Annual mammography in one year. OVERALL ASSESSMENT - BI-RADS 1 - NEGATIVE Dictated from [facility] Tamiko Groves MD MAMMO ORDERABLES documented in this encounter Visit Diagnoses Diagnosis Family history of malignant neoplasm of breast- Primary Family history of malignant neoplasm of breast documented in this encounter Care Teams Hammer Mill Operator Relationship Specialty Start Date End Date Rio Lyon MD [address] [place] [address] PCP - General Family Practice 07/05/10 documented as of this encounter
--- OUTSIDE RECORDS SUMMARY | 2024-08-11 03:37 | XMS_ITS | Encounter Summary ---
Author Organization [facility] Address [address] [place] [address] Care Team Providers Care Tight Rope Walker Name Role Phone Rio Lyon MD Primary Care Provider [phone] Reason for Referral * Outpatient Services (Routine) - Closed Specialty Diagnoses / Procedures Referred By Nan kingston Referred To Contact Diagnoses Family history of malignant neoplasm of breast Procedures MAMMO DIGITAL SCREEN Tamiko Coronado MD [address] [place] [address] Referral ID Status Reason Start Date Expiration Date Visits Re quested Visits Authorized [id number] Closed 04/08/2013 05/09/2014 1 1 Encounter Details Date Type Department Care Team (Late st Contact Info) Description 04/08/2013 [facility] [address] [facility] [address] [place] [address] Tamiko Groves MD [address] [place] [address] Family history of malignant neoplasm of [...] encounter Results * MAMMO DIGITAL SCREEN BILAT (04/14/2014 10:28 AM CDT) Anatomical Region Laterality Modality Breast Bilateral Mammography Narrative 04/15/2014 10:30 AM CDT Bilateral digital screening mammogram with computer assisted diagnosis History: ??Annual screening exam. Findings: ??A bilateral screening mammogram was performed. Comparison is made to : 04/08/2013, 03/29/2012, 02/24/2010 ??There are scattered fibroglandular densities. ??No new masses, ??suspicious calcifications, or areas of asymmetry or distortion are identified. ??CAD was utilized. Impression: ??Negative screening mammogram. Recommendation: ??Routine annual follow-up Overall Assessment: ??Birads Category 1: ??Negative Procedure Note Antonella Daugherty MD - 04/15/2014 Bilateral digital screening mammogram with computer assisted diagnosis History: Annual screening exam. Findings: A bilateral screening mammogram was performed. Comparison ismade to : 04/08/2013, 03/29/2012, 02/24/2010 There are scatteredfibroglandular densities. No new masses, suspicious calcifications, orareas of asymmetry or distortion are identified. CAD was utilized. Impression: Negative screening mammogram. Recommendation: Routine annual follow-up Overall Assessment: Birads Category 1: Negative Tamiko Groves MD MAMMO ORDERABLES documented in this encounter Visit Diagnoses Diagnosis Family history of malignant neoplasm of breast- Primary Family history of malignant neoplasm of breast documented in this encounter Care Teams Tight Rope Walker Relationship Specialty Start Date End Date Rio Lyon MD [address] [place] [address] PCP - General Family Practice 07/05/10 documented as of this encounter
--- OUTSIDE RECORDS SUMMARY | 2024-08-11 03:37 | XMS_ITS | Encounter Summary ---
Author Organization [facility] Address [address] [place] [address] Care Team Providers Care Trust Manager Name Role Phone Unavailable Primary Care Provider Unavailabl e Encounter Details Date Type Department Care Team (Late st Contact Info) Description 09/16/2009 Abstract [facility] BREAST SURGERY - [facility] [facility] [address] [place] [address] Tamiko Groves MD [address] [facility] [address] [place] [address] Social History Tobacco Use Types Packs/Day Years Used Date Smoking Tobacco: Never Assessed Sex and Gender Information Value Date Recorded Sex Assigned at Not on file Gender Identity Not on file Sexual Orientation Not on file documented as of this encounter Plan of Treatment Not on file documented as of this encounter Visit Diagnoses Not on filedocumented in this encounter
--- OUTSIDE RECORDS SUMMARY | 2024-08-11 03:37 | XMS_ITS | Encounter Summary ---
Author Organization [facility] Address [address] [place] [address] Care Team Providers Care Child Psychiatrist Name Role Phone Rio Lyon MD Primary Care Provider [phone] Reason for Visit * Reason Onset Date Comments Results 05/28/2018 Encounter Details Date Type Department Care Team (Late st Contact Info) Description 05/28/2018 Telephone [facility] BREAST SURGERY - [place] [facility] [address] [place] [address] Desiree Joe NP NO ADDRESS [...] Telephone Encounter - Desiree Joe NP - 05/28/2018 12:46 PM CDT LM (pt gave permission) that MMG negative. RTC in six months with MRI BILATERAL FULL-FIELD DIGITAL SCREENING MAMMOGRAM WITH CAD WITH 3D TOMOSYNTHESIS ?? DATE: 05/27/2018 8:58 AM ?? HISTORY: Routine screening. ?? TECHNIQUE: Full-field digital craniocaudal and mediolateral oblique projections of both breasts were obtained. Low-dose full-field digital breast tomosynthesis examination was performed with 2D and 3D acquisitions. Examination is read in conjunction with computer aided detection. ?? COMPARISON: March 2012 through April 2017 ?? BREAST COMPOSITION: Heterogeneously dense, which lowers the sensitivity of mammography. ?? FINDINGS: No suspicious mass, suspicious microcalcifications, or architectural distortion in either breast is identified. Since the prior study, there has been no significant interval change. The computer aided diagnosis detects no significant abnormality. ?? OVERALL ASSESSMENT: BI-RADS Category 1 - Negative. ? IMPRESSION: No mammographic evidence of malignancy. ?? RECOMMENDATIONS: Routine screening mammogram in one year. ?? Dictated from: [facility] documented in this encounter Plan of Treatment Not on file documented as of this encounter Visit Diagnoses Not on filedocumented in this encounter Care Teams Child Psychiatrist Relationship Specialty Start Date End Date Rio Lyon MD [address] [place] [address] PCP - General Family Practice 07/05/10 documented as of this encounter
--- OUTSIDE RECORDS SUMMARY | 2024-08-11 03:37 | XMS_ITS | Encounter Summary ---
Author Organization [facility] Address [address] [place] [address] Care Team Providers Care Gis Software Developer Name Role Phone Rio Lyon MD Primary Care Provider [phone] Reason for Visit * Reason Comments Family History of Breast Cancer Encounter Details Date Type Department Care Team (Late st Contact Info) Description 05/01/2017 11:00 AM CDT Office Visit [facility] BREAST SURGERY - [place] A [address] [facility] [address] [place] [address] Tamiko Groves MD [address] [facility] [address] [place] [address] Family history of malignant neoplasm [...] on file documented as of this encounter Progress Notes * Tamiko Groves MD - 05/01/2017 12:56 PM CDT PATIENT: Harriet Meade : 1975 DATE: 05/01/2017 Harriet Meade is a 41 y.o. female. She comes in for annual breast check. She has no new health issues or breast complaints. Her mom (Shady Hardwick) had breast cancer. 12 at menarche and 24 at first live She has no new breast or related complaints. She adopted a baby from [place]- October 2013. The baby continues to suffer from seizures Her dad has recurrence of his prostate cancer 2014 10 point review of systems -unremarkable No past medical history on file. Past Surgical History: Procedure Laterality Date ??? HX BREAST BIOPSY 05/2009 right breast ??? HX EXCISIONAL BIOPSY Right 2010 ? HX HYSTERECTOMY 07/2008 ovaries intact ??? HX LEEP PROCEDURE 01/2010 margins clear ??? HX SURGICAL OTHER 2008 laproscopic ??? HX TUBAL LIGATION 2006 Allergies Allergen Reactions ??? Codeine Unknown ??? Darvocet A500 [Propoxyphene N-Acetaminophen] Nausea and Vomiting ??? Demerol [Meperidine] Unknown There were no vitals taken for this visit. Well-developed, well-nourished, pleasant woman. Neck - no thyromegaly no cervical adenopathy SCF- no adenopathy Axilla -no adenopathy Breasts - normal in appearance, no masses, skin changes or nipple discharge Abdomen - liver and spleen not palpably enlarged Extremities - Good range of motion of shoulders, no lymphedema present IMAGING: Mammogram: 04/08/2013 at [facility] Mammogram: 04/14/2014 at [facility]; nem Mammogram: 04/20/2015 at [facility]; nem Mammogram: 04/25/2016 at [facility]; NEM Mammogram: 05/01/2017 at [facility]; NEM; will compare with priors IMPRESSION: 41 y.o. woman with family history of breast cancer I have personally examined her and have reviewed her mammogram today and it is stable The patient is asked to make an attempt to improve diet and exercise patterns to aid in breast cancer risk reduction. She will return to monthly self breast exams and continue annual clinical exams with her green hide inspector or PCP or Desiree Joe Continue annual mammography April 2018 per [place] [employer] guidelines. See me back as needed if any new problems arise. 15 minutes was spent in face to face with the patient Tamiko Groves MD. FACS. Cc: Rio Lyon MD [address] [place] [address] documented in this encounter Plan of Treatment Not on file documented as of this encounter Visit Diagnoses Diagnosis Family history of malignant neoplasm of breast- Primary documented in this encounter Care Teams Gis Software Developer Relationship Specialty Start Date End Date Rio Lyon MD [address] [place] [id number] PCP - General Family Practice 07/05/10 documented as of this encounter
--- OUTSIDE RECORDS SUMMARY | 2024-08-11 03:37 | XMS_ITS | Encounter Summary ---
Author Organization [facility] Address [address] [place] [address] Care Team Providers Care Immunology Specialist Name Role Phone Rio Lyon MD Primary Care Provider [phone] Reason for Referral * Outpatient Services (Routine) - Closed Specialty Diagnoses / Procedures Referred By Nan kingston Referred To Contact Diagnoses Breast lump Procedures MAMMO DIGITAL DIAG Tamiko Coronado MD [address] [facility] [place] [address] Referral ID Status Reason Start Date Expiration Date Visits Re quested Visits Authorized [id number] Closed 07/05/2010 01/01/2011 1 1 Reason for Visit * Outpatient Services (Routine) - Closed Specialty Diagnoses / Procedures Referred By Nan kingston Referred To Contact Diagnoses Breast lump Procedures MAMMO DIGITAL DIATamiko Vernon MD [address], [place] [address] Referral ID Status Reason Start Date Expiration Date Visits Re quested Visits Authorized [id number] Closed 07/05/2010 01/01/2011 1 1 Encounter Details Date Type Department Care Team (Latest Contact Info) Description 03/24/2011 9:41 AM CDT - 03/24/2011 11:59 PM CDT Hospital Encounter [facility] Darin Boateng [address] [address] Tamiko Groves MD [address] [place] [address] Discharge Disposition: Home or Self Care Social [...] Priority Date/Time Associated Diagnosis Comments MAMMO DIAGNOSTIC BILATERAL W OR WO CAD Routine 03/24/2011 9:58 AM CDT Breast lump documented in this encounter Results * MAMMO DIGITAL DIAG BILAT (03/24/2011 9:58 AM CDT) Anatomical Region Laterality Modality Breast Bilateral Mammography 03/24/2011 9:57 AM CDT Addenda Addendum by Valorie Otero on 04/11/2011 8:12 AM CDT ADDENDUM: ?? Patient's prior study dated February 2010 have just been made available for comparison. Compared with previous examination, the breast parenchymal pattern is stable. No new dominant mass, areas of asymmetry, or suspicious clustered microcalcifications are identified within either breast. CAD was utilized. . Overall assessment: BI-RADS category 1. Negative. Recommendation: Annual mammography is recommended. Narrative 03/27/2011 8:44 PM CDT BILATERAL DIAGNOSTIC FULL FIELD DIGITAL MAMMOGRAPHY WITH CAD, 03/24/2011 HISTORY: Family history of breast cancer in her mother. The patient has had a previous benign excisional biopsy of the right breast. TECHNIQUE: Diagnostic mammograms of both breasts were performed using full field digital mammography. ?? COMPARISON: None. BREAST COMPOSITION: Heterogeneously dense, which lowers the sensitivity of mammography. FINDINGS: No dominant masses, suspicious calcifications, parenchymal asymmetry or areas of architectural distortion are identified in either breast. The computer aided detection system was utilized. OVERALL ASSESSMENT: BI-RADS Category: 0. Incomplete, awaiting old films. RECOMMENDATION: It is recommended the patient's old films be obtained to assess for the stability of the bilateral breast parenchymal pattern. Harriet Meade Procedure Note Valorie Lantigua - 03/27/2011 BILATERAL DIAGNOSTIC FULL FIELD DIGITAL MAMMOGRAPHY WITH CAD, 03/24/2011 HISTORY: Family history of breast cancer in her mother. The patient hashad a previous benign excisional biopsy of the right breast. TECHNIQUE: Diagnostic mammograms of both breasts were performed using fullfield digital mammography. COMPARISON: None. BREAST COMPOSITION: Heterogeneously dense, which lowers the sensitivity ofmammography. FINDINGS: No dominant masses, suspicious calcifications, parenchymalasymmetry or areas of architectural distortion are identified in eitherbreast. The computer aided detection system was utilized. OVERALL ASSESSMENT: BI-RADS Category: 0. Incomplete, awaiting old films. RECOMMENDATION: It is recommended the patient's old films be obtained toassess for the stability of the bilateral breast parenchymal pattern. Harriet Meade Tamiko Groves MD MAMMO ORDERABLES documented in this encounter Visit Diagnoses Diagnosis Breast lump Lump or mass in breast documented in this encounter Care Teams Immunology Specialist Relationship Specialty Start Date End Date Rio Lyon MD [address] [address] PCP - General Family Practice 07/05/10 documented as of this encounter
--- OUTSIDE RECORDS SUMMARY | 2024-08-11 03:37 | XMS_ITS | Encounter Summary ---
Author Organization [facility] Address [address] [place] [address] Care Team Providers Care Area Sales Manager Name Role Phone Rio Lyon MD Primary Care Provider [phone] Reason for Referral * Outpatient Services (Routine) - Closed Specialty Diagnoses / Procedures Referred By Nan kingston Referred To Contact Diagnoses Family history of malignant neoplasm of breast Procedures MAMMO DIGITAL SCREEN Tamiko Coronado MD [address] [place] [address] Referral ID Status Reason Start Date Expiration Date Visits Re quested Visits Authorized [id number] Closed 03/29/2012 03/29/2013 1 1 Reason for Visit * Outpatient Services (Routine) - Closed Specialty Diagnoses / Procedures Referred By Nan kingston Referred To Contact Diagnoses Family history of malignant neoplasm of breast Procedures MAMMO DIGITAL SCREEN Tamiko Coronado MD [address] [place] [address] Referral ID Status Reason Start Date Expiration Date Visits Re quested Visits Authorized [id number] Closed 03/29/2012 03/29/2013 1 1 Encounter Details Date Type Department Care Team (Latest Contact Info) Description 04/08/2013 10:16 AM CDT - 04/08/2013 11:59 PM CDT Hospital Encounter [facility] A [address] [place] [address] Tamiko Groves MD [address] [place] [address] Discharge Disposition: Home or Self Care [...] Name Priority Date/Time Associated Diagnosis Comments MAMMO SCREEN BILAT W OR WO CAD Routine 04/08/2013 10:37 AM CDT Family history of malignant neoplasm of breast documented in this encounter Results * MAMMO DIGITAL SCREEN BILAT (04/08/2013 10:37 AM CDT) Anatomical Region Laterality Modality Breast Bilateral Mammography 04/08/2013 10:2 9 AM CDT Impressions 04/09/2013 7:47 AM CDT IMPRESSION: ?? Dense mammary parenchyma. ?? No mammographic evidence of malignancy. RECOMMENDATIONS: Annual mammography in one year. OVERALL ASSESSMENT - BI-RADS 1 - NEGATIVE Dictated from [facility] Narrative 04/09/2013 7:47 AM CDT BILATERAL SCREENING [...] - BI-RADS 1 - NEGATIVE Dictated from [facility] Tamiko Groves MD MAMMO ORDERABLES documented in this encounter Visit Diagnoses Diagnosis Family history of malignant neoplasm of breast documented in this encounter Care Teams Area Sales Manager Relationship Specialty Start Date End Date Rio Lyon MD [address] [place] [address] PCP - General Family Practice 07/05/10 documented as of this encounter
--- OUTSIDE RECORDS SUMMARY | 2024-08-11 03:37 | XMS_ITS | Encounter Summary ---
Author Organization [facility] Address [address] [place] [address] Care Team Providers Care Improvement Spec Name Role Phone Rio Lyon MD Primary Care Provider [phone] Reason for Referral * Outpatient Services (Routine) - Closed Specialty Diagnoses / Procedures Referred By Nan kingston Referred To Contact Diagnoses Family history of malignant neoplasm of breast Procedures MAMMO DIGITAL SCREEN Tamiko Coronado MD [address] [place] [address] Referral ID Status Reason Start Date Expiration Date V isits Requested Visits Authorized [id number] Closed Other 04/14/2014 05/15/2015 1 1 Reason for Visit * Outpatient Services (Routine) - Closed Specialty Diagnoses / Procedures Referred By Nan kingston Referred To Contact Diagnoses Family history of malignant neoplasm of breast Procedures MAMMO DIGITAL SCREEN Tamiko Coronado MD [address] [place] [address] Referral ID Status Reason Start Date Expiration Date V isits Requested Visits Authorized [id number] Closed Other 04/14/2014 05/15/2015 1 1 Encounter Details Date Type Department Care Team (Latest Contact Info) Description 04/20/2015 9:54 AM CDT - 04/20/2015 11:59 PM CDT Hospital Encounter [facility] A [address] [place] [address] Tamiko Groves MD [address] [address] [place] [address] Discharge Disposition: Home or Self Care [...] SCREEN BILAT W OR WO CAD Routine 04/20/2015 10:23 AM CDT Family history of malignant neoplasm of breast documented in this encounter Results * MAMMO DIGITAL SCREEN BILAT (04/20/2015 10:23 AM CDT) Anatomical Region Laterality Modality Breast Bilateral Mammography Narrative 04/20/2015 11:39 AM CDT BILATERAL DIGITAL SCREENING MAMMOGRAM WITH CAD INDICATION: ??Routine screening. TECHNIQUE: ??Standard images were obtained of both breasts on a digital system. ??CAD was utilized. COMPARISON: 04/14/2014, 04/08/2013, 03/29/2012 BREAST COMPOSITION: ??Scattered fibroglandular densities. FINDINGS: ??No dominant masses, suspicious calcifications, parenchymal asymmetry or areas of architectural distortion are identified in either breast. ?? OVERALL ASSESSMENT: ?? Birads Category 1: ??Negative RECOMMENDATIONS: ??Recommend continued annual mammography. Tamiko Groves MD MAMMO ORDERABLES documented in this encounter Visit Diagnoses Diagnosis Family history of malignant neoplasm of breast documented in this encounter Care Teams Improvement Spec Relationship Specialty Start Date End Date Rio Lyon MD [address] [place] [address] PCP - General Family Practice 07/05/10 documented as of this encounter
--- OUTSIDE RECORDS SUMMARY | 2024-08-11 03:37 | XMS_ITS | Encounter Summary ---
Author Organization [facility] Address [address] [place] [address] Care Team Providers Care Fireworks Assembler Name Role Phone Rio Lyon MD Primary Care Provider [phone] Reason for Visit * Reason Onset Date Comments Breast Exam, Routine, No Symptoms 04/08/2014 ANNUAL BREAST CHECK Encounter Details Date Type Department Care Team (Late st Contact Info) Description 04/08/2014 Patient Outreach [facility] [address] [facility] [address] [place] [address] Tamiko Groves MD [address] [place] [place] [address] Breast Exam, Routine, No Symptoms (ANNUAL BREAST CHECK) Social History Tobacco Use Types Packs/Day Years Used Date Smoking Tobacco: Never Alcohol Use Standard Drinks/Week Comments Yes 0 (1 standard drink = 0.6 oz pur e alcohol) Sex and Gender Information Value Date Recorded Sex Assigned at Not on file Gender Identity Not on file Sexual Orientation Not on file documented as of this encounter Miscellaneous Notes * Telephone Encounter - Zarina Calvert - 04/08/2014 10:07 AM CDT REMINDED PT OF ANNUAL MAMMOGRAM documented in this encounter Plan of Treatment Not on file documented as of this encounter Visit Diagnoses Not on filedocumented in this encounter Care Teams Fireworks Assembler Relationship Specialty Start Date End Date Rio Lyon MD [address] [place] [id number] PCP - General Family Practice 07/05/10 documented as of this encounter
--- OUTSIDE RECORDS SUMMARY | 2024-08-11 03:37 | XMS_ITS | Encounter Summary ---
Author Organization [facility] Address [address] [place] [address] Care Team Providers Care General Office Associate Name Role Phone Rio Lyon MD Primary Care Provider [phone] Reason for Referral * Outpatient Services (Routine) - Closed Specialty Diagnoses / Procedures Referred By Nan kingston Referred To Contact Diagnoses Screening mammogram Procedures MAMMO DIGITAL SCREEN Tamiko Coronado MD [address] [place] [address] Referral ID Status Reason Start Date Expiration Date Visits Re quested Visits Authorized [id number] Closed 03/24/2011 03/23/2012 1 1 Reason for Visit * Outpatient Services (Routine) - Closed Specialty Diagnoses / Procedures Referred By Nan kingston Referred To Contact Diagnoses Screening mammogram Procedures MAMMO DIGITAL SCREEN Tamiko Coronado MD [address], [place] [address] Referral ID Status Reason Start Date Expiration Date Visits Re quested Visits Authorized [id number] Closed 03/24/2011 03/23/2012 1 1 Encounter Details Date Type Department Care Team (Latest Contact Info) Description 03/29/2012 10:05 AM CDT - 03/29/2012 11:59 PM CDT Hospital Encounter [facility] [address] [address] Tamiko Groves MD [address] [place] [address] Discharge Disposition: Home or Self Care [...] SCREEN BILAT W OR WO CAD Routine 03/29/2012 10:41 AM CDT Screening mammogram documented in this encounter Results * MAMMO DIGITAL SCREEN BILAT (03/29/2012 10:41 AM CDT) Anatomical Region Laterality Modality Breast Bilateral Mammography 03/29/2012 10:4 0 AM CDT Narrative 03/29/2012 4:03 PM CDT BILATERAL FULL FIELD DIGITAL SCREENING MAMMOGRAM WITH CAD. ??03/29/12 HISTORY: Routine Screening. TECHNIQUE: Full field digital screening mammography of both breasts were obtained. COMPARISON: ??March 2011 and February 2010 BREAST PARENCHYMAL COMPOSITION: Heterogeneously dense, which lowers the sensitivity of mammography. FINDINGS: No new dominant masses, suspicious calcifications, parenchymal asymmetry or areas of architectural distortion are identified in either breast. Since the prior study, there has been no significant interval change. The computer aided detection system was utilized. OVERALL ASSESSMENT: ??BI-RADS category 1: Negative. RECOMMENDATION: Annual mammography is recommended. Procedure Note Valorie Otero - 03/29/2012 BILATERAL FULL FIELD DIGITAL SCREENING MAMMOGRAM WITH CAD. 03/29/12 HISTORY: Routine Screening. TECHNIQUE: Full field digital screening mammography of both breasts were obtained. COMPARISON: March 2011 and February 2010 BREAST PARENCHYMAL COMPOSITION: Heterogeneously dense, which lowers the sensitivity of mammography. FINDINGS: No new dominant masses, suspicious calcifications, parenchymal asymmetry or areas of architectural distortion are identified in either breast. Since the prior study, there has been no significant interval change. The computer aided detection system was utilized. OVERALL ASSESSMENT: BI-RADS category 1: Negative. RECOMMENDATION: Annual mammography is recommended. Tamiko Groves MD MAMMO ORDERABLES documented in this encounter Visit Diagnoses Diagnosis Screening mammogram Other screening mammogram documented in this encounter Care Teams General Office Associate Relationship Specialty Start Date End Date Rio Lyon MD [address] [place] [address] PCP - General Family Practice 07/05/10 documented as of this encounter
--- OUTSIDE RECORDS SUMMARY | 2024-08-11 03:37 | XMS_ITS | Encounter Summary ---
Author Organization [facility] Address [address] [place] [address] Care Team Providers Care Celery Stripper Name Role Phone Rio Lyon MD Primary Care Provider [phone] Reason for Visit * Reason Comments Breast Exam, Routine, No Symptoms Encounter Details Date Type Department Care Team (Late st Contact Info) Description 04/25/2016 11:00 AM CDT Office Visit [facility] BREAST SURGERY - [place] A [address] [facility] [address] [place] [address] Tamiko Groves MD [address] [place] [address] Family history of malignant neoplasm [...] Sign Reading Time Taken Comments Blood Pressure 109/75 04/25/2016 10:39 AM CDT Pulse 98 04/25/2016 10:39 AM CDT Temperature - - Respiratory Rate - - Oxygen Saturation - - Inhaled Oxygen Concentration - - Weight 75.3 kg (166 lb) 04/25/2016 10:39 AM CDT Height 152.4 cm (5') 04/25/2016 10:39 AM CDT Body Mass Index 32.42 04/25/2016 10:39 AM CDT documented in this encounter Progress Notes * Tamiko Groves MD - 04/25/2016 10:54 AM CDT PATIENT: Harriet Meade : 1975 DATE: 04/25/2016 Harriet Meade is a 40 y.o. female. She comes in for annual breast check. She has no new health issues or breast complaints. Her mom (Shady Hardwick) had breast cancer. 12 at menarche and 24 at first live She has no new breast or related complaints. She adopted a baby from [place]- October 2013. The baby continues to suffer from seizures Her dad has recurrence of his prostate cancer 2014 10 point review of systems -unremarkable No past medical history on file. Past Surgical History Procedure Laterality Date ??? Hx surgical other 2008 laproscopic ??? Hx breast biopsy 05/2009 right breast ??? Hx hysterectomy 07/2008 ovaries intact ??? Hx tubal ligation 2006 ??? Hx leep procedure 01/2010 margins clear ??? Hx excisional biopsy Right 2010 ? Allergies Allergen Reactions ??? Codeine Unknown ??? Darvocet A500 [Propoxyphene N-Acetaminophen] Nausea and Vomiting ??? Demerol [Meperidine] Unknown BP 109/75 mmHg Pulse 98 Ht 5' (1.524 m) Wt 75.297 kg (166 lb) BMI 32.42 kg/m2 ? No Well-developed, well-nourished, pleasant woman. Neck - no thyromegaly no cervical adenopathy SCF- no adenopathy Axilla -no adenopathy Breasts - normal in appearance, no masses, skin changes or nipple discharge Abdomen - liver and spleen not palpably enlarged Extremities - Good range of motion of shoulders, no lymphedema present IMAGING: Mammogram: 04/08/2013 at [facility] Mammogram: 04/14/[address] [facility]; nem Mammogram: 04/20/2015 at [facility]; nem Mammogram: 04/25/2016 at [facility]; NEM; will compare with priors IMPRESSION: 40 y.o. woman with family history of breast cancer I have personally examined her and have reviewed her mammogram today The patient is asked to make an attempt to improve diet and exercise patterns to aid in breast cancer risk reduction. I will see her back April 2017 at mammogram time, if comparison is ok. 15 minutes was spent in face to face with the patient Tamiko Groves MD. FACS. Cc: Darren Sanchez MD [address] [facility] [address] [place] [address] documented in this encounter Plan of Treatment Not on file documented as of this encounter Visit Diagnoses Diagnosis Family history of malignant neoplasm of breast- Primary documented in this encounter Care Teams Celery Stripper Relationship Specialty Start Date End Date Rio Lyon MD [address] [place] [address] PCP - General Family Practice 07/05/10 documented as of this encounter
--- OUTSIDE RECORDS SUMMARY | 2024-08-11 03:37 | XMS_ITS | Encounter Summary ---
Author Organization [facility] Address [address] [place] [address] Care Team Providers Care Screen Cleaner Name Role Phone Rio Lyon MD Primary Care Provider [phone] Reason for Referral * Outpatient Services (Routine) - Closed Specialty Diagnoses / Procedures Referred By Nan kingston Referred To Contact Diagnoses Family history of malignant neoplasm of breast Procedures MAMMO DIGITAL SCREEN Tamiko Coronado MD [address] [place] [address] Referral ID Status Reason Start Date Expiration Date Visits Re quested Visits Authorized [id number] Closed 04/08/2013 05/09/2014 1 1 Reason for Visit * Outpatient Services (Routine) - Closed Specialty Diagnoses / Procedures Referred By Nan kingston Referred To Contact Diagnoses Family history of malignant neoplasm of breast Procedures MAMMO DIGITAL SCREEN Tamiko Coronado MD [address] [place] [address] Referral ID Status Reason Start Date Expiration Date Visits Re quested Visits Authorized [id number] Closed 04/08/2013 05/09/2014 1 1 Encounter Details Date Type Department Care Team (Latest Contact Info) Description 04/14/2014 9:53 AM CDT - 04/14/2014 11:59 PM CDT Hospital Encounter [facility] [place] A [address] [place] [address] Tamiko Groves MD [address] [place] [address] [place] [address] Discharge Disposition: Home or Self Care [...] SCREEN BILAT W OR WO CAD Routine 04/14/2014 10:28 AM CDT Family history of malignant neoplasm [...] breast documented in this encounter Care Teams Screen Cleaner Relationship Specialty Start Date End Date Rio Lyon MD [address] [place] [address] PCP - General Family Practice 07/05/10 documented as of this encounter
--- OUTSIDE RECORDS SUMMARY | 2024-08-11 03:37 | XMS_ITS | Encounter Summary ---
Author Organization [facility] Address [address] [place] [address] Care Team Providers Care Slot Manager Name Role Phone Rio Lyon MD Primary Care Provider [phone] Reason for Referral * Outpatient Services (Routine) - Closed Specialty Diagnoses / Procedures Referred By Nan kingston Referred To Contact Diagnoses Family history of malignant neoplasm of breast Procedures MAMMO DIGITAL SCREEN Tamiko Coronado MD [address] [place] [address] Referral ID Status Reason Start Date Expiration Date V isits Requested Visits Authorized [id number] Closed Other 04/14/2014 05/15/2015 1 1 Reason for Visit * Reason Comments Breast Exam, Routine, No Symptoms annual ck Encounter Details Date Type Department Care Team (Late st Contact Info) Description 04/14/2014 11:30 AM CDT Office Visit [facility] S[facility] Onc Parrish Calvin [address] [place] [address] Tamiko Groves MD [address] [place] [address] Family history of malignant neoplasm of [...] Sign Reading Time Taken Comments Blood Pressure 101/71 04/14/2014 10:47 AM CDT Pulse 81 04/14/2014 10:47 AM CDT Temperature - - Respiratory Rate - - Oxygen Saturation - - Inhaled Oxygen Concentration - - Weight 70.8 kg (156 lb) 04/14/2014 10:47 AM CDT Height 152.4 cm (5') 04/14/2014 10:47 AM CDT Body Mass Index 30.47 04/14/2014 10:47 AM CDT documented in this encounter Progress Notes * Tamiko Groves MD - 04/14/2014 11:00 AM CDT PATIENT: Harriet Meade : 1975 DATE: 04/14/2014 Harriet Meade is a 38 y.o. female. She comes in for annual breast check. She has no new health issues or breast complaints. Her mom (Shady Hardwick) had breast cancer. 12 at menarche and 24 at [facility] She has no new breast or related complaints. She adopted a baby from [place]- October 2013. The baby is now 2 and sufferes from daily seizures Her dad has recurrence of his [...] Reactions ??? Codeine Unknown ??? Darvocet A500 (Propoxyphene N-Acetaminophen) Nausea and Vomiting ??? Demerol (Meperidine) Unknown BP 101/71 Pulse 81 Ht 5' (1.524 m) Wt 156 lb (70.761 kg) BMI 30.47 kg/m2 ? No Well-developed, well-nourished, pleasant woman. Neck - no thyromegaly no cervical adenopathy SCF- no adenopathy Axilla -no adenopathy Breasts - normal in appearance, no masses, skin changes or nipple discharge Abdomen - liver and spleen not palpably enlarged Extremities - Good range of motion of shoulders, no lymphedema present IMAGING: Mammogram: March 18, 2009 at [facility] in [place], [place]. No mammographic evidence ofmalignancy. Right breast ultrasound: March 18, 2009. No ultrasound detected solid masses or cyst. Mammogram: 02/24/2010; at [facility]. NEM Mammogram: 03/24/2011 at [facility]; nem Mammogram: 03/29/2012 at [facility]; NEM Mammogram: 04/08/2013 at [facility] Mammogram: 04/14/2014 at [facility]; nem will compare with priors IMPRESSION: 38 y.o. woman with family history of breast cancer She has stable breast clinical exam and imaging today. I have personally reviewed her mammogram today I will see her back April 2015 at mammogram time, if comparison is ok. Tamiko Groves MD. FACS. Cc: Darren Sanchez MD [address] [place] [address] documented in this encounter Plan of Treatment [...] breast documented in this encounter Care Teams Slot Manager Relationship Specialty Start Date End Date Rio Lyon MD [address] [place] [address] PCP - General Family Practice 07/05/10 documented as of this encounter
--- OUTSIDE RECORDS SUMMARY | 2024-08-11 03:37 | XMS_ITS | Encounter Summary ---
Author Organization [facility] Address [address] [place] [address] Care Team Providers Care Corporate Planner Name Role Phone Rio Lyon MD Primary Care Provider [phone] Reason for Referral * Outpatient Services (Routine) - Closed Specialty Diagnoses / Procedures Referred By Nan kingston Referred To Contact Diagnoses Breast lump Procedures MAMMO DIGITAL DIAG Tamiko Coronado MD [address] [place] [address] Referral ID Status Reason Start Date Expiration Date Visits Re quested Visits Authorized [id number] Closed 07/05/2010 01/01/2011 1 1 TRIMMER UPHOLSTERER Encounter Details Date Type Department Care Team (Late st Contact Info) Description 07/05/2010 Orders Only [facility] BREAST SURGERY - [facility] [facility] [address] [place] [address] Tamiko Groves MD [address] [place] [address] Breast lump (Primary Dx) Social History Tobacco Use Types [...] of this encounter Results * MAMMO DIGITAL DIAG [...] lump- Primary Lump or mass in breast Breast lump Lump or mass in breast documented in this encounter Care Teams Corporate Planner Relationship Specialty Start Date End Date Rio Lyon MD [address] [place] [address] PCP - General Family Practice 07/05/10 documented as of this encounter
--- OUTSIDE RECORDS SUMMARY | 2024-08-11 03:37 | XMS_ITS | Encounter Summary ---
Author Organization [facility] Address [address] [place] [address] Care Team Providers Care Spot Remover Name Role Phone Rio Lyon MD Primary Care Provider [phone] Reason for Referral * Outpatient Services (Routine) - Closed Specialty Diagnoses / Procedures Referred By Nan kingston Referred To Contact Diagnoses Encounter for screening mammogram for breast cancer Procedures MAMMO DIG SCREEN BILAT W 3D Tamiko Rosas MD [address] [place] [address] Referral ID Status Reason Start Date Expiration Date Visits Re quested Visits Authorized [id number] Closed 04/25/2016 05/26/2017 1 1 Reason for Visit * Outpatient Services (Routine) - Closed Specialty Diagnoses / Procedures Referred By Nan kingston Referred To Contact Diagnoses Encounter for screening mammogram for breast cancer Procedures MAMMO DIG SCREEN BILAT W 3D Tamiko Rosas MD [address] [place] [address] Referral ID Status Reason Start Date Expiration Date Visits Re quested Visits Authorized [id number] Closed 04/25/2016 05/26/2017 1 1 Encounter Details Date Type Department Care Team (Latest Contact Info) Description 05/01/2017 10:00 AM CDT - 05/01/2017 11:59 PM CDT Hospital Encounter [facility] [address] [place] [address] Tamiko Groves MD [address] [place] [address] Discharge Disposition: Home or Self Care [...] SCREEN BILAT W OR WO CAD Routine 05/01/2017 12:24 PM CDT Encounter for screening mammogram for breast cancer documented in this encounter Results * MAMMO DIG SCREEN BILAT W 3D [place] (05/01/2017 12:24 PM CDT) Anatomical Region Laterality Modality Breast Bilateral Mammography 05/01/2017 10:0 5 AM CDT Impressions 05/01/2017 2:14 PM CDT IMPRESSION: No suspicious findings to suggest malignancy in either breast. Annual mammography is recommended. OVERALL ASSESSMENT: BI-RADS Category 1 - Negative. DICTATION LOCATION: [facility] Narrative 05/01/2017 2:14 PM CDT BILATERAL FULL-FIELD DIGITAL SCREENING MAMMOGRAM WITH CAD WITH 3D TOMOSYNTHESIS DATE: 05/01/2017 12:24 PM HISTORY: Routine screening. TECHNIQUE: Full-field digital craniocaudal and mediolateral oblique projections of both breasts were obtained. Low-dose full-field digital breast tomosynthesis examination was performed with 2D and 3D acquisitions. Examination is read in conjunction with computer aided detection. COMPARISON: Comparisons dating back to 2010. BREAST COMPOSITION: Heterogeneously dense, which limits the sensitivity of mammography. FINDINGS: No suspicious mass, suspicious microcalcifications, or architectural distortion is identified in either breast. Computer aided detection was used in the interpretation of this examination. Procedure Note Greg Noland MD - 05/01/2017 BILATERAL FULL-FIELD DIGITAL SCREENING MAMMOGRAM WITH CAD WITH 3D TOMOSYNTHESIS DATE: 05/01/2017 12:24 PM HISTORY: Routine screening. TECHNIQUE: Full-field digital craniocaudal and mediolateral oblique projections of both breasts were obtained. Low-dose full-field digital breast tomosynthesis examination was performed with 2D and 3D acquisitions. Examination is read in conjunction with computer aided detection. COMPARISON: Comparisons dating back to 2010. BREAST COMPOSITION: Heterogeneously dense, which limits the sensitivity of mammography. FINDINGS: No suspicious mass, suspicious microcalcifications, or architectural distortion is identified in either breast. Computer aided detection was used in the interpretation of this examination. IMPRESSION IMPRESSION: No suspicious findings to suggest malignancy in either breast. Annual mammography is recommended. OVERALL ASSESSMENT: BI-RADS Category 1 - Negative. DICTATION LOCATION: [facility] Tamiko Groves MD MAMMO ORDERABLES documented in this encounter Visit Diagnoses Diagnosis Encounter for screening mammogram for breast cancer documented in this encounter Care Teams Spot Remover Relationship Specialty Start Date End Date Rio Lyon MD [address] [place] [address] PCP - General Family Practice 07/05/10 documented as of this encounter
--- OUTSIDE RECORDS SUMMARY | 2024-08-11 03:37 | XMS_ITS | Encounter Summary ---
Author Organization [facility] Address [address] [place] [address] Care Team Providers Care Bench Scientist Name Role Phone Rio Lyon MD Primary Care Provider [phone] Reason for Referral * MRI (Routine) - Closed Specialty Diagnoses / Procedures Referred By Nan kingston Referred To Contact Diagnoses Breast cancer screening At high risk for breast cancer Procedures MRI BREAST W WO CONT BILAT Desiree Joe NP NO ADDRESS ON FILE Referral ID Status Reason Start Date Expiration Date V isits Requested Visits Authorized [id number] Closed Ordering Dept To Review (STL) 05/27/2018 06/27/2019 1 1 Reason for Visit * Reason Comments Follow Up 1yr Encounter Details Date Type Department Care Team (Late st Contact Info) Description 05/27/2018 10:00 AM CDT Office Visit [facility] BREAST SURGERY - [facility] [facility] [address] [place] [address] Desiree Joe NP NO ADDRESS ON FILE At high risk for breast cancer (Primary Dx); Breast cancer screening Social History Tobacco Use Types Packs/Day Years [...] Sign Reading Time Taken Comments Blood Pressure 120/80 05/27/2018 9:08 AM CDT Pulse 98 05/27/2018 9:08 AM CDT Temperature 36.8 ??C (98.3 ??F) 05/27/2018 9:08 AM CD T Respiratory Rate - - Oxygen Saturation 98% 05/27/2018 9:08 AM CDT Inhaled Oxygen Concentration - - Weight 73.9 kg (163 lb) 05/27/2018 9:08 AM CDT Height 152.4 cm (5') 05/27/2018 9:08 AM CDT Body Mass Index 31.83 05/27/2018 9:08 AM CDT documented in this encounter Progress Notes * Desiree Joe, TRINH - 05/27/2018 9:13 AM CDT PATIENT: Harriet Meade : 1975 DATE: 05/27/2018 Harriet Meade is a 42 y.o. female. She comes in for annual breast check. She has no new health issues or breast complaints. Her mom (Shady Hardwick) had breast cancer. 12 at menarche and 24 at [facility] . One benign breast biopsy in the past. 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 She does not smoke. She has no new breast or related complaints. She reports that her mother was BRCA negative. She adopted a baby from [place]- October 2013. The baby continues to suffer [...] and Vomiting ??? Demerol [Meperidine] Unknown BP 120/80 (BP Location: Right arm, Patient Position (BP): Sitting, BP Cuff Size: Adult) Pulse 98 Temp 98.3 ??F (36.8 ??C) Ht 5' (1.524 m) Wt 73.9 kg (163 lb) SpO2 98% BMI 31.83 kg/m?? Well-developed, well-nourished, pleasant woman. Neck - no thyromegaly no cervical adenopathy SCF- no adenopathy Axilla -no adenopathy Cardiac- RRR, no murmur Lungs- LCTA, no cough, no wheezing Breasts - normal in appearance, no masses, skin changes or nipple discharge Abdomen - liver and spleen not palpably enlarged Extremities - Good range of motion of shoulders, no lymphedema present IMAGING: Mammogram: 04/08/2013 at [facility] Mammogram: 04/14/2014 at [facility]; nem Mammogram: 04/20/2015 at [facility]; nem Mammogram: 04/25/2016 at [facility]; NEM Mammogram: 05/01/2017 at [facility]; NEM Mammogram: 05/27/2018 at [facility]; pending IMPRESSION: 42 y.o. woman with family history of breast cancer I have personally examined her and CBE normal 3D bilateral screening MMG- I have personally reviewed the images and do not see any changes when compared to previous films. However, I have explained to her that this is just a preliminary report and we are awaiting final interpretation from radiologist. There could be a call back. She verbalizedunderstanding. Per Moira Barrios her lifetime risk is 22.5%. We discussed surveillance strategies. Her risk does warrant MRI screening. According to the [place] [employer] anyone with a lifetime risk greater than 20% warrants MRI screening. Discussed pros and cons of testing. Discussed risk of call back and false positives. She wishes to proceed I also explained that having biannual breast exam by a healthcare professional is warranted as wellas annual mammography. She will see her assistant producer next month. She will now see me in the spring with MRI then annually so that CBE can be staggered every 6 months The patient is asked to make an attempt to improve diet and exercise patterns to aid in breast cancer risk reduction. She was encouraged to call with any breast related complaints or concerns Continue annual mammography May 2019 per [place] [employer] guidelines. TOBACCO COUNSELING She is not a tobacco [...] of care. Desiree Joe, MSN, AGNP-C, AOCNP [facility] Oncology & Hematology Breast Surgery Dr. Groves was supervising physician in office today Cc: Rio Lyon MD [address] [place] [address] documented in this encounter Plan of Treatment [...] BI-RADS CATEGORY 1 - Negative. DICTATION LOCATION: [facility]. Narrative 11/18/2018 3:45 PM CDT BILATERAL MRI [...] BI-RADS CATEGORY 1 - Negative. DICTATION LOCATION: [facility]. Desiree Joe NP MR ORDERABLES documented in this encounter Visit Diagnoses Diagnosis At high risk for breast cancer- Primary Breast cancer screening Breast screening, unspecified Breast cancer screening Breast screening, unspecified At high risk for breast cancer documented in this encounter Care Teams Bench Scientist Relationship Specialty Start Date End Date Rio Lyon MD [address] [place] [address] PCP - General Family Practice 07/05/10 documented as of this encounter
--- OUTSIDE RECORDS SUMMARY | 2024-08-11 03:37 | XMS_ITS | Encounter Summary ---
Author Organization [facility] Address [address] [place] [address] Care Team Providers Care Energy Conservation Specialist Name Role Phone Rio Lyon MD Primary Care Provider [phone] Reason for Referral * Radiology Services (Routine) [...] Expiration Date Visits Re quested Visits Authorized [id number] Closed 11/18/2018 12/19/2019 1 1 Reason for Visit * Reason Comments Follow Up 6 months to Encounter Details Date Type Department Care Team (Late st Contact Info) Description 11/18/2018 9:00 AM CDT Office Visit [facility] BREAST SURGERY - CL[facility]KS[facility] [address] [place] [address] Desiree Joe NP NO ADDRESS ON FILE Breast cancer screening (Primary Dx); At high risk for breast [...] Sign Reading Time Taken Comments Blood Pressure 124/76 11/18/2018 9:34 AM CDT Pulse 93 11/18/2018 9:34 AM CDT Temperature 36.8 ??C (98.3 ??F) 11/18/2018 9:34 AM CD T Respiratory Rate - - Oxygen Saturation 97% 11/18/2018 9:34 AM CDT Inhaled Oxygen Concentration - - Weight 73.5 kg (162 lb) 11/18/2018 9:34 AM CDT Height 152.4 cm (5') 11/18/2018 9:34 AM CDT Body Mass Index 31.64 11/18/2018 9:34 AM CDT documented in this encounter Progress Notes * Desiree Joe, UNIFORM ATTENDANT - 11/18/2018 9:43 AM CDT PATIENT: Harriet Meade : 1975 DATE: 11/18/2018 Harriet Meade is a 43 y.o. female. She comes in for six month breast check and MRI which is scheduled for later today. She has no new health issues or breast complaints. She does perform self breast exams. Her mom (Shady Hardwick) had breast cancer at age 5858 years old. 12 at [facility]arche and 26 at [facility] . One benign breast biopsy in the past. She is up to date on infectious waste technician exams- history of hysterectomy, ovaries still intact. She does not smoke. She has had a hysterectomy but ovaries still intact. She has no new breast or related complaints. She reports that her mother was BRCA negative. She adopted a baby from [place] in October 2013 Her dad has recurrence of his prostate [...] and Vomiting ??? Demerol [Meperidine] Unknown BP 124/76 Pulse 93 Temp 98.3 ??F (36.8 ??C) Ht 5' (1.524 m) Wt 73.5 kg (162 lb) SpO2 97% BMI 31.64 kg/m?? Well-developed, well-nourished, pleasant woman. Neck - no thyromegaly no cervical adenopathy SCF- no adenopathy Axilla -no adenopathy Cardiac- RRR, no murmur Lungs- LCTA, no cough, no wheezing Breasts - normal in appearance, no masses, skin changes or nipple discharge Abdomen - liver and spleen not palpably enlarged Extremities - Good range of motion of shoulders, no lymphedema present IMAGING: Mammogram: 04/08/2013 at [facility] Mammogram: 04/14/2014 at [facility]; nem Mammogram: 04/20/2015 at [facility]; nem Mammogram: 04/25/2016 at [facility]; NEM Mammogram: 05/01/2017 at [facility]; NEM Mammogram: 05/27/2018 at [facility]; NEM Breast MRI: 11/18/2018 at [facility]; pending BREAST CANCER RISK ASSESSMENT 5 Year Risk Lifetime Risk BRCAPRO 0.7% 10.9% Riyaer Cuzick v6 1.2% 15.8% Tyrer Cuzick v7 1.2% 20.7% Tyrer Cuzick v8 22.5% April 1.8% 21.9% Junior 0.8% 10.0% IMPRESSION: 43 y.o. woman with family history of breast cancer I have personally examined her and CBE normal She is scheduled for breast MRI today- I will call her tomorrow once I receive the results Per Moira Barrios her lifetime risk is 22.5%. We discussed surveillance strategies. Her risk does warrant MRI screening. According to the [place] [employer] anyone with a lifetime risk [...] complaints or concerns Continue annual mammography May 2020 per [place] [employer] guidelines. I've explained to her [...] of care. Desiree Joe, MSN, AGNP-C, AOCNP [facility] Oncology & Hematology Breast Surgery Dr. Groves was supervising physician in office today Cc: Rio Lyon MD [address] [address] documented in this encounter Plan of Treatment Not on file documented as of this encounter Results * MAMMO SCRN BILAT 3D [place] W OR WO CAD (05/19/2019 9:31 AM CDT) Anatomical Region Laterality Modality Breast Bilateral Mammography 05/19/2019 9:31 AM CDT Impressions 05/19/2019 10:25 AM CDT IMPRESSION: Stable screening mammogram. Recommend routine followup. OVERALL FINAL ASSESSMENT: ??BI-RADS CATEGORY 1: ??Negative. [facility] Narrative 05/19/2019 10:25 AM CDT DIGITAL SCREENING [...] ASSESSMENT: BI-RADS CATEGORY 1: Negative. DICTATION LOCATION: [facility] Desiree Joe NP MAMMO ORDERABLES documented in this encounter Visit Diagnoses Diagnosis Breast cancer screening- Primary Breast screening, unspecified At high risk for breast cancer Breast cancer screening Breast screening, unspecified At high risk for breast cancer documented in this encounter Care Teams Energy Conservation Specialist Relationship Specialty Start Date End Date Rio Lyon MD [address] [phone] PCP - General Family Practice 07/05/10 documented as of this encounter
--- OUTSIDE RECORDS SUMMARY | 2024-08-11 03:37 | XMS_ITS | Encounter Summary ---
Author Organization [facility] Address [address] [place] [address] Care Team Providers Care Golf Starter And Ranger Name Role Phone Rio Lyon MD Primary Care Provider [phone] Reason for Referral * Outpatient Services (Routine) - Closed Specialty Diagnoses / Procedures Referred By Nan kingston Referred To Contact Diagnoses Visit for screening mammogram Procedures MAMMO SCRN BILAT 3D VALENTINA W OR Tamiko Marie MD [address] [place] [id number] Referral ID Status Reason Start Date Expiration Date Visits Re quested Visits Authorized [id number] Closed 05/02/2017 06/02/2018 1 1 Reason for Visit * Outpatient Services (Routine) - Closed Specialty Diagnoses / Procedures Referred By Nan kingston Referred To Contact Diagnoses Visit for screening mammogram Procedures MAMMO SCRN BILAT 3D VALENTINA W OR WO Tamiko Acosta MD [address], [place] [address] Referral ID Status Reason Start Date Expiration Date Visits Re quested Visits Authorized [id number] Closed 05/02/2017 06/02/2018 1 1 Encounter Details Date Type Department Care Team (Latest Contact Info) Description 05/27/2018 8:49 AM CDT - 05/27/2018 11:59 PM CDT Hospital Encounter [facility] [address] [place] [address] Tamiko Groves MD [address] [place] [address] Discharge Disposition: Home or Self Care [...] SCREEN BILAT W OR WO CAD Routine 05/27/2018 8:58 AM CDT Visit for screening mammogram documented in this encounter Results * MAMMO SCRN BILAT 3D VALENTINA W OR WO CAD (05/27/2018 8:58 AM CDT) Anatomical Region Laterality Modality Breast Bilateral Mammography 05/27/2018 8:58 AM CDT Impressions 05/28/2018 9:03 AM CDT IMPRESSION: No mammographic evidence of malignancy. RECOMMENDATIONS: Routine screening mammogram in one year. Dictated from: [facility] [place] Narrative 05/28/2018 9:03 AM CDT BILATERAL FULL-FIELD DIGITAL SCREENING MAMMOGRAM WITH CAD WITH 3D TOMOSYNTHESIS DATE: 05/27/2018 8:58 AM HISTORY: Routine screening. TECHNIQUE: Full-field digital craniocaudal and mediolateral oblique projections of both breasts were obtained. Low-dose full-field digital breast tomosynthesis examination was performed with 2D and 3D acquisitions. Examination is read in conjunction with computer aided detection. COMPARISON: March 2012 through April 2017 BREAST COMPOSITION: Heterogeneously dense, which lowers the sensitivity of mammography. FINDINGS: No suspicious mass, suspicious microcalcifications, or architectural distortion in either breast is identified. Since the prior study, there has been no significant interval change. The computer aided diagnosis detects no significant abnormality. OVERALL ASSESSMENT: BI-RADS Category 1 - Negative. Procedure Note Goyo Gunter MD - 05/28/2018 BILATERAL FULL-FIELD DIGITAL SCREENING MAMMOGRAM WITH CAD WITH 3D TOMOSYNTHESIS DATE: 05/27/2018 8:58 AM HISTORY: Routine screening. TECHNIQUE: Full-field digital craniocaudal and mediolateral oblique projections of both breasts were obtained. Low-dose full-field digital breast tomosynthesis examination was performed with 2D and 3D acquisitions. Examination is read in conjunction with computer aided detection. COMPARISON: March 2012 through April 2017 BREAST COMPOSITION: Heterogeneously dense, which lowers the sensitivity of mammography. FINDINGS: No suspicious mass, suspicious microcalcifications, or architectural distortion in either breast is identified. Since the prior study, there has been no significant interval change. The computer aided diagnosis detects no significant abnormality. OVERALL ASSESSMENT: BI-RADS Category 1 - Negative. IMPRESSION: No mammographic evidence of malignancy. RECOMMENDATIONS: Routine screening mammogram in one year. Dictated from: [facility] Tamiko Groves MD MAMMO ORDERABLES documented in this encounter Visit Diagnoses Diagnosis Visit for screening mammogram Other screening mammogram documented in this encounter Care Teams Golf Starter And Ranger Relationship Specialty Start Date End Date Rio Lyon MD [address] [place] [address] PCP - General Family Practice 07/05/10 documented as of this encounter
--- OUTSIDE RECORDS SUMMARY | 2024-08-11 03:37 | XMS_ITS | Encounter Summary ---
Author Organization [facility] Address [address] [place] [address] Care Team Providers Care Registered Nurse Cardiac Telemetry Name Role Phone Unavailable Primary Care Provider Unavailabl e Encounter Details Date Type Department Care Team (Late st Contact Info) Description 10/13/2009 Orders Only [facility] [address] [facility] [address] [place] [phone] Tamiko Groves MD [address] [facility] [address] [place] [address] Breast Mass Social History Tobacco Use Types Packs/Day Years [...] Date/Time Associated Diagnosis Comments MAMMO BREAST US RT COMPLETE Routine 09/20/2009 Breast Mass documented in this encounter Results * MAMMO BREAST US RT (09/20/2009) Anatomical Region Laterality Modality Breast Right Other Tamiko Groves MD MAMMO ORDERABLES documented in this encounter Visit Diagnoses Diagnosis Breast mass Lump or mass in breast documented in this encounter
--- OUTSIDE RECORDS SUMMARY | 2024-08-11 03:37 | XMS_ITS | Encounter Summary ---
Author Organization [facility] Address [address] [place] [address] Care Team Providers Care Angle Shear Set Up Operator Name Role Phone Rio Lyon MD Primary Care Provider [phone] Reason for Referral * Outpatient Services (Routine) - Closed Specialty Diagnoses / Procedures Referred By Nan kingston Referred To Contact Radiology Diagnoses Family history of malignant neoplasm of breast Procedures MAMMO DIG SCREEN BILAT W 3D Tamiko Rosas MD [address] [facility] [place] [address] Referral ID Status Reason Start Date Expiration Date V isits Requested Visits Authorized [id number] Closed [facility] 04/20/2015 05/20/2016 1 1 Reason for Visit * Outpatient Services (Routine) - Closed Specialty Diagnoses / Procedures Referred By Nan kingston Referred To Contact Radiology Diagnoses Family history of malignant neoplasm of breast Procedures MAMMO DIG SCREEN BILAT W 3D Tamiko Rosas MD [address] [facility] [place] [address] Referral ID Status Reason Start Date Expiration Date V isits Requested Visits Authorized [id number] Closed [facility] CTS 04/20/2015 05/20/2016 1 1 Encounter Details Date Type Department Care Team (Latest Contact Info) Description 04/25/2016 10:00 AM CDT - 04/25/2016 11:59 PM CDT Hospital Encounter [facility] [place] [facility] [address] [place] [address] Tamiko Groves MD [address] [place] [address] Discharge Disposition: Home or Self Care [...] SCREEN BILAT W OR WO CAD Routine 04/25/2016 10:20 AM CDT Family history of malignant neoplasm [...] breast documented in this encounter Care Teams Angle Shear Set Up Operator Relationship Specialty Start Date End Date Rio Lyon MD [address] [place] [id number] PCP - General Family Practice 07/05/10 documented as of this encounter
--- OUTSIDE RECORDS SUMMARY | 2024-08-11 03:37 | XMS_ITS | Encounter Summary ---
Author Organization [facility] Address [address] [place] [address] Care Team Providers Care Swatch Maker Name Role Phone Rio Lyon MD Primary Care Provider [phone] Reason for Referral * Outpatient Services (Routine) - Closed Specialty Diagnoses / Procedures Referred By Nan kingston Referred To Contact Diagnoses Screening mammogram Procedures MAMMO DIGITAL SCREEN Tamiko Coronado MD [address] [place] [place] [address] Referral ID Status Reason Start Date Expiration Date Visits Re quested Visits Authorized [id number] Closed 03/24/2011 03/23/2012 1 1 Reason for Visit * Reason Comments Follow Up 6 month Encounter Details Date Type Department Care Team (Late st Contact Info) Description 03/24/2011 11:00 AM CDT Office Visit [facility] BREAST SURGERY - [place] [facility] [address] [facility] [address] [place] [address] Tamiko Groves MD [address] [place] [address] Screening mammogram (Primary Dx); Family history of malignant neoplasm [...] Sign Reading Time Taken Comments Blood Pressure 97/71 03/24/2011 11:08 AM CDT Pulse - - Temperature - - Respiratory Rate - - Oxygen Saturation - - Inhaled Oxygen Concentration - - Weight 66.2 kg (146 lb) 03/24/2011 11:08 AM CDT Height 152.4 cm (5') 03/24/2011 11:08 AM CDT Body Mass Index 28.51 03/24/2011 11:08 AM CDT documented in this encounter Progress Notes * Tamiko Groves MD - 03/24/2011 11:26 AM CDT PATIENT: MILDRED MEADE : 1975 DATE: 03/24/2011 MILDRED MEADE is a 35 y.o. female. She comes in for annual breast check. She has no new health issues or breast complaints. Her mom (Shady Hardwick) had breast cancer. 12 at menarche and 24 at first live BP 97/71 Ht 5' (1.524 m) Wt 146 lb (66.225 kg) BMI 28.51 kg/m2 Well-developed, well-nourished, pleasant woman. Neck - [...] present IMAGING: Mammogram: March 18, 2009 at [facility] in [place], [place]. No mammographic evidence ofmalignancy. Right breast ultrasound: March 18, 2009. No ultrasound detected solid masses or cyst. Mammogram: 02/24/2010; at [facility]. NEM Mammogram: 03/24/2011 at [facility]; nem, will compare IMPRESSION: Normal clinical exam and imaging. I will see her back March 2012 at mammogram time, if comparison is ok. Tamiko Groves MD. FACS. Cc: Darren Sanchez [address] [place] [address] documented in this encounter Plan of Treatment [...] mammography is recommended. Procedure Note Valorie Otero L - 03/29/2012 BILATERAL FULL FIELD DIGITAL SCREENING [...] in this encounter Visit Diagnoses Diagnosis Screening mammogram- Primary Other screening mammogram Family history of malignant neoplasm of breast Screening mammogram Other screening mammogram documented in this encounter Care Teams Swatch Maker Relationship Specialty Start Date End Date Rio Lyon MD [address] [place] [address] PCP - General Family Practice 07/05/10 documented as of this encounter
--- OUTSIDE RECORDS SUMMARY | 2024-08-11 03:37 | XMS_ITS | Encounter Summary ---
Author Organization [facility] Address [address] [place] [address] Care Team Providers Care Travel Physical Therapist Name Role Phone Rio Lyon MD Primary Care Provider [phone] Reason for Visit * Reason Comments Breast Exam, Routine, No Symptoms annual ck Encounter Details Date Type Department Care Team (Late st Contact Info) Description 04/08/2013 11:45 AM CDT Office Visit [facility] [address] [place] [address] Tamiko Groves MD [address] [place] [address] Family history of malignant neoplasm [...] Sign Reading Time Taken Comments Blood Pressure 111/72 04/08/2013 11:03 AM CDT Pulse 90 04/08/2013 11:03 AM CDT Temperature - - Respiratory Rate - - Oxygen Saturation - - Inhaled Oxygen Concentration - - Weight 70.3 kg (155 lb) 04/08/2013 11:03 AM CDT Height 152.4 cm (5') 04/08/2013 11:03 AM CDT Body Mass Index 30.27 04/08/2013 11:03 AM CDT documented in this encounter Progress Notes * Tamiko Groves MD - 04/08/2013 11:11 AM CDT PATIENT: Harriet Meade : 1975 DATE: 04/08/2013 Harriet Meade is a 37 y.o. female. She comes in for annual breast check. She has no new health issues or breast complaints. Her mom (Shady Hardwick) had breast cancer. 12 at menarche and 24 at first live She has no new breast or related complaints. She is in the process of adopting a baby from [place]- radiation arive October 2013 No past medical history on file. Past [...] and Vomiting ??? Demerol (Meperidine) Unknown BP 111/72 Pulse 90 Ht 5' (1.524 m) Wt 155 lb (70.308 kg) BMI 30.27 kg/m2 ? No Well-developed, well-nourished, pleasant woman. Neck - no thyromegaly no cervical adenopathy SCF- no adenopathy Axilla -no adenopathy Breasts - normal in appearance, no masses, skin changes or nipple discharge Abdomen - liver and spleen not palpably enlarged Extremities - Good range of motion of shoulders, no lymphedema present IMAGING: Mammogram: March 18, 2009 at [facility] in [place], [place]. No mammographic evidence ofmalignancy. Right breast ultrasound: March 18, 2009. No ultrasound detected solid masses or cyst. Mammogram: 02/24/2010; at [facility]. NEM Mammogram: 03/24/2011 at [facility]; nem Mammogram: 03/29/2012 at [facility]; NEM Mammogram: 04/08/2013 at [facility]; nem will compare with priors IMPRESSION: 37 y.o. woman with family history of breast cancer She has stable breast clinical exam and imaging today. I will see her back March 2014 at mammogram time, if comparison is ok. Tamiko Groves MD. FACS. Cc: Darren Sanchez MD [address] [place] [address] documented in this encounter Plan of Treatment Not on file documented as of this encounter Visit Diagnoses Diagnosis Family history of malignant neoplasm of breast- Primary documented in this encounter Care Teams Travel Physical Therapist Relationship Specialty Start Date End Date Rio Lyon MD [address] [place] [address] PCP - General Family Practice 07/05/10 documented as of this encounter
--- OUTSIDE RECORDS SUMMARY | 2024-08-11 03:37 | XMS_ITS | Encounter Summary ---
Author Organization [facility] Address [address] [place] [address] Care Team Providers Care Weed Controller Name Role Phone Unavailable Primary Care Provider Unavailabl e Encounter Details Date Type Department Care Team (Late st Contact Info) Description 10/29/2009 Abstract [facility] BREAST SURGERY - [place] [facility] [address] [facility] [address] [place] [phone] Darren Sanchez MD [address] [facility] [address] [place] [address] Social History Tobacco Use Types Packs/Day Years [...] Name Priority Date/Time Associated Diagnosis Comments MAMMO BILAT DIAGNOSTIC Routine 03/18/2009 documented in this encounter Results * MAMMO BILAT DIAGNOSTIC (03/18/2009) Anatomical Region Laterality Modality Breast Bilateral Other Darren Sanchez MD MAMMO ORDERABLES documented in this encounter Visit Diagnoses Not on filedocumented in this encounter
--- OUTSIDE RECORDS SUMMARY | 2024-08-11 03:37 | XMS_ITS | Encounter Summary ---
Author Organization [facility] Address [address] [place] [address] Care Team Providers Care Supervisor Home Restoration Service Name Role Phone Unavailable Primary Care Provider Unavailabl e Encounter Details Date Type Department Care Team (Late st Contact Info) Description 03/23/2010 Orders Only [facility] [address] [facility] [address] [place] [address] Tamiko Groves MD [address] [facility] [address] [place] [address] Breast Lump Social History Tobacco Use Types Packs/Day Years [...] SCREEN BILAT W OR WO CAD Routine 02/24/2010 Breast Lump documented in this encounter Results * MAMMO DIGITAL SCREEN BILAT (02/24/2010) Anatomical Region Laterality Modality Breast Bilateral Other Tamiko Groves MD MAMMO ORDERABLES documented in this encounter Visit Diagnoses Diagnosis Breast lump Lump or mass in breast documented in this encounter
== END 2024-08-06 17:18 | disposition home or self-care (01) ==
LOC: ANHED 04:46 → ANH3MEDSUR 07:19
PROVIDERS: Nurse Practitioner Family; Admitting Provider Internal Medicine; Emergency Provider Emergency Medicine; PCP Family Medicine; Visit Provider Student in an Organized Health Care Education/Training Program
DX: N39.0 Urinary tract infection, site not specified (principal); N20.0 Calculus of kidney; G43.909 Migraine, unspecified, not intractable, without status migrainosus; F32.9 Major depressive disorder, single episode, unspecified; F41.9 Anxiety disorder, unspecified; R73.03 Prediabetes; E66.9 Obesity, unspecified; Z68.33 Body mass index [BMI] 33.0-33.9, adult; E78.5 Hyperlipidemia, unspecified; Z87.440 Personal history of urinary (tract) infections; Z79.899 Other long term (current) drug therapy; Z98.51 Tubal ligation status; Z80.3 Family history of malignant neoplasm of breast; Z80.42 Family history of malignant neoplasm of prostate; Z90.711 Acquired absence of uterus with remaining cervical stump; Z90.49 Acquired absence of other specified parts of digestive tract
CPT/HCPCS: 36415; 74018; 74177; 80053; 81001; 81003; 83690; 85025; 87086; 93005; 96361; 96365; 96372; 96375; 96376; 99285; A9270; G0378; J0696; J1200; J1885; J2270; J2405; J2765; J3030; J7030; Q9967

== ENCOUNTER 2024-08-25 14:34 | Outpatient (CLI) | payer OTHER, SELFPAY ==
--- NOTE | ~2024-08-25 | XR_ITS ---
Exam: Abdomen V HISTORY: Calculus of kidney COMPARISON: 08/06/2024. TECHNIQUE: Supine images of the abdomen FINDINGS: Redemonstration of 3 stones projecting over the lower pole of the right kidney. The cranial most measures 7 mm. The caudal-most measures 5 mm. The smallest stone measures 2 mm. IMPRESSION: Redemonstration of right-sided renal calculi, as detailed above. Reviewed, dictated and finalized at location A. WAY MAINTAINER
== END 2024-08-25 14:35 | disposition home or self-care (01) ==
PROVIDERS: PCP Family Medicine
DX: N20.0 Calculus of kidney (principal)
CPT/HCPCS: 74018

== ENCOUNTER 2024-09-03 07:23 | Outpatient (CLI) | payer OTHER, SELFPAY ==
--- OUTSIDE RECORDS SUMMARY | 2024-09-03 07:26 | XMS_ITS | Encounter Summary ---
Author Organization [facility] Healthcare Address [address] [place] [address] Care Team Providers Care Grease Man Name Role Phone Tai Burk MD Unavailable [phone] Willie Starks DC Unavailable [phone] Vega Renee MD Primary Care Provider [phone] Reason for Visit * Reason Onset Date Comments ISADORA Questions 08/12/2024 Encounter Details Date Type Department Care Team (Late st Contact Info) Description 08/12/2024 Telephone [facility] Medical Group Primary Care at [address] [address] Vega Renee MD [address] [place] [address] [address] [place] [address] ISADORA Questions Social History Tobacco Use Types Packs/Day Years Used Date Smoking Tobacco: Never Smokeless Tobacco: Never Alcohol Use Standard Drinks/Week Comments Yes 0 (1 standard drink = 0.6 oz pur e alcohol) AUDIT-C Answer Date Recorded Q1: How often do you have a drink containing alcohol? Never 05/29/2024 Q2: How many drinks containi ng alcohol do you have on a typical day when you are drinking? Patient does not drink Q3: How often do you have si x or more drinks on one occasion? Never 05/29/2024 PHQ-2 Answer Date Recorded PHQ-2 Total Score (If total score is 3 or more points, staff should administer the PHQ-9) 0 06/30/2024 Personal Safety Answer Date Recorded Have you ever been in or are you currently in a harmful physical or emotional relationship or is someone making you feel afraid or unsafe? 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 Yes Date Admitted: 08.04.24 Date Discharged: 08.06.24 Facility Admitted To: [facility] Reason for Stay? Kidney/bladder infection If prescribed new medications, do you have any questions or concerns? Given an antibiotic, no questions Do you have enough medication to get you to your follow-up appointment? yes Since being released do you feel better, the same, or worse? The same Date of ISADORA Appointment: 08.18.24 Do you have transportation to the appointment? Yes Additional Comments: patient scheduled appointment Does message need to be routed? Yes-FYI Only CAR SALESPERSON documented in this encounter Plan of Treatment Not on file documented as of this encounter Visit Diagnoses Not on filedocumented in this encounter Care Teams Grease Man Relationship Specialty Start Date End Date Vega Renee MD [address] [place] [id number] PCP - General Family Medicine 03/06/23 Tai Burk MD [address] [place] [address] Referring Physician Psychiatry 03/06/23 Willie Starks DC [address] [place] [address] Referring Physician Chiropractic Medicine 03/06/23 documented as of this encounter
--- OUTSIDE RECORDS SUMMARY | 2024-09-03 07:26 | XMS_ITS ---
Author Organization [facility] Address [address] [place] [address] Care Team Providers Care Layout Operator Name Role Phone Andre Wells Unavailable [phone] Allergies Allergen (clinical drug ingredient) Drug/Non Drug [...] UTH DAILY Oral for 30 Days Active Diclofenac Sodium 75 MG Oral 12/24/2023 Active Estradiol 0.5 MG TAKE 1 TABLET BY ZAC TH DAILY Oral for 30 Days Active DULoxetine HCl 60 MG Oral 12/24/2023 Active Vital Signs Blood pressure systolic 103 mm Hg 03/24/20 24 Blood pressure diastolic 72 mm Hg 024 Heart Rate 89 /min 03/24/2024 Height 60.00 in 03/24/2024 Weight 175.6 lbs 03/24/2024 BMI 34.29 kg/m2 03/24/2024 Height-cm 152.40 cm 03/24/2024 Weight-kg 79.65 kg 03/24/2024 Encounters Encounter Location Date Provider Diagnosis [facility] [address] [place] [address] 03/24/2024 Andre Wells Major depressive disorder, recurrent, moderate F33.1 and Generalized anxiety disorder F41.1 Assessments Encounter Date Diagnosis (ICD Code) Assessment Notes Treatment Notes Treatment Clinical Notes Section Notes 03/24/2024 Major depressive disorder, recurrent, moderate (ICD-10 - F33.1) 03/24/2024 Generalized anxiety disorder (ICD-10 - F41.1) Plan Of Treatment Medication Medication Name Sig Start Date Stop Date Notes DULoxetine HCl 60 MG Oral 12/24/2023 Next Appt Details Follow Up: 3 Months, Reason: anxiety, mdd Progress Notes * MILDRED ALFARODOB: [birth year] (49 yo F)Acc No.[id number]:03/24/2024 Patient:?DOMINIC MILDRED Jaz Provider:?ANDRE WELLS MD :1975???Age:48 Y???Sex:Female D ate:03/24/2024 Address:[facility] [address] [facility] Subjective: * Chief Complaints: * ???1. Follow up visit, medic ation evaluation. * HPI: ???History of Presenting Problem:? today was the first day of school summer was relatively uneventful 18 yo son had surgery on tendon in pitching arm--is a pitcher, freshman in college [place] 21 yo son is a centerfielder, senior at [employer] majoring in sports management daughter is starting [...] Capsule Delayed Release Particles Oral , Taking Estradiol 0.5 MG Tablet TAKE 1 TABLET BY MOUTH DAILY Oral , Taking Trokendi XR 50 MG Capsule Extended Release 24 Hour TAKE 1 CAPSULE BY MOUTH DAILY Oral , Discontinued Topiramate 25 MG Tablet Oral , Discontinued VEO INSULIN SYRINGE 1 mL 31 gauge x 15/64 SYRINGE, EMPTY DISPOSABLE MISCELLANEOUS , Notes to Pharmacist: *Reorder from [facility] for eRx and Interaction Alerts*, Discontinued Cyanocobalamin 1000 MCG/ML Solution Injection , Discontinued Norethindrone 0.35 MG Tablet Oral , Discontinued CHOLECALCIFEROL (VITAMIN D3) 50 MCG (2,000 UNIT) TABLET , Notes to Pharmacist: *Reorder from [facility] for eRx and Interaction Alerts*, Discontinued Amitiza [...] (RVR), proper grammar used.?Thought content:?appropriate.?Thought process:?intact.? Assessment: * Assessment: 1.?Major depressive disorder , recurrent, moderate - F33.1 (Primary)???2.?Generalized anxiety disorder - F41.1??? Plan: * Treatment: * Procedure Codes:?58508 PSYCH OTHERAPY W/PATIENT W/E&M SRVCS 30 MIN * Follow Up:?3 Months (Reason: anxiety, mdd) * Billing Information: * Visit Code:? 66230 OFFICE OUTPATIENT VISIT 25 MINUTES DETAILED HISTORY AND EXAM/MODERATE MEDICAL DECISION MAKING. * Procedure Codes:? 49524 PSYCHOTHERAPY W/PATIENT W/E&M SRVCS 30 MIN. * LLIGENCE CHIEF Sign off status: Completed true * Provider:?ANDRE WELLS MD Date:? 024 Generated for Nael torrez/Angel/eTransmitting on:?09/03/2024 07:25 AM INTELLIGENCE CHIEF History and Physical Notes * HPI (History of Present Illness) Category Sub-Category Detail Notes Category Not es History of Presenting Problem today was the first day of school summer was relatively uneventful 20 yo son had surgery on tendon in pitching arm--is a pitcher, freshman in college [place] 23 yo son is a centerfielder, senior at [employer] majoring in sports management daughter is starting [...]
--- OUTSIDE RECORDS SUMMARY | 2024-09-03 07:27 | XMS_ITS | Clinical Summary ---
Author Organization [facility] Address [address] [place] [address] Phone Care Team Providers Care Hide Spreader Name Role Phone Rio Lyon MD Primary Care Provider [phone] Allergies Active Allergy Reactions Criticality Noted Date Comments Codeine Unknown 09/20/2009 Meperidine Unknown 09/20/2009 Propoxyphene N-Acetaminophen Nausea and Vomiting Low 03/24/2011 Medications diclofenac sodium (VOLTAREN) 75 mg Oral TbECIndications: Breast lump Take 75 mg by mouth 2 times daily. Active QUEtiapine (SEROquel) 25 mg tablet Take 25 mg by mouth daily. Active Linzess 145 mcg capsule Take 145 mcg by mouth daily. 12/17/2020 Active venlafaxine (EFFEXOR XR) 150 mg Extended Release 24 hour capsule 09/16/2020 Active Active Problems Patient Care Coordination No te Formatting of this note migh t be different from the original. Primary Care: Rio Lyon MD (General) Referring Provider: Darren Sanchez MD [address] [place] [address] Other: Problem Noted Date Diagnosed Date Family history of malignant neoplasm of breast 1 09/04/2009 Resolved Problems Problem Noted Date Diagnosed Date Resolved Date Breast lump 09/20/2009 04/25/2016 Family History Medical History Relation Name Comments Prostate Cancer Father Breast Cancer Mother diagnosed 1-15 -2010 Ovarian Cancer Neg Hx Relation Name Status Comments Father Alive Mother Alive Social History Tobacco Use Types Packs/Day Years Used Date Smoking Tobacco: Never Smokeless Tobacco: Former Alcohol Use Standard Drinks/Week Comments Yes 0 (1 standard drink = 0.6 oz pur e alcohol) Comments No Sex and Gender Information Value Date Recorded Sex Assigned at Not on file 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 Desiree Joe NP MAMMO ORDERABLES Edited Result - Final from Last 3 Months or Most Recently Relevant to Health Maintenance Insurance [place] [id number] Care Teams Hide Spreader Relationship Specialty Start Date End Date Rio Lyon MD [address] [place] [id number] PCP - General Family Practice 07/05/10
--- OUTSIDE RECORDS SUMMARY | 2024-09-03 07:27 | XMS_ITS ---
Author Organization [facility] Address [address] [facility] [address] [place] [address] Care Team Providers Care Crab Fisher Name Role Phone Andre Wells Unavailable [phone] Vital Signs Height 60.00 in 12/24/2023 Weight 176.20 lbs 12/24/2023 BMI 34.4 kg/m2 12/24/2023 Height-cm 152.40 cm 12/24/2023 Weight-kg 79.92 kg 12/24/2023 Encounters Encounter Location Date Provider Diagnosis [facility] [address] [facility] [address] [place] [address] 12/24/2023 Andre Wells Generalized anxiety disorder F41.1 and Major depressive disorder, recurrent, moderate F33.1 Assessments Encounter Date Diagnosis (ICD Code) Assessment Notes Treatment Notes Treatment Clinical Notes Section Notes 12/24/2023 Generalized anxiety disorder (ICD-10 - F41.1) 12/24/2023 Major depressive disorder, recurrent, moderate (ICD-10 - F33.1) Plan Of Treatment No Information Progress Notes * MILDRED ALFARODOB: [birth year] (48 yo F)Acc No.[id number]:12/24/2023 Progress Notes Patient:?MILDRED ALFARO Provider:?ANDRE WELLS MD :1975???Age:48 Y???Sex:Female D ate:12/24/2023 Address[address] [facility] Subjective: * Chief Complaints: * ??? [...] MD Date:? 024 Generated for Nael torrez/Angel/Luz on:?09/03/2024 07:27 AM DOWN FILLER
--- OUTSIDE RECORDS SUMMARY | 2024-09-03 07:27 | XMS_ITS | Clinical Summary ---
Author Organization [facility] [place] [address] Address [address] [place] [id number] Care Team Providers Care Binder Folder Operator Name Role Phone Tai Burk MD Unavailable [phone] Willie Starks DC Unavailable [phone] Vega Renee MD Primary Care Provider [phone] Allergies Active Allergy Reactions Criticality Noted Date Comments Codeine Nausea only,Vomiting Reaction: Nausea, Vomiting, Meperidine Nausea only,Vomiting Reaction: Nausea, Vomiting, Semaglutide Nausea & Vomiting Medium 03/06/2023 Propoxyphene N-Acetaminophen Nausea And Vomiting Low 03/24/[address] (CYMBALTA) 60 mg capsule 3 Active acetaminophen-as pirin-caffeine (EXCEDRIN MIGRAINE) 250-250-65 mg per tabletIndication s:Migraine Take 1 tablet by mouth every 6 (six) hours as needed for headaches Active ibuprofen 200 mg tab/capIndicatio ns:Anti-inflamma tory,Pain Take 4 tablet/capsule (800 mg total) by mouth every 6 (six) hours as needed for pain Active EPINEPHrine 0.3 mg/0.3 mL auto-injection syringeIndicatio ns:patient at risk of anaphylaxis Inject 0.3 mL (0.3 mg total) into the muscle as instructed once for 1 dose Call 911 after use. 0.3 mL 4 Active estradioL (ESTRACE) 0.5 mg tablet Take 1 tablet (0.5 mg total) by mouth daily 4 Active topiramate 50 mg capsule,extended release 24hrIndications: Migraine Prevention Take 50 mg by mouth daily 30 capsule 5 4 Active Additional Information Patient not taking.Reported on 08/18/2024 indomethacin (INDOCIN) 25 mg capsule Take 1 capsule (25 mg total) by mouth 3 (three) times a day with meals 905 capsule 5 4 Active fluconazole (DIFLUCAN) 150 mg tablet Take one tab now. Repeat in 7 days if symptoms persist. 2 tablet 5 Active Additional Information Patient not taking.Reported on 08/18/2024 Active Problems Problem Noted Date Diagnosed Date Right nephrolithiasis 08/18/2024 Assessment & Plan (08/18/2024 1:47 PM BAT PERSON): 7mm right kidney. Follow up with Dr. Pink as scheduled. Pyelonephritis 08/18/2024 Assessment & Plan (08/18/2024 1:47 PM BAT PERSON): Symptoms resolved. She has one day of antibiotics left. Urine dip clear today. Trace of protein. No blood. She is to follow up with urology as scheduled. Repeat cbc and cmp today. Chest pain 06/30/2024 Dyslipidemia 11/13/2023 Ulnar nerve entrapment at elbow, right Migraine without aura and wi thout status migrainosus, not intractable 05/14/2023 Encounter for screening colonoscopy 04/03/2023 Encounter for medical examination to establish c are 03/06/2023 Assessment & Plan (03/06/2023 1:13 PM CDT): A(n) initial well visit to establish care has been performed today. Harriet Meade is not up to date on screening tests. She is in need of Colon cancer screening. She is up to date on needed preventative vaccinations; She is in need of Covid-19 (booster). We discussed healthy lifestyle habits, educational material has been given. Medications reviewed, changes documented as per the medical record and discussed with patient along with risks vs benefits. Return in 2 months Class 1 obesity due to exces s calories without serious comorbidity with body mass index (BMI) of 33.0 to 33.9 in adult 03/06/2023 Assessment & Plan (05/19/2024 8:37 AM CDT): BMI Follow-up includes: nutrition counseling, exercise counseling, and education provided. Assessment & Plan (11/13/2023 8:38 AM CDT): BMI Follow-up includes: nutrition counseling, exercise counseling, and education provided. Assessment & Plan (05/15/2023 2:42 PM CDT): BMI Follow-up includes: nutrition counseling, exercise counseling, and education provided. Family history of malignant neoplasm of breast 1 09/04/2009 Encounters Date Type Department Care Team Description 08/18/2024 1:45 PM BAT PERSON Lab [facility] Outpatient Lab at [address] [phone] Encounter for medical examination to establish care (Primary Dx) 08/18/2024 1:35 PM BAT PERSON - 08/18/2024 11:59 PM BAT PERSON Hospital Encounter [address] [address] Dyslipidemia Discharge Disposition: Discharge to home or self care 08/18/2024 1:00 PM BAT PERSON Office Visit [facility] Primary Care at [address] [phone] Sarika Chopra NP Pyelonephritis (Primary Dx); Hx of bladder infections; Right nephrolithiasis; Hospital discharge follow-up 08/12/[address] [facility] Primary Care at [address] [phone] Sarika Chopra NP 08/12/2024 Telephone [facility] Primary Care at [address] [phone] Vega Renee MD ISADORA Questions 07/04/2024 Orders Only [facility] Primary Care at [address] [phone] Vega Renee MD Chronic neck pain with osteoarthritis determined by x-ray (Primary Dx) 06/30/2024 3:20 PM BAT PERSON Ancillary Procedure [facility] Imaging at [address] [phone] Chest pain, unspecified type; Radicular pain in left arm 06/30/2024 2:45 PM BAT PERSON Office Visit [facility] Primary Care at [address] [phone] Vega Renee MD Chest pain, unspecified type (Primary Dx); Radicular pain in left arm 06/26/2024 Nurse Triage [facility] Primary Care at [address] [phone] Mariann Benson RN from Last 3 Months Immunizations Name Administration Dates Next Due Influenza, Unspecified 05/14/2023(Deferr ed: Patient Refused),03/06/2023(Deferred: Patient Refused),08/06/2022(Deferred: Patient Refused),05/07/2022(Deferred: Patient Refused),08/06/2021(Deferred: Patient Refused) Tdap 09/07/2013 Surgical History Surgery Date Site/Laterality Comments APPENDECTOMY 08/06/2014 - 08/05/2015 HYSTERECTOMY 08/06/2005 - 08/05/2006 HERNIA REPAIR 08/06/2014 - 08/05/2015 incisional after appendectomy LAPAROSCOPY Medical History Medical History Date Comments Premature atrial contractions Dyslipidemia 11/13/2023 Mild obstructive sleep apnea Migraine Family History Medical History Relation Name Comments Heart attack Father Myocardial Infa rction; Hyperlipidemia Father Hypertension Father Kidney nephrosis Father Prostate cancer Father Breast cancer Mother Cancer, breast ; Coronary artery disease Paternal Grandfather Coronary Artery Disease; Cause of : Coronary Artery Disease Crohn's disease Sister Relation Name Status Comments Father Alive Mother Alive Paternal Grandfather Sister Alive Social History Tobacco Use Types Packs/Day [...] on file Legal Sex Female 6:23 AM BAT PERSON Gender Identity Not on file Sexual Orientation Not on file 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 Not on file N ot on file Obstetrics History Last Filed Vital Signs Vital Sign Reading Time Taken Comments Blood Pressure 132/84 08/18/2024 1:03 PM BAT PERSON Pulse 118 08/18/2024 1:03 PM BAT PERSON Temperature 36.7 ??C (98 ??F) 08/18/2024 1:03 PM BAT PERSON Respiratory Rate 18 08/18/2024 1:03 PM BAT PERSON Oxygen Saturation 97% 08/18/2024 1:03 PM BAT PERSON Inhaled Oxygen Concentration - - Weight 80 kg (176 lb 6.4 oz) 08/18/2024 1:03 PM BAT PERSON Height 152.4 cm (5') 08/18/2024 1:03 PM BAT PERSON Body Mass Index 34.45 08/18/2024 1:03 PM BAT PERSON Plan of Treatment Health Maintenance Due Date Last Done Comments Hepatitis C Screening 1977 Hepatitis B Screening 1995 DTaP/Tdap/Td Vaccine (2 - Td or Tdap) 09/07/2023 09/07/2013 Regular Well Visit/Exam 18-64 03/06/2024 03/06/2023 Covid-19 Vaccine ( season) 2024 07/31/2021, 10/23/2020, 09/25/2020 Influenza Vaccine (#1) 2025 Postp oned from 04/06/2024 (Patient declined, but will receive in the future) Breast Cancer Screening-Mammogram 02/23/2025 12/28/2022, 06/21/2020, 05/19/2019, Additional history exists Postponed from 12/29/2023 (Patient declined, but will receive in the future) Depression Screening 06/30/2025 06/30/2024, 05/19/2024, 11/13/2023, Additional history exists Colon Cancer Screening-Colonoscopy 04/26/2033 04/26/2023, 04/26/2023 Cervical Cancer Screening Discontinued 12/06/2022 Pneumococcal vaccine <65 Aged Out No longer eligible based on patient's age to complete this topic Procedures Procedure Name Priority Date/Time Associated Diagnosis Comments EGFR Routine 08/18/2024 1:40 PM BAT PERSON Dyslipidemia DIFFERENTIAL AUTO Routine 08/18/2024 1:4 0 PM BAT PERSON Dyslipidemia CBC WITH AUTO DIFFERENTIAL Routine 08/18/2024 1:40 PM BAT PERSON Dyslipidemia COMPREHENSIVE METABOLIC PANEL Routine 08/18/2024 1:40 PM BAT PERSON Dyslipidemia LIPID PANEL Routine 08/18/2024 1:40 PM BAT PERSON Dyslipidemia POCT URINALYSIS DIPSTICK Routine 08/18/2024 1:32 PM BAT PERSON Hx of bladder infections XR SPINE CERVICAL 2 OR 3 VIEWS Schedule Routine, Read Routine (OP Routine) 06/30/2024 3:24 PM BAT PERSON Chest pain, unspecified type Radicular pain in left arm ECG 12-LEAD Routine 06/30/2024 3:08 PM BAT PERSON Chest pain, unspecified type COLONOSCOPY 04/26/2023 10:34 AM CDT HM MAMMOGRAPHY Routine 12/28/2022 HM PAP SMEAR WITH HPV Routine 12/06/2022 from Last 3 Months or Most Recently Relevant to Health Maintenance Results * eGFR (08/18/2024 1:40 PM BAT PERSON) eGFR 84 >=60 mL/min/1. 73 m2 Comment: Collection date/time has been modified to: 13:40:00. ??Previous collection date/time: 10:07:29. Interpretive Data Reference Interval Normal ?>/= 90 mL/min/1.73m2 Mildly decreased* ? 60 - 89 mL/min/1.73m2 Mildly to moderately decreased ?45 - 59 mL/min/1.73m2 Moderately to severely decreased ??30 - 44 mL/min/1.73m2 Severely decreased ?15 - 29 mL/min/1.73m2 Kidney Failure ?< 15 ??mL/min/1.73m2 *Relative to young adult level Estimated glomerular filtration rate is determined by the 2020 CKD-EPI equation recommended by the National Kidney Foundation (A Unifying Approach to GFR Estimation: Recommendations of the NKF-ASK Task Force on Reassessing the Inclusion of Race in Diagnosing Kidney Disease, JASN 2020). The CKD-EPI equation should not be used for patients with unstable renal function and has not been validated in children and those over 70. Current interpretive data was last reviewed 2021. Blood 08/18/2024 1:40 PM BAT PERSON 08/19/2024 10:27 AM BAT PERSON us Vega Renee MD LAB BLOOD ORDERABLES Edited Result - Final TAMIE [id number] [place] [address] * (ABNORMAL) Differential, auto (08/18/2024 1:40 PM BAT PERSON) Neutrophil abs 5.5 1.5 - 6.5 K/cumm Comment:Collection date/time has been modified to: 13:40:00. Previous collection date/time: 10:07:29. Imm gran abs 0.0 0.0 - 0.1 K/cumm [facility] Comment:Collection date/time has been modified to: 13:40:00. Previous collection date/time: 10:07:29. Lymphocyte abs 4.3(H) 0.8 - 3.3 K/cumm [facility] Comment:Collection date/time has been modified to: 13:40:00. Previous collection date/time: 10:07:29. Monocyte abs 0.7 0.2 - 0.8 K/cumm [facility] Comment:Collection date/time has been modified to: 13:40:00. Previous collection date/time: 10:07:29. Eosinophil abs 1.0(H) 0.0 - 0.5 K/cumm [facility] Comment:Collection date/time has been modified to: 13:40:00. Previous collection date/time: 10:07:29. Basophil abs 0.1 0.0 - 0.1 K/cumm [facility] Comment:Collection date/time has been modified to: 13:40:00. Previous collection date/time: 10:07:29. Neutrophil pct 47.3 % [facility] Comment: Collection date/time has been modified to: 13:40:00. ??Previous collection date/time: 10:07:29. Interpretive Data Percent cell count reference ranges are not reported, since discordance with absolute values may lead to misinterpretation of CBC data. Current Interpretive Data was last revised on 2017. Imm gran pct 0.3 % [facility] Comment: Collection date/time has been modified to: 13:40:00. ??Previous collection date/time: 10:07:29. Interpretive Data Percent cell count reference ranges are not reported, since discordance with absolute values may lead to misinterpretation of CBC data. Current Interpretive Data was last revised on 2017. Lymphocyte pct 37.1 % [facility] Comment: Collection date/time has been modified to: 13:40:00. ??Previous collection date/time: 10:07:29. Interpretive Data Percent cell count reference ranges are not reported, since discordance with absolute values may lead to misinterpretation of CBC data. Current Interpretive Data was last revised on 2017. Monocyte pct 6.1 % TAMIE Comment: Collection date/time has been modified to: 13:40:00. ??Previous collection date/time: 10:07:29. Interpretive Data Percent cell count reference ranges are not reported, since discordance with absolute values may lead to misinterpretation of CBC data. Current Interpretive Data was last revised on 2017. Eosinophil pct 8.3 % [facility] ANGEL Comment: Collection date/time has been modified to: 13:40:00. ??Previous collection date/time: 10:07:29. Interpretive Data Percent cell count reference ranges are not reported, since discordance with absolute values may lead to misinterpretation of CBC data. Current Interpretive Data was last revised on 2017. Basophil pct 0.9 % [facility] ANGEL Comment: Collection date/time has been modified to: 13:40:00. ??Previous collection date/time: 10:07:29. Interpretive Data Percent cell count reference ranges are not reported, since discordance with absolute values may lead to misinterpretation of CBC data. Current Interpretive Data was last revised on 2017. Blood 08/18/2024 1:40 PM BAT PERSON 08/19/2024 10:07 AM BAT PERSON us Vega Renee MD LAB BLOOD ORDERABLES Edited Result - Final [facility] [id number] [facility] [place] [address] * (ABNORMAL) CBC with auto differential (08/18/2024 1:40 PM BAT PERSON) WBC 11.6(H) 3.8 - 9.9 K/cumm Comment:Collection date/time has been modified to: 13:40:00. Previous collection date/time: 10:07:29. Hgb 13.9 11.9 - 15.5 g/dL [facility] Comment:Collection date/time has been modified to: 13:40:00. Previous collection date/time: 10:07:29. Hct 44.8 35.6 - 45.5 % [facility] Comment:Collection date/time has been modified to: 13:40:00. Previous collection date/time: 10:07:29. Plt 365 150 - 400 K/cumm [facility] Comment:Collection date/time has been modified to: 13:40:00. Previous collection date/time: 10:07:29. MPV 11.0 9.1 - 12.3 fL [facility] Comment:Collection date/time has been modified to: 13:40:00. Previous collection date/time: 10:07:29. RBC 4.65 3.90 - 5.20 M/cumm [facility] Comment:Collection date/time has been modified to: 13:40:00. Previous collection date/time: 10:07:29. MCV 96.3 81.3 - 96.4 fL [facility] Comment:Collection date/time has been modified to: 13:40:00. Previous collection date/time: 10:07:29. MCH 29.9 27.1 - 33.3 pg [facility] Comment:Collection date/time has been modified to: 13:40:00. Previous collection date/time: 10:07:29. MCHC 31.0(L) 32.3 - 35.7 g/dL [facility] Comment:Collection date/time has been modified to: 13:40:00. Previous collection date/time: 10:07:29. RDW CV 13.2 11.1 - 14.9 % [facility] Comment:Collection date/time has been modified to: 13:40:00. Previous collection date/time: 10:07:29. RDW SD 46.5 35.7 - 48.1 fL [facility] ANGEL Comment:Collection date/time has been modified to: 13:40:00. Previous collection date/time: 10:07:29. NRBC abs 0.00 0.00 - 0.01 K/cumm [facility] ANGEL Comment:Collection date/time has been modified to: 13:40:00. Previous collection date/time: 10:07:29. Blood 08/18/2024 1:40 PM BAT PERSON 08/19/2024 10:07 AM BAT PERSON us Vega Renee MD LAB BLOOD ORDERABLES Edited Result - Final T[facility]IE [id number] [facility] [place] [address] * (ABNORMAL) Lipid panel (08/18/2024 1:40 PM BAT PERSON) Cholesterol 225(H) 30 - 199 mg/dL Comment: Collection date/time has been modified to: 13:40:00. ??Previous collection date/time: 10:07:29. Interpretive Data Ages < or = 19 years ??Acceptable: ? <170 mg/dL ??Borderline high: ??170-199 mg/dL ??High: ? >or= 200 mg/dL Ages > or = 20 years ??Desirable: ?<200 mg/dL ??Borderline high: ??200-239 mg/dL ??High: ? >or= 240 mg/dL Literature References: 1. Expert Panel on Integrated Guidelines for Cardiovascular Health and Risk Reduction in Children and Adolescents. Pediatrics 2011;128:S213 2. NCEP Expert Panel. Circulation 2004;110:227 Current Interpretive Data was last revised on 2018. Triglycerides 238(H) <=149 mg/dL TAMIE Comment: Collection date/time has been modified to: 13:40:00. ??Previous collection date/time: 10:07:29. Interpretive Data Ages < or = 9 years ??Acceptable: ? <75 mg/dL ??Borderline high: ??75-99 mg/dL ??High: ? >or= 100 mg/dL Ages 10 to 20 years ??Acceptable: ? <90 mg/dL ??Borderline high: ??90-129 mg/dL ??High: ? >or= 130 mg/dL Ages > or = 20 years ??Desirable: ?<150 mg/dL ??Borderline high: ??150-199 mg/dL ??High: ? 200-499 mg/dL ?Very high: ?? >or= 499 mg/dL Literature References: 1. Expert Panel on Integrated Guidelines for Cardiovascular Health and Risk Reduction in Children and Adolescents. Pediatrics 2011;128:S213 2. NCEP Expert Panel. Circulation 2004;110:227 Current Interpretive Data was last revised on 2018. HDL 50 >=40 mg/dL TAMIE Comment: Collection date/time has been modified to: 13:40:00. ??Previous collection date/time: 10:07:29. Interpretive Data Ages < or = 19 years ??Acceptable: ? >45 mg/dL ??Borderline low: ?? 40-45 mg/dL ??Low: ? <40 mg/dL Ages > or = 20 years ??Desirable: ?>or= 60 mg/dL ??Low: ? <40 mg/dL Literature References: 1. Expert Panel on Integrated Guidelines for Cardiovascular Health and Risk Reduction in Children and Adolescents. Pediatrics 2011;128:S213 2. NCEP Expert Panel. Circulation 2004;110:227 Current Interpretive Data was last revised on 2018. LDL, calculated 133(H) <=129 mg/dL TAMIE ANGEL Comment: Collection date/time has been modified to: 13:40:00. ??Previous collection date/time: 10:07:29. Interpretive Data Ages < or = 19 years ??Acceptable: ? <110 mg/dL ??Borderline high: ??110-129 mg/dL ??High: ?>or= 130 mg/dL Ages > or = 20 years ??Optimal: ? <100 mg/dL ??Near optimal: ?100-129 mg/dL ??Borderline high: ?? 130-159 mg/dL ??High: ?>160 mg/dL Calculated using the Sourav LDL-C estimating equation. This equation was implemented on 2024. Prior to this date LDL-C was estimated using the Friedewald equation. Literature References: 1. Expert Panel on Integrated Guidelines for Cardiovascular Health and Risk Reduction in Children and Adolescents. Pediatrics 2011;128:S213 2. NCEP Expert Panel. Circulation 2004;110:227 3. Sourav Child et al. EVA Cardiol. 2020 December 04;5(5):540-548. doi: 10.1001/jamacardio.2020.0013 Current Interpretive Data was last revised on 2024. Non-HDL Cholesterol 175 mg/dL TAMIE ANGEL Comment: Collection date/time has been modified to: 13:40:00. ??Previous collection date/time: 10:07:29. Interpretive Data Ages < or = 19 years ??Acceptable: ?<120 mg/dL ??Borderline high: ??120-144 mg/dL ??High: ?>145 mg/dL Ages > or = 20 years ??When triglycerides are >200 mg/dL, Non-HDL cholesterol is a secondary target of ? therapy with treatment goals that are 30 mg/dL greater than the LDL cholesterol target. ? Literature References: 1. Expert Panel on Integrated Guidelines for Cardiovascular Health and Risk Reduction in Children and Adolescents. Pediatrics 2011;128:S213 2. NCEP Expert Panel. Circulation 2004;110:227 Current Interpretive Data was last revised on 2018. Chol/HDL ratio 4 TAMIE ANGEL Comment:Collection date/time has been modified to: 13:40:00. Previous collection date/time: 10:07:29. Blood 08/18/2024 1:40 PM BAT PERSON 08/19/2024 10:07 AM BAT PERSON us Vega Renee MD LAB BLOOD ORDERABLES Edited Result - Final TAMIE [id number] [address] Department [place] [address] * Comprehensive metabolic panel (08/18/2024 1:40 PM BAT PERSON) Sodium 137 135 - 145 mmol/L Comment:Collection date/time has been modified to: 13:40:00. Previous collection date/time: 10:07:29. Potassium, pl 4.5 3.3 - 4.9 mmol/L T[facility]IE ANGEL Comment:Collection date/time has been modified to: 13:40:00. Previous collection date/time: 10:07:29. Chloride 101 97 - 110 mmol/L TAMIE Comment:Collection date/time has been modified to: 13:40:00. Previous collection date/time: 10:07:29. CO2 23 22 - 32 mmol/L TAMIE Comment:Collection date/time has been modified to: 13:40:00. Previous collection date/time: 10:07:29. Anion gap 13 2 - 15 mmol/L TAMIE Comment:Collection date/time has been modified to: 13:40:00. Previous collection date/time: 10:07:29. BUN 13 6 - 25 mg/dL TAMIE ANGEL Comment:Collection date/time has been modified to: 13:40:00. Previous collection date/time: 10:07:29. Creatinine 0.86 0.60 - 1.10 mg/dL [facility] Comment:Collection date/time has been modified to: 13:40:00. Previous collection date/time: 10:07:29. Glucose 87 70 - 199 mg/dL [facility] Comment: Collection date/time has been modified to: 13:40:00. ??Previous collection date/time: 10:07:29. Interpretive Data Fasting glucose >/= 126 mg/dl is diagnostic for diabetes. ?? Fasting is defined as no caloric intake for at least 8 hours. Fasting glucose between 100 mg/dl to 125 mg/dl is diagnostic of prediabetes. In a patient with classic symptoms of hyperglycemia or hyperglycemic crisis, a random glucose >/= 200 mg/dl is diagnostic for diabetes. In the absence of unequivocal hyperglycemia, results should be confirmed by repeat testing. The classification and Diagnosis of Diabetes Diabetes Care 202; 46: S19-S40. Current interpretive data was last revised 2022. Calcium 9.2 8.5 - 10.3 mg/dL [facility] Comment:Collection date/time has been modified to: 13:40:00. Previous collection date/time: 10:07:29. Bilirubin, total 0.5 0.1 - 1.2 mg/dL [facility] Comment:Collection date/time has been modified to: 13:40:00. Previous collection date/time: 10:07:29. Protein, pl 7.0 6.5 - 8.5 g/dL [facility] Comment:Collection date/time has been modified to: 13:40:00. Previous collection date/time: 10:07:29. Albumin 4.1 3.5 - 5.0 g/dL C[facility] Comment:Collection date/time has been modified to: 13:40:00. Previous collection date/time: 10:07:29. Alk phos 68 40 - 130 Units/L [facility] Comment:Collection date/time has been modified to: 13:40:00. Previous collection date/time: 10:07:29. ALT 19 7 - 45 Units/L TAMIE ANGEL Comment:Collection date/time has been modified to: 13:40:00. Previous collection date/time: 10:07:29. AST 27 10 - 45 Units/L TAMIE ANGEL Comment:Collection date/time has been modified to: 13:40:00. Previous collection date/time: 10:07:29. Blood 08/18/2024 1:40 PM BAT PERSON 08/19/2024 10:07 AM BAT PERSON Vega Renee MD LAB BLOOD ORDERABLES Edited Result - Final TAMIE [id number] [address] Department [place] [address] * (ABNORMAL) POCT urinalysis dipstick (08/18/2024 1:32 PM BAT PERSON) Color, Urine, POC Yellow Clarity, ur, POC Clear Clear Glucose, ur, POC Negative Negative MG/DL Bilirubin, ur, POC Negative Negative, Small, Moderate, Large Ketones, ur, POC Negative Negative Specific [place], POC 1.020 1.003 - 1.030 Blood, ur, POC Negative Negative pH, ur, POC 7.0 5.0 - 8.0 Protein, ur, POC Trace(A) Negative Urobilinogen, urine, POC 1.0 0.2 - 1.0 mg/dL Nitrite, ur, POC Negative Negative Leukocytes, ur, POC Negative Negative Lot Number 0 Urine 08/18/2024 1:32 PM BAT PERSON Sarika Chopra NP POINT OF CARE TEST ORDERABLES Fi nal Result * XR Spine Cervical 2 or 3 Views (06/30/2024 3:24 PM BAT PERSON) Anatomical Region Laterality Modality Spine N/A Digital Radiogra phy 07/03/2024 8:32 AM BAT PERSON Narrative 07/03/2024 8:33 AM BAT PERSON EXAM DESCRIPTION: XR SPINE CERVICAL 2 OR 3 VIEWS REASON FOR STUDY: neck pain, shooting LUE pain ?? Pt complains of neck pain with radiculopathy bilaterally with parathesia x couple of months. No known injury or prior surgery ? FINDINGS: Two views submitted without comparison. No acute fractures are identified. ??Alignment is normal. ??There is no prevertebral soft tissue swelling. ??The intervertebral disc space heights are normal. ??There is mild bilateral cervical facet osteoarthritis. IMPRESSION: Mild bilateral cervical facet osteoarthritis. THIS IS AN ELECTRONICALLY VERIFIED FINAL REPORT 07/03/2024 8:33 AM - Electronically signed by ??Antony Jackson M.D. D: ??07/03/2024 8:33 AM T: Report ID: [id number] Reading Location: ??[id number] Procedure Note Antony Jackson MD - 07/03/2024 EXAM DESCRIPTION: XR SPINE CERVICAL 2 OR 3 VIEWS REASON FOR STUDY: neck pain, shooting LUE pain Pt complains of neck pain with radiculopathy bilaterally with parathesia x couple of months. No known injury or prior surgery FINDINGS: Two views submitted without comparison. No acute fractures are identified. Alignment is normal. There is no prevertebral soft tissue swelling. The intervertebral disc space heightsare normal. There is mild bilateral cervical facet osteoarthritis. IMPRESSION: Mild bilateral cervical facet osteoarthritis. THIS IS AN ELECTRONICALLY VERIFIED FINAL REPORT 07/03/2024 8:33 AM - Electronically signed by Antony Jackson M.D. T: Report ID: [id number] Reading Location: [id number] us Vega Renee MD IMG XR PROCEDURES Final Res ult * ECG 12-LEAD (06/30/2024 3:08 PM BAT PERSON) Narrative Vega Renee MD - 06/30/2024 3:08 PM BAT PERSON Vega Renee MD ? 06/30/2024 ??3:19 PM ECG 12 lead Date/Time: 06/30/2024 3:08 PM Performed by: Vega Renee MD Authorized by: Vega Renee MD ??Comparison: not compared with previous ECG Previous ECG: no previous ECG available Rhythm: sinus rhythm Rate: normal QRS axis: normal ST Segments: ST segments normal T Waves: T waves normal Clinical impression: non-specific ECG us Vega Renee MD ECG ORDERABLES Edited Resu lt - Final * COLONOSCOPY (04/26/2023 10:34 AM CDT) Anatomical Region Laterality Modality Other Narrative Procedure Note Johnnie Menendez MD - 04/26/2023 10:34 AM CDT [facility] Endoscopy Lab Patient Name: Harriet Meade Procedure Date: 04/26/2023 10:34 AM Date of : 1975 Admit Type: Outpatient Age: 47 Gender: Female Note Status: Finalized Attending MD: Johnnie Menendez M.D. Procedure Date: 04/26/2023 Procedure: Colonoscopy Indications: Screening for colorectal malignant neoplasm, Last colonoscopy: date unknown (unable to locate last colonoscopy report) Providers: Johnnie Menendez M.D., Vani Barnett CRNA (Anesthesia Staff), Bhavana Bragg RN,Raymond Flynn, Mobile Web Application Developer Referring MD: Vega Renee M.D. Medicines: Monitored Anesthesia Care Complications: No immediate complications. Estimated Blood Loss: Estimated blood loss was minimal. Procedure: Pre-Anesthesia Assessment: - Prior to the procedure, a History and Physicalwas performed, and patient medications and allergieswere reviewed. The patient is competent. The risks and benefits of the procedure and the sedation optionsand risks were discussed with the patient. Allquestions were answered and informed consent was obtained. Patient identification and proposed procedure were verified by the physician, the nurse and the glass ribbon machine operator in the procedure room. Mental Status Examination: alert and oriented. AirwayExamination: normal oropharyngeal airway and neck mobility. Respiratory Examination: clear to auscultation. CV Examination: normal. Prophylactic Antibiotics: The patient does not require prophylactic antibiotics. Prior Anticoagulants: The patient has taken no anticoagulant or antiplatelet agents. ASA Grade Assessment: II - A patient with mild systemicdisease. After reviewing the risks and benefits, the patient was deemed in satisfactory condition to undergo the procedure. The anesthesia plan was to use monitored anesthesia care (MAC). Immediately prior to administration of medications, the patient was re-assessed for adequacy to receive sedatives. The heart rate, respiratory rate, oxygen saturations, blood pressure, adequacy of pulmonary ventilation,and response to care were monitored throughout the procedure. The physical status of the patient was re-assessed after the procedure. - The risks and benefits of the procedure and the sedation options and risks were discussed with the patient. All questions were answered and informed consent was obtained. After I obtained informed consent, the scope was passed under direct vision. Throughout theprocedure, the patient's blood pressure, pulse, and oxygen saturations were monitored continuously. The scopewas passed under direct vision. The Colonoscope was introduced through the anus and advanced to the the cecum, identified by appendiceal orifice andileocecal valve. The colonoscopy was performed without difficulty. The patient tolerated the procedurewell. The quality of the bowel preparation was adequate.The bowel preparation used was SUPREP via split dose instruction. Findings: Multiple small-mouthed diverticula were found in the left colon. A 2 mm polyp was found in the recto-sigmoid colon. The polyp was sessile. The polyp was removed with a jumbo cold forceps. Resectionand retrieval were complete. Estimated blood loss was minimal. Anal papilla(e) were hypertrophied. The digital rectal exam was normal. Impression: - Diverticulosis in the left colon. - One 2 mm polyp at the recto-sigmoid colon,removed with a jumbo cold forceps. Resected andretrieved. - Anal papilla(e) were hypertrophied. Recommendation: - Await pathology results. - Repeat colonoscopy in 7-10 years for surveillance based on pathology results. Procedure Code(s): --- Professional --- 24533, Colonoscopy, flexible; with biopsy, singleor multiple Diagnosis Code(s): --- Professional --- Z12.11, Encounter for screening for malignantneoplasm of colon D12.7, Benign neoplasm of rectosigmoid junction K62.89, Other specified diseases of anus andrectum K57.30, Diverticulosis of large intestine without perforation or abscess without bleeding CPT copyright 2020 [employer]. All rights reserved. The codes documented in this report are preliminary and upon catalyst manufacturing operator reviewmay be revised to meet current compliance requirements. Electronically signed by Johnnie Menendez M.D. Johnnie Menendez M.D. 04/26/2023 11:05:22 AM Number of Addenda: 0 Note Initiated On: 04/26/2023 10:34 AM Johnnie Menendez MD ENDOSCOPY PROCEDURES Fi nal Result * HM MAMMOGRAPHY (12/28/2022) Historical Provider HEALTH MAINTENANCE Final Result * HM PAP SMEAR WITH HPV (12/06/2022) us Historical Provider HEALTH MAINTENANCE Final Result from Last 3 Months or Most Recently Relevant to Health Maintenance Insurance [facility] CHO[facility] PLUS [facility] PLUS Care Teams Binder Folder Operator Relationship Specialty Start Date End Date Vega Renee MD [address] [place] [address] PCP - General Family Medicine 03/06/23 Tai Burk MD [address] [place] [address] Referring Physician Psychiatry 03/06/23 Willie Starks DC [address] [place] [address] Referring Physician Chiropractic Medicine 03/06/23
--- OUTSIDE RECORDS SUMMARY | 2024-09-03 07:27 | XMS_ITS | Referral Summary ---
Author Organization [facility] [place] [address] Address [address] [place] [id number] Care Team Providers Care Anesthesia Resident Name Role Phone Tai Burk MD Unavailable [phone] Willie Starks DC Unavailable [phone] eVga Renee MD Primary Care Provider [phone] Encounters Date Type Department Care Team Description 08/18/2024 1:35 PM GANG MOWER OPERATOR - 08/18/2024 11:59 PM GANG MOWER OPERATOR [place] [address] Dyslipidemia Discharge Disposition: Discharge to home or self care 08/18/2024 1:45 PM GANG MOWER OPERATOR Lab [facility] Outpatient Lab at [address] [address] Encounter for medical examination to establish care (Primary Dx) 08/18/2024 1:00 PM GANG MOWER OPERATOR Office Visit [facility] Primary Care at [address] [phone] Sarika Chopra NP Pyelonephritis (Primary Dx); Hx of bladder infections; Right nephrolithiasis; Hospital discharge follow-up 08/12/2024 Orders Only [facility] Primary Care at [address] [phone] Sarika Chopra NP 08/12/2024 Telephone [facility] Primary Care at [address] [phone] Vega Renee MD ISADORA Questions 07/04/2024 Orders Only [facility] Primary Care at [address] [phone] Vega Renee MD Chronic neck pain with osteoarthritis determined by x-ray (Primary Dx) 06/30/2024 3:20 PM GANG MOWER OPERATOR Ancillary Procedure [facility] Imaging at [address] [phone] Chest pain, unspecified type; Radicular pain in left arm 06/30/2024 2:45 PM GANG MOWER OPERATOR Office Visit [facility] Primary Care at [address] [phone] Vega Renee MD Chest pain, unspecified type (Primary Dx); Radicular pain in left arm 06/26/2024 Nurse Triage [facility] Primary Care at [address] [phone] Mariann Benson RN from Last 3 Months Allergies Active Allergy Reactions Criticality Noted Date [...] 08/18/2024 Assessment & Plan (08/18/2024 1:47 PM GANG MOWER OPERATOR): 7mm right kidney. Follow up with Dr. Pink as scheduled. Pyelonephritis 08/18/2024 Assessment & Plan (08/18/2024 1:47 PM GANG MOWER OPERATOR): Symptoms resolved. She has one day of antibiotics left. Urine dip clear today. Trace of protein. No blood. She is to follow up with urology as scheduled. Repeat cbc and cmp today. Chest pain 06/30/2024 Dyslipidemia 11/13/2023 Ulnar nerve entrapment at elbow, right 4 Migraine without aura and wi thout status [...] of malignant neoplasm of breast 1 09/04/2009 Immunizations Name Administration Dates Next Due Influenza, Unspecified 05/14/2023(Deferr ed: Patient Refused),03/06/2023(Deferred: Patient Refused),08/06/2022(Deferred: Patient Refused),05/07/2022(Deferred: Patient Refused),08/06/2021(Deferred: Patient Refused) Tdap 09/07/2013 Social History Tobacco Use Types Packs/Day Years [...] on file Legal Sex Female 6:23 AM GANG MOWER OPERATOR Gender Identity Not on file Sexual Orientation Not on file 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 Not on file Not on file N ot on file Last Filed Vital Signs Vital Sign Reading Time Taken Comments Blood Pressure 132/84 08/18/2024 1:03 PM GANG MOWER OPERATOR Pulse 118 08/18/2024 1:03 PM GANG MOWER OPERATOR Temperature 36.7 ??C (98 ??F) 08/18/2024 1:03 PM GANG MOWER OPERATOR Respiratory Rate 18 08/18/2024 1:03 PM GANG MOWER OPERATOR Oxygen Saturation 97% 08/18/2024 1:03 PM GANG MOWER OPERATOR Inhaled Oxygen Concentration - - Weight 80 kg (176 lb 6.4 oz) 08/18/2024 1:03 PM GANG MOWER OPERATOR Height 152.4 cm (5') 08/18/2024 1:03 PM GANG MOWER OPERATOR Body Mass Index 34.45 08/18/2024 1:03 PM GANG MOWER OPERATOR Plan of Treatment Not on file Procedures Procedure Name Priority Date/Time Associated Diagnosis Comments EGFR Routine 08/18/2024 1:40 PM GANG MOWER OPERATOR Dyslipidemia DIFFERENTIAL AUTO Routine 08/18/2024 1:4 0 PM GANG MOWER OPERATOR Dyslipidemia CBC WITH AUTO DIFFERENTIAL Routine 08/18/2024 1:40 PM GANG MOWER OPERATOR Dyslipidemia COMPREHENSIVE METABOLIC PANEL Routine 08/18/2024 1:40 PM GANG MOWER OPERATOR Dyslipidemia LIPID PANEL Routine 08/18/2024 1:40 PM GANG MOWER OPERATOR Dyslipidemia POCT URINALYSIS DIPSTICK Routine 08/18/2024 1:32 PM GANG MOWER OPERATOR Hx of bladder infections XR SPINE CERVICAL 2 OR 3 VIEWS Schedule Routine, Read Routine (OP Routine) 06/30/2024 3:24 PM GANG MOWER OPERATOR Chest pain, unspecified type Radicular pain in left arm ECG 12-LEAD Routine 06/30/2024 3:08 PM GANG MOWER OPERATOR Chest pain, unspecified type COLONOSCOPY 04/26/2023 10:34 AM CDT HM MAMMOGRAPHY Routine 12/28/2022 HM PAP SMEAR WITH HPV Routine 12/06/2022 from Last 3 Months or Most Recently Relevant to Health Maintenance Results * eGFR (08/18/2024 1:40 PM GANG MOWER OPERATOR) eGFR 84 >=60 mL/min/1. 73 m2 Comment: [...] of Race in Diagnosing Kidney Disease, JASN 202). The CKD-EPI equation should not be used for patients with unstable renal function and has not been validated in children and those over 70. Current interpretive data was last reviewed 2021. Blood 08/18/2024 1:40 PM GANG MOWER OPERATOR 08/19/2024 10:27 AM GANG MOWER OPERATOR us Vega Renee MD LAB BLOOD ORDERABLES Edited Result - Final TAMIE [id number] [place] [address] * (ABNORMAL) Differential, auto (08/18/2024 1:40 PM GANG MOWER OPERATOR) Neutrophil abs 5.5 1.5 - 6.5 K/cumm Comment:Collection date/time has been modified to: 13:40:00. Previous collection date/time: 10:07:29. Imm gran abs 0.0 0.0 - 0.1 K/cumm [facility] Comment:Collection date/time has been modified to: 13:40:00. Previous collection date/time: 10:07:29. Lymphocyte abs 4.3(H) 0.8 - 3.3 K/cumm [facility] Comment:Collection date/time has been modified to: 13:40:00. Previous collection date/time: 10:07:29. Monocyte abs 0.7 0.2 - 0.8 K/cumm [facility] Comment:Collection date/time has been modified to: 13:40:00. Previous collection date/time: 10:07:29. Eosinophil abs 1.0(H) 0.0 - 0.5 K/cumm [facility] Comment:Collection date/time has been modified to: 13:40:00. Previous collection date/time: 10:07:29. Basophil abs 0.1 0.0 - 0.1 K/cumm [facility] Comment:Collection date/time has been modified to: 13:40:00. Previous collection date/time: 10:07:29. Neutrophil pct 47.3 % [facility] Comment: Collection date/time has been modified to: 13:40:00. ??Previous collection date/time: 10:07:29. Interpretive Data Percent cell count reference ranges are not reported, since discordance with absolute values may lead to misinterpretation of CBC data. Current Interpretive Data was last revised on 2017. Imm gran pct 0.3 % [facility] Comment: Collection date/time has been modified to: 13:40:00. ??Previous collection date/time: 10:07:29. Interpretive Data Percent cell count reference ranges are not reported, since discordance with absolute values may lead to misinterpretation of CBC data. Current Interpretive Data was last revised on 2017. Lymphocyte pct 37.1 % [facility] Comment: Collection date/time has been [...] on 2017. Eosinophil pct 8.3 % [facility] Comment: Collection date/time has been modified to: 13:40:00. ??Previous collection date/time: 10:07:29. Interpretive Data Percent cell count reference ranges are not reported, since discordance with absolute values may lead to misinterpretation of CBC data. Current Interpretive Data was last revised on 2017. Basophil pct 0.9 % [facility]IE Comment: Collection date/time has been modified to: 13:40:00. ??Previous collection date/time: 10:07:29. Interpretive Data Percent cell count reference ranges are not reported, since discordance with absolute values may lead to misinterpretation of CBC data. Current Interpretive Data was last revised on 2017. Blood 08/18/2024 1:40 PM GANG MOWER OPERATOR 08/19/2024 10:07 AM GANG MOWER OPERATOR us Vega Renee MD LAB BLOOD ORDERABLES Edited Result - Final TAMIE [id number] [place] [address] * (ABNORMAL) CBC with auto differential (08/18/2024 1:40 PM GANG MOWER OPERATOR) WBC 11.6(H) 3.8 - 9.9 K/cumm Comment:Collection [...] RDW CV 13.2 11.1 - 14.9 % TAMIE ANGEL Comment:Collection date/time has been modified to: 13:40:00. Previous collection date/time: 10:07:29. RDW SD 46.5 35.7 - 48.1 fL TAMIE ANGEL Comment:Collection date/time has been modified to: 13:40:00. Previous collection date/time: 10:07:29. NRBC abs 0.00 0.00 - 0.01 K/cumm [facility]IE ANGEL Comment:Collection date/time has been modified to: 13:40:00. Previous collection date/time: 10:07:29. Blood 08/18/2024 1:40 PM GANG MOWER OPERATOR 08/19/2024 10:07 AM GANG MOWER OPERATOR us Vega Renee MD LAB BLOOD ORDERABLES Edited Result - Final TAMIE [id number] [place] [address] * (ABNORMAL) Lipid panel (08/18/2024 1:40 PM GANG MOWER OPERATOR) Cholesterol 225(H) 30 - 199 mg/dL Comment: [...] on 2018. Triglycerides 238(H) <=149 mg/dL TAMIE ANGEL Comment: Collection date/time has [...] on 2018. HDL 50 >=40 mg/dL TAMIE ANGEL Comment: Collection date/time has [...] revised on 2018. Chol/HDL ratio 4 TAMIE Comment:Collection date/time has been modified to: 13:40:00. Previous collection date/time: 10:07:29. Blood 08/18/2024 1:40 PM GANG MOWER OPERATOR 08/19/2024 10:07 AM GANG MOWER OPERATOR us Vega Renee MD LAB BLOOD ORDERABLES Edited Result - Final TAMIE [id number] [place] [address] * Comprehensive metabolic panel (08/18/2024 1:40 PM GANG MOWER OPERATOR) Sodium 137 135 - 145 mmol/L Comment:Collection date/time has been modified to: 13:40:00. Previous collection date/time: 10:07:29. Potassium, pl 4.5 3.3 - 4.9 mmol/L TAMIE Comment:Collection date/time has been modified to: 13:40:00. Previous collection date/time: 10:07:29. Chloride 101 97 - 110 mmol/L TAMIE Comment:Collection date/time has been modified to: 13:40:00. Previous collection date/time: 10:07:29. CO2 23 22 - 32 mmol/L TAMIE Comment:Collection date/time has been modified to: 13:40:00. Previous collection date/time: 10:07:29. Anion gap 13 2 - 15 mmol/L [facility] Comment:Collection date/time has been modified to: 13:40:00. Previous collection date/time: 10:07:29. BUN 13 6 - 25 mg/dL [facility] Comment:Collection date/time has been modified to: 13:40:00. Previous collection date/time: 10:07:29. Creatinine 0.86 0.60 - 1.10 mg/dL [facility] Comment:Collection date/time has been modified to: 13:40:00. Previous collection date/time: 10:07:29. Glucose 87 70 - 199 mg/dL [facility] Comment: Collection date/time has been modified to: [...] 2022. Calcium 9.2 8.5 - 10.3 mg/dL [facility] Comment:Collection date/time has been modified to: 13:40:00. Previous collection date/time: 10:07:29. Bilirubin, total 0.5 0.1 - 1.2 mg/dL [facility] Comment:Collection date/time has been modified to: 13:40:00. Previous collection date/time: 10:07:29. Protein, pl 7.0 6.5 - 8.5 g/dL [facility] Comment:Collection date/time has been modified to: 13:40:00. Previous collection date/time: 10:07:29. Albumin 4.1 3.5 - 5.0 g/dL [facility]IE Comment:Collection date/time has been modified to: 13:40:00. Previous collection date/time: 10:07:29. Alk phos 68 40 - 130 Units/L TAMIE Comment:Collection date/time has been modified to: 13:40:00. Previous collection date/time: 10:07:29. ALT 19 7 - 45 Units/L [facility]AMIE Comment:Collection date/time has been modified to: 13:40:00. Previous collection date/time: 10:07:29. AST 27 10 - 45 Units/L TAMIE Comment:Collection date/time has been modified to: 13:40:00. Previous collection date/time: 10:07:29. Blood 08/18/2024 1:40 PM GANG MOWER OPERATOR 08/19/2024 10:07 AM GANG MOWER OPERATOR us Vega Renee MD LAB BLOOD ORDERABLES Edited Result - Final TAMIE [id number] [place] [address] * (ABNORMAL) POCT urinalysis dipstick (08/18/2024 1:32 PM GANG MOWER OPERATOR) Color, Urine, POC Yellow Clarity, ur, POC Clear Clear Glucose, ur, POC Negative Negative MG/DL Bilirubin, ur, POC Negative Negative, Small, Moderate, Large Ketones, ur, POC Negative Negative Specific [place], POC 1.020 1.003 - 1.030 Blood, ur, POC Negative Negative pH, ur, POC 7.0 5.0 - 8.0 Protein, ur, POC Trace(A) Negative Urobilinogen, urine, POC 1.0 0.2 - 1.0 mg/dL Nitrite, ur, POC Negative Negative Leukocytes, ur, POC Negative Negative Lot Number 0 Urine 08/18/2024 1:32 PM GANG MOWER OPERATOR Sarika Chopra NP POINT OF CARE TEST ORDERABLES Fi nal Result * XR Spine Cervical 2 or 3 Views (06/30/2024 3:24 PM GANG MOWER OPERATOR) Anatomical Region Laterality Modality Spine N/A Digital Radiogra phy 07/03/2024 8:32 AM GANG MOWER OPERATOR Narrative 07/03/2024 8:33 AM GANG MOWER OPERATOR EXAM DESCRIPTION: XR SPINE CERVICAL 2 OR [...] D: ??07/03/2024 8:33 AM T: Report ID: [id number] Reading Location: ??[id number] Procedure Note Antony Jackson MD - 07/03/2024 [...] by Antony Jackson M.D. T: Report ID: [id number] Reading Location: [id number] Vega Renee MD IMG XR PROCEDURES Final Res ult * ECG 12-LEAD (06/30/2024 3:08 PM GANG MOWER OPERATOR) Narrative Vega Renee MD - 06/30/2024 3:08 PM GANG MOWER OPERATOR Vega Renee MD ? 06/30/2024 ??3:19 PM [...] Menendez MD - 04/26/2023 10:34 AM CDT [facility] Endoscopy Lab Patient Name: Harriet Meade Procedure [...] CRNA (Anesthesia Staff), Bhavana Bragg RN,Raymond Flynn, Transportation Superintendent Referring MD: Vega Renee M.D. Medicines: Monitored [...] by the physician, the nurse and the bead worker sewing in the procedure room. Mental Status Examination: [...] pathology results. Procedure Code(s): --- Professional --- 58169, Colonoscopy, flexible; with biopsy, singleor multiple Diagnosis Code(s): --- Professional --- Z12.11, Encounter for screening for malignantneoplasm of colon D12.7, Benign neoplasm of rectosigmoid junction K62.89, Other specified diseases of anus andrectum K57.30, Diverticulosis of large intestine without perforation or abscess without bleeding CPT copyright 2020 [employer]. All rights reserved. The codes documented in this report are preliminary and upon medical coder reviewmay be revised to meet current compliance requirements. Electronically signed by Johnnie Menendez M.D. Johnnie Menendez M.D. 04/26/2023 11:05:22 AM Number of Addenda: 0 Note Initiated On: 04/26/2023 10:34 AM Johnnie Menendez MD ENDOSCOPY PROCEDURES Fi nal Result * HM MAMMOGRAPHY (12/28/2022) Historical Provider HEALTH MAINTENANCE Final Result * PAP SMEAR WITH HPV (12/06/2022) Historical Provider HEALTH MAINTENANCE Final Result from Last 3 Months or Most Recently Relevant to Health Maintenance Insurance [facility] Care Teams Anesthesia Resident Relationship Specialty Start Date End Date Vega Renee MD [address] [facility] [address] [place] [address] PCP - General Family Medicine 03/06/23 Tai Burk MD [address] [place] [address] [address] [place] [address] Referring Physician Psychiatry 03/06/23 Willie Starks DC [address] [place] [id number] Referring Physician Chiropractic Medicine 03/06/23
--- OUTSIDE RECORDS SUMMARY | 2024-09-03 07:27 | XMS_ITS | Patient Health Record ---
Author Organization [facility] [employer] Address [address] [place] [address] Care Team Providers Care Heavy Forger Helper Name Role Phone Anselmo Bethea Unavailable [phone] Migration, Provider Unavailable Unavailable Allergies Allergen (clinical drug ingredient) Drug/Non Drug Allergy documented on EMR Reaction Allergy Type Onset Date Status semaglutide Ozempic Unknown Drug Allergy 12/24/2023 Acti ve codeine Codeine Unknown Drug Allergy 12/24/2023 Active Reason For Referral No Information Medications Medication SIG (Take, Route, Fr equency, Duration) Notes Start Date End Date Status Diclofenac Sodium 75 MG Oral 12/24/2023 Active Trokendi XR 50 MG TAKE 1 CAPSULE BY MO UTH DAILY Oral for 30 Days Active Estradiol 0.5 MG TAKE 1 TABLET BY ZAC TH DAILY Oral for 30 Days Active DULoxetine HCl 60 MG TAKE 1 CAPSULE DAILY Active Immunizations Vaccine Route Administration Date Status Comme [...] 03/24/2024 Encounters Encounter Location Date Provider Diagnosis [facility] [address] [facility] 162 [facility] [address] [place] [address] 09/24/2023 [place] Generalized anxiety disorder F41.1 and Major depressive disorder, recurrent, moderate F33.1 [place] [id number] [facility] [address] [address] 12/24/2023 [place] Generalized anxiety disorder F41.1 and Major depressive disorder, recurrent, moderate F33.[address] [address] 03/24/2024 [place] Major depressive disorder, recurrent, moderate F33.1 and Generalized anxiety disorder F41.[address] [address] 12/22/2023 Provider Migration [address] [address] 12/23/2023 Provider Migration Assessments Encounter Date Diagnosis (ICD Code) Assessment Notes Treatment Notes Treatment Clinical Notes Section Notes 03/24/2024 Major depressive disorder, recurrent, moderate (ICD-10 - F33.1) 03/24/2024 Generalized anxiety disorder (ICD-10 - F41.1) 12/24/2023 Major depressive disorder, recurrent, moderate (ICD-10 - F33.1) 12/24/2023 Generalized anxiety disorder (ICD-10 - F41.1) 09/24/2023 Major depressive disorder, recurrent, moderate (ICD-10 - F33.1) 09/24/2023 Generalized anxiety disorder (ICD-10 - F41.1) Plan Of Treatment No Information Insurance Providers Payer Name Payer Address Payer Phone Subscriber Number Group Number Insured Name Patient Relationship to Insured Coverage Start Date Coverage End Date [facility] [address] [place] [phone] [id number] MILDRED ALFARO Self - patient is the insured Medical (General) History Medical History History ICD Code Problems: Body mass index 30+ - obesity Generalized anxiety disorder Long-term drug therapy Moderate recurrent major depression Nausea and vomiting Periodic limb movement disorder Primary insomnia Restless legs , Surgical History Surgery Date(Month/Year) Appendectomy (89371) Hysterectomy/revise vagina (27664) Other Endometr ablate thermal (61890) Appendectomy (70796) 08/06/2014 Any surgical history 11/04/2001 Endometrial ablation (01730) 11/04/2006 Hysterectomy (25537) 07/06/2002 Other 07/17/2006 Other 07/20/2006
--- OUTSIDE RECORDS SUMMARY | 2024-09-03 07:27 | XMS_ITS ---
Author Organization [facility] [facility] Address [address] [facility] [address] [place] [address] Care Team Providers Care Freelance Patternmaker Name Role Phone Andre Wells Unavailable [phone] Encounters Encounter Location Date Provider Diagnosis [facility] [employer] [facility] [address] [facility] [address] [place] [address] 07/31/2024 Andre Wells Plan Of Treatment No Information Progress Notes * MILDRED ALFARODOB: [birth year] (49 yo F)Acc No.[id number]:07/31/2024 Patient:?MILDRED ALFARO Provider:?ANDRE WELLS MD :1975???Age:48 Y???Sex:Female D ate:07/31/2024 Address:[facility] [address] , [facility] Subjective: * Chief Complaints: * ??? * Medical History:? Objective: * Vitals:? Assessment: Plan: * Treatment: * Billing Information: * Visit Code:? * Procedure Codes:? * Electronic signature of Beverley Wells MD on 09/03/2024 at 07:26 AM SALSA DANCE INSTRUCTOR Sign off status: Pending * Provider:?ANDRE WELLS MD Date:? 024 Generated for Printi ng/Fasaurabhg/eTransmitting on:?09/03/2024 07:26 AM SALSA DANCE INSTRUCTOR
[2024-09-03 09:07] LABS: Add Urine Microscopic? YES; Appearance Urine Cloudy (Clear); Bacteria Urine 1+ /hpf; Bilirubin Urine Negative (Negative); Blood Urine Negative (Negative); Color Urine Yellow (Yellow); Glucose Urine UA Negative (Negative); Ketones Urine Trace mg/dL (Negative); Leukocyte Esterase Ur Negative LEU/UL (Negative); Mucus Urine Present /lpf; Need Manual Microscopic Reviewed; Nitrate Urine Negative (Negative); Protein Urine 1+ mg/dL (Negative); Specific Grav Ur 1.018 (1.001-1.035); Squamous Epithelial Cell Urine Moderate /hpf (Few); WBC Urine 0-5 /hpf (0-3)
[2024-09-03 09:41] LABS: INR 0.9
== END 2024-09-03 07:24 | disposition home or self-care (01) ==
LOC: ANHLAB 07:24
PROVIDERS: PCP Family Medicine; Visit Provider Urology
DX: Z01.818 Encounter for other preprocedural examination (principal); N20.0 Calculus of kidney
CPT/HCPCS: 36415; 81001; 85610; 85730

== ENCOUNTER 2024-09-05 03:01 | Day surgery (SDC) | payer OTHER, SELFPAY ==
[2024-09-02 09:39] VITALS: BMI 33.3
--- NOTE | 2024-09-02 09:44 | PC.NURSE ---
Report to the Outpatient Waiting Room, entrance under the green pavilion located off [facility], at time _0630_ on date _[id number]_. Planned Procedure Time: _0830_.? Time changes happen often and if your time is changed the preop area will call you the afternoon before. - You and your visitor will be asked to self-screen and do not enter if you have any COVID symptoms. Please call surgeon if you need to reschedule. - A mask is optional within the hospital at this time. Patients may have clear liquids (water, carbonated beverages, clear teas, apple juice) until 3 hours prior to surgery with a maximum of 20 ounces. - No food from midnight until time of surgery and no smoking. This includes no chewing gum, candy or mints. Take only the following medications with a SIP of water on the morning of surgery: ___Duloxetine DO NOT STOP ANY OF YOUR OTHER PRESCRIPTION MEDICATIONS PRIOR TO SURGERY EXCEPT THE FOLLOWING Medications to discontinue per physician __None Date to take last dose Hold all vitamins and supplements for 3 days per anesthesiologist. Please no make-up, nail swedish, hairspray, perfume, deodorant, or body powder the day of surgery.? No jewelry (including any body piercings) or valuables the day of surgery, leave them at home.? Please take a shower or bath the night before, or the morning of, surgery with an antibacterial soap.? Wear comfortable, loose fitting clothing.? - Jewelry must be removed prior to entering the operating room.? Rings and piercings that are not removed may be cut off. - The hospital will not accept responsibility for valuables.? - Please leave all valuables, including medications, at home the day of surgery. If you are going home after surgery, a licensed pick up driver must drive you home.? - NO public transportation without another adult if you receive anesthesia. - We recommend that an adult stay with you for 24 hours following discharge. - We also recommend that you do not drive, make important decision, drink alcoholic beverages, or take any drugs that were not prescribed by your health care provider for at least 24 hours after your discharge time. Follow any additional instructions given to you from your surgeon. Telephone instructions given to _Luz____and asked if any additional questions and then verbalized understanding. Patient advised to call surgeon office or pre surgery nurse liaison [phone] if any additional questions.
--- NOTE | 2024-09-02 16:16 | PC.NURSE ---
Report to the Outpatient Waiting Room, entrance under the green pavilion located off [facility], at time _0900_ on date _[phone]_. Planned Procedure Time: _1100_.? Time changes happen often and if your time is changed the preop area will call you the afternoon before. - You and your visitor will be asked to self-screen and do not enter if you have any COVID symptoms. Please call surgeon if you need to reschedule. - A mask is optional within the hospital at this time. Patients may have clear liquids (water, carbonated beverages, clear teas, apple juice) until 3 hours prior to surgery with a maximum of 20 ounces. - No food from midnight until time of surgery and no smoking. This includes no chewing gum, candy or mints. Take only the following medications with a SIP of water on the morning of surgery: ___Citalopram DO NOT STOP ANY OF YOUR OTHER PRESCRIPTION MEDICATIONS PRIOR TO SURGERY EXCEPT THE FOLLOWING Medications to discontinue per physician ___Indomethacin Date to take last dose___Stop now. Hold all vitamins and supplements for 3 days per anesthesiologist. Please no make-up, nail [place], hairspray, perfume, deodorant, or body powder the day of surgery.? No jewelry (including any body piercings) or valuables the day of surgery, leave them at home.? Please take a shower or bath the night before, or the morning of, surgery with an antibacterial soap.? Wear comfortable, loose fitting clothing.? - Jewelry must be removed prior to entering the operating room.? Rings and piercings that are not removed may be cut off. - The hospital will not accept responsibility for valuables.? - Please leave all valuables, including medications, at home the day of surgery. If you are going home after surgery, a licensed diesel truck driver must drive you home.? - NO public transportation without another adult if you receive anesthesia. - We recommend that an adult stay with you for 24 hours following discharge. - We also recommend that you do not drive, make important decision, drink alcoholic beverages, or take any drugs that were not prescribed by your health care provider for at least 24 hours after your discharge time. Follow any additional instructions given to you from your surgeon. Telephone instructions given to ___Kim__and asked if any additional questions and then verbalized understanding. Patient advised to call surgeon office or pre surgery nurse liaison [phone] if any additional questions.
[2024-09-05] VITALS (15 sets, daily range): BP systolic 113–137; BP diastolic 72–89; PULSE 82–101; RESP 12–16; TEMP 36.2–36.3; O2SAT 93–100; BMI 33.9
--- NOTE | ~2024-09-05 | XR_ITS ---
XR abdomen/kub 1V 09/05/2024 09:13 Indication: Preop ESWL. Renal stones Procedure: KUB Comparison: 08/25/2024 Findings: There are clustered stones in the lower pole of the right kidney, largest measuring 8 mm. B owel gas pattern nonobstructive. Lung bases unremarkable. No acute osseous abnormality. Impression: 1: Right nephrolithiasis. Reviewed, dictated and finalized at location A. GRAPHIC INSTRUMENT SUPERVISOR Impression: 1: Right nephrolithiasis.
--- OUTSIDE RECORDS SUMMARY | 2024-09-05 03:04 | XMS_ITS | Referral Summary ---
Author Organization [facility] [address] Address [address] [place] [address] Care Team Providers Care Blind Stitch Machine Operator Name Role Phone Tai Burk MD Unavailable [phone] Willie Starks DC Unavailable [phone] Vega Renee MD Primary Care Provider [phone] Encounters Date Type Department Care Team Description 08/18/2024 1:35 PM BAND MAKER - 08/18/2024 11:59 PM BAND MAKER [place] [address] Dyslipidemia Discharge Disposition: Discharge to home or self care 08/18/2024 1:45 PM BAND MAKER Lab [facility] Outpatient Lab at [address] [address] Encounter for medical examination to establish care (Primary Dx) 08/18/2024 1:00 PM BAND MAKER Office Visit [facility] Primary Care at [address] [address] Sarika Chopra NP Pyelonephritis (Primary Dx); Hx of bladder infections; Right nephrolithiasis; Hospital discharge follow-up 08/12/2024 Orders Only [facility] Primary Care at [address] [address] Sarika Chopra NP 08/12/2024 Telephone [facility] Medical [facility] Primary Care at [address] [address] Vega Renee MD ISADORA Questions 07/04/2024 Orders Only [facility] Primary Care at [address] [address] Vega Renee MD Chronic neck pain with osteoarthritis determined by x-ray (Primary Dx) 06/30/2024 3:20 PM BAND MAKER Ancillary Procedure [facility] Imaging at [address] [address] Chest pain, unspecified type; Radicular pain in left arm 06/30/2024 2:45 PM BAND MAKER Office Visit [facility] Primary Care at [address] [address] Vega Renee MD Chest pain, unspecified type (Primary Dx); Radicular pain in left arm 06/26/2024 Nurse Triage [facility] Primary Care at [address] [address] Mariann Benson RN from Last [...] 08/18/2024 Assessment & Plan (08/18/2024 1:47 PM BAND MAKER): 7mm right kidney. Follow up with Dr. Pink as scheduled. Pyelonephritis 08/18/2024 Assessment & Plan (08/18/2024 1:47 PM BAND MAKER): Symptoms resolved. 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 Not on file Not on file N ot on file Last Filed Vital Signs Vital Sign Reading Time Taken Comments Blood Pressure 132/84 08/18/2024 1:03 PM BAND MAKER Pulse 118 08/18/2024 1:03 PM BAND MAKER Temperature 36.7 ??C (98 ??F) 08/18/2024 1:03 PM BAND MAKER Respiratory Rate 18 08/18/2024 1:03 PM BAND MAKER Oxygen Saturation 97% 08/18/2024 1:03 PM BAND MAKER Inhaled Oxygen Concentration - - Weight 80 kg (176 lb 6.4 oz) 08/18/2024 1:03 PM BAND MAKER Height 152.4 cm (5') 08/18/2024 1:03 PM BAND MAKER Body Mass Index 34.45 08/18/2024 1:03 PM BAND MAKER Plan of Treatment Not on file Procedures Procedure Name Priority Date/Time Associated Diagnosis Comments EGFR Routine 08/18/2024 1:40 PM BAND MAKER Dyslipidemia DIFFERENTIAL AUTO Routine 08/18/2024 1:4 0 PM BAND MAKER Dyslipidemia CBC WITH AUTO DIFFERENTIAL Routine 08/18/2024 1:40 PM BAND MAKER Dyslipidemia COMPREHENSIVE METABOLIC PANEL Routine 08/18/2024 1:40 PM BAND MAKER Dyslipidemia LIPID PANEL Routine 08/18/2024 1:40 PM BAND MAKER Dyslipidemia POCT URINALYSIS DIPSTICK Routine 08/18/2024 1:32 PM BAND MAKER Hx of bladder infections XR SPINE CERVICAL 2 OR 3 VIEWS Schedule Routine, Read Routine (OP Routine) 06/30/2024 3:24 PM BAND MAKER Chest pain, unspecified type Radicular pain in left arm ECG 12-LEAD Routine 06/30/2024 3:08 PM BAND MAKER Chest pain, unspecified type COLONOSCOPY 04/26/2023 10:34 AM CDT HM MAMMOGRAPHY Routine 12/28/2022 HM PAP SMEAR WITH HPV Routine 12/06/2022 from Last 3 Months or Most Recently Relevant to Health Maintenance Results * eGFR (08/18/2024 1:40 PM BAND MAKER) eGFR 84 >=60 mL/min/1. 73 m2 Comment: [...] last reviewed 2021. Blood 08/18/2024 1:40 PM BAND MAKER 08/19/2024 10:27 AM BAND MAKER us Vega Renee MD LAB BLOOD ORDERABLES Edited Result - Final TAMIE [id number] Department [place] [address] * (ABNORMAL) Differential, auto (08/18/2024 1:40 PM BAND MAKER) Neutrophil abs 5.5 1.5 - 6.5 K/cumm Comment:Collection date/time has been modified to: 13:40:00. Previous collection date/time: 10:07:29. Imm gran abs 0.0 0.0 - 0.1 K/cumm [facility] Comment:Collection date/time has been modified to: 13:40:00. Previous collection date/time: 10:07:29. Lymphocyte abs 4.3(H) 0.8 - 3.3 K/cumm [facility] Comment:Collection date/time has been modified to: 13:40:00. Previous collection date/time: 10:07:29. Monocyte abs 0.7 0.2 - 0.8 K/cumm [facility] Comment:Collection date/time has been modified to: 13:40:00. Previous collection date/time: 10:07:29. Eosinophil abs 1.0(H) 0.0 - 0.5 K/cumm [facility] Comment:Collection date/time has been modified to: 13:40:00. Previous collection date/time: 10:07:29. Basophil abs 0.1 0.0 - 0.1 K/cumm [facility] Comment:Collection date/time has been modified to: 13:40:00. Previous collection date/time: 10:07:29. Neutrophil pct 47.3 % [facility] Comment: Collection date/time has been modified to: [...] revised on 2017. Blood 08/18/2024 1:40 PM BAND MAKER 08/19/2024 10:07 AM BAND MAKER us Vega Renee MD LAB BLOOD ORDERABLES Edited Result - Final TAMIE [id number] Department [place] [address] * (ABNORMAL) CBC with auto differential (08/18/2024 1:40 PM BAND MAKER) WBC 11.6(H) 3.8 - 9.9 K/cumm Comment:Collection [...] collection date/time: 10:07:29. Blood 08/18/2024 1:40 PM BAND MAKER 08/19/2024 10:07 AM BAND MAKER us Vega Renee MD LAB BLOOD ORDERABLES Edited Result - Final [id number] Department [place] [address] * (ABNORMAL) Lipid panel (08/18/2024 1:40 PM BAND MAKER) Cholesterol 225(H) 30 - 199 mg/dL Comment: [...] revised on 2018. HDL 50 >=40 mg/dL [facility] Comment: Collection date/time has been modified [...] collection date/time: 10:07:29. Blood 08/18/2024 1:40 PM BAND MAKER 08/19/2024 10:07 AM BAND MAKER us Vega Renee MD LAB BLOOD ORDERABLES Edited Result - Final TAMIE [id number] Department [place] [address] * Comprehensive metabolic panel (08/18/2024 1:40 PM BAND MAKER) Sodium 137 135 - 145 mmol/L Comment:Collection [...] Anion gap 13 2 - 15 mmol/L [facility] Comment:Collection date/time has been modified to: 13:40:00. Previous collection date/time: 10:07:29. BUN 13 6 - 25 mg/dL [facility] Comment:Collection date/time has been modified to: 13:40:00. Previous collection date/time: 10:07:29. Creatinine 0.86 0.60 - 1.10 mg/dL [facility] Comment:Collection date/time has been modified to: 13:40:00. Previous collection date/time: 10:07:29. Glucose 87 70 - 199 mg/dL [facility] Comment: Collection date/time has been modified [...] 2022. Calcium 9.2 8.5 - 10.3 mg/dL [facility] Comment:Collection date/time has been modified to: 13:40:00. Previous collection date/time: 10:07:29. Bilirubin, total 0.5 0.1 - 1.2 mg/dL [facility] Comment:Collection date/time has been modified to: 13:40:00. Previous collection date/time: 10:07:29. Protein, pl 7.0 6.5 - 8.5 g/dL [facility] Comment:Collection date/time has been modified to: [...] collection date/time: 10:07:29. Blood 08/18/2024 1:40 PM BAND MAKER 08/19/2024 10:07 AM BAND MAKER us Vega Renee MD LAB BLOOD ORDERABLES Edited Result - Final TAMIE [id number] Department [place] [address] * (ABNORMAL) POCT urinalysis dipstick (08/18/2024 1:32 PM BAND MAKER) Color, Urine, POC Yellow Clarity, ur, POC Clear Clear Glucose, ur, POC Negative Negative MG/DL Bilirubin, ur, POC Negative Negative, Small, Moderate, Large Ketones, ur, POC Negative Negative Specific [place], POC 1.020 1.003 - 1.030 Blood, ur, POC Negative Negative pH, ur, POC 7.0 5.0 - 8.0 Protein, ur, POC Trace(A) Negative Urobilinogen, urine, POC 1.0 0.2 - 1.0 mg/dL Nitrite, ur, POC Negative Negative Leukocytes, ur, POC Negative Negative Lot Number 0 Urine 08/18/2024 1:32 PM BAND MAKER Sarika Chopra NP POINT OF CARE TEST ORDERABLES Fi nal Result * XR Spine Cervical 2 or 3 Views (06/30/2024 3:24 PM BAND MAKER) Anatomical Region Laterality Modality Spine N/A Digital Radiogra phy 07/03/2024 8:32 AM BAND MAKER Narrative 07/03/2024 8:33 AM BAND MAKER EXAM DESCRIPTION: XR SPINE CERVICAL 2 OR [...] D: ??07/03/2024 8:33 AM T: Report ID: [id number] Reading Location: ??[id number] Procedure Note Antony Jackson MD - 07/03/2024 [...] by Antony Jackson M.D. T: Report ID: [id number] Reading Location: [id number] Vega Renee MD IMG XR PROCEDURES Final Res ult * ECG 12-LEAD (06/30/2024 3:08 PM BAND MAKER) Narrative Vega Renee MD - 06/30/2024 3:08 PM BAND MAKER Vega Renee MD ? 06/30/2024 ??3:19 PM [...] Menendez MD - 04/26/2023 10:34 AM CDT [facility] Patient Name: Harriet Meade Procedure [...] CRNA (Anesthesia Staff), Bhavana Bragg RN,Raymond Flynn, Preparation Plant Repairer Referring MD: Vega Renee M.D. Medicines: Monitored [...] by the physician, the nurse and the spindle frame carver in the procedure room. Mental Status Examination: [...] pathology results. Procedure Code(s): --- Professional --- 31148, Colonoscopy, flexible; with biopsy, singleor multiple Diagnosis Code(s): --- Professional --- Z12.11, Encounter for screening for malignantneoplasm of colon D12.7, Benign neoplasm of rectosigmoid junction K62.89, Other specified diseases of anus andrectum K57.30, Diverticulosis of large intestine without perforation or abscess without bleeding CPT copyright 2020 [employer]. All rights reserved. The codes documented in this report are preliminary and upon wastewater analyst reviewmay be revised to meet current compliance [...] Most Recently Relevant to Health Maintenance Insurance [facility] CHOICE PLUS [facility] CHOICE PLUS Care Teams Blind Stitch Machine Operator Relationship Specialty Start Date End Date Vega Renee MD [address] [facility] [address] [place] [address] PCP - General Family Medicine 03/06/23 Tai Burk MD [address] [place] [address] [address] [place] [address] Referring Physician Psychiatry 03/06/23 Willie Starks DC [address] [place] [id number] Referring Physician Chiropractic Medicine 03/06/23
--- OUTSIDE RECORDS SUMMARY | 2024-09-05 03:04 | XMS_ITS | Clinical Summary ---
Author Organization [facility] Address [address] [place] [address] Phone Care Team Providers Care Regional Wildlife Agent Name Role Phone Rio Lyon MD Primary Care Provider [phone] Allergies Active Allergy Reactions Criticality Noted Date [...] [address] [place] [address] Other: Problem Noted Date Diagnosed Date Family [...] on file Legal Sex Female 5:50 AM WATCH REPAIRER APPRENTICE Gender Identity Not on file Sexual Orientation [...] DIAGNOSTIC MAMMOGRAM DATE: 12/29/2020 DICTATION LOCATION: ??[facility] HISTORY: Abnormal enhancement within the lateral left [...] Most Recently Relevant to Health Maintenance Insurance [place] [id number] Care Teams Regional Wildlife Agent Relationship Specialty Start Date End Date Rio Lyon MD [address] [place] [id number] PCP - General Family Practice 07/05/10
--- OUTSIDE RECORDS SUMMARY | 2024-09-05 03:04 | XMS_ITS | Clinical Summary ---
Author Organization [facility] [address] Address [address] [place] [address] Care Team Providers Care Brine Tank Operator Name Role Phone Tai Burk MD Unavailable [phone] Willie Starks DC Unavailable [phone] Vega Renee MD Primary Care Provider [phone] Allergies Active Allergy Reactions Criticality Noted Date [...] 08/18/2024 Assessment & Plan (08/18/2024 1:47 PM HISTORIC SITES SUPERVISOR): 7mm right kidney. Follow up with Dr. Pink as scheduled. Pyelonephritis 08/18/2024 Assessment & Plan (08/18/2024 1:47 PM HISTORIC SITES SUPERVISOR): Symptoms resolved. She has one day of [...] Department Care Team Description 08/18/2024 1:45 PM HISTORIC SITES SUPERVISOR Lab [facility] Outpatient Lab at [address] [phone] Encounter for medical examination to establish care (Primary Dx) 08/18/2024 1:35 PM HISTORIC SITES SUPERVISOR - 08/18/2024 11:59 PM HISTORIC SITES SUPERVISOR Hospital Encounter [address] [address] Dyslipidemia Discharge Disposition: Discharge to home or self care 08/18/2024 1:00 PM HISTORIC SITES SUPERVISOR Office Visit [facility] Primary Care at [address] [phone] Sarika Chopra NP Pyelonephritis (Primary Dx); Hx of bladder infections; Right nephrolithiasis; Hospital discharge follow-up 08/12/2024 Orders Only [facility] Primary Care at [address] [phone] Sarika Chopra NP 08/12/2024 Telephone [facility] Primary Care at [address] [phone] Vega Renee MD ISADORA Questions 07/04/2024 Orders Only [facility] Primary Care at [address] [phone] Vega Renee MD Chronic neck pain with osteoarthritis determined by x-ray (Primary Dx) 06/30/2024 3:20 PM HISTORIC SITES SUPERVISOR Ancillary Procedure [facility] Imaging at [address] [phone] Chest pain, unspecified type; Radicular pain in left arm 06/30/2024 2:45 PM HISTORIC SITES SUPERVISOR Office Visit [facility] Primary Care at [address] [phone] Vega Renee MD Chest pain, unspecified type (Primary Dx); Radicular pain in left arm 06/26/2024 Nurse Triage [facility] Primary Care at [address] [phone] Mariann Benson RN from Last [...] on file Legal Sex Female 6:23 AM HISTORIC SITES SUPERVISOR Gender Identity Not on file Sexual Orientation Not on file 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 Not on file N ot on file Obstetrics History Last Filed Vital Signs Vital Sign Reading Time Taken Comments Blood Pressure 132/84 08/18/2024 1:03 PM HISTORIC SITES SUPERVISOR Pulse 118 08/18/2024 1:03 PM HISTORIC SITES SUPERVISOR Temperature 36.7 ??C (98 ??F) 08/18/2024 1:03 PM HISTORIC SITES SUPERVISOR Respiratory Rate 18 08/18/2024 1:03 PM HISTORIC SITES SUPERVISOR Oxygen Saturation 97% 08/18/2024 1:03 PM HISTORIC SITES SUPERVISOR Inhaled Oxygen Concentration - - Weight 80 kg (176 lb 6.4 oz) 08/18/2024 1:03 PM HISTORIC SITES SUPERVISOR Height 152.4 cm (5') 08/18/2024 1:03 PM HISTORIC SITES SUPERVISOR Body Mass Index 34.45 08/18/2024 1:03 PM HISTORIC SITES SUPERVISOR Plan of Treatment Health Maintenance Due Date [...] Diagnosis Comments EGFR Routine 08/18/2024 1:40 PM HISTORIC SITES SUPERVISOR Dyslipidemia DIFFERENTIAL AUTO Routine 08/18/2024 1:4 0 PM HISTORIC SITES SUPERVISOR Dyslipidemia CBC WITH AUTO DIFFERENTIAL Routine 08/18/2024 1:40 PM HISTORIC SITES SUPERVISOR Dyslipidemia COMPREHENSIVE METABOLIC PANEL Routine 08/18/2024 1:40 PM HISTORIC SITES SUPERVISOR Dyslipidemia LIPID PANEL Routine 08/18/2024 1:40 PM HISTORIC SITES SUPERVISOR Dyslipidemia POCT URINALYSIS DIPSTICK Routine 08/18/2024 1:32 PM HISTORIC SITES SUPERVISOR Hx of bladder infections XR SPINE CERVICAL 2 OR 3 VIEWS Schedule Routine, Read Routine (OP Routine) 06/30/2024 3:24 PM HISTORIC SITES SUPERVISOR Chest pain, unspecified type Radicular pain in left arm ECG 12-LEAD Routine 06/30/2024 3:08 PM HISTORIC SITES SUPERVISOR Chest pain, unspecified type COLONOSCOPY 04/26/2023 10:34 AM CDT HM MAMMOGRAPHY Routine 12/28/2022 HM PAP SMEAR WITH HPV Routine 12/06/2022 from Last 3 Months or Most Recently Relevant to Health Maintenance Results * eGFR (08/18/2024 1:40 PM HISTORIC SITES SUPERVISOR) eGFR 84 >=60 mL/min/1. 73 m2 Comment: [...] last reviewed 2021. Blood 08/18/2024 1:40 PM HISTORIC SITES SUPERVISOR 08/19/2024 10:27 AM HISTORIC SITES SUPERVISOR us Vega Renee MD LAB BLOOD ORDERABLES Edited Result - Final TAMIE [id number] [address] Department [place] [address] * (ABNORMAL) Differential, auto (08/18/2024 1:40 PM HISTORIC SITES SUPERVISOR) Neutrophil abs 5.5 1.5 - 6.5 K/cumm Comment:Collection date/time has been modified to: 13:40:00. Previous collection date/time: 10:07:29. Imm gran abs 0.0 0.0 - 0.1 K/cumm [facility] Comment:Collection date/time has been modified to: 13:40:00. Previous collection date/time: 10:07:29. Lymphocyte abs 4.3(H) 0.8 - 3.3 K/cumm C[facility]ER Comment:Collection date/time has been modified to: 13:40:00. Previous collection date/time: 10:07:29. Monocyte abs 0.7 0.2 - 0.8 K/cumm [facility] Comment:Collection date/time has been modified to: 13:40:00. Previous collection date/time: 10:07:29. Eosinophil abs 1.0(H) 0.0 - 0.5 K/cumm [facility] Comment:Collection date/time has been modified to: 13:40:00. Previous collection date/time: 10:07:29. Basophil abs 0.1 0.0 - 0.1 K/cumm [facility] Comment:Collection date/time has been modified to: 13:40:00. Previous collection date/time: 10:07:29. Neutrophil pct 47.3 % [facility] Comment: Collection date/time has been modified to: 13:40:00. ??Previous collection date/time: 10:07:29. Interpretive Data Percent cell count reference ranges are not reported, since discordance with absolute values may lead to misinterpretation of CBC data. Current Interpretive Data was last revised on 2017. Imm gran pct 0.3 % [facility] Comment: Collection date/time has been modified to: 13:40:00. ??Previous collection date/time: 10:07:29. Interpretive Data Percent cell count reference ranges are not reported, since discordance with absolute values may lead to misinterpretation of CBC data. Current Interpretive Data was last revised on 2017. Lymphocyte pct 37.1 % [facility] Comment: Collection date/time has been [...] revised on 2017. Blood 08/18/2024 1:40 PM HISTORIC SITES SUPERVISOR 08/19/2024 10:07 AM HISTORIC SITES SUPERVISOR us Vega Renee MD LAB BLOOD ORDERABLES Edited Result - Final TAMIE [id number] [address] Department [place] [address] * (ABNORMAL) CBC with auto differential (08/18/2024 1:40 PM HISTORIC SITES SUPERVISOR) WBC 11.6(H) 3.8 - 9.9 K/cumm Comment:Collection [...] collection date/time: 10:07:29. Blood 08/18/2024 1:40 PM HISTORIC SITES SUPERVISOR 08/19/2024 10:07 AM HISTORIC SITES SUPERVISOR us Vega Renee MD LAB BLOOD ORDERABLES Edited Result - Final TAMIE [address] [address] Department [place] [address] * (ABNORMAL) Lipid panel (08/18/2024 1:40 PM HISTORIC SITES SUPERVISOR) Cholesterol 225(H) 30 - 199 mg/dL Comment: [...] collection date/time: 10:07:29. Blood 08/18/2024 1:40 PM HISTORIC SITES SUPERVISOR 08/19/2024 10:07 AM HISTORIC SITES SUPERVISOR us Vega Renee MD LAB BLOOD ORDERABLES Edited Result - Final TAMIE [address] [address] Department [place] [address] * Comprehensive metabolic panel (08/18/2024 1:40 PM HISTORIC SITES SUPERVISOR) Sodium 137 135 - 145 mmol/L Comment:Collection [...] Alk phos 68 40 - 130 Units/L [facility] Comment:Collection date/time has been modified to: 13:40:00. Previous collection date/time: 10:07:29. ALT 19 7 - 45 Units/L TAMIE ANGEL Comment:Collection date/time has been modified to: 13:40:00. Previous collection date/time: 10:07:29. AST 27 10 - 45 Units/L TAMIE ANGEL Comment:Collection date/time has been modified to: 13:40:00. Previous collection date/time: 10:07:29. Blood 08/18/2024 1:40 PM HISTORIC SITES SUPERVISOR 08/19/2024 10:07 AM HISTORIC SITES SUPERVISOR Vega Renee MD LAB BLOOD ORDERABLES Edited Result - Final TAMIE [id number] [address] Department [place] [address] * (ABNORMAL) POCT urinalysis dipstick (08/18/2024 1:32 PM HISTORIC SITES SUPERVISOR) Color, Urine, POC Yellow Clarity, ur, POC Clear Clear Glucose, ur, POC Negative Negative MG/DL Bilirubin, ur, POC Negative Negative, Small, Moderate, Large Ketones, ur, POC Negative Negative Specific [place], POC 1.020 1.003 - 1.030 Blood, ur, POC Negative Negative pH, ur, POC 7.0 5.0 - 8.0 Protein, ur, POC Trace(A) Negative Urobilinogen, urine, POC 1.0 0.2 - 1.0 mg/dL Nitrite, ur, POC Negative Negative Leukocytes, ur, POC Negative Negative Lot Number 0 Urine 08/18/2024 1:32 PM HISTORIC SITES SUPERVISOR Sarika Chopra NP POINT OF CARE TEST ORDERABLES Fi nal Result * XR Spine Cervical 2 or 3 Views (06/30/2024 3:24 PM HISTORIC SITES SUPERVISOR) Anatomical Region Laterality Modality Spine N/A Digital Radiogra phy 07/03/2024 8:32 AM HISTORIC SITES SUPERVISOR Narrative 07/03/2024 8:33 AM HISTORIC SITES SUPERVISOR EXAM DESCRIPTION: XR SPINE CERVICAL 2 OR [...] D: ??07/03/2024 8:33 AM T: Report ID: [id number] Reading Location: ??[id number] Procedure Note Antony Jackson MD - 07/03/2024 [...] by Antony Jackson M.D. T: Report ID: [id number] Reading Location: [id number] Vega Renee MD IMG XR PROCEDURES Final Res ult * ECG 12-LEAD (06/30/2024 3:08 PM HISTORIC SITES SUPERVISOR) Narrative Vega Renee MD - 06/30/2024 3:08 PM HISTORIC SITES SUPERVISOR Vega Renee MD ? 06/30/2024 ??3:19 PM [...] Menendez MD - 04/26/2023 10:34 AM CDT [facility] Patient Name: Harriet Meade [...] CRNA (Anesthesia Staff), Bhavana Bragg RN,Raymond Flynn, Hand Decorator Referring MD: Vega Renee M.D. Medicines: Monitored [...] by the physician, the nurse and the structural steel detailer in the procedure room. Mental Status Examination: [...] pathology results. Procedure Code(s): --- Professional --- 08182, Colonoscopy, flexible; with biopsy, singleor multiple Diagnosis Code(s): --- Professional --- Z12.11, Encounter for screening for malignantneoplasm of colon D12.7, Benign neoplasm of rectosigmoid junction K62.89, Other specified diseases of anus andrectum K57.30, Diverticulosis of large intestine without perforation or abscess without bleeding CPT copyright 2020 [employer]. All rights reserved. The codes documented in this report are preliminary and upon manager dairy reviewmay be revised to meet current compliance [...] Most Recently Relevant to Health Maintenance Insurance [facility] [employer] [facility] [employer] Care Teams Brine Tank Operator Relationship Specialty Start Date End Date Vega Renee MD [address] [place] [address] PCP - General Family Medicine 03/06/23 Tai Burk MD [address] [place] [address] Referring Physician Psychiatry 03/06/23 Willie Starks DC [address] [place] [address] Referring Physician Chiropractic Medicine 03/06/23
--- OUTSIDE RECORDS SUMMARY | 2024-09-05 03:04 | XMS_ITS | Encounter Summary ---
Author Organization [facility] Address [address] [place] [address] Care Team Providers Care Real Estate Agent Name Role Phone Tai Burk MD Unavailable [phone] Willie Starks DC Unavailable [phone] Vega Renee MD Primary Care Provider [phone] Reason for Visit * Reason Onset Date Comments ISADORA Questions 08/12/2024 Encounter Details Date Type Department Care Team (Late st Contact Info) Description 08/12/2024 Telephone [facility] Primary Care at [address] [phone] Vega Renee MD [address] [place] [address] [address] [place] [address] ISADORA Questions Social History Tobacco [...] on file Legal Sex Female 6: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 Yes Date Admitted: 08.04.24 Date Discharged: 08.06.24 Facility Admitted To: [facility] Reason for Stay? Kidney/bladder infection [...] message need to be routed? Yes-FYI Only [place] documented in this encounter Plan of Treatment Not on file documented as of this encounter Visit Diagnoses Not on filedocumented in this encounter Care Teams Real Estate Agent Relationship Specialty Start Date End Date Vega Renee MD [address] [place] [address] PCP - General Family Medicine 03/06/23 Tai Burk MD [address] [place] [address] Referring Physician Psychiatry 03/06/23 Willie Starks DC [address] [place] [address] Referring Physician Chiropractic Medicine 03/06/23 documented as of this encounter
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
--- NOTE | 2024-09-05 10:36 | WPDHPUPDATE1 ---
History and Physical Update Update Date/Time: 09/05/24 10:36 History and Physical has been reviewed, including an updated exam of the patient. There are NO changes in the patient's condition. Risks, benefits, and alternatives have been discussed and questions answered. Patient agrees to proceed with procedure. Proceed with right renal lithotripsy
[2024-09-05] MEDS: ceFAZolin 2 GM/D5W 50 ML 2 GM/50 ML BAG IVPB (10:46)
--- NOTE | 2024-09-05 11:23 | W.PM.PROC2 ---
Procedure Note - Detailed Date of Procedure 09/05/24 Pre-op Diagnosis right kidney stones Post-op Diagnosis Same Procedure Performed Lithotripsy of right renal calculi Surgeon Aj Bermudez MD Anesthesia General Description of Procedure Patient was taken to the operative suite correctly identified. Once anesthesia was obtained the stones were localized under both planes. Two thousand five hundred shocks were given to the stone. Patient tolerated procedure well without complications. There appeared to be good fragmentation. She will follow-up in 7-10 days with KUB. This completes dictation. Please send a copy of op note to my office. Estimated Blood Loss 0 Drains No Packing No Pathology None sent Complications No immediate complications Condition Stable Disposition PACU
[2024-09-05] MEDS: LACTATED RINGERS 1,000 ML 30 ML IV CONT (11:28)
[2024-09-05] MEDS: oxyCODONE HCL (*CRX) 5 MG TAB IR PO (13:15)
[2024-09-05] MEDS: fentaNYL CITRATE INJ (*CRX) 100 MCG/2 ML VIAL 25 MCG IV PUSH ×4 (14:00→14:19)
== END 2024-09-05 14:50 | disposition home or self-care (01) ==
PROVIDERS: PCP Family Medicine; Visit Provider Urology
PROC: (CPT 50590; principal; 2024-09-05 11:00)
DX: N20.0 Calculus of kidney (principal); E78.5 Hyperlipidemia, unspecified; R73.03 Prediabetes; N32.81 Overactive bladder; N30.20 Other chronic cystitis without hematuria; N12 Tubulo-interstitial nephritis, not specified as acute or chronic; F41.9 Anxiety disorder, unspecified; F32.9 Major depressive disorder, single episode, unspecified; F32.A Depression, unspecified; E66.9 Obesity, unspecified; Z68.33 Body mass index [BMI] 33.0-33.9, adult; Z98.890 Other specified postprocedural states; Z98.51 Tubal ligation status; Z80.3 Family history of malignant neoplasm of breast; Z80.42 Family history of malignant neoplasm of prostate; Z82.49 Family history of ischemic heart disease and other diseases of the circulatory system
CPT/HCPCS: 50590; 74018; A9270; J0690; J1100; J2250; J2405; J2704; J3010; J7120

== ENCOUNTER 2024-09-23 17:08 | Emergency (ER) | payer OTHER, SELFPAY ==
--- NOTE | ~2024-09-23 | XR_ITS ---
EXAM: XR knee LT 3V DATE: 09/23/2024 18:05 HISTORY: pt slipped on ice . COMPARISON: None available. FINDINGS: Normal mineralization. No fracture or dislocation. Deep lateral femoral sulcus. No lytic o r blastic lesion. Mild tricompartmental osteoarthritic change. No erosion or periosteal change. Soft tissues within normal limits. IMPRESSION: Deep lateral femoral sulcus sign which can herald the presence of an ACL tear. Trace join t fluid. Reviewed, dictated and finalized at location K. IAC CATH TECHNOLOGIST IMPRESSION: Deep lateral femoral sulcus sign which can herald the presence of a n ACL tear. Trace joint fluid.
--- NOTE | ~2024-09-23 | XR_ITS ---
EXAM: XR ankle LT min 3V DATE: 09/23/2024 18:05 HISTORY: pt slipped on ice . COMPARISON: None available. FINDINGS: Normal mineralization. No fracture or dislocation. No lytic or blastic lesion. Joint space s are maintained. No erosion or periosteal change. Soft tissues within normal limits. IMPRESSION: No acute osseous finding in the left ankle. Reviewed, dictated and finalized at location K. INE CONTAINER WASHER
--- OUTSIDE RECORDS SUMMARY | 2024-09-23 17:11 | XMS_ITS | Patient Health Record ---
Author Organization [facility] [employer] [facility] Address [address] [place] [address] Care Team Providers Care Mail Handler Equipment Operator Name Role Phone Anselmo Bethea Unavailable [phone] Migration, Provider Unavailable Unavailable Allergies Allergen (clinical [...] DULoxetine HCl 60 MG TAKE 1 CAPSULE RODRICK Y Oral Once a day for 90 days Active Immunizations Vaccine Route Administration Date Status Comme nts Moderna Covid-19 Vaccine 1st dose Unknown 09/25/2020 Ad ministered Moderna Covid-19 Vaccine 1st dose Unknown 10/23/2020 Ad ministered Moderna Covid-19 Vaccine 1st dose Unknown 07/31/2021 Ad ministered Social History Sex Assigned At : Social History Observation Description Sex Assigned At Female Vital Signs Heart Rate 89 /min 03/24/2024 Height-cm 152.40 cm 03/24/2024 Blood pressure diastolic 72 mm Hg 03/24/2024 Weight-kg 79.65 kg 03/24/2024 Height 60.00 in 03/24/2024 Blood pressure systolic 103 mm Hg 03/24/2024 Weight 175.6 lbs 03/24/2024 BMI 34.29 kg/m2 03/24/2024 Encounters Encounter Location Date Provider Diagnosis [place] [id number] [facility] [address] [address] 09/24/2023 [place] Generalized anxiety disorder F41.1 and Major depressive disorder, recurrent, moderate F33.1 [place] [address] [facility] [address] [address] 12/24/2023 [place] Generalized anxiety disorder F41.1 and Major depressive disorder, recurrent, moderate F33.[address] [address] 03/24/2024 [place] Major depressive disorder, recurrent, moderate F33.1 and Generalized anxiety disorder F41.1 [place] [address] [facility] [address] [address] 12/22/2023 Provider Migration [place] [address] [facility] [address] [address] 12/23/2023 Provider Migration [place] [address] [facility] [address] [address] 09/15/2024 [place] Major depressive disorder, recurrent, moderate F33.1 Assessments Encounter Date Diagnosis (ICD Code) Assessment Notes Treatment Notes Treatment Clinical Notes Section Notes 09/24/2023 Major depressive disorder, recurrent, moderate (ICD-10 - F33.1) 09/24/2023 Generalized anxiety disorder (ICD-10 - F41.1) 09/15/2024 Major depressive disorder, recurrent, moderate (ICD-10 - F33.1) 03/24/2024 Major depressive disorder, recurrent, moderate (ICD-10 - F33.1) 03/24/2024 Generalized anxiety disorder (ICD-10 - F41.1) 12/24/2023 Major depressive disorder, recurrent, moderate (ICD-10 - F33.1) 12/24/2023 Generalized anxiety disorder (ICD-10 - F41.1) Plan Of Treatment Next Appt Details Provider Name:Anselmo Bethea , 09/25/2024 04:30:00 PM, [facility], [facility] [address], [place], [address], Insurance Providers Payer Name Payer Address Payer Phone Subscriber Number Group Number Insured Name Patient Relationship to Insured Coverage Start Date Coverage End Date [facility] [address] [place] [phone] [id number] DOMINIC MILDRED Self - patient is the insured Medical (General) History Medical History History ICD Code Problems: Body mass index 30+ - obesity Generalized anxiety disorder Long-term drug therapy Moderate recurrent major depression Nausea and vomiting Periodic limb movement disorder Primary insomnia Restless legs , Surgical History Surgery Date(Month/Year) Appendectomy (07169) Hysterectomy/revise vagina (68660) Other Endometr ablate thermal (47077) Appendectomy (58379) 08/06/2014 Any surgical history 11/04/2001 Endometrial ablation (90920) 11/04/2006 Hysterectomy (47324) 07/06/2002 Other 07/17/2006 Other 07/20/2006
--- OUTSIDE RECORDS SUMMARY | 2024-09-23 17:11 | XMS_ITS | Referral Summary ---
Author Organization [facility] [place] [address] [place] Address [address] [place] [id number] Care Team Providers Care Stamp Machine Servicer Name Role Phone Tai Burk MD Unavailable [phone] Willie Starks DC Unavailable [phone] Vega Renee MD Primary Care Provider [phone] Encounters Date Type Department Care Team Description 09/05/[address] [facility] Primary Care at [address] [phone] ProviderMejia MD 08/18/2024 1:35 PM ENERGY CROP FARMER - 08/18/2024 11:59 PM ENERGY CROP FARMER Hospital Encounter [address] [address] Dyslipidemia Discharge Disposition: Discharge to home or self care 08/18/2024 1:45 PM ENERGY CROP FARM[employer] Lab [facility] Outpatient Lab at [address] [address] Encounter for medical examination to establish care (Primary Dx) 08/18/2024 1:00 PM ENERGY CROP FARMER Office Visit [facility] Primary Care at [address] [id number] Sarika Chopra NP Pyelonephritis (Primary Dx); Hx of bladder infections; Right nephrolithiasis; Hospital discharge follow-up 08/12/[address] [facility] Primary Care at [address] [phone] Sarika Chopra NP 08/12/2024 Telephone [facility] Primary Care at [address] [phone] Vega Renee MD ISADORA Questions 07/04/2024 Orders Only [facility] Primary Care at [address] [phone] Vega Renee MD Chronic neck pain with osteoarthritis determined by x-ray (Primary Dx) 06/30/2024 3:20 PM ENERGY CROP FARMER Ancillary Procedure [facility] Imaging at [address] [phone] Chest pain, unspecified type; Radicular pain in left arm 06/30/2024 2:45 PM ENERGY CROP FARMER Office Visit [facility] Primary Care at [address] [phone] Vega Renee MD Chest pain, unspecified type (Primary Dx); Radicular pain in left arm 06/26/2024 Nurse Triage [facility] Primary Care at [address] [phone] Mariann Benson RN from Last [...] 08/18/2024 Assessment & Plan (08/18/2024 1:47 PM ENERGY CROP FARMER): 7mm right kidney. Follow up with Dr. Pink as scheduled. Pyelonephritis 08/18/2024 Assessment & Plan (08/18/2024 1:47 PM ENERGY CROP FARMER): Symptoms resolved. 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 Not on file Not on file N ot on file Last Filed Vital Signs Vital Sign Reading Time Taken Comments Blood Pressure 132/84 08/18/2024 1:03 PM ENERGY CROP FARMER Pulse 118 08/18/2024 1:03 PM ENERGY CROP FARMER Temperature 36.7 C (98 F) 08/18/2024 1:03 PM ENERGY CROP FARMER Respiratory Rate 18 08/18/2024 1:03 PM ENERGY CROP FARMER Oxygen Saturation 97% 08/18/2024 1:03 PM ENERGY CROP FARMER Inhaled Oxygen Concentration - - Weight 80 kg (176 lb 6.4 oz) 08/18/2024 1:03 PM ENERGY CROP FARMER Height 152.4 cm (5') 08/18/2024 1:03 PM ENERGY CROP FARMER Body Mass Index 34.45 08/18/2024 1:03 PM ENERGY CROP FARMER Plan of Treatment Not on file Procedures Procedure Name Priority Date/Time Associated Diagnosis Comments XR ABDOMEN AP 1 VIEW Schedule Routine, Read Routine (OP Routine) 09/05/2024 11:27 AM ENERGY CROP FARMER EGFR Routine 08/18/2024 1:40 PM ENERGY CROP FARMER Dyslipidemia DIFFERENTIAL AUTO Routine 08/18/2024 1:4 0 PM ENERGY CROP FARMER Dyslipidemia CBC WITH AUTO DIFFERENTIAL Routine 08/18/2024 1:40 PM ENERGY CROP FARMER Dyslipidemia COMPREHENSIVE METABOLIC PANEL Routine 08/18/2024 1:40 PM ENERGY CROP FARMER Dyslipidemia LIPID PANEL Routine 08/18/2024 1:40 PM ENERGY CROP FARMER Dyslipidemia POCT URINALYSIS DIPSTICK Routine 08/18/2024 1:32 PM ENERGY CROP FARMER Hx of bladder infections XR SPINE CERVICAL 2 OR 3 VIEWS Schedule Routine, Read Routine (OP Routine) 06/30/2024 3:24 PM ENERGY CROP FARMER Chest pain, unspecified type Radicular pain in left arm ECG 12-LEAD Routine 06/30/2024 3:08 PM ENERGY CROP FARMER Chest pain, unspecified type COLONOSCOPY 04/26/2023 10:34 AM CDT HM MAMMOGRAPHY Routine 12/28/2022 HM PAP SMEAR WITH HPV Routine 12/06/2022 from Last 3 Months or Most Recently Relevant to Health Maintenance Results * XR Abdomen 1 View AP (09/05/2024 11:27 AM ENERGY CROP FARMER) Anatomical Region Laterality Modality Body, Abdomen N/A Radiographic Rabia ging us Historical Provider IMG XR PROCEDURES Final R esult * eGFR (08/18/2024 1:40 PM ENERGY CROP FARMER) eGFR 84 >=60 mL/min/1. 73 m2 Comment: Collection date/time has been modified to: 13:40:00. Previous collection date/time: 10:07:29. Interpretive Data Reference Interval Normal >/= 90 mL/min/1.73m2 Mildly decreased* 60 - 89 mL/min/1.73m2 Mildly to moderately decreased 45 - 59 mL/min/1.73m2 Moderately to severely decreased 30 - 44 mL/min/1.73m2 Severely decreased 15 - 29 mL/min/1.73m2 Kidney Failure < 15 mL/min/1.73m2 *Relative to young adult level Estimated glomerular [...] last reviewed 2021. Blood 08/18/2024 1:40 PM ENERGY CROP FARMER 08/19/2024 10:27 AM ENERGY CROP FARMER Vega Renee MD LAB BLOOD ORDERABLES Edited Result - Final TAMIE [id number] Department [place] [address] * (ABNORMAL) Differential, auto (08/18/2024 1:40 PM ENERGY CROP FARMER) Neutrophil abs 5.5 1.5 - 6.5 K/cumm Comment:Collection date/time has been modified to: 13:40:00. Previous collection date/time: 10:07:29. Imm gran abs 0.0 0.0 - 0.1 K/cumm CERNER Comment:Collection date/time has been modified to: 13:40:00. Previous collection date/time: 10:07:29. Lymphocyte abs 4.3(H) 0.8 - 3.3 K/cumm CERNER CH Comment:Collection date/time has been modified to: 13:40:00. Previous collection date/time: 10:07:29. Monocyte abs 0.7 0.2 - 0.8 K/cumm CERNER Comment:Collection date/time has been modified to: 13:40:00. Previous collection date/time: 10:07:29. Eosinophil abs 1.0(H) 0.0 - 0.5 K/cumm CERNER CH Comment:Collection date/time has been modified to: 13:40:00. Previous collection date/time: 10:07:29. Basophil abs 0.1 0.0 - 0.1 K/cumm CERNER Comment:Collection date/time has been modified to: 13:40:00. Previous collection date/time: 10:07:29. Neutrophil pct 47.3 % CERNER Comment: Collection date/time has been modified to: 13:40:00. Previous collection date/time: 10:07:29. Interpretive Data Percent cell count reference ranges are not reported, since discordance with absolute values may lead to misinterpretation of CBC data. Current Interpretive Data was last revised on 2017. Imm gran pct 0.3 % CERNER Comment: Collection date/time has been modified to: 13:40:00. Previous collection date/time: 10:07:29. Interpretive Data Percent cell count reference ranges are not reported, since discordance with absolute values may lead to misinterpretation of CBC data. Current Interpretive Data was last revised on 2017. Lymphocyte pct 37.1 % [facility] Comment: Collection date/time has been modified to: 13:40:00. Previous collection date/time: 10:07:29. Interpretive Data Percent cell count reference ranges are not reported, since discordance with absolute values may lead to misinterpretation of CBC data. Current Interpretive Data was last revised on 2017. Monocyte pct 6.1 % [facility] Comment: Collection date/time has been modified to: 13:40:00. Previous collection date/time: 10:07:29. Interpretive Data Percent cell count reference ranges are not reported, since discordance with absolute values may lead to misinterpretation of CBC data. Current Interpretive Data was last revised on 2017. Eosinophil pct 8.3 % [facility] Comment: Collection date/time has been modified to: 13:40:00. Previous collection date/time: 10:07:29. Interpretive Data Percent cell count reference ranges are not reported, since discordance with absolute values may lead to misinterpretation of CBC data. Current Interpretive Data was last revised on 2017. Basophil pct 0.9 % [facility] Comment: Collection date/time has been modified to: 13:40:00. Previous collection date/time: 10:07:29. Interpretive Data Percent cell count reference ranges are not reported, since discordance with absolute values may lead to misinterpretation of CBC data. Current Interpretive Data was last revised on 2017. Blood 08/18/2024 1:40 PM ENERGY CROP FARMER 08/19/2024 10:07 AM ENERGY CROP FARMER Vega Renee MD LAB BLOOD ORDERABLES Edited Result - Final T[facility] [id number] [place] [address] * (ABNORMAL) CBC with auto differential (08/18/2024 1:40 PM ENERGY CROP FARMER) WBC 11.6(H) 3.8 - 9.9 K/cumm Comment:Collection date/time has been modified to: 13:40:00. Previous collection date/time: 10:07:29. Hgb 13.9 11.9 - 15.5 g/dL TAMIE ANGEL Comment:Collection date/time has been modified to: 13:40:00. Previous collection date/time: 10:07:29. Hct 44.8 35.6 - 45.5 % TAMIE ANGEL Comment:Collection date/time has been modified to: 13:40:00. Previous collection date/time: 10:07:29. Plt 365 150 - 400 K/cumm TAMIE ANGEL Comment:Collection date/time has been modified to: 13:40:00. Previous collection date/time: 10:07:29. MPV 11.0 9.1 - 12.3 fL TAMIE ANGEL Comment:Collection date/time has been modified to: 13:40:00. Previous collection date/time: 10:07:29. RBC 4.65 3.90 - 5.20 M/cumm TAMIE ANGEL Comment:Collection date/time has been modified to: 13:40:00. Previous collection date/time: 10:07:29. MCV 96.3 81.3 - 96.4 fL TAMIE Comment:Collection date/time has been modified to: 13:40:00. Previous collection date/time: 10:07:29. MCH 29.9 27.1 - 33.3 pg TAMIE Comment:Collection date/time has been modified to: 13:40:00. Previous collection date/time: 10:07:29. MCHC 31.0(L) 32.3 - 35.7 g/dL TAMIE ANGEL Comment:Collection date/time has been modified [...] collection date/time: 10:07:29. Blood 08/18/2024 1:40 PM ENERGY CROP FARMER 08/19/2024 10:07 AM ENERGY CROP FARMER Vega Renee MD LAB BLOOD ORDERABLES Edited Result - Final T[facility] [id number] Department [place] [address] * (ABNORMAL) Lipid panel (08/18/2024 1:40 PM ENERGY CROP FARMER) Cholesterol 225(H) 30 - 199 mg/dL Comment: Collection date/time has been modified to: 13:40:00. Previous collection date/time: 10:07:29. Interpretive Data Ages < or = 19 years Acceptable: <170 mg/dL Borderline high: 170-199 mg/dL High: >or= 200 mg/dL Ages > or = 20 years Desirable: <200 mg/dL Borderline high: 200-239 mg/dL High: >or= 240 mg/dL Literature References: 1. Expert Panel on Integrated Guidelines for Cardiovascular Health and Risk Reduction in Children and Adolescents. Pediatrics 2011;128:S213 2. NCEP Expert Panel. Circulation 2004;110:227 Current Interpretive Data was last revised on 2018. Triglycerides 238(H) <=149 mg/dL TAMIE ANGEL Comment: Collection date/time has been modified to: 13:40:00. Previous collection date/time: 10:07:29. Interpretive Data Ages < or = 9 years Acceptable: <75 mg/dL Borderline high: 75-99 mg/dL High: >or= 100 mg/dL Ages 10 to 20 years Acceptable: <90 mg/dL Borderline high: 90-129 mg/dL High: >or= 130 mg/dL Ages > or = 20 years Desirable: <150 mg/dL Borderline high: 150-199 mg/dL High: 200-499 mg/dL Very high: >or= 499 mg/dL Literature References: 1. Expert Panel on Integrated Guidelines for Cardiovascular Health and Risk Reduction in Children and Adolescents. Pediatrics 2011;128:S213 2. NCEP Expert Panel. Circulation 2004;110:227 Current Interpretive Data was last revised on 2018. HDL 50 >=40 mg/dL TAMIE Comment: Collection date/time has been modified to: 13:40:00. Previous collection date/time: 10:07:29. Interpretive Data Ages < or = 19 years Acceptable: >45 mg/dL Borderline low: 40-45 mg/dL Low: <40 mg/dL Ages > or = 20 years Desirable: >or= 60 mg/dL Low: <40 mg/dL Literature References: 1. Expert Panel on Integrated Guidelines for Cardiovascular Health and Risk Reduction in Children and Adolescents. Pediatrics 2011;128:S213 2. NCEP Expert Panel. Circulation 2004;110:227 Current Interpretive Data was last revised on 2018. LDL, calculated 133(H) <=129 mg/dL TAMIE ANGEL Comment: Collection date/time has been modified to: 13:40:00. Previous collection date/time: 10:07:29. Interpretive Data Ages < or = 19 years Acceptable: <110 mg/dL Borderline high: 110-129 mg/dL High: >or= 130 mg/dL Ages > or = 20 years Optimal: <100 mg/dL Near optimal: 100-129 mg/dL Borderline high: 130-159 mg/dL High: >160 mg/dL Calculated using the Sourav LDL-C estimating [...] Collection date/time has been modified to: 13:40:00. Previous collection date/time: 10:07:29. Interpretive Data Ages < or = 19 years Acceptable: <120 mg/dL Borderline high: 120-144 mg/dL High: >145 mg/dL Ages > or = 20 years When triglycerides are >200 mg/dL, Non-HDL cholesterol is a secondary target of therapy with treatment goals that are 30 mg/dL greater than the LDL cholesterol target. Literature References: 1. Expert Panel on Integrated Guidelines for Cardiovascular Health and Risk Reduction in Children and Adolescents. Pediatrics 2011;128:S213 2. NCEP Expert Panel. Circulation 2004;110:227 Current Interpretive Data was last revised on 2018. Chol/HDL ratio 4 TAMIE ANGEL Comment:Collection date/time has been modified to: 13:40:00. Previous collection date/time: 10:07:29. Blood 08/18/2024 1:40 PM ENERGY CROP FARMER 08/19/2024 10:07 AM ENERGY CROP FARMER us Vega Renee MD LAB BLOOD ORDERABLES Edited Result - Final TAMIE ANGEL [id number] Department [place] [address] * Comprehensive metabolic panel (08/18/2024 1:40 PM ENERGY CROP FARMER) Sodium 137 135 - 145 mmol/L Comment:Collection date/time has been modified to: 13:40:00. Previous collection date/time: 10:07:29. Potassium, pl 4.5 3.3 - 4.9 mmol/L [facility] Comment:Collection date/time has been modified to: 13:40:00. Previous collection date/time: 10:07:29. Chloride 101 97 - 110 mmol/L [facility] Comment:Collection date/time has been modified to: 13:40:00. Previous collection date/time: 10:07:29. CO2 23 22 - 32 mmol/L [facility] Comment:Collection date/time has been modified to: 13:40:00. Previous collection date/time: 10:07:29. Anion gap 13 2 - 15 mmol/L [facility] Comment:Collection date/time has been modified to: 13:40:00. Previous collection date/time: 10:07:29. BUN 13 6 - 25 mg/dL [facility] Comment:Collection date/time has been modified to: 13:40:00. Previous collection date/time: 10:07:29. Creatinine 0.86 0.60 - 1.10 mg/dL [facility] Comment:Collection date/time has been modified to: 13:40:00. Previous collection date/time: 10:07:29. Glucose 87 70 - 199 mg/dL [facility] Comment: Collection date/time has been modified to: 13:40:00. Previous collection date/time: 10:07:29. Interpretive Data Fasting glucose >/= 126 mg/dl is diagnostic for diabetes. Fasting is defined as no caloric intake [...] Alk phos 68 40 - 130 Units/L CERNER Comment:Collection date/time has been modified to: 13:40:00. Previous collection date/time: 10:07:29. ALT 19 7 - 45 Units/L CERNER Comment:Collection date/time has been modified to: 13:40:00. Previous collection date/time: 10:07:29. AST 27 10 - 45 Units/L CERNER Comment:Collection date/time has been modified to: 13:40:00. Previous collection date/time: 10:07:29. Blood 08/18/2024 1:40 PM ENERGY CROP FARMER 08/19/2024 10:07 AM ENERGY CROP FARMER Vega Renee MD LAB BLOOD ORDERABLES Edited Result - Final TAMIE ANGEL [id number] [place] [address] * (ABNORMAL) POCT urinalysis dipstick (08/18/2024 1:32 PM ENERGY CROP FARMER) Color, Urine, POC Yellow Clarity, ur, POC Clear Clear Glucose, ur, POC Negative Negative MG/DL Bilirubin, ur, POC Negative Negative, Small, Moderate, Large Ketones, ur, POC Negative Negative Specific [place], POC 1.020 1.003 - 1.030 Blood, ur, POC Negative Negative pH, ur, POC 7.0 5.0 - 8.0 Protein, ur, POC Trace(A) Negative Urobilinogen, urine, POC 1.0 0.2 - 1.0 mg/dL Nitrite, ur, POC Negative Negative Leukocytes, ur, POC Negative Negative Lot Number 0 Urine 08/18/2024 1:32 PM ENERGY CROP FARMER Sarika Chopra NP POINT OF CARE TEST ORDERABLES Fi nal Result * XR Spine Cervical 2 or 3 Views (06/30/2024 3:24 PM ENERGY CROP FARMER) Anatomical Region Laterality Modality Spine N/A Digital Radiogra phy 07/03/2024 8:32 AM ENERGY CROP FARMER Narrative 07/03/2024 8:33 AM ENERGY CROP FARMER EXAM DESCRIPTION: XR SPINE CERVICAL 2 OR 3 VIEWS REASON FOR STUDY: neck pain, shooting LUE pain Pt complains of neck pain with radiculopathy bilaterally with parathesia x couple of months. No known injury or prior surgery FINDINGS: Two views submitted without comparison. No acute fractures are identified. Alignment is normal. There is no prevertebral soft tissue swelling. The intervertebral disc space heights are normal. There is mild bilateral cervical facet osteoarthritis. IMPRESSION: Mild bilateral cervical facet osteoarthritis. THIS IS AN ELECTRONICALLY VERIFIED FINAL REPORT 07/03/2024 8:33 AM - Electronically signed by Antony Jackson M.D. T: Report ID: [id number] Reading Location: [id number] Procedure Note Antony Jackson MD - 07/03/2024 [...] by Antony Jackson M.D. T: Report ID: [id number] Reading Location: [place] [address] [place] Vega Renee MD IMG XR PROCEDURES Final Res ult * ECG 12-LEAD (06/30/2024 3:08 PM ENERGY CROP FARMER) Narrative Vega Renee MD - 06/30/2024 3:08 PM ENERGY CROP FARMER Vega Renee MD 06/30/2024 3:19 PM ECG 12 lead Date/Time: 06/30/2024 3:08 PM Performed by: Vega Renee MD Authorized by: Vega Renee MD Comparison: not compared with previous ECG Previous ECG: [...] Menendez MD - 04/26/2023 10:34 AM CDT [facility] Patient Name: Harriet Meade Procedure [...] CRNA (Anesthesia Staff), Bhavana Bragg RN,Raymond Flynn, Openstack Developer Referring MD: Vega Renee M.D. Medicines: [...] by the physician, the nurse and the fusing machine operator in the procedure room. Mental [...] pathology results. Procedure Code(s): --- Professional --- 05818, Colonoscopy, flexible; with biopsy, singleor multiple Diagnosis Code(s): --- Professional --- Z12.11, Encounter for screening for malignantneoplasm of colon D12.7, Benign neoplasm of rectosigmoid junction K62.89, Other specified diseases of anus andrectum K57.30, Diverticulosis of large intestine without perforation or abscess without bleeding CPT copyright 2020 [employer]. All rights reserved. The codes documented in this report are preliminary and upon stitcher set up operator automatic reviewmay be revised to meet current compliance requirements. Electronically signed by Johnnie Menendez M.D. Johnnie Menendez M.D. 04/26/2023 11:05:22 AM Number of Addenda: 0 Note Initiated On: 04/26/2023 10:34 AM Johnnie Menendez MD ENDOSCOPY PROCEDURES Fi nal Result * HM MAMMOGRAPHY (12/28/2022) Historical Provider HEALTH MAINTENANCE Final Result * HM PAP SMEAR WITH HPV (12/06/2022) Historical Provider HEALTH MAINTENANCE Final Result from Last 3 Months or Most Recently Relevant to Health Maintenance Insurance [facility] CHOICE PLUS [facility] CHOICE PLUS Care Teams Stamp Machine Servicer Relationship Specialty Start Date End Date Vega Renee MD [address] [facility] [address] [place], [place] [id number] PCP - General Family Medicine 03/06/23 Tai Burk MD [address] [place] [address] Referring Physician Psychiatry 03/06/23 Willei Starks DC [address] [place], [place] [id number] Referring Physician Chiropractic Medicine 03/06/23
--- OUTSIDE RECORDS SUMMARY | 2024-09-23 17:11 | XMS_ITS ---
Author Organization [facility] [employer] Address [address] [place] [address] Care Team Providers Care Director Of Video Analytics Name Role Phone [place] Unavailable [phone] Allergies Allergen (clinical drug ingredient) Drug/Non Drug [...] DULoxetine HCl 60 MG Oral 12/24/2023 Active Social History Sex Assigned At : Social History Observation Description Sex Assigned At Female Vital Signs Blood pressure systolic 103 mm Hg 03/24/20 24 Blood pressure diastolic 72 mm Hg 024 Heart Rate 89 /min 03/24/2024 Height 60.00 in 03/24/2024 Weight 175.6 lbs 03/24/2024 BMI 34.29 kg/m2 03/24/2024 Height-cm 152.40 cm 03/24/2024 Weight-kg 79.65 kg 03/24/2024 Encounters Encounter Location Date Provider Diagnosis [facility] [address] [place] [address] 03/24/2024 Anselmo Wells Major depressive disorder, recurrent, moderate F33.1 [...] Up: 3 Months, Reason: anxiety, mdd Provider Name:Anselmo Wells , 09/25/2024 04:30:00 PM, [address], [facility] [address], [place], [address], Progress Notes * MILDRED ALFARODOB: [birth year] (49 yo F)Acc No.[id number]:03/24/2024 Patient: Mateusz CHUNMILDRED Provider: Jose Roberto WELLS MD :1975 A ge:48 Y S ex:Female Date:03/24/2024 Address:[facility] [address] , [facility] Subjective: * Chief Complaints: * 1 . Follow up visit, medication evaluation. * HPI: H istory of Presenting Problem: today was the first day of school summer was relatively uneventful 20 yo son had surgery on tendon in pitching arm--is a pitcher, freshman in college [employer] 23 yo son is a centerfielder, senior at [employer] majoring in sports management daughter is [...] to be most likely dx. * Medical History: P chrislems: Body mass index 30+ - obesity, Generalized anxiety disorder, Long-term drug therapy, Moderate recurrent major depression, Nausea and vomiting, Periodic limb movement disorder, Primary insomnia, Restless legs, ,. * Medications: T aking Diclofenac Sodium 75 MG Tablet Delayed Release Oral [...] MISCELLANEOUS , Notes to Pharmacist: *Reorder from [facility] for eRx and Interaction Alerts*, Discontinued Cyanocobalamin 1000 MCG/ML Solution Injection , Discontinued Norethindrone 0.35 MG Tablet Oral , Discontinued CHOLECALCIFEROL (VITAMIN D3) 50 MCG (2,000 UNIT) TABLET , Notes to Pharmacist: *Reorder from [facility] for eRx and Interaction Alerts*, Discontinued Amitiza [...] reviewed and reconciled with the patient * Allergies: O zempic: Allergy - Onset Date 12/24/2023, Codeine: Allergy - Onset Date 12/24/2023. Objective: * Vitals: B P:103/72mm Hg, HR:89/min, Wt:175.6lbs, Wt-k.65 kg, Ht: 60.00 in, Ht-cm: 152.40 cm, BMI:34.29Index, Body Surface Area: 1.83. * Examination: P sychiatry: Appearance: w ell-groomed, well-nourished, .... Affect / mood: a ppropriate, full range. Attention: g ood. Attitude: c ooperative. Suicidal ideation: n one. Memory status: n o impairment noted. Degree of awareness of surroundings: w ithin normal limits.? Delusions: n o. Hallucinations: n o. Insight: g ood. Intellectual functioning: n o impairment noted. Judgement: g ood. Orientation: a wake, alert and oriented x 3. Perceptual disorders: n o perceptual disorder noted. Psychomotor activity: w ithin normal range. Speech / language: a ppropriate pitch/modulation, clear and coherent, normal rate, volume, and articulation (RVR), proper grammar used. Thought content: a ppropriate. Thought process: i ntact. Assessment: * Assessment: 1. M ajor depressive disorder, recurrent, moderate - F33.1 (Primary) 2 . G eneralized anxiety disorder - F41.1 Plan: * Treatment: * Procedure Codes: 9 0833 PSYCHOTHERAPY W/PATIENT W/E&M SRVCS 30 MIN * Follow Up: 3 Months (Reason: anxiety, mdd) * Billing Information: * Visit Code: 26565 OFFICE OUTPATIENT VISIT 25 MINUTES DETAILED HISTORY AND EXAM/MODERATE MEDICAL DECISION MAKING. * Procedure Codes: 06575 PSYCHOTHERAPY W/PATIENT W/E&M SRVCS 30 MIN. * TY AND SKILL BASED PAY MANAGER Sign off status: Completed true * Provider: Jose Roberto WELLS MD Date: 0 03/24/2024 Generated for Nael torrez/Angel/Khalidasmitting on: 0 09/23/2024 05:10 PM SAFETY AND SKILL BASED PAY MANAGER History and Physical Notes * HPI (History of Present Illness) Category Sub-Category Detail Notes Category Not es History of Presenting Problem today was the first day of school summer was relatively uneventful 20 yo son had surgery on tendon in pitching arm--is a pitcher, freshman in college [employer] 23 yo son is a centerfielder, senior at [employer] majoring in sports management daughter is [...]
--- OUTSIDE RECORDS SUMMARY | 2024-09-23 17:11 | XMS_ITS ---
Author Organization [facility] [employer] Address [address] [facility] [address] [address] Care Team Providers Care Manager Cosmetic Name Role Phone Anselmo Bethea Unavailable [phone] REASON FOR VISIT DULoxetine Medications Medication SIG (Take, Route, Fr equency, Duration) Notes Start Date End Date Status DULoxetine HCl 60 MG TAKE 1 CAPSULE RODRICK Y Oral Once a day for 90 days Active Social History Sex Assigned At : Social History Observation Description Sex Assigned At Female Encounters Encounter Location Date Provider Diagnosis [facility] [employer] [facility] [address] [address] 09/15/2024 Anselmo Lake Major depressive disorder, recurrent, moderate F33.1 Assessments Encounter Date Diagnosis (ICD Code) Assessment Notes Treatment Notes Treatment Clinical Notes Section Notes 09/15/2024 Major depressive disorder, recurrent, moderate (ICD-10 - F33.1) Plan Of Treatment Medication Medication Name Sig Start Date Stop Date Notes DULoxetine HCl 60 MG TAKE 1 CAPSULE RODRICK Y Oral Once a day for 90 days Next Appt Details Provider Name:Anselmo Bethea , 09/25/2024 04:30:00 PM, [address], [facility] [address], [place], [address], Progress Notes * MILDRED ALFARODOB: [birth year] (49 yo F)Acc No.[id number]:09/15/2024 Patient: Mateusz MILDRED CHUN :1975 A ge:49 Y S ex:Female Address:[address] [place], [address] * Refills Refill DULoxetine HCl Capsule Delayed Release Particles, 60 MG, Oral, 90 Capsule, TAKE 1 CAPSULE DAILY, Once a day, 90 days, Refills=0 Subjective: * Chief Complaints: * D ULoxetine * Medical History: * Surgical History: * Hospitalization/Major Diagno stic Procedure: * Medications: Objective: * Vitals: * Physical Examination: Assessment: * Assessment: 1. M gabby depressive disorder, recurrent, moderate - F33.1 (Primary) Plan: * Treatment: * Procedure Codes: * true * Date: Generated for Nael torrez/Angel/eThenrismitting on: 0 09/23/2024 05:11 PM NETWORK TECHNICIAN
--- OUTSIDE RECORDS SUMMARY | 2024-09-23 17:11 | XMS_ITS | Clinical Summary ---
Author Organization [facility] [address] Address [address] [place] [address] Care Team Providers Care Global Analytics Head Name Role Phone Tai Burk MD Unavailable [phone] Willie Starks DC Unavailable [phone] Vega Renee MD Primary Care Provider [phone] Allergies Active Allergy Reactions Criticality Noted Date [...] 08/18/2024 Assessment & Plan (08/18/2024 1:47 PM EDUCATIONAL SPEECH LANGUAGE CLINICIAN): 7mm right kidney. Follow up with Dr. Pink as scheduled. Pyelonephritis 08/18/2024 Assessment & Plan (08/18/2024 1:47 PM EDUCATIONAL SPEECH LANGUAGE CLINICIAN): Symptoms resolved. She has one day of [...] Department Care Team Description 09/05/2024 Orders Only [facility] Primary Care at [address] [phone] ProviderMejia MD 08/18/2024 1:45 PM EDUCATIONAL SPEECH LANGUAGE CLINICIAN Lab [facility] Medical [facility] Outpatient Lab at [address] [phone] Encounter for medical examination to establish care (Primary Dx) 08/18/2024 1:35 PM EDUCATIONAL SPEECH LANGUAGE CLINICIAN - 08/18/2024 11:59 PM EDUCATIONAL SPEECH LANGUAGE CLINICIAN Hospital Encounter [address] [address] Dyslipidemia Discharge Disposition: Discharge to home or self care 08/18/2024 1:00 PM EDUCATIONAL SPEECH LANGUAGE CLINICIAN Office Visit [facility] Primary Care at [address] [phone] Sarika Chopra NP Pyelonephritis (Primary Dx); Hx of bladder infections; Right nephrolithiasis; Hospital discharge follow-up 08/12/2024 Orders Only [facility] Medical [facility] Primary Care at [address] [address] Sarika Chopra NP 08/12/2024 Telephone [facility] Medical [facility] Primary Care at [address] [phone] Vega Renee MD ISADORA Questions 07/04/2024 Orders Only [facility] Medical [facility] Primary Care at [address] [phone] Vega Renee MD Chronic neck pain with osteoarthritis determined by x-ray (Primary Dx) 06/30/2024 3:20 PM EDUCATIONAL SPEECH LANGUAGE CLINICIAN Ancillary Procedure [facility] Imaging at [address] [phone] Chest pain, unspecified type; Radicular pain in left arm 06/30/2024 2:45 PM EDUCATIONAL SPEECH LANGUAGE CLINICIAN Office Visit [facility] Primary Care at [address] [phone] Vega Renee MD Chest pain, unspecified type (Primary Dx); Radicular pain in left arm 06/26/2024 Nurse Triage [facility] Primary Care at [address] [phone] Mariann Benson RN from Last 3 Months Immunizations Immunization Administration Dates Next Due Influenza, [...] on file Legal Sex Female 6:23 AM EDUCATIONAL SPEECH LANGUAGE CLINICIAN Gender Identity Not on file Sexual Orientation Not on file 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 Not on file Not on file N ot on file Obstetrics History Last Filed Vital Signs Vital Sign Reading Time Taken Comments Blood Pressure 132/84 08/18/2024 1:03 PM EDUCATIONAL SPEECH LANGUAGE CLINICIAN Pulse 118 08/18/2024 1:03 PM EDUCATIONAL SPEECH LANGUAGE CLINICIAN Temperature 36.7 C (98 F) 08/18/2024 1:03 PM EDUCATIONAL SPEECH LANGUAGE CLINICIAN Respiratory Rate 18 08/18/2024 1:03 PM EDUCATIONAL SPEECH LANGUAGE CLINICIAN Oxygen Saturation 97% 08/18/2024 1:03 PM EDUCATIONAL SPEECH LANGUAGE CLINICIAN Inhaled Oxygen Concentration - - Weight 80 kg (176 lb 6.4 oz) 08/18/2024 1:03 PM EDUCATIONAL SPEECH LANGUAGE CLINICIAN Height 152.4 cm (5') 08/18/2024 1:03 PM EDUCATIONAL SPEECH LANGUAGE CLINICIAN Body Mass Index 34.45 08/18/2024 1:03 PM EDUCATIONAL SPEECH LANGUAGE CLINICIAN Plan of Treatment Health Maintenance Due Date [...] Read Routine (OP Routine) 09/05/2024 11:27 AM EDUCATIONAL SPEECH LANGUAGE CLINICIAN EGFR Routine 08/18/2024 1:40 PM EDUCATIONAL SPEECH LANGUAGE CLINICIAN Dyslipidemia DIFFERENTIAL AUTO Routine 08/18/2024 1:4 0 PM EDUCATIONAL SPEECH LANGUAGE CLINICIAN Dyslipidemia CBC WITH AUTO DIFFERENTIAL Routine 08/18/2024 1:40 PM EDUCATIONAL SPEECH LANGUAGE CLINICIAN Dyslipidemia COMPREHENSIVE METABOLIC PANEL Routine 08/18/2024 1:40 PM EDUCATIONAL SPEECH LANGUAGE CLINICIAN Dyslipidemia LIPID PANEL Routine 08/18/2024 1:40 PM EDUCATIONAL SPEECH LANGUAGE CLINICIAN Dyslipidemia POCT URINALYSIS DIPSTICK Routine 08/18/2024 1:32 PM EDUCATIONAL SPEECH LANGUAGE CLINICIAN Hx of bladder infections XR SPINE CERVICAL 2 OR 3 VIEWS Schedule Routine, Read Routine (OP Routine) 06/30/2024 3:24 PM EDUCATIONAL SPEECH LANGUAGE CLINICIAN Chest pain, unspecified type Radicular pain in left arm ECG 12-LEAD Routine 06/30/2024 3:08 PM EDUCATIONAL SPEECH LANGUAGE CLINICIAN Chest pain, unspecified type COLONOSCOPY 04/26/2023 10:34 AM CDT HM MAMMOGRAPHY Routine 12/28/2022 HM PAP SMEAR WITH HPV Routine 12/06/2022 from Last 3 Months or Most Recently Relevant to Health Maintenance Results * XR Abdomen 1 View AP (09/05/2024 11:27 AM EDUCATIONAL SPEECH LANGUAGE CLINICIAN) Anatomical Region Laterality Modality Body, Abdomen N/A Radiographic Rabia ging Historical Provider MD [place] XR PROCEDURES Final R esult * eGFR (08/18/2024 1:40 PM EDUCATIONAL SPEECH LANGUAGE CLINICIAN) eGFR 84 >=60 mL/min/1. 73 m2 Comment: [...] last reviewed 2021. Blood 08/18/2024 1:40 PM EDUCATIONAL SPEECH LANGUAGE CLINICIAN 08/19/2024 10:27 AM EDUCATIONAL SPEECH LANGUAGE CLINICIAN Vega Renee MD LAB BLOOD ORDERABLES Edited Result - Final TAMIE [id number] Department [place] [address] * (ABNORMAL) Differential, auto (08/18/2024 1:40 PM EDUCATIONAL SPEECH LANGUAGE CLINICIAN) Neutrophil abs 5.5 1.5 - 6.5 K/cumm Comment:Collection date/time has been modified to: 13:40:00. Previous collection date/time: 10:07:29. Imm gran abs 0.0 0.0 - 0.1 K/cumm [facility] Comment:Collection date/time has been modified to: 13:40:00. Previous collection date/time: 10:07:29. Lymphocyte abs 4.3(H) 0.8 - 3.3 K/cumm [facility] Comment:Collection date/time has been modified to: 13:40:00. Previous collection date/time: 10:07:29. Monocyte abs 0.7 0.2 - 0.8 K/cumm [facility] Comment:Collection date/time has been modified to: 13:40:00. Previous collection date/time: 10:07:29. Eosinophil abs 1.0(H) 0.0 - 0.5 K/cumm [facility] Comment:Collection date/time has been modified to: 13:40:00. Previous collection date/time: 10:07:29. Basophil abs 0.1 0.0 - 0.1 K/cumm [facility] Comment:Collection date/time has been modified to: 13:40:00. Previous collection date/time: 10:07:29. Neutrophil pct 47.3 % [facility] Comment: Collection date/time has been modified to: 13:40:00. Previous collection date/time: 10:07:29. Interpretive Data Percent cell count reference ranges are not reported, since discordance with absolute values may lead to misinterpretation of CBC data. Current Interpretive Data was last revised on 2017. Imm gran pct 0.3 % [facility] Comment: Collection date/time has been modified to: 13:40:00. Previous collection date/time: 10:07:29. Interpretive Data Percent cell count reference ranges are not reported, since discordance with absolute values may lead to misinterpretation of CBC data. Current Interpretive Data was last revised on 2017. Lymphocyte pct 37.1 % [facility] Comment: Collection date/time has been modified [...] revised on 2017. Blood 08/18/2024 1:40 PM EDUCATIONAL SPEECH LANGUAGE CLINICIAN 08/19/2024 10:07 AM EDUCATIONAL SPEECH LANGUAGE CLINICIAN us Vega Renee MD LAB BLOOD ORDERABLES Edited Result - Final GLADYSLUDMILA ANG[id number] Department [place] [address] * (ABNORMAL) CBC with auto differential (08/18/2024 1:40 PM EDUCATIONAL SPEECH LANGUAGE CLINICIAN) WBC 11.6(H) 3.8 - 9.9 K/cumm Comment:Collection [...] CV 13.2 11.1 - 14.9 % [facility] Comment:Collection date/time has been modified to: 13:40:00. Previous collection date/time: 10:07:29. RDW SD 46.5 35.7 - 48.1 fL [facility] Comment:Collection date/time has been modified to: 13:40:00. Previous collection date/time: 10:07:29. NRBC abs 0.00 0.00 - 0.01 K/cumm [facility] Comment:Collection date/time has been modified to: 13:40:00. Previous collection date/time: 10:07:29. Blood 08/18/2024 1:40 PM EDUCATIONAL SPEECH LANGUAGE CLINICIAN 08/19/2024 10:07 AM EDUCATIONAL SPEECH LANGUAGE CLINICIAN us Vega Renee MD LAB BLOOD ORDERABLES Edited Result - Final TAMIE [id number] Department [place] [address] * (ABNORMAL) Lipid panel (08/18/2024 1:40 PM EDUCATIONAL SPEECH LANGUAGE CLINICIAN) Cholesterol 225(H) 30 - 199 mg/dL Comment: [...] mg/dL High: >160 mg/dL Calculated using the Benjamin LDL-C estimating equation. This equation was implemented on 2024. Prior to this date LDL-C was estimated using the Friedewald equation. Literature References: 1. Expert Panel on Integrated Guidelines for Cardiovascular Health and Risk Reduction in Children and Adolescents. Pediatrics 2011;128:S213 2. NCEP Expert Panel. Circulation 2004;110:227 3. Sourav M et al. EVA Cardiol. 2020 December 04;5(5):540-548. [...] collection date/time: 10:07:29. Blood 08/18/2024 1:40 PM EDUCATIONAL SPEECH LANGUAGE CLINICIAN 08/19/2024 10:07 AM EDUCATIONAL SPEECH LANGUAGE CLINICIAN us Vega Renee MD LAB BLOOD ORDERABLES Edited Result - Final TAMIE ANGEL [address] Department [place] [address] * Comprehensive metabolic panel (08/18/2024 1:40 PM EDUCATIONAL SPEECH LANGUAGE CLINICIAN) Sodium 137 135 - 145 mmol/L Comment:Collection date/time has been modified to: 13:40:00. Previous collection date/time: 10:07:29. Potassium, pl 4.5 3.3 - 4.9 mmol/L [facility] Comment:Collection date/time has been modified to: 13:40:00. Previous collection date/time: 10:07:29. Chloride 101 97 - 110 mmol/L [facility] Comment:Collection date/time has been modified to: 13:40:00. Previous collection date/time: 10:07:29. CO2 23 22 - 32 mmol/L [facility] Comment:Collection date/time has been modified to: 13:40:00. Previous collection date/time: 10:07:29. Anion gap 13 2 - 15 mmol/L [facility] Comment:Collection date/time has been modified to: 13:40:00. Previous collection date/time: 10:07:29. BUN 13 6 - 25 mg/dL [facility] Comment:Collection date/time has been modified to: 13:40:00. Previous collection date/time: 10:07:29. Creatinine 0.86 0.60 - 1.10 mg/dL [facility] Comment:Collection date/time has been modified to: 13:40:00. Previous collection date/time: 10:07:29. Glucose 87 70 - 199 mg/dL [facility] Comment: Collection date/time has been modified [...] classification and Diagnosis of Diabetes Diabetes Care 2021; 46: S19-S40. Current interpretive data was last revised 2022. Calcium 9.2 8.5 - 10.3 mg/dL [facility] Comment:Collection date/time has been modified to: 13:40:00. Previous collection date/time: 10:07:29. Bilirubin, total 0.5 0.1 - 1.2 mg/dL TAMIE Comment:Collection date/time has been modified to: 13:40:00. Previous collection date/time: 10:07:29. Protein, pl 7.0 6.5 - 8.5 g/dL [facility] Comment:Collection date/time has been modified [...] collection date/time: 10:07:29. Blood 08/18/2024 1:40 PM EDUCATIONAL SPEECH LANGUAGE CLINICIAN 08/19/2024 10:07 AM EDUCATIONAL SPEECH LANGUAGE CLINICIAN us Vega Renee MD LAB BLOOD ORDERABLES Edited Result - Final TAMIE ANG[id number] Department [place] [address] * (ABNORMAL) POCT urinalysis dipstick (08/18/2024 1:32 PM EDUCATIONAL SPEECH LANGUAGE CLINICIAN) Color, Urine, POC Yellow Clarity, ur, POC Clear Clear Glucose, ur, POC Negative Negative MG/DL Bilirubin, ur, POC Negative Negative, Small, Moderate, Large Ketones, ur, POC Negative Negative Specific [place], POC 1.020 1.003 - 1.030 Blood, ur, POC Negative Negative pH, ur, POC 7.0 5.0 - 8.0 Protein, ur, POC Trace(A) Negative Urobilinogen, urine, POC 1.0 0.2 - 1.0 mg/dL Nitrite, ur, POC Negative Negative Leukocytes, ur, POC Negative Negative Lot Number 0 Urine 08/18/2024 1:32 PM EDUCATIONAL SPEECH LANGUAGE CLINICIAN Sarika Chopra NP POINT OF CARE TEST ORDERABLES Fi nal Result * XR Spine Cervical 2 or 3 Views (06/30/2024 3:24 PM EDUCATIONAL SPEECH LANGUAGE CLINICIAN) Anatomical Region Laterality Modality Spine N/A Digital Radiogra phy 07/03/2024 8:32 AM EDUCATIONAL SPEECH LANGUAGE CLINICIAN Narrative 07/03/2024 8:33 AM EDUCATIONAL SPEECH LANGUAGE CLINICIAN EXAM DESCRIPTION: XR SPINE CERVICAL 2 OR [...] by Antony Jackson M.D. T: Report ID: [id number] Reading Location: [id number] Procedure Note Antony Jackson MD - 07/03/2024 [...] by Antony Jackson M.D. T: Report ID: [id number] Reading Location: [id number] Vega Rneee MD IMG XR PROCEDURES Final Res ult * ECG 12-LEAD (06/30/2024 3:08 PM EDUCATIONAL SPEECH LANGUAGE CLINICIAN) Narrative Vega Renee MD - 06/30/2024 3:08 PM EDUCATIONAL SPEECH LANGUAGE CLINICIAN Vega Renee MD 06/30/2024 3:19 PM ECG [...] Menendez MD - 04/26/2023 10:34 AM CDT [facility] Patient Name: Harriet Meade [...] CRNA (Anesthesia Staff), Bhavana Bragg RN,Raymond Flynn, Salesperson Hearing Aids Referring MD: Vega Renee M.D. Medicines: Monitored [...] by the physician, the nurse and the medical assistant ob gyn in the procedure room. Mental Status Examination: [...] pathology results. Procedure Code(s): --- Professional --- 59553, Colonoscopy, flexible; with biopsy, singleor multiple Diagnosis Code(s): --- Professional --- Z12.11, Encounter for screening for malignantneoplasm of colon D12.7, Benign neoplasm of rectosigmoid junction K62.89, Other specified diseases of anus andrectum K57.30, Diverticulosis of large intestine without perforation or abscess without bleeding CPT copyright 2020 [employer]. All rights reserved. The codes documented in this report are preliminary and upon electrical manufacturing technician reviewmay be revised to meet current compliance [...] Most Recently Relevant to Health Maintenance Insurance [address] CHOICE PLUS [facility] CHOICE PLUS Care Teams Global Analytics Head Relationship Specialty Start Date End Date Vega Renee MD [address] [facility] [address] [place] [address] PCP - General Family Medicine 03/06/23 Tai Burk MD [address] [place] [address] [address] [place] [address] Referring Physician Psychiatry 03/06/23 Willie Starks DC [address] [place] [id number] Referring Physician Chiropractic Medicine 03/06/23
--- OUTSIDE RECORDS SUMMARY | 2024-09-23 17:11 | XMS_ITS ---
Author Organization [facility] [employer] Address [address] [facility] [address] [facility] [address] [place] [address] Care Team Providers Care Pharmacy Order Entry Technician Name Role Phone [place] Beverleymitchell Unavailable [phone] Social History Sex Assigned At : Social History Observation Description Sex Assigned At Female Encounters Encounter Location Date Provider Diagnosis [facility] [employer] [place] [address] [facility] [address] [facility] [address] [place] [address] 07/31/2024 Anselmo Wells Plan Of Treatment Next Appt Details Provider Name:Anselmo Wells , 09/25/2024 04:30:00 PM, [address], [facility] [address], [place], [address], Progress Notes * MILDRED ALFARODOB: [birth year] (49 yo F)Acc No.[id number]:07/31/2024 Patient: MILDRED ROWELL Provider: Jose Roberto WELLS MD :1975 A ge:48 Y S ex:Female Date:07/31/2024 Address:[address] [place], [place]-[address] Subjective: * Chief Complaints: * * Medical History: Objective: * Vitals: Assessment: Plan: * Treatment: * Billing Information: * Visit Code: * Procedure Codes: * Electronic signature of Beverley Wells MD on 09/23/2024 at 05:10 PM OUTSIDE SALES INSPECTOR Sign off status: Pending * Provider: Jose Roberto WELLS MD Date: 1 10/01/2023 Generated for Nael torrez/Angel/Luz on: 0 09/23/2024 05:10 PM OUTSIDE SALES INSPECTOR
--- OUTSIDE RECORDS SUMMARY | 2024-09-23 17:11 | XMS_ITS | Clinical Summary ---
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 No evidence of atypia or malignancy. This is a concordant result. RECOMMENDATIONS: 1. [...] Most Recently Relevant to Health Maintenance Insurance [place] [id number] Care Teams Reel And Rewinder Operator Relationship Specialty Start Date End Date Rio Lyon MD [address] [place] [id number] PCP - General Family Practice 07/05/10
[2024-09-23 17:19] VITALS: BP 105/72; PULSE 96; RESP 18; TEMP 36.4; O2SAT 100
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
--- OUTSIDE RECORDS SUMMARY | 2024-09-23 18:55 | XMS_ITS | Referral Summary ---
Author Organization [facility] [place] [address] Address [address] [place] [id number] Care Team Providers Care Engagement Manager Name Role Phone Tai Burk MD Unavailable [phone] Willie Starks DC Unavailable [phone] Vega Renee MD Primary Care Provider [phone] Encounters Date Type Department Care Team Description 09/05/2024 Orders Only [facility] Primary Care at [address] [address] ProviderMejia MD 08/18/2024 1:35 PM FUR EXAMINER - 08/18/2024 11:59 PM FUR EXAMINER Hospital Encounter [address] [address] Dyslipidemia Discharge Disposition: Discharge to home or self care 08/18/2024 1:45 PM FUR EXAMINER Lab [facility] Outpatient Lab at [address] [address] Encounter for medical examination to establish care (Primary Dx) 08/18/2024 1:00 PM FUR EXAMINER Office Visit [facility] Primary Care at [address] [address] Sarika Chopra NP Pyelonephritis (Primary Dx); Hx of bladder infections; Right nephrolithiasis; Hospital discharge follow-up 08/12/2024 Orders Only [facility] Primary Care at [address] [address] Sarika Chopra NP 08/12/2024 Telephone [facility] Care at [address] [address] Vega Renee MD ISADORA Questions 07/04/2024 Orders Only [facility] Care at [address] [address] Vega Renee MD Chronic neck pain with osteoarthritis determined by x-ray (Primary Dx) 06/30/2024 3:20 PM FUR EXAMINER Ancillary Procedure [facility] Imaging at [address] [address] Chest pain, unspecified type; Radicular pain in left arm 06/30/2024 2:45 PM FUR EXAMINER Office Visit [facility] at [address] [address] Vega Renee MD Chest pain, unspecified type (Primary Dx); Radicular pain in left arm 06/26/2024 Nurse Triage [facility] at [address] [address] Mariann Benson RN from Last [...] 08/18/2024 Assessment & Plan (08/18/2024 1:47 PM FUR EXAMINER): 7mm right kidney. Follow up with Dr. Pink as scheduled. Pyelonephritis 08/18/2024 Assessment & Plan (08/18/2024 1:47 PM FUR EXAMINER): Symptoms resolved. 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 Not on file Not on file N ot on file Last Filed Vital Signs Vital Sign Reading Time Taken Comments Blood Pressure 132/84 08/18/2024 1:03 PM FUR EXAMINER Pulse 118 08/18/2024 1:03 PM FUR EXAMINER Temperature 36.7 C (98 F) 08/18/2024 1:03 PM FUR EXAMINER Respiratory Rate 18 08/18/2024 1:03 PM FUR EXAMINER Oxygen Saturation 97% 08/18/2024 1:03 PM FUR EXAMINER Inhaled Oxygen Concentration - - Weight 80 kg (176 lb 6.4 oz) 08/18/2024 1:03 PM FUR EXAMINER Height 152.4 cm (5') 08/18/2024 1:03 PM FUR EXAMINER Body Mass Index 34.45 08/18/2024 1:03 PM FUR EXAMINER Plan of Treatment Not on file Procedures Procedure Name Priority Date/Time Associated Diagnosis Comments XR ABDOMEN AP 1 VIEW Schedule Routine, Read Routine (OP Routine) 09/05/2024 11:27 AM FUR EXAMINER EGFR Routine 08/18/2024 1:40 PM FUR EXAMINER Dyslipidemia DIFFERENTIAL AUTO Routine 08/18/2024 1:4 0 PM FUR EXAMINER Dyslipidemia CBC WITH AUTO DIFFERENTIAL Routine 08/18/2024 1:40 PM FUR EXAMINER Dyslipidemia COMPREHENSIVE METABOLIC PANEL Routine 08/18/2024 1:40 PM FUR EXAMINER Dyslipidemia LIPID PANEL Routine 08/18/2024 1:40 PM FUR EXAMINER Dyslipidemia POCT URINALYSIS DIPSTICK Routine 08/18/2024 1:32 PM FUR EXAMINER Hx of bladder infections XR SPINE CERVICAL 2 OR 3 VIEWS Schedule Routine, Read Routine (OP Routine) 06/30/2024 3:24 PM FUR EXAMINER Chest pain, unspecified type Radicular pain in left arm ECG 12-LEAD Routine 06/30/2024 3:08 PM FUR EXAMINER Chest pain, unspecified type COLONOSCOPY 04/26/2023 10:34 AM CDT HM MAMMOGRAPHY Routine 12/28/2022 HM PAP SMEAR WITH HPV Routine 12/06/2022 from Last 3 Months or Most Recently Relevant to Health Maintenance Results * XR Abdomen 1 View AP (09/05/2024 11:27 AM FUR EXAMINER) Anatomical Region Laterality Modality Body, Abdomen N/A Radiographic Rabia ging us Historical Provider IMG XR PROCEDURES Final R esult * eGFR (08/18/2024 1:40 PM FUR EXAMINER) eGFR 84 >=60 mL/min/1. 73 m2 Comment: [...] last reviewed 2021. Blood 08/18/2024 1:40 PM FUR EXAMINER 08/19/2024 10:27 AM FUR EXAMINER Vega Renee MD LAB BLOOD ORDERABLES Edited Result - Final [facility] [id number] Department [place] [address] * (ABNORMAL) Differential, auto (08/18/2024 1:40 PM FUR EXAMINER) Neutrophil abs 5.5 1.5 - 6.5 K/cumm [...] revised on 2017. Lymphocyte pct 37.1 % [facility] Comment: Collection date/time has been modified to: 13:40:00. Previous collection date/time: 10:07:29. Interpretive Data Percent cell count reference ranges are not reported, since discordance with absolute values may lead to misinterpretation of CBC data. Current Interpretive Data was last revised on 2017. Monocyte pct 6.1 % [facility] Comment: Collection date/time has been modified to: 13:40:00. Previous collection date/time: 10:07:29. Interpretive Data Percent cell count reference ranges are not reported, since discordance with absolute values may lead to misinterpretation of CBC data. Current Interpretive Data was last revised on 2017. Eosinophil pct 8.3 % [facility] Comment: Collection date/time has been modified to: 13:40:00. Previous collection date/time: 10:07:29. Interpretive Data Percent cell count reference ranges are not reported, since discordance with absolute values may lead to misinterpretation of CBC data. Current Interpretive Data was last revised on 2017. Basophil pct 0.9 % [facility] Comment: Collection date/time has been modified to: 13:40:00. Previous collection date/time: 10:07:29. Interpretive Data Percent cell count reference ranges are not reported, since discordance with absolute values may lead to misinterpretation of CBC data. Current Interpretive Data was last revised on 2017. Blood 08/18/2024 1:40 PM FUR EXAMINER 08/19/2024 10:07 AM FUR EXAMINER Vega Renee MD LAB BLOOD ORDERABLES Edited Result - Final T[facility] [id number] Department [place] [address] * (ABNORMAL) CBC with auto differential (08/18/2024 1:40 PM FUR EXAMINER) WBC 11.6(H) 3.8 - 9.9 K/cumm Comment:Collection date/time has been modified to: 13:40:00. Previous collection date/time: 10:07:29. Hgb 13.9 11.9 - 15.5 g/dL [facility] Comment:Collection date/time has been modified to: 13:40:00. Previous collection date/time: 10:07:29. Hct 44.8 35.6 - 45.5 % [facility] Comment:Collection date/time has been modified to: 13:40:00. Previous collection date/time: 10:07:29. Plt 365 150 - 400 K/cumm [facility] Comment:Collection date/time has been modified to: [...] collection date/time: 10:07:29. Blood 08/18/2024 1:40 PM FUR EXAMINER 08/19/2024 10:07 AM FUR EXAMINER Vega Renee MD LAB BLOOD ORDERABLES Edited Result - Final [facility] [id number] [facility] [place] [address] * (ABNORMAL) Lipid panel (08/18/2024 1:40 PM FUR EXAMINER) Cholesterol 225(H) 30 - 199 mg/dL Comment: [...] collection date/time: 10:07:29. Blood 08/18/2024 1:40 PM FUR EXAMINER 08/19/2024 10:07 AM FUR EXAMINER us Vega Renee MD LAB BLOOD ORDERABLES Edited Result - Final [facility]IE [facility] [id number] Department [place] [address] * Comprehensive metabolic panel (08/18/2024 1:40 PM FUR EXAMINER) Sodium 137 135 - 145 mmol/L Comment:Collection date/time has been modified to: 13:40:00. Previous collection date/time: 10:07:29. Potassium, pl 4.5 3.3 - 4.9 mmol/L [facility] Comment:Collection date/time has been modified to: 13:40:00. Previous collection date/time: 10:07:29. Chloride 101 97 - 110 mmol/L [facility] Comment:Collection date/time has been modified to: 13:40:00. Previous collection date/time: 10:07:29. CO2 23 22 - 32 mmol/L [facility] Comment:Collection date/time has been modified to: 13:40:00. Previous collection date/time: 10:07:29. Anion gap 13 2 - 15 mmol/L [facility] Comment:Collection date/time has been modified to: 13:40:00. Previous collection date/time: 10:07:29. BUN 13 6 - 25 mg/dL [facility] Comment:Collection date/time has been modified to: 13:40:00. Previous collection date/time: 10:07:29. Creatinine 0.86 0.60 - 1.10 mg/dL [facility] Comment:Collection date/time has been modified to: 13:40:00. Previous collection date/time: 10:07:29. Glucose 87 70 - 199 mg/dL [facility] Comment: Collection date/time has been [...] collection date/time: 10:07:29. Blood 08/18/2024 1:40 PM FUR EXAMINER 08/19/2024 10:07 AM FUR EXAMINER Vega Renee MD LAB BLOOD ORDERABLES Edited Result - Final [facility]IE [facility] [id number] [facility] [place] [address] * (ABNORMAL) POCT urinalysis dipstick (08/18/2024 1:32 PM FUR EXAMINER) Color, Urine, POC Yellow Clarity, ur, POC Clear Clear Glucose, ur, POC Negative Negative MG/DL Bilirubin, ur, POC Negative Negative, Small, Moderate, Large Ketones, ur, POC Negative Negative Specific [place], POC 1.020 1.003 - 1.030 Blood, ur, POC Negative Negative pH, ur, POC 7.0 5.0 - 8.0 Protein, ur, POC Trace(A) Negative Urobilinogen, urine, POC 1.0 0.2 - 1.0 mg/dL Nitrite, ur, POC Negative Negative Leukocytes, ur, POC Negative Negative Lot Number 0 Urine 08/18/2024 1:32 PM FUR EXAMINER Sarika Chopra NP POINT OF CARE TEST ORDERABLES Fi nal Result * XR Spine Cervical 2 or 3 Views (06/30/2024 3:24 PM FUR EXAMINER) Anatomical Region Laterality Modality Spine N/A Digital Radiogra phy 07/03/2024 8:32 AM FUR EXAMINER Narrative 07/03/2024 8:33 AM FUR EXAMINER EXAM DESCRIPTION: XR SPINE CERVICAL 2 OR [...] by Antony Jackson M.D. T: Report ID: [id number] Reading Location: [id number] Procedure Note Antony Jackson MD - 07/03/2024 [...] by Antony Jackson M.D. T: Report ID: [id number] Reading Location: [place] [address] [place] Vega Renee MD IMG XR PROCEDURES Final Res ult * ECG 12-LEAD (06/30/2024 3:08 PM FUR EXAMINER) Narrative Vega Renee MD - 06/30/2024 3:08 PM FUR EXAMINER Vega Renee MD 06/30/2024 3:19 PM ECG [...] Laterality Modality Other Narrative Procedure Note Johnnie Menednez MD - 04/26/2023 10:34 AM CDT [facility] Lab Patient Name: Harriet Meade [...] CRNA (Anesthesia Staff), Bhavana Bragg RN,Raymond Flynn, Fire Warden Referring MD: Vega Renee M.D. Medicines: Monitored [...] by the physician, the nurse and the component lab tech in the procedure room. Mental Status Examination: [...] pathology results. Procedure Code(s): --- Professional --- 36772, Colonoscopy, flexible; with biopsy, singleor multiple Diagnosis Code(s): --- Professional --- Z12.11, Encounter for screening for malignantneoplasm of colon D12.7, Benign neoplasm of rectosigmoid junction K62.89, Other specified diseases of anus andrectum K57.30, Diverticulosis of large intestine without perforation or abscess without bleeding CPT copyright 2020 [employer]. All rights reserved. The codes documented in this report are preliminary and upon expediter clerk reviewmay be revised to meet current compliance [...] Most Recently Relevant to Health Maintenance Insurance [facility] [employer] [employer] Care Teams Engagement Manager Relationship Specialty Start Date End Date Vega Renee MD [address] [facility] [address] [place], [place] [id number] PCP - General Family Medicine 03/06/23 Tai Burk MD [address] [place] [address] Referring Physician Psychiatry 03/06/23 Willie Starks DC [address] [place], [place] [id number] Referring Physician Chiropractic Medicine 03/06/23
--- OUTSIDE RECORDS SUMMARY | 2024-09-23 18:55 | XMS_ITS | Clinical Summary ---
Author Organization [employer] [facility] [place] Address [address] [place] [address] Phone Care Team Providers Care Automotive Parts Counterperson Name Role Phone Rio Lyon MD Primary Care Provider [phone]- [phone] Allergies Active Allergy Reactions Criticality Noted Date [...] [address] [place] [address] Other: Problem Noted Date Diagnosed Date Family [...] on file Legal Sex Female 5:50 AM PEDIATRIC PHYSICAL THERAPIST Gender Identity Not on file Sexual Orientation [...] Most Recently Relevant to Health Maintenance Insurance [place] [id number] Care Teams Automotive Parts Counterperson Relationship Specialty Start Date End Date Rio Lyon MD [address] [place] [id number] PCP - General Family Practice 07/05/10
--- OUTSIDE RECORDS SUMMARY | 2024-09-23 18:55 | XMS_ITS | Clinical Summary ---
Author Organization [facility] [address] Address [address] [place] [id number] Care Team Providers Care Supervisor Lead Refinery Name Role Phone Tai Burk MD Unavailable [phone] Willie Starks DC Unavailable [phone] Vega Renee MD Primary Care Provider [phone] Allergies Active Allergy Reactions Criticality Noted Date [...] 08/18/2024 Assessment & Plan (08/18/2024 1:47 PM FLORAL DECORATOR): 7mm right kidney. Follow up with Dr. Pink as scheduled. Pyelonephritis 08/18/2024 Assessment & Plan (08/18/2024 1:47 PM FLORAL DECORATOR): Symptoms resolved. She has one day of [...] Department Care Team Description 09/05/2024 Orders Only [facility] Primary Care at [address] [phone] ProviderMejia MD 08/18/2024 1:45 PM FLORAL DECORATOR Lab [facility] Outpatient Lab at [address] [phone] Encounter for medical examination to establish care (Primary Dx) 08/18/2024 1:35 PM FLORAL DECORATOR - 08/18/2024 11:59 PM FLORAL DECORATOR Hospital Encounter [address] [address] Dyslipidemia Discharge Disposition: Discharge to home or self care 08/18/2024 1:00 PM FLORAL DECORATOR Office Visit [facility] Primary Care at [address] [phone] Sarika Chopra NP Pyelonephritis (Primary Dx); Hx of bladder infections; Right nephrolithiasis; Hospital discharge follow-up 08/12/2024 Orders Only [facility] Primary Care at [address] [phone] Sarika Chopra NP 08/12/2024 Telephone [facility] Primary Care at [address] [phone] Vega Renee MD ISADORA Questions 07/04/2024 Orders Only [facility] Primary Care at [address] [phone] Vega Renee MD Chronic neck pain with osteoarthritis determined by x-ray (Primary Dx) 06/30/2024 3:20 PM FLORAL DECORATOR Ancillary Procedure [facility] Imaging at [address] [phone] Chest pain, unspecified type; Radicular pain in left arm 06/30/2024 2:45 PM FLORAL DECORATOR Office Visit [facility] Primary Care at [address] [phone] Vega Renee MD Chest pain, unspecified type (Primary Dx); Radicular pain in left arm 06/26/2024 Nurse Triage [facility] Primary Care at [address] [phone] Mariann Benson RN from Last [...] on file Legal Sex Female 6:23 AM FLORAL DECORATOR Gender Identity Not on file Sexual Orientation Not on file 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 Not on file Not on file N ot on file Obstetrics History Last Filed Vital Signs Vital Sign Reading Time Taken Comments Blood Pressure 132/84 08/18/2024 1:03 PM FLORAL DECORATOR Pulse 118 08/18/2024 1:03 PM FLORAL DECORATOR Temperature 36.7 C (98 F) 08/18/2024 1:03 PM FLORAL DECORATOR Respiratory Rate 18 08/18/2024 1:03 PM FLORAL DECORATOR Oxygen Saturation 97% 08/18/2024 1:03 PM FLORAL DECORATOR Inhaled Oxygen Concentration - - Weight 80 kg (176 lb 6.4 oz) 08/18/2024 1:03 PM FLORAL DECORATOR Height 152.4 cm (5') 08/18/2024 1:03 PM FLORAL DECORATOR Body Mass Index 34.45 08/18/2024 1:03 PM FLORAL DECORATOR Plan of Treatment Health Maintenance Due Date [...] Read Routine (OP Routine) 09/05/2024 11:27 AM FLORAL DECORATOR EGFR Routine 08/18/2024 1:40 PM FLORAL DECORATOR Dyslipidemia DIFFERENTIAL AUTO Routine 08/18/2024 1:4 0 PM FLORAL DECORATOR Dyslipidemia CBC WITH AUTO DIFFERENTIAL Routine 08/18/2024 1:40 PM FLORAL DECORATOR Dyslipidemia COMPREHENSIVE METABOLIC PANEL Routine 08/18/2024 1:40 PM FLORAL DECORATOR Dyslipidemia LIPID PANEL Routine 08/18/2024 1:40 PM FLORAL DECORATOR Dyslipidemia POCT URINALYSIS DIPSTICK Routine 08/18/2024 1:32 PM FLORAL DECORATOR Hx of bladder infections XR SPINE CERVICAL 2 OR 3 VIEWS Schedule Routine, Read Routine (OP Routine) 06/30/2024 3:24 PM FLORAL DECORATOR Chest pain, unspecified type Radicular pain in left arm ECG 12-LEAD Routine 06/30/2024 3:08 PM FLORAL DECORATOR Chest pain, unspecified type COLONOSCOPY 04/26/2023 10:34 AM CDT HM MAMMOGRAPHY Routine 12/28/2022 HM PAP SMEAR WITH HPV Routine 12/06/2022 from Last 3 Months or Most Recently Relevant to Health Maintenance Results * XR Abdomen 1 View AP (09/05/2024 11:27 AM FLORAL DECORATOR) Anatomical Region Laterality Modality Body, Abdomen N/A Radiographic Rabia ging Historical Provider MD CHESTER XR PROCEDURES Final R esult * eGFR (08/18/2024 1:40 PM FLORAL DECORATOR) eGFR 84 >=60 mL/min/1. 73 m2 Comment: [...] last reviewed 2021. Blood 08/18/2024 1:40 PM FLORAL DECORATOR 08/19/2024 10:27 AM FLORAL DECORATOR Vega Renee MD LAB BLOOD ORDERABLES Edited Result - Final TAMIE [id number] Department [place] [address] * (ABNORMAL) Differential, auto (08/18/2024 1:40 PM FLORAL DECORATOR) Neutrophil abs 5.5 1.5 - 6.5 K/cumm Comment:Collection date/time has been modified to: 13:40:00. Previous collection date/time: 10:07:29. Imm gran abs 0.0 0.0 - 0.1 K/cumm [facility] Comment:Collection date/time has been modified to: 13:40:00. Previous collection date/time: 10:07:29. Lymphocyte abs 4.3(H) 0.8 - 3.3 K/cumm [facility] Comment:Collection date/time has been modified to: 13:40:00. Previous collection date/time: 10:07:29. Monocyte abs 0.7 0.2 - 0.8 K/cumm [facility] Comment:Collection date/time has been modified to: 13:40:00. Previous collection date/time: 10:07:29. Eosinophil abs 1.0(H) 0.0 - 0.5 K[facility]cumm [facility]:Collection date/time has been modified to: 13:40:00. Previous collection date/time: 10:07:29. Basophil abs 0.1 0.0 - 0.1 K/cumm [facility] Comment:Collection date/time has been modified to: 13:40:00. Previous collection date/time: 10:07:29. Neutrophil pct 47.3 % [facility] Comment: Collection date/time has been modified to: 13:40:00. Previous collection date/time: 10:07:29. Interpretive Data Percent cell count reference ranges are not reported, since discordance with absolute values may lead to misinterpretation of CBC data. Current Interpretive Data was last revised on 2017. Imm gran pct 0.3 % [facility] Comment: Collection date/time has been modified to: 13:40:00. Previous collection date/time: 10:07:29. Interpretive Data Percent cell count reference ranges are not reported, since discordance with absolute values may lead to misinterpretation of CBC data. Current Interpretive Data was last revised on 2017. Lymphocyte pct 37.1 % [facility] Comment: Collection date/time has been [...] revised on 2017. Blood 08/18/2024 1:40 PM FLORAL DECORATOR 08/19/2024 10:07 AM FLORAL DECORATOR us Vega Renee MD LAB BLOOD ORDERABLES Edited Result - Final GLADYSLUDMILA ANGEL [id number] Department [place] [address] * (ABNORMAL) CBC with auto differential (08/18/2024 1:40 PM FLORAL DECORATOR) WBC 11.6(H) 3.8 - 9.9 K/cumm Comment:Collection [...] collection date/time: 10:07:29. Blood 08/18/2024 1:40 PM FLORAL DECORATOR 08/19/2024 10:07 AM FLORAL DECORATOR us Vega Renee MD LAB BLOOD ORDERABLES Edited Result - Final TAMIE [id number] Department [place] [address] * (ABNORMAL) Lipid panel (08/18/2024 1:40 PM FLORAL DECORATOR) Cholesterol 225(H) 30 - 199 mg/dL Comment: [...] collection date/time: 10:07:29. Blood 08/18/2024 1:40 PM FLORAL DECORATOR 08/19/2024 10:07 AM FLORAL DECORATOR us Vega Renee MD LAB BLOOD ORDERABLES Edited Result - Final TAMIE ANGEL [address] Department [place] [address] * Comprehensive metabolic panel (08/18/2024 1:40 PM FLORAL DECORATOR) Sodium 137 135 - 145 mmol/L Comment:Collection date/time has been modified to: 13:40:00. Previous collection date/time: 10:07:29. Potassium, pl 4.5 3.3 - 4.9 mmol/L [facility] Comment:Collection date/time has been modified to: 13:40:00. Previous collection date/time: 10:07:29. Chloride 101 97 - 110 mmol/L [facility] Comment:Collection date/time has been modified to: 13:40:00. Previous collection date/time: 10:07:29. CO2 23 22 - 32 mmol/L [facility] Comment:Collection date/time has been modified to: 13:40:00. Previous collection date/time: 10:07:29. Anion gap 13 2 - 15 mmol/L [facility] Comment:Collection date/time has been modified to: 13:40:00. Previous collection date/time: 10:07:29. BUN 13 6 - 25 mg/dL [facility] Comment:Collection date/time has been modified to: 13:40:00. Previous collection date/time: 10:07:29. Creatinine 0.86 0.60 - 1.10 mg/dL [facility] Comment:Collection date/time has been modified to: 13:40:00. Previous collection date/time: 10:07:29. Glucose 87 70 - 199 mg/dL [facility] Comment: Collection date/time has been modified to: [...] collection date/time: 10:07:29. Blood 08/18/2024 1:40 PM FLORAL DECORATOR 08/19/2024 10:07 AM FLORAL DECORATOR us Vega Renee MD LAB BLOOD ORDERABLES Edited Result - Final TAMIE ANGEL [address] Department [place] [address] * (ABNORMAL) POCT urinalysis dipstick (08/18/2024 1:32 PM FLORAL DECORATOR) Color, Urine, POC Yellow Clarity, ur, POC Clear Clear Glucose, ur, POC Negative Negative MG/DL Bilirubin, ur, POC Negative Negative, Small, Moderate, Large Ketones, ur, POC Negative Negative Specific [place], POC 1.020 1.003 - 1.030 Blood, ur, POC Negative Negative pH, ur, POC 7.0 5.0 - 8.0 Protein, ur, POC Trace(A) Negative Urobilinogen, urine, POC 1.0 0.2 - 1.0 mg/dL Nitrite, ur, POC Negative Negative Leukocytes, ur, POC Negative Negative Lot Number 0 Urine 08/18/2024 1:32 PM FLORAL DECORATOR Sarika Chopra NP POINT OF CARE TEST ORDERABLES Fi nal Result * XR Spine Cervical 2 or 3 Views (06/30/2024 3:24 PM FLORAL DECORATOR) Anatomical Region Laterality Modality Spine N/A Digital Radiogra phy 07/03/2024 8:32 AM FLORAL DECORATOR Narrative 07/03/2024 8:33 AM FLORAL DECORATOR EXAM DESCRIPTION: XR SPINE CERVICAL 2 OR [...] by Antony Jackson M.D. T: Report ID: [id number] Reading Location: [id number] Procedure Note Antony Jackson MD - 07/03/2024 [...] by Antony Jackson M.D. T: Report ID: [id number] Reading Location: [id number] us Vega Renee MD IMG XR PROCEDURES Final Res ult * ECG 12-LEAD (06/30/2024 3:08 PM FLORAL DECORATOR) Narrative Vega Renee MD - 06/30/2024 3:08 PM FLORAL DECORATOR Vega Renee MD 06/30/2024 3:19 PM ECG [...] Menendez MD - 04/26/2023 10:34 AM CDT [facility] Endoscopy Lab Patient Name: Harriet Meade Procedure [...] CRNA (Anesthesia Staff), Bhavana Bragg RN,Raymond Flynn, Zoology Professor Referring MD: Vega Renee M.D. Medicines: Monitored [...] by the physician, the nurse and the civil cad tech in the procedure room. Mental Status [...] pathology results. Procedure Code(s): --- Professional --- 99449, Colonoscopy, flexible; with biopsy, singleor multiple Diagnosis Code(s): --- Professional --- Z12.11, Encounter for screening for malignantneoplasm of colon D12.7, Benign neoplasm of rectosigmoid junction K62.89, Other specified diseases of anus andrectum K57.30, Diverticulosis of large intestine without perforation or abscess without bleeding CPT copyright 2020 [employer]. All rights reserved. The codes documented in this report are preliminary and upon locomotive firer/fireman reviewmay be revised to meet current compliance [...] Health Maintenance Insurance Yon [address] [facility] [facility] CHOICE PLUS Care Teams Supervisor Lead Refinery Relationship Specialty Start Date End Date Vega Renee MD [address] [facility] [address] [place] [address] PCP - General Family Medicine 03/06/23 Tai Burk MD [address] [place] [address] [address] [place] [address] Referring Physician Psychiatry 03/06/23 Willie Starks DC [address] [place] [id number] Referring Physician Chiropractic Medicine 03/06/23
[2024-09-23 19:44] VITALS: BP 111/72; PULSE 68; RESP 17; O2SAT 99
== END 2024-09-23 19:40 | disposition home or self-care (01) ==
LOC: ANHED 18:54
PROVIDERS: Emergency Provider Physician Assistant; PCP Family Medicine
DX: S93.402A Sprain of unspecified ligament of left ankle, initial encounter (principal); M23.92 Unspecified internal derangement of left knee; F41.9 Anxiety disorder, unspecified; F32.A Depression, unspecified; E78.5 Hyperlipidemia, unspecified; W00.0XXA Fall on same level due to ice and snow, initial encounter
CPT/HCPCS: 73562; 73610; 99284

== ENCOUNTER 2024-09-30 07:37 | Outpatient (CLI) | payer OTHER, SELFPAY ==
--- NOTE | ~2024-09-30 | XR_ITS ---
EXAMINATION: XR abdomen/kub 1V DATE: 09/30/2024 07:55 INDICATION: Right kidney stone. TECHNIQUE: A supine view of the abdomen on 2 radiographs was obtained. COMPARISON: Abdomen radiographs 09/05/2024, CT abdomen and pelvis 08/04/2024 FINDINGS: There are no dilated loops of bowel. There are approximately 7 stones in right kidney measu ring up to 5 mm. There are phleboliths in left pelvis. IMPRESSION: 1. Right kidney stones. Reviewed, dictated and finalized at location A. [facility] IMPRESSION: 1. Right kidney stones.
--- OUTSIDE RECORDS SUMMARY | 2024-09-30 07:41 | XMS_ITS ---
Author Organization [facility] Address [address] [place] [address] Care Team Providers Care Education Paraprofessional Name Role Phone Anselmo Wells Unavailable [phone] REASON FOR VISIT follow-up, Elevated or Hypertensive blood pressure reading, depression in remission, anxiety Medications Medication SIG (Take, Route, Frequency, Duration) Notes Start Date End Date Status DULoxetine HCl 60 MG 1 capsule Oral Once a day for 90 days Active Indomethacin 25 MG Oral for 30 Days Active Estradiol 0.5 MG TAKE 1 TABLET BY ZAC TH DAILY Oral for 30 Days Active Diclofenac Sodium 75 MG Oral 12/24/2023 Not-Taking Trokendi XR 50 MG TAKE 1 CAPSULE BY MO UT DAILY Oral for 30 Days Not-Caio luke Social History Tobacco Use: Social History Observation Description Date Details (start date - stop date) Never Smoker NA - NA Sex Assigned At : Social History Observation Description Sex Assigned At Female Tobacco Control (Standard) Question Answer Notes Tobacco use: Nonsmoker AUDIT-C (Standard) Question Answer Notes Did you have a drink contain ing alcohol in the past year? Yes How often did you have six o r more drinks on one occasion in the past year? Never (0 point) How many drinks did you have on a typical day when you were drinking in the past year? 1 or 2 drinks (0 point) How often did you have a dri nk containing alcohol in the past year? Monthly or less (1 point) Problems Problem Type SNOMED Code ICD Code Onset Dates Problem Status W/U Status Risk Notes Problem Moderate recurrent major depression (46057345) Major depressive disorder, recurrent, moderate (F33.1) Active confirmed Problem Generalized anxiety disorder (84088729) Generalized anxiety disorder (F41.1) Active confirmed Vital Signs Blood pressure systolic 144 mm Hg 09/25/19 25 Blood pressure diastolic 80 mm Hg 025 Heart Rate 111 /min 09/25/2024 Height 60.00 in 09/25/2024 Weight 172 lbs 09/25/2024 BMI 33.59 kg/m2 09/25/2024 Height-cm 152.40 cm 09/25/2024 Weight-kg 78.02 kg 09/25/2024 Pt fell at work on 09/23 poss ible ACL tear, pt stated pain 01/13 Encounters Encounter Location Date Provider Diagnosis [facility] [facility] [address] [place] [address] 09/25/2024 Anselmo Wells Major depressive disorder, recurrent, moderate F33.1 and Generalized anxiety disorder F41.1 Assessments Encounter Date Diagnosis (ICD Code) Assessment Notes Treatment Notes Treatment Clinical Notes Section Notes 09/25/2024 Major depressive disorder, recurrent, moderate (ICD-10 - F33.1) 09/25/2024 Generalized anxiety disorder (ICD-10 - F41.1) Plan Of Treatment Medication Medication Name Sig Start Date Stop Date Notes DULoxetine HCl 60 MG 1 capsule Oral Once a day for 90 days Next Appt Details Follow Up: 6 Months, Reason: f/u mdd; transition of care from Dr. Wells Provider Name:Ameena gurrola, 04/01/2025 04:30:00 PM, [address], [address], [place], [address], Progress Notes * MILDRED ALFARODOB: [birth year] (49 yo F)Acc No.[id number]:09/25/2024 Patient: Mateusz MILDRED CHUN Provider: Jose Roberto WELLS MD :1975 A ge:49 Y S ex:Female Date:09/25/2024 Address:[facility] [address] , [facility] Subjective: * Chief Complaints: * 1 . Follow-up. 2. Elevated or Hypertensive blood pressure reading. 3. Depression in remission. 4. Anxiety. * HPI: C [place]-Suicide Severity Rating Scale: Suicide Risk (CSRS-screener) i n the past one month Have you wished you were or wished you could go to sleep and not wake up? N o, i n the past one month Have you actually had any thoughts of killing yourself? N o, H ave you ever done anything, started to do anything, or prepared to do anything to end your life? N o. P ast Psychiatric Hospitalizations: Previous psychiatric hospitalizations W hat was the cause of your psychiatric hospitalizations? D epression,. P ast History of Suicidal attempt H ave you ever attempted suicide in the past N o. D epression Screening: GIA-7 (2018 Edition) F eeling nervous, anxious, or on edge?Several days, N ot being able to stop or control worrying S everal , W orrying too much about different things S everal , T rouble relaxing S ever, B eing so restless that it is hard to sit still S ever, B ecoming easily annoyed or irritable S everal , F eeling afraid as if something awful might happen S ever, Total GIA-7 Score 7 , I f you checked any problems, how difficult have they made it for you to do your work, take care of things at home, or get along with other people? S omewhat difficult, I nterpretation of Total ( 5 to 9) Mild. D epression screening: PHQ-9 L ittle interest or pleasure in doing things S everal , F eeling down, depressed, or hopeless S everal , T rouble falling or staying asleep, or sleeping too much N ot at all, F eeling tired or having little energy S everal , P oor appetite or overeating N ot at all, F eeling bad about yourself or that you are a failure, or have let yourself or your family down S everal , T rouble concentrating on things, such as reading the newspaper or watching television S ever, M oving or speaking so slowly that other people could have noticed; or the opposite, being so fidgety or restless that you have been moving around a lot more than usual N ot at all, T houghts that you would be better off or of hurting yourself in some way N ot at all, T otal Score?5, I nterpretation M ild Depression. F unctional Status: doing well except slipped on ice last week and tore ACL and sprained ankle; does not want to make any change to medications; doing well on duloxetine monotherapy; bp and pulse elevated today due to pain related to knee/ankle injuries. * Medical History: P priya: Body mass index 30+ - obesity, Generalized anxiety disorder, Long-term drug therapy, Moderate recurrent major depression, Nausea and vomiting, Periodic limb movement disorder, Primary insomnia, Restless legs, ,, abdominal aortic aneurysm: No, atrial fibrillation: No, chronic fatigue syndrome: No, essential tremor: No, hyperlipidemia: No, hypertension: No, Parkinson's disease: No, restless leg syndrome: Yes, stroke: No, subdural hematoma: No, type 1 diabetes mellitus: No, type 2 diabetes mellitus: No, vitamin B12 deficiency: No, vitamin D deficiency: No. * Social History: T obacco Use: T obacco Control (Standard) T obacco use: N onsmoker. M igrated Social History: M igrated Social History: Alcohol Intake: Occasional 11/19/2020,Tobacco Years: Never smoker 06/08/2020. D rug/Alcohol: D rugs H ave you used drugs other than those for medical reasons in the past 12 months??No. A RAMON-C (Standard) D id you have a drink containing alcohol in the past year? Y es, H ow often did you have six or more drinks on one occasion in the past year? N ever (0 point), H ow many drinks did you have on a typical day when you were drinking in the past year? 1 or 2 drinks (0 point), H ow often did you have a drink containing alcohol in the past year? M onthly or less (1 point). 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 Safety issues A re there any firearms in the house? Y es. A dvance Care Planning A re you your own decision-maker Y es, D o you have Power of Director Print for Health or Medical? Y es, D o you have a power of district attorney for health? N o, D o you have power of district attorney for Medical ? N o. S ocial History: H ousehold M arital Status: M arried, N umber of Adults in household: 2 , N umber of Children in Household: 1 , L evel of Education: P [employer]/Masters/PhD. * Medications: T aking Estradiol 0.5 MG Tablet TAKE 1 TABLET BY MOUTH DAILY Oral , Taking DULoxetine HCl 60 MG Capsule Delayed Release Particles TAKE 1 CAPSULE DAILY Oral Once a day , Taking Indomethacin 25 MG Capsule Oral , Not-Taking Diclofenac Sodium 75 MG Tablet Delayed Release Oral , Not-Taking Trokendi XR 50 MG Capsule Extended Release 24 Hour TAKE 1 CAPSULE BY MOUTH DAILY Oral Objective: * Vitals: B P:144/80mm Hg, HR:111/min, Wt:172lbs, Wt-k.02 kg, Ht: 60.00 in, Ht-cm: 152.40 cm, BMI:33.59Index, Body Surface Area: 1.82. Pt fell at work on 09/23 possible ACL tear, pt stated pain 01/13. * Examination: P sychiatry: Appearance: w ell-groomed, well-nourished, appears younger than stated age. Affect / mood: a ppropriate, full range. Attention: g ood. Attitude: c ooperative. Gait u sing crutches to keep weight off injured left ankle/knee. Suicidal ideation: n one. Memory status: n [...] F41.1 Plan: * Treatment: * Procedure Codes: G 8950 PREHTN/HTN BP DOC INDCD F/U DOC, G8753 MOST RECENT SYSTOLIC BP >= 140MM HG * Preventive Medicine: Counseling: B P Management: F IRST HYPERTENSIVE BP READING FOLLOW-UP PLAN: e levated bp appears to be related to pain from recent injury to ankle/knee; recommend recheck once pain under control; f/u with pcp if systolic (upper number) is greater than 120 or diastolic (lower number) is greater than 80. * Follow Up: 6 Months (Reason: f/u mdd; transition of care from Dr. Wells) * Billing Information: * Visit Code: 06432 OFFICE OUTPATIENT VISIT 25 MINUTES DETAILED HISTORY AND EXAM/MODERATE MEDICAL DECISION MAKING. * Procedure Codes: G8950 PREHTN/HTN BP DOC INDCD F/U DOC. G8753 MOST RECENT SYSTOLIC BP >= 140MM HG. * ATOR MAINTAINER Sign off status: Completed true * Provider: Jose Roberto WELLS MD Date: 09/25/2024 Generated for Nael torrez/Angel/eTransmitting on: 09/30/2024 07:41 AM OPERATOR MAINTAINER History and Physical Notes * HPI (History of Present Illness) Category Sub-Category Detail Notes Category Not es Past Psychiatric Hospitalizations Previous psychiatric hospitalizations What was the cause of your psychiatric hospitalizations?: Depression, Past History of Suicidal attempt Have yo u ever attempted suicide in the past: No Depression screening PHQ-9 Little inte rest or pleasure in doing things: Several days Feeling down, depressed, or hopeless: Se veral days Trouble falling or staying asleep, or sl eeping too much: Not at all Feeling tired or having little energy: S everal days Poor appetite or overeating: Not at all Feeling bad about yourself o r that you are a failure, or have let yourself or your family down: Several days Trouble concentrating on thi ngs, such as reading the newspaper or watching television: Several days Moving or speaking so slowly that other people could have noticed; or the opposite, being so fidgety or restless that you have been moving around a lot more than usual: Not at all Thoughts that you would be b sirena off or of hurting yourself in some way: Not at all Total Score: 5 Interpretation: Mild Depression Functional Status doing well except slipped on ice last week and tore ACL and sprained ankle; does not want to make any change to medications; doing well on duloxetine monotherapy; bp and pulse elevated today due to pain related to knee/ankle injuries Depression Screening GIA-7 (2018 Edition) Feeling nervous, anxious, or on edge: Several days Not being able to stop or control worryi ng: Several days Worrying too much about different things : Several days Trouble relaxing: Several days Being so restless that it is hard to sit still: Several days Becoming easily annoyed or irritable: Se veral days Feeling afraid as if something awful jae ht happen: Several days Total GIA-7 Score: 7 If you checked any problems, how difficult have they made it for you to do your work, take care of things at home, or get along with other people?: Somewhat difficult Interpretation of Total: (5 to 9) Mild [place]-Suicide Severity Rating Scale Suicide Risk (CSRS-screener) in the past one month Have you wished you were or wished you could go to sleep and not wake up?: No in the past one month Have y ou actually had any thoughts of killing yourself?: No Have you ever done anything, started to do anything, or prepared to do anything to end your life?: No Examination Category Sub-Category Detail Notes Category Not es Psychiatry Appearance: well-groomed, we ll-nourished, appears younger than stated age Attitude: cooperative Psychomotor activity: within normal rang [...] no impairment noted Delusions: no Hallucinations: no Gait using crutches to ke ep weight off injured left ankle/knee
--- OUTSIDE RECORDS SUMMARY | 2024-09-30 07:42 | XMS_ITS | Clinical Summary ---
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
--- OUTSIDE RECORDS SUMMARY | 2024-09-30 07:42 | XMS_ITS ---
Author Organization [facility] Address [address] [facility] [address] [place] [address] Care Team Providers Care Head Neck Surgeon Name Role Phone Anselmo Bethea Unavailable [phone] REASON FOR VISIT DULoxetine Medications Medication SIG (Take, Route, Fr equency, Duration) Notes Start Date End Date Status DULoxetine HCl 60 MG TAKE 1 CAPSULE RODRICK Y Oral Once a day for 90 days Active Social History Sex Assigned At : Social History Observation Description Sex Assigned At Female Encounters Encounter Location Date Provider Diagnosis [facility] [employer] [facility] [address] [address] 09/15/2024 Anselmo Bethea Major depressive disorder, recurrent, moderate F33.1 Assessments Encounter Date Diagnosis (ICD Code) Assessment Notes Treatment Notes Treatment Clinical Notes Section Notes 09/15/2024 Major depressive disorder, recurrent, moderate (ICD-10 - F33.1) Plan Of Treatment Medication Medication Name Sig Start Date Stop Date Notes DULoxetine HCl 60 MG TAKE 1 CAPSULE RODRICK Y Oral Once a day for 90 days Next Appt Details Provider Name:Ameena gurrola, 04/01/2025 04:30:00 PM, [address], [facility] [address], [place], [address], Progress Notes * MILDRED ALFARODOB: [birth year] (49 yo F)Acc No.[id number]:09/15/2024 Patient: Mateusz MILDRED CHUN :1975 A ge:49 Y S ex:Female Address:[address] [place], [address] * Refills Refill DULoxetine HCl Capsule Delayed [...] Date: Generated for Nael torrez/Angel/eThenrismitting on: 0 09/30/2024 07: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
--- OUTSIDE RECORDS SUMMARY | 2024-09-30 07:42 | XMS_ITS | Referral Summary ---
Author Organization [address] Address [address] [place] [address] Care Team Providers Care Psychiatric Specialist Name Role Phone Tai Burk MD Unavailable [phone] Willie Starks DC Unavailable [phone] Vega Renee MD Primary Care Provider [phone] Encounters Date Type Department Care Team Description 09/25/2024 1:45 PM NURSES' REGISTRY DIRECTOR Telemedicine [facility] Specialists [facility] [id number] [place] [phone] Syed Portillo II, MD Paroxysmal hemicrania (Primary Dx) 09/24/2024 Orders Only [facility] Primary Care at [address] [address] Mejia Chavez MD 09/05/2024 Orders Only [facility] Medical [facility] Primary Care at [address] [address] Mejia Chavez MD 08/18/2024 1:35 PM NURSES' REGISTRY DIRECTOR - 08/18/2024 11:59 PM NURSES' REGISTRY DIRECTOR Hospital Encounter [address] [address] Dyslipidemia Discharge Disposition: Discharge to home or self care 08/18/2024 1:45 PM NURSES' REGISTRY DIRECTOR Lab [facility] Outpatient Lab at [address] [address] Encounter for medical examination to establish care (Primary Dx) 08/18/2024 1:00 PM NURSES' REGISTRY DIRECTOR Office Visit [facility] Primary Care at [address] [address] Sarika Chopra NP Pyelonephritis (Primary Dx); Hx of bladder infections; Right nephrolithiasis; Hospital discharge follow-up 08/12/2024 Orders Only [facility] Primary Care at [address] [phone] Sarika Chopra NP 08/12/2024 Telephone [facility] Primary Care at [address] [address] Vega Renee MD ISADORA Questions 07/04/2024 Orders Only [facility] Primary Care at [address] [phone] Vega Renee MD Chronic neck pain with osteoarthritis determined by x-ray (Primary Dx) 06/30/2024 3:20 PM NURSES' REGISTRY DIRECTOR Ancillary Procedure [facility] Imaging at [address] [address] Chest pain, unspecified type; Radicular pain in left arm 06/30/2024 2:45 PM NURSES' REGISTRY DIRECTOR Office Visit [facility] Primary Care at [address] [address] Vega Renee MD Chest pain, unspecified type (Primary Dx); Radicular pain in left arm from Last 3 Months Allergies Active Allergy Reactions Criticality Noted Date Comments Codeine Nausea only,Vomiting Reaction: Nausea, Vomiting, Meperidine Nausea only,Vomiting Reaction: Nausea, Vomiting, Semaglutide Nausea & Vomiting Medium 03/06/2023 Propoxyphene N-Acetaminophen Nausea And Vomiting Low 03/24/[address] (CYMBALTA) 60 mg capsule 3 Active acetaminophen-a spirin-caffeine (EXCEDRIN MIGRAINE) 250-250-65 mg per tabletIndicatio ns:Migraine Take 1 tablet by mouth every 6 (six) hours as needed for headaches Active ibuprofen 200 mg tab/capIndicati ons:Anti-inflam matory,Pain Take 4 tablet/capsule (800 mg total) by mouth every 6 (six) hours as needed for pain Active EPINEPHrine 0.3 mg/0.3 mL auto-injection syringeIndicati ons:patient at risk of anaphylaxis Inject 0.3 mL (0.3 mg total) into the muscle as instructed once for 1 dose Call 911 after use. 0.3 mL 4 Active estradioL (ESTRACE) 0.5 mg tablet Take 1 tablet (0.5 mg total) by mouth daily 4 Active topiramate 50 mg capsule,extende d release 24hrIndications :Migraine Prevention Take 50 mg by mouth daily 30 capsule 5 4 Active Additional Information Patient not taking.Reported on 08/18/2024 fluconazole (DIFLUCAN) 150 mg tablet Take one tab now. Repeat in 7 days if symptoms persist. 2 tablet 5 Active Additional Information Patient not taking.Reported on 08/18/2024 indomethacin (INDOCIN) 25 mg capsule Take 1 capsule (25 mg total) by mouth 3 (three) times a day with meals 270 capsule 1 5 Active indomethacin (INDOCIN) 25 mg capsule Take 1 capsule (25 mg total) by mouth 3 (three) times a day with meals 905 capsule 5 4 025 Discontin ued(Reord er) Active Problems Problem Noted Date Diagnosed Date Right nephrolithiasis 08/18/2024 Assessment & Plan (08/18/2024 1:47 PM NURSES' REGISTRY DIRECTOR): 7mm right kidney. Follow up with Dr. Pink as scheduled. Pyelonephritis 08/18/2024 Assessment & Plan (08/18/2024 1:47 PM NURSES' REGISTRY DIRECTOR): Symptoms resolved. 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 Not on file Not on file N ot on file Last Filed Vital Signs Vital Sign Reading Time Taken Comments Blood Pressure 132/84 08/18/2024 1:03 PM NURSES' REGISTRY DIRECTOR Pulse 118 08/18/2024 1:03 PM NURSES' REGISTRY DIRECTOR Temperature 36.7 C (98 F) 08/18/2024 1:03 PM NURSES' REGISTRY DIRECTOR Respiratory Rate 18 08/18/2024 1:03 PM NURSES' REGISTRY DIRECTOR Oxygen Saturation 97% 08/18/2024 1:03 PM NURSES' REGISTRY DIRECTOR Inhaled Oxygen Concentration - - Weight 80 kg (176 lb 6.4 oz) 08/18/2024 1:03 PM NURSES' REGISTRY DIRECTOR Height 152.4 cm (5') 08/18/2024 1:03 PM NURSES' REGISTRY DIRECTOR Body Mass Index 34.45 08/18/2024 1:03 PM NURSES' REGISTRY DIRECTOR Plan of Treatment Not on file Procedures Procedure Name Priority Date/Time Associated Diagnosis Comments XR KNEE LEFT 3 VIEWS Schedule Routine, Read Routine (OP Routine) 09/23/2024 9:15 AM NURSES' REGISTRY DIRECTOR XR ABDOMEN AP 1 VIEW Schedule Routine, Read Routine (OP Routine) 09/05/2024 11:27 AM NURSES' REGISTRY DIRECTOR EGFR Routine 08/18/2024 1:40 PM NURSES' REGISTRY DIRECTOR Dyslipidemia DIFFERENTIAL AUTO Routine 08/18/2024 1:4 0 PM NURSES' REGISTRY DIRECTOR Dyslipidemia CBC WITH AUTO DIFFERENTIAL Routine 08/18/2024 1:40 PM NURSES' REGISTRY DIRECTOR Dyslipidemia COMPREHENSIVE METABOLIC PANEL Routine 08/18/2024 1:40 PM NURSES' REGISTRY DIRECTOR Dyslipidemia LIPID PANEL Routine 08/18/2024 1:40 PM NURSES' REGISTRY DIRECTOR Dyslipidemia POCT URINALYSIS DIPSTICK Routine 08/18/2024 1:32 PM NURSES' REGISTRY DIRECTOR Hx of bladder infections XR SPINE CERVICAL 2 OR 3 VIEWS Schedule Routine, Read Routine (OP Routine) 06/30/2024 3:24 PM NURSES' REGISTRY DIRECTOR Chest pain, unspecified type Radicular pain in left arm ECG 12-LEAD Routine 06/30/2024 3:08 PM NURSES' REGISTRY DIRECTOR Chest pain, unspecified type COLONOSCOPY 04/26/2023 10:34 AM CDT HM MAMMOGRAPHY Routine 12/28/2022 HM PAP SMEAR WITH HPV Routine 12/06/2022 from Last 3 Months or Most Recently Relevant to Health Maintenance Results * XR Knee Left 3 Views (09/23/2024 9:15 AM NURSES' REGISTRY DIRECTOR) Anatomical Region Laterality Modality Lower Extremities, Knee Left Radiogra phic Imaging us Historical Provider MD IMG XR PROCEDURES Final R esult * XR Abdomen 1 View AP (09/05/2024 11:27 AM NURSES' REGISTRY DIRECTOR) Anatomical Region Laterality Modality Body, Abdomen N/A Radiographic Rabia ging us Historical Provider IMG XR PROCEDURES Final R esult * eGFR (08/18/2024 1:40 PM NURSES' REGISTRY DIRECTOR) eGFR 84 >=60 mL/min/1. 73 m2 Comment: [...] last reviewed 2021. Blood 08/18/2024 1:40 PM NURSES' REGISTRY DIRECTOR 08/19/2024 10:27 AM NURSES' REGISTRY DIRECTOR us Vega Renee MD LAB BLOOD ORDERABLES Edited Result - Final TAMIE [id number] [place] [address] * (ABNORMAL) Differential, auto (08/18/2024 1:40 PM NURSES' REGISTRY DIRECTOR) Neutrophil abs 5.5 1.5 - 6.5 K/cumm Comment:Collection date/time has been modified to: 13:40:00. Previous collection date/time: 10:07:29. Imm gran abs 0.0 0.0 - 0.1 K/cumm TAMIE Comment:Collection date/time has been modified to: 13:40:00. Previous collection date/time: 10:07:29. Lymphocyte abs 4.3(H) 0.8 - 3.3 K/cumm TAMIE Comment:Collection date/time has been modified to: 13:40:00. Previous collection date/time: 10:07:29. Monocyte abs 0.7 0.2 - 0.8 K/cumm TAMIE Comment:Collection date/time has been modified to: 13:40:00. Previous collection date/time: 10:07:29. Eosinophil abs 1.0(H) 0.0 - 0.5 K/cumm [facility] Comment:Collection date/time has been modified to: 13:40:00. Previous collection date/time: 10:07:29. Basophil abs 0.1 0.0 - 0.1 K/cumm [facility] Comment:Collection date/time has been modified to: 13:40:00. Previous collection date/time: 10:07:29. Neutrophil pct 47.3 % [facility] Comment: Collection date/time has been modified to: 13:40:00. Previous collection date/time: 10:07:29. Interpretive Data Percent cell count reference ranges are not reported, since discordance with absolute values may lead to misinterpretation of CBC data. Current Interpretive Data was last revised on 2017. Imm gran pct 0.3 % [facility] Comment: Collection date/time has been modified to: 13:40:00. Previous collection date/time: 10:07:29. Interpretive Data Percent cell count reference ranges are not reported, since discordance with absolute values may lead to misinterpretation of CBC data. Current Interpretive Data was last revised on 2017. Lymphocyte pct 37.1 % [facility] Comment: Collection date/time has been modified to: 13:40:00. Previous collection date/time: 10:07:29. Interpretive Data Percent cell count reference ranges are not reported, since discordance with absolute values may lead to misinterpretation of CBC data. Current Interpretive Data was last revised on 2017. Monocyte pct 6.1 % [facility] Comment: Collection date/time has been modified to: 13:40:00. Previous collection date/time: 10:07:29. Interpretive Data Percent cell count reference ranges are not reported, since discordance with absolute values may lead to misinterpretation of CBC data. Current Interpretive Data was last revised on 2017. Eosinophil pct 8.3 % [facility] Comment: Collection date/time has been modified [...] revised on 2017. Blood 08/18/2024 1:40 PM NURSES' REGISTRY DIRECTOR 08/19/2024 10:07 AM NURSES' REGISTRY DIRECTOR Vega Renee MD LAB BLOOD ORDERABLES Edited Result - Final TAMIE [id number] [facility] [place] [address] * (ABNORMAL) CBC with auto differential (08/18/2024 1:40 PM NURSES' REGISTRY DIRECTOR) WBC 11.6(H) 3.8 - 9.9 K/cumm Comment:Collection [...] RBC 4.65 3.90 - 5.20 M/cumm TAMIE CH Comment:Collection date/time has been modified to: 13:40:00. Previous collection date/time: 10:07:29. MCV 96.3 81.3 - 96.4 fL TAMIE CH Comment:Collection date/time has been modified to: 13:40:00. Previous collection date/time: 10:07:29. MCH 29.9 27.1 - 33.3 pg TAMIE Comment:Collection date/time has been modified to: 13:40:00. Previous collection date/time: 10:07:29. MCHC 31.0(L) 32.3 - 35.7 g/dL TAMIE Comment:Collection date/time has been modified [...] collection date/time: 10:07:29. Blood 08/18/2024 1:40 PM NURSES' REGISTRY DIRECTOR 08/19/2024 10:07 AM NURSES' REGISTRY DIRECTOR Vega Renee MD LAB BLOOD ORDERABLES Edited Result - Final TAMIE [address] [facility] [place] [address] * (ABNORMAL) Lipid panel (08/18/2024 1:40 PM NURSES' REGISTRY DIRECTOR) Cholesterol 225(H) 30 - 199 mg/dL Comment: [...] NCEP Expert Panel. Circulation 2004;110:227 3. Sourav Giles al. EVA Cardiol. 2019December 04;5(5):540-548. doi: 10.1001/jamacardio.2020.0013 Current Interpretive Data was [...] collection date/time: 10:07:29. Blood 08/18/2024 1:40 PM NURSES' REGISTRY DIRECTOR 08/19/2024 10:07 AM NURSES' REGISTRY DIRECTOR us Vega Renee MD LAB BLOOD ORDERABLES Edited Result - Final TAMIE ANGEL [id number] [facility] [place] [address] * Comprehensive metabolic panel (08/18/2024 1:40 PM NURSES' REGISTRY DIRECTOR) Sodium 137 135 - 145 mmol/L Comment:Collection [...] BUN 13 6 - 25 mg/dL TAMIE Comment:Collection date/time has been modified [...] collection date/time: 10:07:29. Blood 08/18/2024 1:40 PM NURSES' REGISTRY DIRECTOR 08/19/2024 10:07 AM NURSES' REGISTRY DIRECTOR Vega Renee MD LAB BLOOD ORDERABLES Edited Result - Final TAMIE [id number] [facility] [place] [address] * (ABNORMAL) POCT urinalysis dipstick (08/18/2024 1:32 PM NURSES' REGISTRY DIRECTOR) Color, Urine, POC Yellow Clarity, ur, POC Clear Clear Glucose, ur, POC Negative Negative MG/DL Bilirubin, ur, POC Negative Negative, Small, Moderate, Large Ketones, ur, POC Negative Negative Specific [place], POC 1.020 1.003 - 1.030 Blood, ur, POC Negative Negative pH, ur, POC 7.0 5.0 - 8.0 Protein, ur, POC Trace(A) Negative Urobilinogen, urine, POC 1.0 0.2 - 1.0 mg/dL Nitrite, ur, POC Negative Negative Leukocytes, ur, POC Negative Negative Lot Number 0 Urine 08/18/2024 1:32 PM NURSES' REGISTRY DIRECTOR Sarika Chopra NP POINT OF CARE TEST ORDERABLES Fi nal Result * XR Spine Cervical 2 or 3 Views (06/30/2024 3:24 PM NURSES' REGISTRY DIRECTOR) Anatomical Region Laterality Modality Spine N/A Digital Radiogra phy 07/03/2024 8:32 AM NURSES' REGISTRY DIRECTOR Narrative 07/03/2024 8:33 AM NURSES' REGISTRY DIRECTOR EXAM DESCRIPTION: XR SPINE CERVICAL 2 OR [...] by Antony Jackson M.D. T: Report ID: [id number] Reading Location: [id number] Procedure Note Antony Jackson MD - 07/03/2024 [...] by Antony Jackson M.D. T: Report ID: [id number] Reading Location: [id number] us Vega Renee MD IMG XR PROCEDURES Final Res ult * ECG 12-LEAD (06/30/2024 3:08 PM NURSES' REGISTRY DIRECTOR) Narrative Vega Renee MD - 06/30/2024 3:08 PM NURSES' REGISTRY DIRECTOR Vega Renee MD 06/30/2024 3:19 PM ECG [...] colonoscopy report) Providers: Johnnie Menendez M.D., Vani Barnett, RILEY (Anesthesia Staff), Bhavana Bragg RN,Raymond Flynn, [place] Rafting Guide Referring MD: Vega Renee M.D. Medicines: Monitored [...] by the physician, the nurse and the cnc grinder in the procedure room. Mental Status Examination: [...] pathology results. Procedure Code(s): --- Professional --- 09666, Colonoscopy, flexible; with biopsy, singleor multiple Diagnosis Code(s): --- Professional --- Z12.11, Encounter for screening for malignantneoplasm of colon D12.7, Benign neoplasm of rectosigmoid junction K62.89, Other specified diseases of anus andrectum K57.30, Diverticulosis of large intestine without perforation or abscess without bleeding CPT copyright 202 [employer]. All rights reserved. The codes documented in this report are preliminary and upon clamp remover reviewmay be revised to meet current compliance requirements. Electronically signed by Johnnie Menendez M.D. Johnnie Menendez M.D. 04/26/2023 11:05:22 AM Number of Addenda: 0 Note Initiated On: 04/26/2023 10:34 AM Johnnie Menendez MD ENDOSCOPY PROCEDURES Fi nal Result * HM MAMMOGRAPHY (12/28/2022) us Historical Provider HEALTH MAINTENANCE Final Result * HM PAP SMEAR WITH HPV (12/06/2022) Historical Provider HEALTH MAINTENANCE Final Result from Last 3 Months or Most Recently Relevant to Health Maintenance Insurance [facility] Address: [place] [address] [address] [place] [id number] [facility] Address: [place] [id number] Care Teams Psychiatric Specialist Relationship Specialty Start Date End Date Vega Renee MD [address] [place] [address] PCP - General Family Medicine 03/06/23 Tai Burk MD [address] [place] [address] Referring Physician Psychiatry 03/06/23 Willie Starks DC [address] [place] [address] Referring Physician Chiropractic Medicine 03/06/23
--- OUTSIDE RECORDS SUMMARY | 2024-09-30 07:42 | XMS_ITS ---
Author Organization [facility] [employer] Address [address] [facility] [address] [facility] [address] [place] [address] Care Team Providers Care Filter Operator Name Role Phone Anselmo Wells Unavailable [phone] Social History Sex Assigned At : Social History Observation Description Sex Assigned At Female Encounters Encounter Location Date Provider Diagnosis [facility] [place] [address] [facility] [address] [facility] [address] [place] [address] 07/31/2024 Anselmo Wells Plan Of Treatment Next Appt Details Provider Name:Ameena gurrola, 04/01/2025 04:30:00 PM, [address], [facility] [address], [place], [address], Progress Notes * MILDRED ALFARODOB: [birth year] (49 yo F)Acc No.[id number]:07/31/2024 Patient: MILDRED ROWELL Provider: Jose Roberto WELLS MD :1975 A ge:48 Y S ex:Female Date:07/31/2024 Address:[address] [place], [place] Subjective: * Chief Complaints: * * Medical History: Objective: * Vitals: Assessment: Plan: * Treatment: * Billing Information: * Visit Code: * Procedure Codes: * Electronic signature of Beverley Wells MD on 09/30/2024 at 07:41 AM FINANCIAL RISK MANAGER Sign off status: Pending * Provider: Jose Roberto WELLS MD Date: 1 10/01/2023 Generated for Nael torrez/Angel/Luz on: 0 09/30/2024 07:41 AM FINANCIAL RISK MANAGER
--- OUTSIDE RECORDS SUMMARY | 2024-09-30 07:42 | XMS_ITS | Clinical Summary ---
Author Organization [facility] [address] [place] Address [address] [place] [phone] Care Team Providers Care First Aid Officer Name Role Phone Tai Burk MD Unavailable [phone] Willie Starks DC Unavailable [phone] Vega Renee MD Primary Care Provider [phone] Allergies Active Allergy Reactions Criticality Noted Date [...] 08/18/2024 Assessment & Plan (08/18/2024 1:47 PM PROFESSOR OF EXERCISE SCIENCE): 7mm right kidney. Follow up with Dr. Pink as scheduled. Pyelonephritis 08/18/2024 Assessment & Plan (08/18/2024 1:47 PM PROFESSOR OF EXERCISE SCIENCE): Symptoms resolved. She has one day of [...] Department Care Team Description 09/25/2024 1:45 PM PROFESSOR OF EXERCISE SCIENCE [facility]medicine [facility] [address] [phone] Syed Portillo II, MD Paroxysmal hemicrania (Primary Dx) 09/24/2024 Orders Only [facility] Primary Care at [address] [phone] Mejia Chavez MD 09/05/2024 Orders Only [facility] Primary Care at [address] [phone] Mejia Chavez MD 08/18/2024 1:45 PM PROFESSOR OF EXERCISE SCIENCE Lab [facility] Outpatient Lab at [address] [phone] Encounter for medical examination to establish care (Primary Dx) 08/18/2024 1:35 PM PROFESSOR OF EXERCISE SCIENCE - 08/18/2024 11:59 PM PROFESSOR OF EXERCISE SCIENCE Hospital Encounter [address] [address] Dyslipidemia Discharge Disposition: Discharge to home or self care 08/18/2024 1:00 PM PROFESSOR OF EXERCISE SCIENCE Office Visit [facility] Primary Care at [address] [phone] Sarika Chopra, FIELD COLLECTOR Pyelonephritis (Primary Dx); Hx of bladder infections; Right nephrolithiasis; Hospital discharge follow-up 08/12/2024 Orders Only [facility] Primary Care at [address] [phone] Sarika Chopra, TRINH 08/12/2024 Telephone [facility] Primary Care at [address] [phone] Vega Renee MD ISADORA Questions 07/04/2024 Orders Only [facility] Primary Care at [address] [phone] Vega Renee MD Chronic neck pain with osteoarthritis determined by x-ray (Primary Dx) 06/30/2024 3:20 PM PROFESSOR OF EXERCISE SCIENCE Ancillary Procedure [facility] Imaging at [address] [phone] Chest pain, unspecified type; Radicular pain in left arm 06/30/2024 2:45 PM PROFESSOR OF EXERCISE SCIENCE Office Visit [facility] Primary Care at [address] [phone] Vega Renee MD Chest pain, unspecified type (Primary Dx); Radicular pain in left arm from Last 3 Months Immunizations Immunization Administration [...] on file Legal Sex Female 6:23 AM PROFESSOR OF EXERCISE SCIENCE Gender Identity Not on file Sexual Orientation Not on file 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 Not on file Not on file N ot on file Obstetrics History Last Filed Vital Signs Vital Sign Reading Time Taken Comments Blood Pressure 132/84 08/18/2024 1:03 PM PROFESSOR OF EXERCISE SCIENCE Pulse 118 08/18/2024 1:03 PM PROFESSOR [employer] EXERCISE SCIENCE Temperature 36.7 C (98 F) 08/18/2024 1:03 PM PROFESSOR OF EXERCISE SCIENCE Respiratory Rate 18 08/18/2024 1:03 PM PROFESSOR OF EXERCISE SCIENCE Oxygen Saturation 97% 08/18/2024 1:03 PM PROFESSOR [employer] EXERCISE SCIENCE Inhaled Oxygen Concentration - - Weight 80 kg (176 lb 6.4 oz) 08/18/2024 1:03 PM PROFESSOR OF EXERCISE SCIENCE Height 152.4 cm (5') 08/18/2024 1:03 PM PROFESSOR OF EXERCISE SCIENCE Body Mass Index 34.45 08/18/2024 1:03 PM PROFESSOR OF EXERCISE SCIENCE Plan of Treatment Health Maintenance Due Date Last Done Comments Hepatitis C Screening 1977 Hepatitis B Screening 1995 DTaP/Tdap/Td Vaccine (2 - Td or Tdap) 09/07/2023 09/07/2013 Regular Well Visit/Exam 18-64 03/06/2024 03/06/2023 Covid-19 Vaccine ( - season) 2024 07/31/2021, 10/23/2020, 09/25/2020 Influenza Vaccine [...] Read Routine (OP Routine) 09/23/2024 9:15 AM PROFESSOR OF EXERCISE SCIENCE XR ABDOMEN AP 1 VIEW Schedule Routine, Read Routine (OP Routine) 09/05/2024 11:27 AM PROFESSOR OF EXERCISE SCIENCE EGFR Routine 08/18/2024 1:40 PM PROFESSOR OF EXERCISE SCIENCE Dyslipidemia DIFFERENTIAL AUTO Routine 08/18/2024 1:4 0 PM PROFESSOR OF EXERCISE SCIENCE Dyslipidemia CBC WITH AUTO DIFFERENTIAL Routine 08/18/2024 1:40 PM PROFESSOR OF EXERCISE SCIENCE Dyslipidemia COMPREHENSIVE METABOLIC PANEL Routine 08/18/2024 1:40 PM PROFESSOR OF EXERCISE SCIENCE Dyslipidemia LIPID PANEL Routine 08/18/2024 1:40 PM PROFESSOR OF EXERCISE SCIENCE Dyslipidemia POCT URINALYSIS DIPSTICK Routine 08/18/2024 1:32 PM PROFESSOR OF EXERCISE SCIENCE Hx of bladder infections XR SPINE CERVICAL 2 OR 3 VIEWS Schedule Routine, Read Routine (OP Routine) 06/30/2024 3:24 PM PROFESSOR OF EXERCISE SCIENCE Chest pain, unspecified type Radicular pain in left arm ECG 12-LEAD Routine 06/30/2024 3:08 PM PROFESSOR OF EXERCISE SCIENCE Chest pain, unspecified type COLONOSCOPY 04/26/2023 10:34 AM CDT HM MAMMOGRAPHY Routine 12/28/2022 HM PAP SMEAR WITH HPV Routine 12/06/2022 from Last 3 Months or Most Recently Relevant to Health Maintenance Results * XR Knee Left 3 Views (09/23/2024 9:15 AM PROFESSOR OF EXERCISE SCIENCE) Anatomical Region Laterality Modality Lower Extremities, Knee Left Radiogra phic Imaging us Historical Provider IMG XR PROCEDURES Final R esult * XR Abdomen 1 View AP (09/05/2024 11:27 AM PROFESSOR OF EXERCISE SCIENCE) Anatomical Region Laterality Modality Body, Abdomen N/A Radiographic Rabia ging us Historical Provider IMG XR PROCEDURES Final R esult * eGFR (08/18/2024 1:40 PM PROFESSOR OF EXERCISE SCIENCE) eGFR 84 >=60 mL/min/1. 73 m2 Comment: [...] last reviewed 2021. Blood 08/18/2024 1:40 PM PROFESSOR OF EXERCISE SCIENCE 08/19/2024 10:27 AM PROFESSOR OF EXERCISE SCIENCE Vega Renee MD LAB BLOOD ORDERABLES Edited Result - Final TAMIE [id number] Department [place] [address] * (ABNORMAL) Differential, auto (08/18/2024 1:40 PM PROFESSOR OF EXERCISE SCIENCE) Neutrophil abs 5.5 1.5 - 6.5 K/cumm [...] Eosinophil abs 1.0(H) 0.0 - 0.5 K/cumm TAMIE Comment:Collection date/time has been modified to: 13:40:00. Previous collection date/time: 10:07:29. Basophil abs 0.1 0.0 - 0.1 K/cumm TAMIE Comment:Collection date/time [...] 2017. Imm gran pct 0.3 % CERNER CH Comment: Collection date/time has been modified to: 13:40:00. Previous collection date/time: 10:07:29. Interpretive Data Percent cell count reference ranges are not reported, since discordance with absolute values may lead to misinterpretation of CBC data. Current Interpretive Data was last revised on 2017. Lymphocyte pct 37.1 % CERNER CH Comment: Collection date/time has been modified to: 13:40:00. Previous collection date/time: 10:07:29. Interpretive Data Percent cell count reference ranges are not reported, since discordance with absolute values may lead to misinterpretation of CBC data. Current Interpretive Data was last revised on 2017. Monocyte pct 6.1 % CERNER Comment: Collection date/time has been modified to: 13:40:00. Previous collection date/time: 10:07:29. Interpretive Data Percent cell count reference ranges are not reported, since discordance with absolute values may lead to misinterpretation of CBC data. Current Interpretive Data was last revised on 2017. Eosinophil pct 8.3 % CERNER CH Comment: Collection date/time has been modified to: 13:40:00. Previous collection date/time: 10:07:29. Interpretive Data Percent cell count reference ranges are not reported, since discordance with absolute values may lead to misinterpretation of CBC data. Current Interpretive Data was last revised on 2017. Basophil pct 0.9 % CERNER CH Comment: Collection date/time has been modified to: 13:40:00. Previous collection date/time: 10:07:29. Interpretive Data Percent cell count reference ranges are not reported, since discordance with absolute values may lead to misinterpretation of CBC data. Current Interpretive Data was last revised on 2017. Blood 08/18/2024 1:40 PM PROFESSOR OF EXERCISE SCIENCE 08/19/2024 10:07 AM PROFESSOR OF EXERCISE SCIENCE Vega Renee MD LAB BLOOD ORDERABLES Edited Result - Final TAMIE [id number] Department [place] [address] * (ABNORMAL) CBC with auto differential (08/18/2024 1:40 PM PROFESSOR OF EXERCISE SCIENCE) WBC 11.6(H) 3.8 - 9.9 K/cumm Comment:Collection date/time has been modified to: 13:40:00. Previous collection date/time: 10:07:29. Hgb 13.9 11.9 - 15.5 g/dL TAMIE Comment:Collection date/time has been modified to: 13:40:00. Previous collection date/time: 10:07:29. Hct 44.8 35.6 - 45.5 % TAMIE Comment:Collection date/time has been modified to: 13:40:00. Previous collection date/time: 10:07:29. Plt 365 150 - 400 K/cumm TAMIE Comment:Collection date/time has been modified to: 13:40:00. Previous collection date/time: 10:07:29. MPV 11.0 9.1 - 12.3 fL TAMIE Comment:Collection date/time has been modified to: 13:40:00. Previous collection date/time: 10:07:29. RBC 4.65 3.90 - 5.20 M/cumm TAMIE Comment:Collection date/time has been modified to: [...] collection date/time: 10:07:29. Blood 08/18/2024 1:40 PM PROFESSOR OF EXERCISE SCIENCE 08/19/2024 10:07 AM PROFESSOR OF EXERCISE SCIENCE us Vega Renee MD LAB BLOOD ORDERABLES Edited Result - Final TAMIE [id number] Department of [place] [address] * (ABNORMAL) Lipid panel (08/18/2024 1:40 PM PROFESSOR OF EXERCISE SCIENCE) Cholesterol 225(H) 30 - 199 mg/dL Comment: [...] collection date/time: 10:07:29. Blood 08/18/2024 1:40 PM PROFESSOR OF EXERCISE SCIENCE 08/19/2024 10:07 AM PROFESSOR OF EXERCISE SCIENCE us Vega Renee MD LAB BLOOD ORDERABLES Edited Result - Final TAMIE [address] Department [place] [address] * Comprehensive metabolic panel (08/18/2024 1:40 PM PROFESSOR OF EXERCISE SCIENCE) Sodium 137 135 - 145 mmol/L Comment:Collection [...] 10:07:29. Creatinine 0.86 0.60 - 1.10 mg/dL TAMIE Comment:Collection date/time has been modified [...] collection date/time: 10:07:29. Blood 08/18/2024 1:40 PM PROFESSOR OF EXERCISE SCIENCE 08/19/2024 10:07 AM PROFESSOR OF EXERCISE SCIENCE Vega Renee MD LAB BLOOD ORDERABLES Edited Result - Final TAMIE [address] Department [place] [address] * (ABNORMAL) POCT urinalysis dipstick (08/18/2024 1:32 PM PROFESSOR OF EXERCISE SCIENCE) Color, Urine, POC Yellow Clarity, ur, POC Clear Clear Glucose, ur, POC Negative Negative MG/DL Bilirubin, ur, POC Negative Negative, Small, Moderate, Large Ketones, ur, POC Negative Negative Specific [place], POC 1.020 1.003 - 1.030 Blood, ur, POC Negative Negative pH, ur, POC 7.0 5.0 - 8.0 Protein, ur, POC Trace(A) Negative Urobilinogen, urine, POC 1.0 0.2 - 1.0 mg/dL Nitrite, ur, POC Negative Negative Leukocytes, ur, POC Negative Negative Lot Number 0 Urine 08/18/2024 1:32 PM PROFESSOR OF EXERCISE SCIENCE Sarika Chopra NP POINT OF CARE TEST ORDERABLES Fi nal Result * XR Spine Cervical 2 or 3 Views (06/30/2024 3:24 PM PROFESSOR OF EXERCISE SCIENCE) Anatomical Region Laterality Modality Spine N/A Digital Radiogra phy 07/03/2024 8:32 AM PROFESSOR OF EXERCISE SCIENCE Narrative 07/03/2024 8:33 AM PROFESSOR OF EXERCISE SCIENCE EXAM DESCRIPTION: XR SPINE CERVICAL 2 OR [...] by Antony Jackson M.D. T: Report ID: [id number] Reading Location: [place] [address] Procedure Note Antony Jackson MD - 07/03/2024 [...] by Antony Jackson M.D. T: Report ID: [id number] Reading Location: [place] [address] us Vega Renee MD IMG XR PROCEDURES Final Res ult * ECG 12-LEAD (06/30/2024 3:08 PM PROFESSOR OF EXERCISE SCIENCE) Narrative Vega Renee MD - 06/30/2024 3:08 PM PROFESSOR OF EXERCISE SCIENCE Vega Renee MD 06/30/2024 3:19 PM ECG [...] Menendez MD - 04/26/2023 10:34 AM CDT [facility] Patient Name: Harriet Meade [...] CRNA (Anesthesia Staff), Bhavana Bragg RN,Raymond Flynn, Senior Software Manager Referring MD: Vega Renee M.D. Medicines: Monitored [...] by the physician, the nurse and the leather goods assembler in the procedure room. Mental Status Examination: [...] pathology results. Procedure Code(s): --- Professional --- 71505, Colonoscopy, flexible; with biopsy, singleor multiple Diagnosis Code(s): --- Professional --- Z12.11, Encounter for screening for malignantneoplasm of colon D12.7, Benign neoplasm of rectosigmoid junction K62.89, Other specified diseases of anus andrectum K57.30, Diverticulosis of large intestine without perforation or abscess without bleeding CPT copyright 2020 [employer]. All rights reserved. The codes documented in this report are preliminary and upon body design checker reviewmay be revised to meet current compliance requirements. Electronically signed by Johnnie Menendez M.D. Johnnie Menendez M.D. 04/26/2023 11:05:22 AM Number of Addenda: 0 Note Initiated On: 04/26/2023 10:34 AM Johnnie Menendez MD ENDOSCOPY PROCEDURES Fi nal Result * HM MAMMOGRAPHY (12/28/2022) Historical Provider HEALTH MAINTENANCE Final Result * HM PAP SMEAR WITH HPV (12/06/2022) us Historical Kathy BOLAÑOS HEALTH MAINTENANCE Final Result from Last 3 Months or Most Recently Relevant to Health Maintenance Insurance [facility] HMO/PPO Address: [address] [facility] CHOICE [facility] HMO/PPO Address: [place] [phone] Care Teams First Aid Officer Relationship Specialty Start Date End Date Vega Renee MD [address] [place] [address] [address] [place], [place] [id number] PCP - General Family Medicine 03/06/23 Tai Burk MD [address] [place] [address] Referring Physician Psychiatry 03/06/23 Willie Starks DC [address] [place], [place] [id number] Referring Physician Chiropractic Medicine 03/06/23
== END 2024-09-30 07:38 | disposition home or self-care (01) ==
PROVIDERS: PCP Family Medicine; Visit Provider Urology
DX: N20.0 Calculus of kidney (principal)
CPT/HCPCS: 74018

== ENCOUNTER 2025-07-27 13:24 | Outpatient (CLI) | payer OTHER, SELFPAY ==
--- NOTE | ~2025-07-27 | MM_ITS ---
EXAMINATION: MM screening ollie BI w malia HISTORY: Screening. TECHNIQUE: Craniocaudal and mediolateral oblique 3-D tomosynthesis images were obtained and synthetic 2-D images were generated. CAD analysis was submitted and interpreted. COMPARISON: 2023 and 2022 BREAST PARENCHYMAL COMPOSITION: Dense: The breasts are heterogeneously dense FINDINGS: There is a biopsy marker on the left. No suspicious masses are seen. There are no suspicious calcifications. No unexplained architectural distortion is seen. There are no skin or nipple abnormalities identified. There is no adenopathy seen on the images submitted. IMPRESSION: No mammographic evidence to suggest malignancy is seen. The patient may return to screening mammography as per ACR guidelines. BI-RADS 1 - Negative. Reviewed, dictated and finalized at location A. [facility]
== END 2025-07-27 13:25 | disposition home or self-care (01) ==
LOC: MICIMG 13:25
PROVIDERS: PCP Obstetrics & Gynecology; Visit Provider Obstetrics & Gynecology
DX: Z12.31 Encounter for screening mammogram for malignant neoplasm of breast (principal)
CPT/HCPCS: 77063; 77067